=== PATIENT | male | born 1945 | race Caucasian/White ===

== ENCOUNTER 2023-12-08 18:19 | Emergency (ER) | payer MEDICARE, SELFPAY ==
--- NOTE | 2023-12-08 18:21 | ED.EPISTAXIS ---
History of Present Illness General Chief Complaint: Epistaxis Stated Complaint: Nosebleed x 1hr Time Seen by Provider: 12/08/23 19:22 History of Present Illness HPI Narrative: The patient is a 78-year-old male who was on anticoagulation because of atrial fibrillation. Over the last few days he has had some minor bleeding from his nose, mostly from the right nostril. He stopped taking his anticoagulation medication a couple of days ago because of this problem. Despite stopping the anticoagulation today he had a much more significant nosebleed, again mostly from the right nostril. He therefore came to the hospital. He had a friend drive him. The patient says he had a fairly severe nosebleed a few years ago. At that time he came to the emergency room and received a packing. He subsequently followed up with an ENT office and had cauterization done. Related Data Allergies Allergy/AdvReac Type Severity Reaction Status Date / Time Penicillins [PENICILLINS] Allergy Intermediate HIVES Verified 12/08/23 18:29 shellfish derived Allergy Intermediate HIVES Verified 12/08/23 18:29 [SHELLFISH DERIVED] Review of Systems Review of Systems: Yes all other systems are reviewed and are negative [facility] Social History Social History Advance Directives: No Advance Directives Information Provided: No Do you have a plan to hurt others: No Plan Physical Exam Vital Signs: Vital Signs: Last Vital Signs Temp 97.4 F 12/08/23 22:05 Pulse 88 12/08/23 22:05 Resp 16 12/08/23 22:05 BP 100/48 L 12/08/23 22:05 Pulse Ox 94 12/08/23 22:05 O2 Del Method Room Air 12/08/23 22:05 BMI result Body Mass Index 22.3 Const: Other: The patient is an elderly man who was awake and alert. He was not actively bleeding at the time that I saw him and he did not appear in acute distress HEENT: Other: There was a large blood clot in the right nostril. After he blew his nose this though there was an area of bleeding at the lower portion of the right septum. His airway was clear Eyes: Other: Pupils are round equal, conjunctivae are clear Resp: Effort & Inspection: normal respiratory effort Auscultation: clear to auscultation bilaterally Cardio: Other: Irregular rate and rhythm Skin: Other: Skin is pale and dry Neuro: Other: The patient is awake, alert, oriented, appropriate. He seems grossly neurologically intact Course Course Course Narrative: This is a Rapid Medical Examination (RME) performed by Kunal Young PA-C in triage. Full HPI, ROS, assessment and treatment plan per primary provider in the Main ED. 78 yo male here for eval of intermittent epistaxis x3 days, constant x1 hour. on xarelto for afib. self discontinued this 3 days ago d/t nose bleed. Bleeding from both nares, right greater than left. Unable to control bleeding in triage or visualize source. Plan: Labs, hemostasis Medications Administered Discontinued Medications Generic Name Dose Route Start Last Admin Trade Name Freq PRN Reason Stop Dose Admin Cocaine HCl 4 ml 12/08/23 19:29 12/08/23 19:38 Cocaine Hcl 4 % 4 Ml Solution TOPICAL 12/08/23 19:30 4 ml ONCE ONE Administration Protocol Lidocaine/Epinephrine 10 ml 12/08/23 22:07 12/08/23 22:43 Lidocaine Hcl 1%/Epi 1:100,000 10 Ml Vial INFILTRATI 12/08/23 22:08 10 ml ONCE ONE Administration Oxymetazoline HCl 2 spray 12/08/23 19:29 12/08/23 19:38 Oxymetazoline Hcl 0.05 % Nasal 15 Ml [place] NOSTRIL-B 12/08/23 19:30 2 spray ONCE ONE Administration Tranexamic Acid 500 mg 12/08/23 22:37 12/08/23 22:42 Tranexamic Acid 1,000 Mg/10 Ml Vial INTRANASAL 12/08/23 22:38 500 mg ONCE ONE Administration Medical Decision Making Medical Decision Making MDM Narrative: The patient is here with a spontaneous right-sided nosebleed. He is normally on rivaroxaban because of atrial fibrillation but he has not taken this medication for 4 days because of his bleeding. There was an apparent area of bleeding at the base of the right nasal septum. The patient blow his nose to get out all the clots. I then administered multiple sprays of oxymetazoline to both nostrils. A nasal clamp was applied for 10 minutes. I re-examined the patient and then inserted a cotton ball soaked in 4% cocaine in the right nostril. After this had been in place for about 10 minutes I then used silver nitrate sticks to cauterize what seemed to be the source of bleeding which was fairly low down on the septum. I was able to cauterize what seemed to be the major site of bleeding. There was no significant recurrence of bleeding but I felt there was some pooling of blood further back in the nostril that was hard to visualize well. Ultimately I inserted another cotton ball soaked with lidocaine with epinephrine (I had used all the cocaine). After this I attempted to cauterize a possible bleeding site a little bit further back in the nostril. The patient was again observed. Again he did not seem to have significant ongoing bleeding but there was a vague sense of a pool of blood back in the nostril. I then administered 10 mL of atomized TXA. The patient was observed. There was no ongoing bleeding. Ultimately I felt that the patient could be discharged without a packing. He should call the ENT office tomorrow. He should stay off his anticoagulant medication until he has had 3 days without significant bleeding. I reviewed what he should do at home if he has recurrent bleeding. He was given the bottle of the residual oxymetazoline which he may use if he has recurrent bleeding at home. He was also given additional nasal clamps. Lab Data 12/08/23 18:51 12/08/23 18:52 Labs: Lab Results 12/08/23 12/08/23 Range/Units 18:51 18:52 WBC 6.9 (4.8-10.8) X10*3/uL RBC 4.00 L (4.60-5.80) X10*6/uL Hgb 12.3 L (14.0-18.0) g/dl Hct 36.5 L (42.0-52.0) % MCV 91.3 (80.0-98.0) fL MCH 30.8 (27.0-33.0) pg MCHC 33.7 (31.0-36.0) g/dl RDW 14.1 (11.0-16.0) % Plt Count 129 L (160-400) X10*3/uL MPV 10.0 (9.4-12.4) fL Immature Gran % (Auto) 0.3 (0.0-0.4) % Neut % (Auto) 69.8 (45-73) % Lymph % (Auto) 21.9 (20-40) % [place] % (Auto) 6.5 (2-11) % Eos % (Auto) 1.2 (0-4) % Baso % (Auto) 0.3 (0-2) % Lymph # (Auto) 1.5 (1.2-4.9) X10*3/uL [place] # (Auto) 0.5 (0.1-1.2) X10*3/uL Eos # (Auto) 0.1 (0.0-0.4) X10*3/uL Baso # (Auto) 0.0 (0.0-0.2) X10*3/uL Abs Immat Gran (auto) 0.02 (0.00-0.03) X10*3/uL Absolute Neuts (auto) 4.8 (2.0-8.3) x10*3/uL Absolute Nucleated RBC 0.000 (0.0-0.012) X10*3/uL Nucleated RBC % (auto) 0.0 (0.0-0.2) /100WBC PT 14.3 H (11.1-13.3) SEC INR 1.2 H (0.9-1.1) APTT 32.4 (26.0-36.8) SEC Sodium 136 (135-145) mmol/L Potassium 4.5 (3.3-5.1) mmol/L Chloride 105 (96-108) mmol/L Carbon Dioxide 20 L (22-29) mmol/L Anion Gap 16 (12-20) BUN 20 H (9-16) mg/dL Creatinine 0.73 (0.5-1.4) mg/dL Estim Creat Clear Calc 79.8 Estimated GFR > 60 Random Glucose 99 (60-115) mg/dL Calcium 9.7 (8.4-10.2) mg/dL Total Bilirubin 0.9 (0.0-1.0) mg/dL AST 40 H (5-37) U/L ALT 40 (0-40) U/L Alkaline Phosphatase 157 H (39-117) U/L Total Protein 6.6 (6.5-8.0) g/dL Albumin 4.1 (3.5-5.0) g/dL Procedures Epistaxis Control Time Out Performed: Yes Nostril: Yes right Nose prepped with: Yes cocaine 4%, Yes lidocaine and Yes oxymetazoline Direct inspection: Yes anterior source identified Direct inspection method: Yes nasal speculum Clots removed by: Yes blowing nose Epistaxis treatment: Yes silver nitrate cautery Results of treatment: Yes bleeding controlled and Yes treatment well tolerated Discharge Plan Discharge Clinical Impression: Right-sided epistaxis Patient Disposition: Home, Self-Care Instructions: Nosebleed (ED) Additional Instructions: You had bleeding from your right nostril. I have cauterized all the most obvious sites of bleeding. My hope is that you do not have any recurrence of your bleeding. Please avoid hot beverages for the next several days. Additionally I would not restart your anticoagulation medication until you have had 3 days without significant bleeding. If you have recurrence of significant bleeding at home I would recommend blowing your nose to get out the clots, giving yourself several sprays of the oxymetazoline nasal spray we have given you, and then applying the nasal clamp to your nose again. Keep the clamp on for 20 minutes. If after 20 minutes you are no longer bleeding you do not need to come to the emergency room. Please contact the ENT office tomorrow morning for a follow up appointment. Emergency room if significantly worse. Referrals: David Bran MD [Physician] - (epistaxis) Mare Wells MD [Primary Care Provider] - (nosebleed) Print Language: Nigerian
[2023-12-08 18:23] VITALS: BP 150/91; PULSE 112; RESP 18; TEMP 36.8; O2SAT 95; BMI 22.3
[2023-12-08 18:55] LABS: MANUAL DIFF FLAG NO
[2023-12-08 18:56] LABS: Basophils Percent Auto 0.3 % (0-2); Imm Gran Abs Auto 0.02 X10*3/uL (0.00-0.03); Imm Gran Pct Auto 0.3 % (0.0-0.4); Mean Corpuscular Volume 91.3 fL (80.0-98.0); PLT CLUMP 1; SCAN SMEAR FLAG 1
[2023-12-08 18:58] LABS: Eosinophils Absolute Auto 0.1 X10*3/uL (0.0-0.4); Eosinophils Percent Auto 1.2 % (0-4); Hematocrit 36.5 % (42.0-52.0); Hemoglobin 12.3 g/dl (14.0-18.0); Lymphocytes Absolute Auto 1.5 X10*3/uL (1.2-4.9); Lymphocytes Percent Auto 21.9 % (20-40); Mean Corpuscular HGB Conc 33.7 g/dl (31.0-36.0); Mean Corpuscular Hemoglobin 30.8 pg (27.0-33.0); Monocytes Absolute Auto 0.5 X10*3/uL (0.1-1.2); Monocytes Percent Auto 6.5 % (2-11); Neutrophils Absolute Auto 4.8 x10*3/uL (2.0-8.3); Neutrophils Percent Auto 69.8 % (45-73); Red Cell Distribution Width 14.1 % (11.0-16.0)
[2023-12-08 19:02] LABS: INTERNATIONAL NORM RATIO 1.2 (0.9-1.1); Prothrombin Time 14.3 SEC (11.1-13.3)
[2023-12-08 19:03] LABS: Platelet Count 129 X10*3/uL (160-400); White Blood Count 6.9 X10*3/uL (4.8-10.8)
[2023-12-08 19:04] LABS: Partial Thromboplastin Time 32.4 SEC (26.0-36.8)
[2023-12-08 19:10] LABS: Alanine Aminotransferase 40 U/L (0-40); Albumin Level 4.1 g/dL (3.5-5.0); Alkaline Phosphatase 157 U/L (39-117); Anion Gap 16 (12-20); Aspartate Amino Transferase 40 U/L (5-37); Bilirubin Total 0.9 mg/dL (0.0-1.0); Blood Urea Nitrogen 20 mg/dL (9-16); Calcium 9.7 mg/dL (8.4-10.2); Carbon Dioxide 20 mmol/L (22-29); Chloride 105 mmol/L (96-108); Creatinine Clr Calc Pharmacy 79.8; Estimated Glomerular Filt Rate > 60; Glucose Random 99 mg/dL (60-115); Potassium 4.5 mmol/L (3.3-5.1); Sodium 136 mmol/L (135-145); Total Protein 6.6 g/dL (6.5-8.0)
[2023-12-08] MEDS: Cocaine HCl 4 % 4 ML SOLUTION TOPICAL (19:38)
[2023-12-08] MEDS: Oxymetazoline HCl 0.05 % Nasal 15 ML SPRAY 2 SPRAY NOSTRIL-B (19:38)
[2023-12-08 22:05] VITALS: BP 100/48; PULSE 88; RESP 16; TEMP 36.3; O2SAT 94
[2023-12-08] MEDS: Tranexamic Acid 1,000 MG/10 ML VIAL 500 MG INTRANASAL (22:42)
[2023-12-08] MEDS: Lidocaine HCl 1%/Epi 1:100,000 10 ML VIAL INFILTRATI (22:43)
--- NOTE | 2023-12-08 22:43 | PC.NURSE ---
tranexamic acid and xylocaine given by provider.
[2023-12-08 23:07] VITALS: BP 100/48; PULSE 88; RESP 18; TEMP 36.2; O2SAT 94
== END 2023-12-08 23:08 | disposition home or self-care (01) ==
PROVIDERS: Physician Assistant Medical; Emergency Provider Emergency Medicine; PCP Internal Medicine
DX: R04.0 Epistaxis (principal); I48.91 Unspecified atrial fibrillation; Z79.01 Long term (current) use of anticoagulants
CPT/HCPCS: 30901; 36415; 80053; 85025; 85610; 85730; 99284; C9143

== ENCOUNTER 2023-12-11 18:16 | Inpatient (IN) | payer MEDICARE, SELFPAY ==
--- NOTE | ~2023-12-11 | FL_ITS ---
EXAMINATION: XR FLUOROSCOPY WITH IMAGES CLINICAL INFORMATION: ORIF right femoral fracture COMPARISON: None available. TECHNIQUE: Fluoroscopy Supervised By: Dr Russell Verma. Fluoroscopy Time: 1.3 minutes. Cumulative Dose: 14.2 mGy. DAP: 0.247 Gycm2. Images: 6. Impression/findings: Placement of intramedullary justine transfixing distal femoral fracture. Proximal and distal locking screws in place. There is also an orthopedic screw transfixing the fracture at the metadiaphysis extending AP
--- NOTE | ~2023-12-11 | XR_ITS ---
EXAMINATION: XR PELVIS CLINICAL INFORMATION: Status post fall. COMPARISON: None available. TECHNIQUE: AP view of the pelvis. FINDINGS: Bones are osteopenic. Mild osteoarthritis in both hips with marginal osteophytes. There is ossific bridging across the pubic symphysis. SI joints are unremarkable. Degenerative spondylosis is present in the lower lumbar spine. Vascular calcifications are present in the iliac and femoral arteries. Metallic structures overlying the pubic symphysis likely correspond to fiducial markers. XR/XR pelvis 1-2V IMPRESSION: 1. No acute fracture or malalignment in the pelvis. 2. Mild osteoarthritis in the hips.
--- NOTE | ~2023-12-11 | CT_ITS ---
EXAMINATION: CT FEMUR WITHOUT CONTRAST, RIGHT CLINICAL INFORMATION: Femoral fracture. Preoperative. COMPARISON: None available. TECHNIQUE: Multidetector volumetric imaging was obtained through the right femur without contrast. Multiplanar reformatted images in coronal and sagittal orientations were submitted. This CT examination was performed using dose optimization techniques as appropriate, variously including the following: *Automated exposure control *Adjustment of mA and/or kV According to patient size (this includes techniques or standardized protocols for targeted exams where dose is matched to indication/reason for exam; i.e. extremities or head) *Use of iterative reconstruction technique DLP: 338 mGy-cm FINDINGS: As in the prior radiograph, there is a displaced oblique/spiral fracture of the distal femoral metadiaphysis with foreshortening at the fracture site by 4.5 cm due to posterior medial and proximal displacement of the distal fracture fragment. Additionally, there is an internal rotation component to the distal femoral fracture fragment measuring approximately 20 degrees. There is an oblique sagittal split component of the fracture from the medial cortex through the central trochlea and intercondylar notch. There is diastases of the intercondylar fracture line to 5 mm at the articular surface of the lateral trochlear facet inferiorly adjacent to the trochlear groove. This fracture line also involves the weightbearing surface of the lateral femoral condyle with a similar degree of displacement. There is a large lipohemarthrosis at the right knee. The patella, tibial plateau, and proximal fibula are intact. Right knee joint spaces appear relatively well-preserved. There is significant soft tissue swelling around the distal femoral fracture within the quadriceps musculature. Mild anasarca. Imaged portion of the osseous pelvis is intact with mild osteoarthritis of both hips. Calcific atherosclerosis is present throughout the imaged iliac, femoral, and popliteal arteries. CT/CT femur RT wo IV con IMPRESSION: 1. Displaced oblique/spiral distal femoral metadiaphyseal fracture with a minimally displaced sagittal intercondylar split component through the trochlea and intercondylar notch. 2. Large lipohemarthrosis. 3. Marked peripheral vascular disease.
--- NOTE | ~2023-12-11 | XR_ITS ---
EXAMINATION: XR KNEE, RIGHT CLINICAL INFORMATION: Knee pain. COMPARISON: None available. TECHNIQUE: AP and lateral views of the right knee. FINDINGS: Bones are osteopenic. There is a spiral fracture of the distal femoral metadiaphysis with posteromedial displacement of the distal fragment by one third of the shaft width. Joint spaces appear normal. No joint effusion. Atherosclerotic calcifications are present at the popliteal fossa and runoff vessels. XR/XR knee RT 2V IMPRESSION: Displaced spiral fracture of the distal femoral metadiaphysis.
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
--- NOTE | ~2023-12-11 | XR_ITS ---
EXAMINATION: XR CHEST CLINICAL INFORMATION: Bilateral crackles. History of CHF. COMPARISON: Previous chest x-ray 12/12/2023 TECHNIQUE: Frontal view of the chest was obtained. FINDINGS: Post CABG changes. The cardiac and mediastinal contours are stable. Severe atherosclerotic disease. The lungs are clear. No pleural effusion. Biapical pleural calcification. Degenerative changes of the spine. Median sternotomy wires. XR/XR chest 1V IMPRESSION: No evidence of CHF.
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
--- NOTE | ~2023-12-11 | XR_ITS ---
EXAMINATION: XR CHEST CLINICAL INFORMATION: Preop. COMPARISON: None available. TECHNIQUE: Frontal view of the chest was obtained. FINDINGS: The cardiomediastinal silhouette is within normal limits. There has been a previous median sternotomy. There is no focal lung consolidation or pleural effusion. There is arteriovascular calcification. The bony structures and soft tissues are unremarkable. XR/XR chest 1V IMPRESSION: No acute cardiopulmonary disease.
[2023-12-11 18:41] VITALS: BP 132/57; PULSE 74; RESP 20; TEMP 36.3; O2SAT 96; BMI 21.4
--- NOTE | 2023-12-11 19:51 | ED_ITS ---
HPI - Fall General Chief Complaint: Fall Stated Complaint: FELL DOWN FLIGHT OF STAIRS, +THINNERS Time Seen by Provider: 12/11/23 19:51 Source: patient Mode of arrival: EMS Limitations: no limitations History of Present Illness HPI Narrative: Patient is legally blind was coming downstairs lost balance and fell flights of stairs mostly on his buttocks injured his right femur comes here with obvious deformity of the right femur no other injuries no loss of consciousness no head injury patient is is on Xarelto but has not taken for 3 days for nosebleed Related Data Allergies Allergy/AdvReac Type Severity Reaction Status Date / Time Penicillins [PENICILLINS] Allergy Intermediate HIVES Verified 12/11/23 18:42 shellfish derived Allergy Intermediate HIVES Verified 12/11/23 18:42 [SHELLFISH DERIVED] Review of Systems 2 Review of Systems: Yes all other systems are reviewed and are negative PMFSH Past Medical History Medical History Afib Chronic anticoagulation Coronary artery disease HFrEF (heart failure with reduced ejection fraction) Surgical History Hx of CABG Social History Social History Unable to assess alcohol history related to: Unable to respond Alcohol intake: former Patient Tobacco Use Status: Tobacco use Unknown Smoked in Last 30 Days: No Use of substances other than those prescribed or required for medical reasons: No Advance Directives: No Advance Directives Information Provided: No Do you have a plan to hurt others: No Plan Nutrition Risks: No Nutritional Risk Physical Exam 2 Vital Signs: Vital Signs: Last Vital Signs Temp 98.3 F 12/11/23 20:28 Pulse 83 12/11/23 22:57 Resp 7 L 12/11/23 23:15 BP 145/60 H 12/11/23 22:57 Pulse Ox 94 12/11/23 22:57 O2 Del Method Room Air 12/11/23 22:57 BMI result Body Mass Index 21.4 Appearance: Alert. Oriented X3. No acute distress. Eyes: PERRLA, No Nystagmus ENT: Pharynx normal. Oral Mucosa moist Neck: Normal inspection. Neck supple. No midline tenderness CVS: Normal heart rate and rhythm. Pulses normal. Respiratory: No respiratory distress. Equal air entry bilateral, no wheezing/rales/rhonchi Abdomen: Soft and nontender. Bowel sounds are present, no mass palpable, Skin: Skin warm and dry. Normal skin color. Normal skin turgor. Extremities: No lower extremity edema. No calf tenderness right lower femur with obvious deformity and tenderness neurovascular intact Neuro: Oriented X 3. No motor deficit. No sensory deficit.No cerebellar signs , cranial nerves II-XII intact Medications Administered Generic Name Dose Route Start Last Admin Trade Name Freq PRN Reason Stop Dose Admin Morphine Sulfate 4 mg 12/11/23 21:20 12/11/23 23:15 Morphine Sulfate 4 Mg/Ml Cartridge IVPUSH 4 mg Q4H PRN Administration Pain, Severe (Pain Scale 7-10) Protocol Sodium Chloride 3 ml 12/12/23 00:00 12/11/23 23:48 0.9 % Sodium Chloride Flush 3 Ml Syringe IVFLUSH 3 ml QSHIFT MARIA EUGENIA Administration Discontinued Medications Generic Name Dose Route Start Last Admin Trade Name Freq PRN Reason Stop Dose Admin Morphine Sulfate 4 mg 12/11/23 19:58 12/11/23 20:09 Morphine Sulfate 4 Mg/Ml Cartridge IVPUSH 12/11/23 19:59 4 mg ONCE ONE Administration Protocol Ondansetron HCl 4 mg 12/11/23 19:58 12/11/23 20:09 Ondansetron Hcl 4 Mg/2 Ml Vial IVPUSH 12/11/23 19:59 4 mg ONCE ONE Administration Medical Decision Making Medical Decision Making [facility] Narrative: Patient is status post mechanical fall with spiral fracture of right distal femoral off Xarelto 3 days case discussed with orthopedic plan to do surgery evaluate the patient a.m.. Patient admit to medical service Differential Diagnosis Differential Diagnoses: The differential diagnosis associated with the presentation includes Admission/Observation Consideration of admission/observation: Escalation of care including admission/observation considered Consult Healthcare Provider Management of the patient was discussed with: Hospitalist Lab Data [facility] Lab Attestation statement: I reviewed the patient's lab results. 12/11/23 20:15 12/11/23 20:45 Labs: Lab Results 12/11/23 12/11/23 12/11/23 Range/Units 20:15 20:45 23:07 WBC 10.7 (4.8-10.8) X10*3/uL RBC 3.66 L (4.60-5.80) X10*6/uL Hgb 11.2 L (14.0-18.0) g/dl Hct 32.9 L (42.0-52.0) % MCV 89.9 (80.0-98.0) fL MCH 30.6 (27.0-33.0) pg MCHC 34.0 (31.0-36.0) g/dl RDW 13.9 (11.0-16.0) % Plt Count 113 L (160-400) X10*3/uL MPV 10.5 (9.4-12.4) fL Immature Gran % (Auto) 0.3 (0.0-0.4) % Neut % (Auto) 83.4 H (45-73) % Lymph % (Auto) 9.6 L (20-40) % [place] % (Auto) 6.1 (2-11) % Eos % (Auto) 0.3 (0-4) % Baso % (Auto) 0.3 (0-2) % Lymph # (Auto) 1.0 L (1.2-4.9) X10*3/uL [place] # (Auto) 0.7 (0.1-1.2) X10*3/uL Eos # (Auto) 0.0 (0.0-0.4) X10*3/uL Baso # (Auto) 0.0 (0.0-0.2) X10*3/uL Abs Immat Gran (auto) 0.03 (0.00-0.03) X10*3/uL Absolute Neuts (auto) 8.9 H (2.0-8.3) x10*3/uL Absolute Nucleated RBC 0.000 (0.0-0.012) X10*3/uL Nucleated RBC % (auto) 0.0 (0.0-0.2) /100WBC PT 16.3 H (11.1-13.3) SEC INR 1.3 H (0.9-1.1) APTT 29.1 (26.0-36.8) SEC Sodium 133 L (135-145) mmol/L Potassium 3.6 (3.3-5.1) mmol/L Chloride 99 (96-108) mmol/L Carbon Dioxide 22 (22-29) mmol/L Anion Gap 16 (12-20) BUN 20 H (9-16) mg/dL Creatinine 0.83 (0.5-1.4) mg/dL Estim Creat Clear Calc 69.3 Estimated GFR > 60 Random Glucose 113 (60-115) mg/dL Calcium 9.0 D (8.4-10.2) mg/dL Total Bilirubin 1.4 H (0.0-1.0) mg/dL AST 33 (5-37) U/L ALT 35 (0-40) U/L Alkaline Phosphatase 135 H (39-117) U/L B-Natriuretic Peptide 1854 H (<100) pg/mL Total Protein 6.1 L (6.5-8.0) g/dL Albumin 3.9 (3.5-5.0) g/dL Independent Interpretation I performed an independent interpretation of an: EKG, Plain X-Ray and CT Scan Interpretation: AFib ventricular rate 90 beats per minute no acute ST T wave changes no acute ischemia Radiology Impression Discussion of test interpretation with radiology: I have reviewed the radiologist's reading. Discharge Plan Discharge Clinical Impression: Femur fracture, right Patient Disposition: Admitted As Inpatient
--- NOTE | 2023-12-11 20:00 | PC.NURSE ---
Patent is alert and oriented x3, VSS. 20 G IV line established in R AC, labs drawn and sent to lab. [place] cath applied to promote comfort with urination. Patient medicated per MAR. Patient's at beside, Call angelo within patient's reach. Plan of care ongoing.
[2023-12-11 20:09] VITALS: RESP 16
[2023-12-11] MEDS: ondansetron HCL 4 MG/2 ML VIAL IVPUSH (20:09)
[2023-12-11] MEDS: Morphine Sulfate 4 MG/ML CARTRIDGE IVPUSH ×2 (20:09→23:15)
[2023-12-11 20:20] LABS: MANUAL DIFF FLAG NO
[2023-12-11 20:25] LABS: Basophils Percent Auto 0.3 % (0-2); Eosinophils Percent Auto 0.3 % (0-4); Hematocrit 32.9 % (42.0-52.0); Hemoglobin 11.2 g/dl (14.0-18.0); Imm Gran Abs Auto 0.03 X10*3/uL (0.00-0.03); Imm Gran Pct Auto 0.3 % (0.0-0.4); Lymphocytes Percent Auto 9.6 % (20-40); Mean Corpuscular Hemoglobin 30.6 pg (27.0-33.0); Mean Corpuscular Volume 89.9 fL (80.0-98.0); Mean Platelet Volume 10.5 fL (9.4-12.4); Monocytes Absolute Auto 0.7 X10*3/uL (0.1-1.2); Monocytes Percent Auto 6.1 % (2-11); Neutrophils Absolute Auto 8.9 x10*3/uL (2.0-8.3); Neutrophils Percent Auto 83.4 % (45-73); Platelet Count 113 X10*3/uL (160-400); Red Blood Count 3.66 X10*6/uL (4.60-5.80); Red Cell Distribution Width 13.9 % (11.0-16.0); White Blood Count 10.7 X10*3/uL (4.8-10.8)
[2023-12-11 20:28] VITALS: BP 122/57; PULSE 85; RESP 21; TEMP 36.8; O2SAT 95
[2023-12-11 20:31] LABS: INTERNATIONAL NORM RATIO 1.3 (0.9-1.1); Prothrombin Time 16.3 SEC (11.1-13.3)
[2023-12-11 20:34] LABS: Partial Thromboplastin Time 29.1 SEC (26.0-36.8)
[2023-12-11 21:03] LABS: Alanine Aminotransferase 35 U/L (0-40); Albumin Level 3.9 g/dL (3.5-5.0); Alkaline Phosphatase 135 U/L (39-117); Anion Gap 16 (12-20); Aspartate Amino Transferase 33 U/L (5-37); Bilirubin Total 1.4 mg/dL (0.0-1.0); Blood Urea Nitrogen 20 mg/dL (9-16); Carbon Dioxide 22 mmol/L (22-29); Chloride 99 mmol/L (96-108); Creatinine Clr Calc Pharmacy 69.3; Estimated Glomerular Filt Rate > 60; Glucose Random 113 mg/dL (60-115); Potassium 3.6 mmol/L (3.3-5.1); Sodium 133 mmol/L (135-145); Total Protein 6.1 g/dL (6.5-8.0)
--- NOTE | 2023-12-11 21:21 | PM.IMHP ---
History of Present Illness Date of Service: 12/11/23 Chief Complaint: Fall This is a 78-year-old male with pertinent history of congestive heart failure with reduced ejection fraction, AFib on Xarelto, CAD status post CABG, legally blind who presents to the emergency department for evaluation after a fall. 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 States as he was going down the stairs to use restroom, he lost his balance and fell on his buttocks and right hip. Difficulty moving the right lower extremity after the fall. No loss of consciousness, chest pain or palpitations prior to the fall. No rhythmic jerking movement of extremities. No fever, chills, chest discomfort, palpitations, shortness of breath, abdominal pain, changes in urinary or bowel habits. In the emergency department, imaging with displaced femur fracture. Review of Systems Constitutional: Constitutional: Reports no additional constitutional complaints Cardiovascular: Cardiovascular: Reports no additional cardiovascular complaints Respiratory: Respiratory: Reports no additional respiratory complaints Gastrointestinal: Gastrointestinal: Reports no additional gastrointestinal complaints Genitourinary: Genitourinary: Reports no additional male genitourinary complaints Musculoskeletal: Musculoskeletal: Reports arthralgias and Reports joint swelling [facility] Medical History Afib Chronic anticoagulation Coronary artery disease HFrEF (heart failure with reduced ejection fraction) Pertinent family history: Not significant due to age Surgical History Hx of CABG Social History Alcohol intake: former Smoked in Last 30 Days: No Use of substances other than those prescribed or required for medical reasons: No Advance Directives: No Advance Directives Information Provided: No Do you have a plan to hurt others: No Plan Meds Allergies Allergy/AdvReac Type Severity Reaction Status Date / Time Penicillins [PENICILLINS] Allergy Intermediate HIVES Verified 12/11/23 18:42 shellfish derived Allergy Intermediate HIVES Verified 12/11/23 18:42 [SHELLFISH DERIVED] Physical Exam Vital Signs and Narrative: Vital Signs: Last Vital Signs Temp 98.3 F 12/11/23 20:28 Pulse 85 12/11/23 20:28 Resp 21 H 12/11/23 20:28 BP 122/57 L 12/11/23 20:28 Pulse Ox 95 12/11/23 20:28 O2 Del Method Room Air 12/11/23 20:28 BMI result Body Mass Index 21.4 Elderly male lying in bed in no distress Neck supple, no JVD Regular rate and rhythm, S1-S2 heard Regular breath sounds bilaterally, no wheezing or crackles appreciated Abdomen soft nontender, no guarding, no rigidity Patient is awake, alert and oriented to self, place, time and person ; no focal motor deficit Psych: Normal mood Limited motion of right lower extremity due to pain Results Labs 12/11/23 20:15 12/11/23 20:45 Labs: Laboratory Results - last 24 hr 12/11/23 12/11/23 20:15 20:45 MCV 89.9 MCH 30.6 MCHC 34.0 RDW 13.9 Plt Count 113 L MPV 10.5 Immature Gran % (Auto) 0.3 Neut % (Auto) 83.4 H Lymph % (Auto) 9.6 L [place] % (Auto) 6.1 Eos % (Auto) 0.3 Baso % (Auto) 0.3 Lymph # (Auto) 1.0 L [place] # (Auto) 0.7 Eos # (Auto) 0.0 Baso # (Auto) 0.0 Abs Immat Gran (auto) 0.03 Absolute Neuts (auto) 8.9 H Absolute Nucleated RBC 0.000 Nucleated RBC % (auto) 0.0 PT 16.3 H INR 1.3 H APTT 29.1 Anion Gap 16 Estim Creat Clear Calc 69.3 Estimated GFR > 60 Random Glucose 113 Calcium 9.0 D Total Bilirubin 1.4 H AST 33 ALT 35 Alkaline Phosphatase 135 H Total Protein 6.1 L Albumin 3.9 Assessment and Plan (1) Femur fracture: Status: Acute Plan This is a 78-year-old male with pertinent history of congestive heart failure with reduced ejection fraction, AFib on Xarelto, CAD status post CABG, legally blind who presents to the emergency department for evaluation after a fall. #. Displaced femur fracture due to fall: Will admit patient with IV opioids p.r.n. for analgesia. Consulting Orthopedic surgery #. Preoperative risk: RCRI 2. Obtaining BNP #. Congestive heart failure with reduced ejection fraction: On Entresto, beta-cory and Lasix #. Atrial fibrillation: Last Xarelto 3 days ago, continue to hold. Rate controlled in the ER #. CAD status post CABG: Not on antiplatelet agent. He is on high-intensity statin Med rec pending DVT prophylaxis: Mechanical Full code. Discussed with patient and healthcare proxy at bedside Admit as inpatient and will require two night minimum hospital stay for management of femur fracture (as above), which is not possible in a lesser acute setting. Specialist consult pending Quality Stroke Does the patient have a stroke diagnosis?: No VTE Prior VTE?: No VTE Risk Level:: Medical - moderate - high VTE Device Contraindication: N/A - Device Ordered VTE Drug Contraindication: Treatment Not Indicated
--- NOTE | 2023-12-11 21:39 | PC.NURSE ---
C-collar removed per Dr. Pawan rae.
[2023-12-11 22:57] VITALS: BP 145/60; PULSE 83; RESP 18; O2SAT 94
[2023-12-11 23:15] VITALS: RESP 7
[2023-12-11 23:32] LABS: B Type Natriuretic Peptide 1854 pg/mL (<100)
[2023-12-11] MEDS: 0.9 % Sodium Chloride Flush 3 ML SYRINGE IVFLUSH (23:48)
--- NOTE | 2023-12-12 00:08 | PC.NURSE ---
Patient's took all of patient's belongings including cell phone and wallet home with her.
--- NOTE | 2023-12-12 02:27 | ECG_ITS ---
Test Reason : PREOP Blood Pressure : / mmHG Vent. Rate : 090 BPM Atrial Rate : 000 BPM P-R Int : 000 ms QRS Dur : 098 ms QT Int : 380 ms P-R-T Axes : 000 028 103 degrees QTc Int : 464 ms Atrial fibrillation with a competing junctional pacemaker Nonspecific T wave abnormality Prolonged QT Abnormal ECG No previous ECGs available Referred By: Fili Gutierrez Electronically Signed By:Jermaine Pavon
[2023-12-12 03:21] VITALS: RESP 18
[2023-12-12] MEDS: Morphine Sulfate 4 MG/ML CARTRIDGE IVPUSH ×6 (03:21→22:56)
[2023-12-12 05:44] VITALS: BP 123/74; PULSE 82; RESP 16; O2SAT 96
[2023-12-12 05:50] LABS: Mean Corpuscular Volume 90.6 fL (80.0-98.0); PLT CLUMP 1; Red Cell Distribution Width 13.9 % (11.0-16.0); SCAN SMEAR FLAG 1
[2023-12-12 05:51] LABS: Basophils Percent Auto 0.2 % (0-2); Hematocrit 32.9 % (42.0-52.0); Hemoglobin 10.9 g/dl (14.0-18.0); Imm Gran Abs Auto 0.05 X10*3/uL (0.00-0.03); Imm Gran Pct Auto 0.5 % (0.0-0.4); Lymphocytes Absolute Auto 1.3 X10*3/uL (1.2-4.9); Lymphocytes Percent Auto 12.1 % (20-40); Mean Corpuscular HGB Conc 33.1 g/dl (31.0-36.0); Mean Platelet Volume 10.5 fL (9.4-12.4); Monocytes Absolute Auto 0.9 X10*3/uL (0.1-1.2); Neutrophils Absolute Auto 8.4 x10*3/uL (2.0-8.3); Neutrophils Percent Auto 79.2 % (45-73); Red Blood Count 3.63 X10*6/uL (4.60-5.80)
[2023-12-12 05:58] LABS: MANUAL DIFF FLAG NO; Platelet Count 113 X10*3/uL (160-400); White Blood Count 10.6 X10*3/uL (4.8-10.8)
[2023-12-12 06:04] LABS: Anion Gap 13 (12-20); Blood Urea Nitrogen 21 mg/dL (9-16); Calcium 9.1 mg/dL (8.4-10.2); Carbon Dioxide 23 mmol/L (22-29); Chloride 98 mmol/L (96-108); Creatinine Clr Calc Pharmacy 66.9; Estimated Glomerular Filt Rate > 60; Glucose Random 109 mg/dL (60-115); Potassium 4.2 mmol/L (3.3-5.1); Sodium 130 mmol/L (135-145)
[2023-12-12 09:07] VITALS: BP 130/74
[2023-12-12] MEDS: Furosemide 20 MG TABLET PO (09:07)
--- NOTE | 2023-12-12 09:36 | PHA.MEDREC ---
Addendum entered by Lena Pruitt, [facility] 12/19/23 09:59: Spoke to Lurdes [place], she wants us to put the xarelto back into patient's home med so she can continue it here (pt told her that he had stopped taking it for about 6 days from before admission due to nose bleed). Original Note: Pharmacy Consult ? Medication Reconciliation Pharmacy has completed the medication reconciliation. Spoke to patient and family member at bedside. Patient was a great historian. OF NOTE: patient self discontinued his Xarelto due to nose bleeds.
--- NOTE | 2023-12-12 13:36 | HO.PM.IMPN ---
Subjective Subjective Date of Service: 12/12/23 Review of Systems Follow up fall, femur fx pain with movement resting in bed Physical Exam Vital Signs: Vital Signs: Last Vital Signs Temp 98.3 F 12/11/23 20:28 Pulse 82 12/12/23 05:44 Resp 16 12/12/23 05:44 BP 130/74 12/12/23 09:07 Pulse Ox 96 12/12/23 05:44 O2 Del Method Room Air 12/12/23 05:44 BMI result Body Mass Index 21.4 Appearing in no acute distress lung sounds are clear to auscultation heart regular rate rhythm, clear S1, S2 positive bowel sounds, abdomen is soft, nontender neuro patient is alert x3, no focal deficits Objective Data Active Medications Acetaminophen (Acetaminophen 325 Mg Tablet) 650 mg PO Q6H PRN PRN Reason: Pain, Mild (Pain Scale 1-3) Albuterol Sulfate (Albuterol Sulfate 90 Mcg 8 Gm Inhaler) 2 puff INHALE RQID PRN PRN Reason: wheezing Furosemide (Furosemide 20 Mg Tablet) 20 mg PO DAILY [facility]; Protocol Last Admin: 12/12/23 09:07 Dose: 20 mg Documented By: SAYDA Lorazepam (Lorazepam 0.5 Mg Tablet) 0.5 mg PO DAILY PRN PRN Reason: anxiety Melatonin (Melatonin 3 Mg Tablet) 6 mg PO BEDTIME PRN PRN Reason: Insomnia Morphine Sulfate (Morphine Sulfate 4 Mg/Ml Cartridge) 4 mg IVPUSH Q4H PRN; Protocol PRN Reason: Pain, Severe (Pain Scale 7-10) Last Admin: 12/12/23 11:10 Dose: 4 mg Documented By: SAYDA Ondansetron HCl (Ondansetron Hcl 4 Mg/2 Ml Vial) 4 mg IVPUSH Q8H PRN PRN Reason: Nausea and Vomiting Sodium Chloride (0.9 % Sodium Chloride Flush 3 Ml Syringe) 3 ml IVFLUSH QSHIFT [facility] Last Admin: 12/12/23 10:38 Dose: Not Given Documented By: SAYDA Non-Admin Reason: IV Running Labs 12/12/23 05:16 12/12/23 05:16 Labs: Laboratory Results - last 24 hr 12/11/23 12/11/23 12/11/23 20:15 20:45 23:07 MCV 89.9 MCH 30.6 MCHC 34.0 RDW 13.9 Plt Count 113 L MPV 10.5 Immature Gran % (Auto) 0.3 Neut % (Auto) 83.4 H Lymph % (Auto) 9.6 L Barbour % (Auto) 6.1 Eos % (Auto) 0.3 Baso % (Auto) 0.3 Lymph # (Auto) 1.0 L Barbour # (Auto) 0.7 Eos # (Auto) 0.0 Baso # (Auto) 0.0 Abs Immat Gran (auto) 0.03 Absolute Neuts (auto) 8.9 H Absolute Nucleated RBC 0.000 Nucleated RBC % (auto) 0.0 PT 16.3 H INR 1.3 H APTT 29.1 Anion Gap 16 Estim Creat Clear Calc 69.3 Estimated GFR > 60 Random Glucose 113 Calcium 9.0 D Total Bilirubin 1.4 H AST 33 ALT 35 Alkaline Phosphatase 135 H B-Natriuretic Peptide 1854 H Total Protein 6.1 L Albumin 3.9 12/12/23 05:16 MCV 90.6 MCH 30.0 MCHC 33.1 RDW 13.9 Plt Count 113 L MPV 10.5 Immature Gran % (Auto) 0.5 H Neut % (Auto) 79.2 H Lymph % (Auto) 12.1 L Barbour % (Auto) 8.0 Eos % (Auto) 0.0 Baso % (Auto) 0.2 Lymph # (Auto) 1.3 Barbour # (Auto) 0.9 Eos # (Auto) 0.0 Baso # (Auto) 0.0 Abs Immat Gran (auto) 0.05 H Absolute Neuts (auto) 8.4 H Absolute Nucleated RBC 0.000 Nucleated RBC % (auto) 0.0 PT INR APTT Anion Gap 13 Estim Creat Clear Calc 66.9 Estimated GFR > 60 Random Glucose 109 Calcium 9.1 Total Bilirubin AST ALT Alkaline Phosphatase B-Natriuretic Peptide Total Protein Albumin Assessment and Plan (1) Femur fracture, right: Status: Acute Plan This is a 78-year-old male with pertinent history of congestive heart failure with reduced ejection fraction, AFib on Xarelto, CAD status post CABG, legally blind who presents to the emergency department for evaluation after a fall. Displaced femur fracture due to fall continue IV opioids p.r.n. for analgesia. Consulting Orthopedic surgery npo after midnight Preoperative risk RCRI 2. Hyponatremia NA 130 urine lytes and osmo pending Congestive heart failure with reduced ejection fraction On Entresto, beta-cory and Lasix Atrial fibrillation Last Xarelto 6 days ago, continue to hold. Rate controlled in the ER CAD status post CABG Not on antiplatelet agent. on high-intensity statin DVT prophylaxis: Mechanical Full code. Discussed with patient and healthcare proxy at bedside continue hospital stay for management of femur fracture (as above), which is not possible in a lesser acute setting. Specialist consult pending Quality Stroke Does the patient have a stroke diagnosis?: No VTE Prior VTE?: No VTE Risk Level:: Medical - moderate - high VTE Device Contraindication: N/A - Device Ordered VTE Drug Contraindication: Treatment Not Indicated
[2023-12-12 14:35] LABS: Sodium 132 mmol/L (135-145)
[2023-12-12] MEDS: 0.9 % Sodium Chloride Flush 3 ML SYRINGE IVFLUSH (14:54)
--- NOTE | 2023-12-12 15:37 | PM.EVENT ---
Event Note Date of Service: 12/12/23 Event Note: right distal femur fracture in a patient that is ambulatory tentative plan for OR tomorrow for IMN vs Plate NPO after midnight full consult note to follow Time Spent With Patient Time: Total time managing care of this patient today ____ minutes.
[2023-12-12 17:39] LABS: Appearance Urine Clear; Color Urine Yellow; Glucose Urine UA Negative (Negative); Leukocyte Esterase Urine Negative (Negative); Nitrite Urine Negative (Negative); Specific Gravity - Urine 1.015 (1.005-1.025); Urine Blood Negative (Negative); Urine Ketones Negative (Negative); Urine Protein Trace mg/dL (Neg-Trace)
--- NOTE | 2023-12-12 19:25 | PC.NURSE ---
assist with repositioning for comfort. pt tolerated well. able to make needs known and help with moving. pt reported some pain to R heel, heel elevated off bed
[2023-12-12 20:27] VITALS: BP 108/46; PULSE 73; RESP 16; TEMP 36.8; O2SAT 97
[2023-12-12 20:56] LABS: Potassium Urine Random 49.4 mmol/L
[2023-12-12 21:18] LABS: Osmolality Urine 477 mosm/kg (373-1093)
--- NOTE | 2023-12-12 23:08 | PC.NURSE ---
pt in pain, requested pain meds. pt medicated per SEP.repositioned. pt eating pb crackers at this time. pt aware of NPO status after midnight
[2023-12-13 00:05] VITALS: BP 113/57; PULSE 77; RESP 16; TEMP 36.4; O2SAT 94
[2023-12-13] MEDS: Morphine Sulfate 4 MG/ML CARTRIDGE IVPUSH ×5 (04:21→20:53)
[2023-12-13] MEDS: 0.9 % Sodium Chloride Flush 3 ML SYRINGE IVFLUSH ×2 (04:28→22:34)
[2023-12-13 08:30] VITALS: BMI 22.2
[2023-12-13 08:38] VITALS: BP 118/66; PULSE 94; RESP 17; TEMP 36.6; O2SAT 90
--- NOTE | 2023-12-13 08:48 | P.CONOP_ITS ---
History of Present Illness HPI Consult date: 12/13/23 Chief complaint: Fall Narrative: 78-year-old male with pertinent history of congestive heart failure with reduced ejection fraction, AFib on Xarelto, CAD status post CABG, legally blind who was admitted to the medical service after sustaining a fall over the weekend. He states he was on the stairs and he lost his balance and fell backwards. He was unable to get up and ambulate. EMS transported him to the ED, xrays significant for distal femur fracture. Patient states he does live alone but does have close friends that help him. He does ambulate. Orthopedics was consulted for further recommendations. Review of Systems 2 Review of Systems: Yes all other systems are reviewed and are negative PMFSH Past Medical History Medical History Afib Chronic anticoagulation Coronary artery disease HFrEF (heart failure with reduced ejection fraction) Surgical History Surgical History Hx of CABG Social History Social History Household Members: Spouse Housing: House Do you presently have visiting nurse or other home services: No Unable to assess alcohol history related to: Unable to respond Alcohol intake: former Patient Tobacco Use Status: Never used Tobacco Meds Allergies Allergy/AdvReac Type Severity Reaction Status Date / Time Penicillins [PENICILLINS] Allergy Intermediate HIVES Verified 12/11/23 18:42 shellfish derived Allergy Intermediate HIVES Verified 12/11/23 18:42 [SHELLFISH DERIVED] Active Medications: Current Medications Acetaminophen (Acetaminophen 325 Mg Tablet) 650 mg PO Q6H PRN PRN Reason: Pain, Mild (Pain Scale 1-3) Albuterol Sulfate (Albuterol Sulfate 90 Mcg 8 Gm Inhaler) 2 puff INHALE RQID PRN PRN Reason: wheezing Furosemide (Furosemide 20 Mg Tablet) 20 mg PO DAILY [facility]; Protocol Last Admin: 12/12/23 09:07 Dose: 20 mg Lorazepam (Lorazepam 0.5 Mg Tablet) 0.5 mg PO DAILY PRN PRN Reason: anxiety Melatonin (Melatonin 3 Mg Tablet) 6 mg PO BEDTIME PRN PRN Reason: Insomnia Morphine Sulfate (Morphine Sulfate 4 Mg/Ml Cartridge) 4 mg IVPUSH Q4H PRN; Protocol PRN Reason: Pain, Severe (Pain Scale 7-10) Last Admin: 12/13/23 04:21 Dose: 4 mg Multivitamins/Vitamin C (Multivitamin Tablet) 1 tab PO DAILY [facility] Non-Formulary Medication (Vit C,E-Kf-Iotfm-Lutein-Zeaxan [Preservision Areds-2]) 1 tab PO BID [facility] Ondansetron HCl (Ondansetron Hcl 4 Mg/2 Ml Vial) 4 mg IVPUSH Q8H PRN PRN Reason: Nausea and Vomiting Sodium Chloride (0.9 % Sodium Chloride Flush 3 Ml Syringe) 3 ml IVFLUSH QSHIFT [facility] Last Admin: 12/13/23 07:36 Dose: Not Given Home Medications ?Medication ?Instructions ?Recorded ?Confirmed ?Last Taken ?Type albuterol sulfate 90 mcg/actuation 2 puff inhalation QID PRN wheezing 12/12/23 12/12/23 Unknown History aerosol inhaler furosemide 20 mg tablet 20 mg PO DAILY 12/12/23 12/12/23 Unknown History lorazepam 0.5 mg tablet 0.5 mg PO DAILY PRN anxiety 12/12/23 12/12/23 Unknown History multivitamin with minerals-folic 1 tab PO DAILY 12/12/23 12/12/23 Unknown History acid 80 mcg chewable tablet (Centrum Adult 50 Plus) rosuvastatin 5 mg tablet 5 mg PO DAILY 12/12/23 12/12/23 Unknown History vit C 250 mg-vit E 90 mg-zinc 40 1 tab PO BID 12/12/23 12/12/23 Unknown History mg-copper 1 th-rtfyff-laeytp capsule (PreserVision AREDS-2) Physical Exam 2 Vital Signs: Vital Signs: Last Vital Signs Temp 98 F 12/13/23 08:38 Pulse 94 12/13/23 08:38 Resp 17 12/13/23 08:38 BP 118/66 12/13/23 08:38 Pulse Ox 90 L 12/13/23 08:38 O2 Del Method Room Air 12/13/23 08:38 BMI result Body Mass Index 22.2 Const: General: cooperative, healthy appearing, comfortable, no acute distress, well developed and alert Orientation/consciousness: patient oriented x3 HEENT: Head: Yes normal to inspection, Yes normocephalic and Yes atraumatic Eyes: General: appearance normal, both eyes and all related structures Neck: Neck: Yes normal visual inspection and Yes no lymphadenopathy Resp: Effort & Inspection: normal respiratory effort and able to speak in complete sentences Cardio: Rate: regular rate Peripheral pulses: Peripheral pulses 2+ throughout GI: Inspection: Yes normal to inspection Palpation (GI): Soft to palpation Skin: General skin exam: no rashes or lesions noted Neuro: General: patient oriented x3 Extrem: Other: Right hip has abraison over the lateral aspect without drainage. No eopen wounds distally. He is able to plantar and dorsi flex the foot. NVI. Psych: Appearance: grossly normal Mental Status: mental status grossly normal Results Labs 12/12/23 05:16 12/13/23 09:00 Labs: Abnormal lab results 12/12/23 Range/Units 14:13 Sodium 132 L (135-145) mmol/L H & H 12/11/23 12/12/23 Range/Units 20:15 05:16 Hgb 11.2 L 10.9 L (14.0-18.0) g/dl Hct 32.9 L 32.9 L (42.0-52.0) % Coagulation 12/11/23 Range/Units 20:15 INR 1.3 H (0.9-1.1) All other labs normal. Assessment and Plan (1) Femur fracture, right: Status: Acute Plan Cardiac plan: Plan Echocardiogram from [id number] [id number]%; akinesis of mid to distal inferolateral wall, inferior wall, distal septal wall and apex. Advanced diastolic dysfunction with restrictive filling. Calcific aortic valve but no significant stenosis and [id number] regurgitation. Moderate mitral regurgitation. Moderate to severe tricuspid regurgitation. Reduced RV function. Mild aortic dilatation. Dilated IVC with diminished respiratory variation. Myocardial perfusion imaging study from 2022-large fixed defect, entire inferolateral wall suggestive of scar. Currently, cardiac BNP is high at 1854 but we do not have a baseline. Overall, based on the cardiac comorbidities and above findings, considered to be at high cardiac risk for surgery. Risks include myocardial infarction, worsening congestive heart failure, . These were clearly discussed with patient as well as at the bedside. They understand. Avoid excessive IV fluids. Monitor for any congestive heart failure. Discussed with Lurdes Guthrie. I discussed the case with Dr Angeles and explained the extent of the injury to the patient and options available which include surgical intervention. I explained the procedure in detail along with the length of recovery and rehab course. I explained the risk, benefits and alternatives. Risk including, but not limited to infection, blood clots, bleeding, non union or malunion and nerve/tissue damage to surrounding areas and decompensation to overall health. I answered all their questions and with their understanding they have consented to move forward with Operative Fixation of the right femur . The patient will be T&S, med clearance obtained and NPO . Procedures Date of Service Date of Service: 12/13/23
--- NOTE | 2023-12-13 09:11 | P.CONCA_ITS ---
History of Present Illness History of Present Illness Date of Service: 12/13/23 Chief complaint: Fall Narrative: This is a cardiology consultation regarding preoperative risk stratification for femur surgery. Patient generally seen at [facility]. Last appointment was in 2022. Per that note, history of coronary artery disease with bypass surgery almost 20 years ago. He also has paroxysmal atrial fibrillation/flutter with ablations in the past. In 2022, he had heart failure symptoms and it seems that led to an echocardiogram showed severe LV dysfunction with an ejection fraction of 20-25% as well as advanced diastolic dysfunction with significant tricuspid regurgitation. He is managed on diuretics as well as heart failure medications and for the most part seems okay. No recent heart failure hospitalizations. No active chest pain or breathing issues or in fact anything clear-cut cardiac. It seems that he can not see well and that led to taking a wrong step on the stairs and leading to a fall. Now has femur fracture and plan for surgery today. Also discussed with was at the bedside. Review of Systems 2 Review of Systems: Yes all other systems are reviewed and are negative Constitutional: Constitutional: Reports as per HPI and Reports no additional constitutional complaints Eyes: Eyes: Reports as per HPI and Denies no additional eye complaints ENT: Denies system reviewed and no additional complaints, except as documented and Reports as per HPI Cardiovascular: Cardiovascular: Reports as per HPI, Reports no additional cardiovascular complaints, Denies acrocyanosis, Denies cool extremities, Denies chest pain, Denies leg edema, Denies lightheadedness, Denies palpitations and Denies dyspnea Respiratory: Respiratory: Reports as per HPI, Denies no additional respiratory complaints and Denies dyspnea Gastrointestinal: Gastrointestinal: Reports as per HPI and Denies no additional gastrointestinal complaints Genitourinary: Genitourinary: Reports no additional male genitourinary complaints and Reports as per HPI Musculoskeletal: Musculoskeletal: Reports no additional musculoskeletal complaints and Reports as per HPI Integumentary/Breasts: Skin/Breast: Reports system reviewed and no additional complaints, except as docu Neurologic: Reports system reviewed and no additional complaints, except as documented and Reports as per HPI Psychiatric: Psychiatric: Reports no additional psychiatric complaints and Reports as per HPI Endocrine: Endocrine: Reports no additional endocrine complaints, Reports as per HPI and Denies palpitations Hematologic/Lymphatic: Hematologic/Lymphatic: Reports no additional hematologic/lymphatic complaints and Reports as per HPI Allergic/Immunologic: Allergic/Immunologic: Reports no additional allergic/immunologic complaints and Reports as per HPI [facility] Past Medical History Medical History Afib Chronic anticoagulation Coronary artery disease HFrEF (heart failure with reduced ejection fraction) Family History Pertinent family history: No pertinent family history. Surgical History Surgical History Hx of CABG Social History Social History Household Members: Spouse Housing: House Do you presently have visiting nurse or other home services: No Unable to assess alcohol history related to: Unable to respond Alcohol intake: former Patient Tobacco Use Status: Never used Tobacco Meds Allergies Allergy/AdvReac Type Severity Reaction Status Date / Time Penicillins [PENICILLINS] Allergy Intermediate HIVES Verified 12/11/23 18:42 shellfish derived Allergy Intermediate HIVES Verified 12/11/23 18:42 [SHELLFISH DERIVED] Active Medications: Current Medications Acetaminophen (Acetaminophen 325 Mg Tablet) 650 mg PO Q6H PRN PRN Reason: Pain, Mild (Pain Scale 1-3) Albuterol Sulfate (Albuterol Sulfate 90 Mcg 8 Gm Inhaler) 2 puff INHALE RQID PRN PRN Reason: wheezing Furosemide (Furosemide 20 Mg Tablet) 20 mg PO DAILY MARIA EUGENIA; Protocol Last Admin: 12/12/23 09:07 Dose: 20 mg Lorazepam (Lorazepam 0.5 Mg Tablet) 0.5 mg PO DAILY PRN PRN Reason: anxiety Melatonin (Melatonin 3 Mg Tablet) 6 mg PO BEDTIME PRN PRN Reason: Insomnia Morphine Sulfate (Morphine Sulfate 4 Mg/Ml Cartridge) 4 mg IVPUSH Q4H PRN; Protocol PRN Reason: Pain, Severe (Pain Scale 7-10) Last Admin: 12/13/23 04:21 Dose: 4 mg Multivitamins/Vitamin C (Multivitamin Tablet) 1 tab PO DAILY MARIA EUGENIA Non-Formulary Medication (Vit C,E-Am-Inqtk-Lutein-Zeaxan [Preservision Areds-2]) 1 tab PO BID MARIA EUGENIA Ondansetron HCl (Ondansetron Hcl 4 Mg/2 Ml Vial) 4 mg IVPUSH Q8H PRN PRN Reason: Nausea and Vomiting Sodium Chloride (0.9 % Sodium Chloride Flush 3 Ml Syringe) 3 ml IVFLUSH QSHIFT [facility] Last Admin: 12/13/23 07:36 Dose: Not Given Home Medications ?Medication ?Instructions ?Recorded ?Confirmed ?Last Taken ?Type albuterol sulfate 90 mcg/actuation 2 puff inhalation QID PRN wheezing 12/12/23 12/12/23 Unknown History aerosol inhaler furosemide 20 mg tablet 20 mg PO DAILY 12/12/23 12/12/23 Unknown History lorazepam 0.5 mg tablet 0.5 mg PO DAILY PRN anxiety 12/12/23 12/12/23 Unknown History multivitamin with minerals-folic 1 tab PO DAILY 12/12/23 12/12/23 Unknown History acid 80 mcg chewable tablet (Centrum Adult 50 Plus) rosuvastatin 5 mg tablet 5 mg PO DAILY 12/12/23 12/12/23 Unknown History vit C 250 mg-vit E 90 mg-zinc 40 1 tab PO BID 12/12/23 12/12/23 Unknown History mg-copper 1 kr-nhvoho-jiloht capsule (PreserVision AREDS-2) Physical Exam 2 Vital Signs: Vital Signs: Last Vital Signs Temp 98 F 12/13/23 08:38 Pulse 94 12/13/23 08:38 Resp 17 12/13/23 08:38 BP 118/66 12/13/23 08:38 Pulse Ox 90 L 12/13/23 08:38 O2 Del Method Room Air 12/13/23 08:38 BMI result Body Mass Index 22.2 Const: General: comfortable and no acute distress O rientation/consciousness: patient oriented x3 HEENT: Other: Unremarkable Head: Yes normal to inspection Neck: Neck: Yes normal visual inspection Chest: Chest palpation & inspection: normal inspection of the chest Resp: Other: Few basilar crackles; difficult to auscultate because of position. Cardio: Palpation: normal PMI Heart sounds: S1 normal heart sound present, S2 normal heart sound present, no gallops, Murmur heart sound present systolic II/ and at the right sternal border and no rubs GI: Palpation (GI): Soft to palpation Back/Spine/Pelvis: Other: unremarkable Skin: General skin exam: no rashes or lesions noted Neuro: General: patient oriented x3 Extrem: General: Yes normal to inspection Psych: Mental Status: mental status grossly normal Objective Labs and Meds 12/12/23 05:16 12/12/23 14:13 Lab results: Laboratory Results - last 24 hr 12/12/23 12/12/23 14:13 17:24 Sodium 132 L Urine Color Yellow Urine Appearance Clear Urine pH 6.0 Ur Specific [place] 1.015 Urine Protein Trace Urine Glucose (UA) Negative Urine Ketones Negative Urine Blood Negative Urine Nitrite Negative Ur Leukocyte Esterase Negative Urine Osmolality 477 Ur Random Sodium 70.0 Ur Random Potassium 49.4 Ur Random Chloride 96.0 ECG Interpretation: EKG with atrial fibrillation at a rate of 90/Min; nonspecific ST-T changes. Imaging Radiologist's impression: Impressions Femur CT 12/12/23 18:08 IMPRESSION: 1. Displaced oblique/spiral distal femoral metadiaphyseal fracture with a minimally displaced sagittal intercondylar split component through the trochlea and intercondylar notch. 2. Large lipohemarthrosis. 3. Marked peripheral vascular disease. Assessment and Plan (1) Preoperative cardiovascular examination: Status: Acute (2) Hx of CABG: Status: Acute (3) Coronary artery disease: Status: Acute (4) Persistent atrial fibrillation: Status: Acute (5) Ischemic cardiomyopathy: Status: Acute (6) Chronic combined systolic and diastolic CHF (congestive heart failure): Status: Acute Plan Echocardiogram from [id number] 20-25%; akinesis of mid to distal inferolateral wall, inferior wall, distal septal wall and apex. Advanced diastolic dysfunction with restrictive filling. Calcific aortic valve but no significant stenosis and [id number] regurgitation. Moderate mitral regurgitation. Moderate to severe tricuspid regurgitation. Reduced RV function. Mild aortic dilatation. Dilated IVC with diminished respiratory variation. Myocardial perfusion imaging study from 2022-large fixed defect, entire inferolateral wall suggestive of scar. Currently, cardiac BNP is high at 1854 but we do not have a baseline. Overall, based on the cardiac comorbidities and above findings, considered to be at high cardiac risk for surgery. Risks include myocardial infarction, worsening congestive heart failure, . These were clearly discussed with patient as well as at the bedside. They understand. Avoid excessive IV fluids. Monitor for any congestive heart failure. Discussed with Lurdes Guthrie. Procedures Date of Service Date of Service: 12/13/23
[2023-12-13 09:19] VITALS: BP 118/66
[2023-12-13] MEDS: Multivitamin TABLET 1 TAB PO (09:19)
[2023-12-13] MEDS: Furosemide 20 MG TABLET PO (09:19)
[2023-12-13 09:32] LABS: B Type Natriuretic Peptide 553 pg/mL (<100)
[2023-12-13 09:36] LABS: Anion Gap 12 (12-20); Blood Urea Nitrogen 19 mg/dL (9-16); Calcium 8.7 mg/dL (8.4-10.2); Carbon Dioxide 26 mmol/L (22-29); Chloride 96 mmol/L (96-108); Creatinine Clr Calc Pharmacy 82.7; Estimated Glomerular Filt Rate > 60; Glucose Random 94 mg/dL (60-115); Sodium 130 mmol/L (135-145)
--- NOTE | 2023-12-13 10:32 | HO.PM.IMPN ---
Subjective Subjective Date of Service: 12/13/23 Review of Systems Follow up fall, femur fx pain with movement resting in bed Physical Exam Vital Signs: Vital Signs: Last Vital Signs Temp 98 F 12/13/23 08:38 Pulse 94 12/13/23 08:38 Resp 17 12/13/23 08:38 BP 118/66 12/13/23 09:19 Pulse Ox 90 L 12/13/23 08:38 O2 Del Method Room Air 12/13/23 08:38 BMI result Body Mass Index 22.2 Appearing in no acute distress lung sounds are clear to auscultation heart regular rate rhythm, clear S1, S2 positive bowel sounds, abdomen is soft, nontender neuro patient is alert x3, no focal deficits Objective Data Active Medications Acetaminophen (Acetaminophen 325 Mg Tablet) 650 mg PO Q6H PRN PRN Reason: Pain, Mild (Pain Scale 1-3) Albuterol Sulfate (Albuterol Sulfate 90 Mcg 8 Gm Inhaler) 2 puff INHALE RQID PRN PRN Reason: wheezing Furosemide (Furosemide 20 Mg Tablet) 20 mg PO DAILY [facility]; Protocol Last Admin: 12/13/23 09:19 Dose: 20 mg Documented By: SAYDA Lorazepam (Lorazepam 0.5 Mg Tablet) 0.5 mg PO DAILY PRN PRN Reason: anxiety Melatonin (Melatonin 3 Mg Tablet) 6 mg PO BEDTIME PRN PRN Reason: Insomnia Morphine Sulfate (Morphine Sulfate 4 Mg/Ml Cartridge) 4 mg IVPUSH Q4H PRN; Protocol PRN Reason: Pain, Severe (Pain Scale 7-10) Last Admin: 12/13/23 09:17 Dose: 4 mg Documented By: SAYDA Multivitamins/Vitamin C (Multivitamin Tablet) 1 tab PO DAILY [facility] Last Admin: 12/13/23 09:19 Dose: 1 tab Documented By: SAYDA Non-Formulary Medication (Vit C,N-Qz-Jqiil-Lutein-Zeaxan [Preservision Areds-2]) 1 tab PO BID [facility] Ondansetron HCl (Ondansetron Hcl 4 Mg/2 Ml Vial) 4 mg IVPUSH Q8H PRN PRN Reason: Nausea and Vomiting Sodium Chloride (0.9 % Sodium Chloride Flush 3 Ml Syringe) 3 ml IVFLUSH QSHIFT [facility] Last Admin: 12/13/23 07:36 Dose: Not Given Documented By: SAMMY Non-Admin Reason: Previously Administered Labs 12/12/23 05:16 12/13/23 09:00 Labs: Laboratory Results - last 24 hr 12/12/23 12/13/23 17:24 09:00 Anion Gap 12 Estim Creat Clear Calc 82.7 Estimated GFR > 60 Random Glucose 94 Calcium 8.7 B-Natriuretic Peptide 553 H Urine Color Yellow Urine Appearance Clear Urine pH 6.0 Ur Specific [place] 1.015 Urine Protein Trace Urine Glucose (UA) Negative Urine Ketones Negative Urine Blood Negative Urine Nitrite Negative Ur Leukocyte Esterase Negative Urine Osmolality 477 Ur Random Sodium 70.0 Ur Random Potassium 49.4 Ur Random Chloride 96.0 Assessment and Plan (1) Femur fracture, right: Status: Acute Plan This is a 78-year-old male with pertinent history of congestive heart failure with reduced ejection fraction, AFib on Xarelto, CAD status post CABG, legally blind who presents to the emergency department for evaluation after a fall. Displaced femur fracture due to fall continue IV opioids p.r.n. for analgesia. Consulting Orthopedic surgery>plan for OR today Preoperative risk RCRI 2. high cardiac risk as per cardiology Hyponatremia NA 130 urine sodium 70 likely SIADH stop lasix for now Congestive heart failure with reduced ejection fraction On Entresto, beta-cory, hold Lasix Atrial fibrillation Last Xarelto 7 days ago, continue to hold. Rate controlled in the ER CAD status post CABG Not on antiplatelet agent. on high-intensity statin DVT prophylaxis: Mechanical Attending Dr. Baum Full code. Discussed with patient and healthcare proxy at bedside continue hospital stay for management of femur fracture (as above), which is not possible in a lesser acute setting. Specialist consult pending Quality Stroke Does the patient have a stroke diagnosis?: No VTE Prior VTE?: No VTE Risk Level:: Medical - moderate - high VTE Device Contraindication: N/A - Device Ordered VTE Drug Contraindication: Treatment Not Indicated
[2023-12-13 11:26] LABS: Anion Gap 11 (12-20); Blood Urea Nitrogen 19 mg/dL (9-16); Calcium 8.8 mg/dL (8.4-10.2); Carbon Dioxide 27 mmol/L (22-29); Chloride 95 mmol/L (96-108); Creatinine Clr Calc Pharmacy 83.9; Estimated Glomerular Filt Rate > 60; Glucose Random 92 mg/dL (60-115); Potassium 3.9 mmol/L (3.3-5.1); Sodium 129 mmol/L (135-145)
[2023-12-13] MEDS: 0.9 % Sodium Chloride 1,000 ML 100 ML IVCONT (12:46)
--- NOTE | 2023-12-13 12:52 | P.CDIM_ITS ---
PROVIDER RESPONSE TEXT: To clarify, the appropriate diagnosis supported by the clinical indicators: Chronic systolic congestive heart failure QUERY TEXT: PHYSICIAN'S DOCUMENTATION REQUEST Date of Query: 12/13/2023 12:01 PM EDT Patient Name: Angelito Simental Admit Date: 12/12/2023 Dear Lurdes Guthrie, A review of the medical record indicates additional documentation may be needed. Please review below and update the documentation accordingly. Clinical Indicators: Cardiology consult note 12/11 - Echo from [facility] LVEF 20-25% Advanced diastolic dysfunction. Moderate jesus ral regurgitation. Moderate to severe tricuspid regurgitation. Overall based on cardiac findings high risk for worsening CHF. Assessment and plan: Chronic combined diastolic/systolic Congestive heart failure, acute Progress note 12/11 - Congestive heart failure with reduced ejection fraction. On Entresto, beta-cory, hold lasix. BNP 1854 Please provide further specificity regarding the most likely type and acuity of CHF you are evaluatin g, treating, or monitoring. Acute on chronic systolic congestive heart failure Acute on chronic diastolic/systolic congestive heart failure Chronic systolic congestive heart failure Chronic systolic/diastolic congestive heart failure Other (explain) Clinically unable to determine (explain) Thank you, Divya Blue, CCS, CDIS Use of terms such as suspected, likely, concern for, or probable (associated with a specific diagnosi s that is being evaluated, monitored, or treated as if it exists) are acceptable and can be coded in the inpatient se tting, when documented at the time of discharge. Please use your independent medical judgment in providing your response. THIS QUERY IS PART OF THE PERMANENT MEDICAL RECORD
--- NOTE | 2023-12-13 12:56 | HO.WOUND ---
Wound Consult: Initial 78yr old Male admitted to [facility] on 12/11/23 - See progress notes and H&P for detailed history.? Wound consult placed for right hip abrasion s/p fall .? Patient agreeable to assessment and photo documentation.? Right Trochanter area Etiology: Abrasion Measurements: 1.5cm x 3cm x 0.1cm Wound Bed: partial thickness tissue loss - dried red wound bed Drainage / Odor: none noted Edges: ? irregular attached Consuelo wound: ?Intact No Induration, Fluctuance or Warmth noted Pain: mild irritation noted Goals of Treatment: ? Moist wound healing with xeroform and foam dressing Recommendations: 1. Right Trochanter - Cleanse with Ns moist gauze, pat dry. cover wound bed with xeroform, followed by foam dressing. Change every other day. Re-consult wound care Nurse for wound deterioration or wound changes.
--- NOTE | 2023-12-13 13:15 | MHC.CM.PN ---
IMM 12/13/23 DX s/p fall. He is legally blind. He lives by himself; but, he receives assistance from his friend /HCP/ Merlyn. He is independent with a functional mobility. 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 She comes in to clean once a week. DP is depends on the PT eval. STR vs Home with services. Patient will provide preferences once PT has completed the evaluation. Transport at discharge BLS likely.
[2023-12-13 15:35] LABS: Sodium 129 mmol/L (135-145)
[2023-12-13 15:57] VITALS: BP 98/64; PULSE 97; RESP 18; TEMP 37.4; O2SAT 93
[2023-12-13] MEDS: VIT C E ZN COPPR LUTEIN ZEAXAN PO (18:27)
[2023-12-13] MEDS: [UNRECOGNIZED DRUG - OTHER] PO (18:27)
[2023-12-13 19:48] VITALS: BP 119/71; PULSE 108; RESP 16; TEMP 37; O2SAT 93
[2023-12-13 20:06] LABS: Sodium 127 mmol/L (135-145)
[2023-12-13] MEDS: Melatonin 3 MG TABLET 6 MG PO (20:53)
[2023-12-14 01:43] LABS: Sodium 128 mmol/L (135-145)
[2023-12-14 03:40] VITALS: BP 112/51; PULSE 90; RESP 18; TEMP 36.8; O2SAT 92
[2023-12-14] MEDS: Morphine Sulfate 4 MG/ML CARTRIDGE IVPUSH ×3 (03:50→21:26)
[2023-12-14 07:53] VITALS: BP 122/57; PULSE 82; RESP 18; TEMP 36.7; O2SAT 95
--- NOTE | 2023-12-14 09:49 | HO.PM.IMPN ---
Subjective Subjective Date of Service: 12/14/23 Review of Systems Follow up fall, femur fx pain with movement resting in bed Physical Exam Vital Signs: Vital Signs: Last Vital Signs Temp 98.0 F 12/14/23 07:53 Pulse 82 12/14/23 07:53 Resp 18 12/14/23 07:53 BP 122/57 L 12/14/23 07:53 Pulse Ox 95 12/14/23 07:53 O2 Del Method Room Air 12/14/23 07:53 BMI result Body Mass Index 22.2 Appearing in no acute distress lung sounds are clear to auscultation heart regular rate rhythm, clear S1, S2 positive bowel sounds, abdomen is soft, nontender neuro patient is alert x3, no focal deficits Objective Data Active Medications Acetaminophen (Acetaminophen 325 Mg Tablet) 650 mg PO Q6H PRN PRN Reason: Pain, Mild (Pain Scale 1-3) Albuterol Sulfate (Albuterol Sulfate 90 Mcg 8 Gm Inhaler) 2 puff INHALE RQID PRN PRN Reason: wheezing Furosemide (Furosemide 20 Mg Tablet) 20 mg PO DAILY MARIA EUGENIA; Protocol Last Admin: 12/13/23 09:19 Dose: 20 mg Documented By: SAYDA Sodium Chloride (Ns) 1,000 mls @ 100 mls/hr IVCONT .Q10H [facility]IA EUGENIA Last Admin: 12/14/23 09:48 Dose: Not Given Documented By: LIONEL Non-Admin Reason: IV Running Lorazepam (Lorazepam 0.5 Mg Tablet) 0.5 mg PO DAILY PRN PRN Reason: anxiety Melatonin (Melatonin 3 Mg Tablet) 6 mg PO BEDTIME PRN PRN Reason: Insomnia Last Admin: 12/13/23 20:53 Dose: 6 mg Documented By: TL Morphine Sulfate (Morphine Sulfate 4 Mg/Ml Cartridge) 4 mg IVPUSH Q4H PRN; Protocol PRN Reason: Pain, Severe (Pain Scale 7-10) Last Admin: 12/14/23 03:50 Dose: 4 mg Documented By: TL Multivitamins/Vitamin C (Multivitamin Tablet) 1 tab PO DAILY COUNTS INCLUDE 234 BEDS AT THE [facility] Last Admin: 12/14/23 08:52 Dose: Not Given Documented By: LIONEL Non-Admin Reason: NPO Pt Own (Vit C,E-Zn- Rejwa-Nwsycv-Vwwsmq [Preservision Areds- 2] 250-90-40- 1 tab PO BIDWM COUNTS INCLUDE 234 BEDS AT THE [facility] Last Admin: 12/14/23 08:52 Dose: Not Given Documented By: LIONEL Non-Admin Reason: NPO Ondansetron HCl (Ondansetron Hcl 4 Mg/2 Ml Vial) 4 mg IVPUSH Q8H PRN PRN Reason: Nausea and Vomiting Sodium Chloride (0.9 % Sodium Chloride Flush 3 Ml Syringe) 3 ml IVFLUSH QSHIFT COUNTS INCLUDE 234 BEDS AT THE [facility] Last Admin: 12/14/23 08:01 Dose: Not Given Documented By: LIONEL Non-Admin Reason: IV Running Urea (Urea 15 Gm Powder) 30 gm PO BID COUNTS INCLUDE 234 BEDS AT THE [facility] Labs 12/12/23 05:16 12/14/23 01:19 Labs: Laboratory Results - last 24 hr 12/13/23 12/13/23 10:24 10:51 Anion Gap 11 L Estim Creat Clear Calc 83.9 Estimated GFR > 60 Random Glucose 92 Calcium 8.8 Blood Type O Positive Antibody Screen POSITIVE Antibody Identification Inconclusive Crossmatch (AHG) See Detail Assessment and Plan (1) Femur fracture, right: Status: Acute Plan This is a 78-year-old male with pertinent history of congestive heart failure with reduced ejection fraction, AFib on Xarelto, CAD status post CABG, legally blind who presents to the emergency department for evaluation after a fall. Hyponatremia NA 128 urine sodium 70 likely SIADH lasix stopped discussed with nephrology> start urea 30gm BID Displaced femur fracture due to fall continue IV opioids p.r.n. for analgesia. Consulting Orthopedic surgery>plan for OR when medically clear Preoperative risk RCRI 2. high cardiac risk as per cardiology Congestive heart failure with reduced ejection fraction On Entresto, beta-cory, hold Lasix Atrial fibrillation Last Xarelto 7 days ago, continue to hold. Rate controlled in the ER CAD status post CABG Not on antiplatelet agent. on high-intensity statin DVT prophylaxis: Mechanical Attending Dr. Baum Full code. Discussed with patient and healthcare proxy at bedside continue hospital stay for management of femur fracture (as above), which is not possible in a lesser acute setting. Specialist consult pending Quality Stroke Does the patient have a stroke diagnosis?: No VTE Prior VTE?: No VTE Risk Level:: Medical - moderate - high VTE Device Contraindication: N/A - Device Ordered VTE Drug Contraindication: Treatment Not Indicated
[2023-12-14 10:04] LABS: Sodium 129 mmol/L (135-145)
--- NOTE | 2023-12-14 10:06 | PM.CNNEP ---
History of Present Illness Reason for Consult Consult date: 12/15/23 Chief Complaint Chief complaint: Fall History of Present Illness Narrative: 78-year-old male with pertinent history of congestive heart failure with reduced ejection fraction, AFib on Xarelto, CAD status post CABG, legally blind who presents to the emergency department for evaluation after a fall. 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 States as he was going down the stairs to use restroom, he lost his balance and fell on his buttocks and right hip. Difficulty moving the right lower extremity after the fall. No loss of consciousness, chest pain or palpitations prior to the fall. No rhythmic jerking movement of extremities. No fever, chills, chest discomfort, palpitations, shortness of breath, abdominal pain, changes in urinary or bowel habits. Consult requested for hyponatremia Review of Systems Constitutional: Denies fever(s) and Denies weight loss Cardiovascular: Denies chest pain Respiratory: Denies cough and Denies hemoptysis Gastrointestinal: Denies abdominal pain, Denies diarrhea and Denies nausea Musculoskeletal: Denies back pain Denies focal weakness PMFSH Past Medical History Medical History Afib Chronic anticoagulation Coronary artery disease HFrEF (heart failure with reduced ejection fraction) Surgical History Surgical History Hx of CABG Social History Social History Household Members: Spouse Housing: House Do you presently have visiting nurse or other home services: No Unable to assess alcohol history related to: Unable to respond Alcohol intake: former Patient Tobacco Use Status: Never used Tobacco service: Yes Meds Allergies Allergy/AdvReac Type Severity Reaction Status Date / Time Penicillins [PENICILLINS] Allergy Intermediate HIVES Verified 12/11/23 18:42 shellfish derived Allergy Intermediate HIVES Verified 12/11/23 18:42 [SHELLFISH DERIVED] Active Medications: Current Medications Acetaminophen (Acetaminophen 325 Mg Tablet) 650 mg PO Q6H PRN PRN Reason: Pain, Mild (Pain Scale 1-3) Albuterol Sulfate (Albuterol Sulfate 90 Mcg 8 Gm Inhaler) 2 puff INHALE RQID PRN PRN Reason: wheezing Furosemide (Furosemide 20 Mg Tablet) 20 mg PO DAILY [facility]; Protocol Last Admin: 12/13/23 09:19 Dose: 20 mg Sodium Chloride (Ns) 1,000 mls @ 100 mls/hr IVCONT .Q10H [facility] Last Admin: 12/14/23 09:48 Dose: Not Given Cefazolin Sodium/Dextrose (Ancef) 2 gm in 50 mls @ 100 mls/hr IV PREOP ONE Stop: 12/14/23 10:29 Lorazepam (Lorazepam 0.5 Mg Tablet) 0.5 mg PO DAILY PRN PRN Reason: anxiety Melatonin (Melatonin 3 Mg Tablet) 6 mg PO BEDTIME PRN PRN Reason: Insomnia Last Admin: 12/13/23 20:53 Dose: 6 mg Morphine Sulfate (Morphine Sulfate 4 Mg/Ml Cartridge) 4 mg IVPUSH Q4H PRN; Protocol PRN Reason: Pain, Severe (Pain Scale 7-10) Last Admin: 12/14/23 03:50 Dose: 4 mg Multivitamins/Vitamin C (Multivitamin Tablet) 1 tab PO DAILY [facility] Last Admin: 12/14/23 08:52 Dose: Not Given Pt Own (Vit C,E-Zn- [id number]-Jxfhxw [Preservision Areds- 2] 250-90-40- 1 tab PO BIDWM [facility] Last Admin: 12/14/23 08:52 Dose: Not Given Ondansetron HCl (Ondansetron Hcl 4 Mg/2 Ml Vial) 4 mg IVPUSH Q8H PRN PRN Reason: Nausea and Vomiting Sodium Chloride (0.9 % Sodium Chloride Flush 3 Ml Syringe) 3 ml IVFLUSH QSHIFT [facility] Last Admin: 12/14/23 08:01 Dose: Not Given Urea (Urea 15 Gm Powder) 30 gm PO BID [facility] Home Medications ?Medication ?Instructions ?Recorded ?Confirmed ?Last Taken ?Type albuterol sulfate 90 mcg/actuation 2 puff inhalation QID PRN wheezing 12/12/23 12/12/23 Unknown History aerosol inhaler furosemide 20 mg tablet 20 mg PO DAILY 12/12/23 12/12/23 Unknown History lorazepam 0.5 mg tablet 0.5 mg PO DAILY PRN anxiety 12/12/23 12/12/23 Unknown History multivitamin with minerals-folic 1 tab PO DAILY 12/12/23 12/12/23 Unknown History acid 80 mcg chewable tablet (Centrum Adult 50 Plus) rosuvastatin 5 mg tablet 5 mg PO DAILY 12/12/23 12/12/23 Unknown History vit C 250 mg-vit E 90 mg-zinc 40 1 tab PO BID 12/12/23 12/12/23 Unknown History mg-copper 1 [id number] capsule (PreserVision AREDS-2) Physical Exam Vital Signs: Last Vital Signs Temp 98.0 F 12/14/23 07:53 Pulse 82 12/14/23 07:53 Resp 18 12/14/23 07:53 BP 122/57 L 12/14/23 07:53 Pulse Ox 95 12/14/23 07:53 O2 Del Method Room Air 12/14/23 07:53 BMI result Body Mass Index 22.2 Awake. Comfortable. Neck is supple. Mucosa moist. Lungs bilateral scattered rhonchi. Heart S1-S2 heard no gallop. Abdomen soft. Extremities no edema. No involuntary movements. No myoclonus. Results Lab Results 12/12/23 05:16 12/15/23 07:10 Lab results: Chemistry 12/11/23 12/12/23 12/12/23 20:45 05:16 14:13 Sodium 133 L 130 L 132 L Potassium 3.6 4.2 Carbon Dioxide 22 23 BUN 20 H 21 H Creatinine 0.83 0.86 Calcium 9.0 D 9.1 12/13/23 12/13/23 12/13/23 09:00 10:51 15:20 Sodium 130 L 129 L 129 L Potassium 4.0 3.9 Carbon Dioxide 26 27 BUN 19 H 19 H Creatinine 0.72 0.71 Calcium 8.7 8.8 12/13/23 12/14/23 12/14/23 19:53 01:19 09:31 Sodium 127 L 128 L 129 L Potassium Carbon Dioxide BUN Creatinine Calcium Hematology 12/11/23 12/12/23 20:15 05:16 WBC 10.7 10.6 Hgb 11.2 L 10.9 L Plt Count 113 L 113 L Urinalysis 12/12/23 17:24 Urine Color Yellow Urine Appearance Clear Urine pH 6.0 Ur Specific [place] 1.015 Urine Protein Trace Urine Glucose (UA) Negative Urine Ketones Negative Urine Blood Negative Urine Nitrite Negative Ur Leukocyte Esterase Negative Urine Studies 12/12/23 17:24 Urine Osmolality 477 Assessment and Plan (1) Hyponatremia: Status: Acute Plan Elderly man with asymptomatic hyponatremia. Based on the urine sodium and osmolality I believe he has non osmotic ADH release. Pain could be a potential source for ADH release. Goal is to maintain serum sodium more than 130 millimoles. Restrict oral free water intake. Agree with normal saline if needed. Add urea powder 30 g p.o. b.i.d. to increase osmotic load and gradually increase the serum sodium. Check serum osmolality with next blood draw Ordered cortisol and TSH for completion. Renal function stable at baseline Procedures Date of Service Date of Service: 12/15/23
[2023-12-14] MEDS: Urea 15 GM POWDER 30 GM PO ×2 (11:04→21:26)
[2023-12-14] MEDS: [UNRECOGNIZED DRUG - OTHER] PO ×2 (11:06→17:46)
[2023-12-14] MEDS: VIT C E ZN COPPR LUTEIN ZEAXAN PO ×2 (11:06→17:46)
[2023-12-14] MEDS: Multivitamin TABLET 1 TAB PO (11:06)
--- NOTE | 2023-12-14 14:34 | MHC.CM.PN ---
EMR reviewed. Per MD rounds patient is not medically cleared for dc, awaiting surgery. Will need PT eval post op. CM will continue to follow.
[2023-12-14] MEDS: 0.9 % Sodium Chloride Flush 3 ML SYRINGE IVFLUSH ×2 (15:09→21:30)
[2023-12-14 15:44] VITALS: BP 119/58; PULSE 93; RESP 16; TEMP 36.7; O2SAT 96
[2023-12-14 20:00] VITALS: BP 106/55; PULSE 97; RESP 18; TEMP 37.4; O2SAT 92
[2023-12-14] MEDS: Melatonin 3 MG TABLET 6 MG PO (21:26)
[2023-12-15] VITALS (27 sets, daily range): BP systolic 70–142; BP diastolic 31–96; PULSE 63–115; RESP 10–19; TEMP 36.3–37.2; O2SAT 93–99
[2023-12-15] MEDS: Morphine Sulfate 4 MG/ML CARTRIDGE IVPUSH ×3 (04:45→19:58)
[2023-12-15 07:55] LABS: Anion Gap 13 (12-20); Blood Urea Nitrogen 36 mg/dL (9-16); Calcium 8.7 mg/dL (8.4-10.2); Carbon Dioxide 24 mmol/L (22-29); Chloride 96 mmol/L (96-108); Creatinine Clr Calc Pharmacy 90.2; Estimated Glomerular Filt Rate > 60; Glucose Random 95 mg/dL (60-115); Potassium 3.7 mmol/L (3.3-5.1); Sodium 129 mmol/L (135-145)
[2023-12-15 08:01] LABS: Osmolality, Serum 274 mosm/kg (281-305)
[2023-12-15] MEDS: Multivitamin TABLET 1 TAB PO (08:09)
[2023-12-15] MEDS: VIT C E ZN COPPR LUTEIN ZEAXAN PO (08:09)
[2023-12-15] MEDS: ceFAZolin Sodium/Dextrose,Iso 2 GM/50 ML PIGGYBACK IV (08:09)
[2023-12-15] MEDS: [UNRECOGNIZED DRUG - OTHER] PO (08:09)
[2023-12-15 08:11] LABS: TSH reflex Free T4 1.67 uIU/mL (0.32-4.0)
[2023-12-15] MEDS: 0.9 % Sodium Chloride Flush 3 ML SYRINGE IVFLUSH ×2 (08:11→20:22)
[2023-12-15] MEDS: Acetaminophen 325 MG TABLET 650 MG PO (08:16)
[2023-12-15] MEDS: Urea 15 GM POWDER 30 GM PO ×2 (08:20→20:25)
--- NOTE | 2023-12-15 10:59 | P.PNNP_ITS ---
Subjective Subjective Date of Service: 12/19/23 Interval history: Events noted. Family at bedside. Scheduled for surgery today. Sodium at 01:29 millimoles. Physical Exam 2 Vital Signs: Vital Signs: Last Vital Signs Temp 98.0 F 12/15/23 07:20 Pulse 78 12/15/23 07:20 Resp 12 12/15/23 07:20 BP 90/70 12/15/23 07:20 Pulse Ox 93 12/15/23 07:20 O2 Del Method Room Air 12/15/23 07:20 BMI result Body Mass Index 22.2 Const: General: cooperative, healthy appearing, comfortable, no acute distress, well developed and alert Orientation/consciousness: patient oriented x3 HEENT: Other: Unremarkable Head: Yes normal to inspection, Yes normocephalic and Yes atraumatic Eyes: General: appearance normal, both eyes and all related structures Neck: Neck: Yes normal visual inspection and Yes no lymphadenopathy Chest: Chest palpation & inspection: normal inspection of the chest Resp: Other: Few basilar crackles; difficult to auscultate because of position. Effort & Inspection: normal respiratory effort and able to speak in complete sentences Cardio: Palpation: normal PMI Rate: regular rate Heart sounds: S1 normal heart sound present, S2 normal heart sound present, no gallops, Murmur heart sound present systolic II/ and at the right sternal border and no rubs P eripheral pulses: Peripheral pulses 2+ throughout GI: Inspection: Yes normal to inspection Palpation (GI): Soft to palpation Back/Spine/Pelvis: Other: unremarkable Skin: General skin exam: no rashes or lesions noted Neuro: General: patient oriented x3 Extrem: Other: Right hip has abraison over the lateral aspect without drainage. No eopen wounds distally. He is able to plantar and dorsi flex the foot. NVI. General: Yes normal to inspection Psych: Appearance: grossly normal Mental Status: mental status grossly normal Objective Data Labs 12/18/23 07:01 12/18/23 07:01 Labs: Laboratory Results - last 24 hr 12/15/23 12/15/23 07:10 07:24 Sodium 129 L Potassium 3.7 Chloride 96 Carbon Dioxide 24 Anion Gap 13 BUN 36 H Creatinine 0.66 Estim Creat Clear Calc 90.2 Estimated GFR > 60 Random Glucose 95 Osmolality 274 L Calcium 8.7 TSH 1.67 Procedures Date of Service Date of Service: 12/19/23 Assessment & Plan Assessment and plan (1) Hyponatremia: Status: Acute Plan Elderly man with asymptomatic hyponatremia. Based on the urine sodium and osmolality I believe he has non osmotic ADH release. Pain could be a potential source for ADH release. Goal is to maintain serum sodium more than 130 millimoles. Restrict oral free water intake. urea powder 30 g p.o. b.i.d. to increase osmotic load and gradually increase the serum sodium. cortisol pending and TSH is normal From renal standpoint no absolute contraindication for hip surgery. Renal function stable at baseline Time Spent With Patient Time: Total time managing care of this patient today ____ minutes. Progress Note: Quality Stroke Does the patient have a stroke diagnosis?: No
--- NOTE | 2023-12-15 14:16 | PC.NURSE ---
Patient arrived to [facility] with one PRN angio, #20 right AC. Flushed with no issues, site asymptomatic.
--- NOTE | 2023-12-15 14:20 | PC.NURSE ---
Patient in [facility]SS. Voiced I haven't had a bowel movement since Tuesday on admission (4 days ago) . Anesthesia team Dr. Solano and Lul made aware. Dr. Angeles made aware. Floor nurse Bernie Dent made aware. Per MD Bernie is aware, they have meds starting up tomorrow and tonight after surgery. I will pass it along to nursing .
--- NOTE | 2023-12-15 14:37 | MHC.SHP ---
Pre-Procedural Eval Section A - 24 Hr Update-Section A only Date of Service: 12/15/23 The patient is an INPATIENT: Yes Changes since office visit: Yes Cold of Flu in the past 2 weeks, Yes New Medical Problems, Yes Changes in Medication and Yes Patient answered all questions The patient has been examined within 24 hours of the surgical procedure. The History & Physical has been completed within 30 days and I have reviewed it.: Yes Section B - Complete if H&P > 30 days Chief Complaint: Fall Allergies: Allergies Allergy/AdvReac Type Severity Reaction Status Date / Time Penicillins [PENICILLINS] Allergy Intermediate HIVES Verified 12/15/23 14:11 shellfish derived Allergy Intermediate HIVES Verified 12/15/23 14:11 [SHELLFISH DERIVED] Plan I have reviewed the history and physical and performed a pertinent physical examination on my patient. No changes have occurred unless specified. Time Spent With Patient Time: Total time managing care of this patient today ____ minutes.
--- NOTE | 2023-12-15 14:39 | HO.ANESPROP2 ---
[facility], LATER [facility] Active Problems Active Problems: All Active Problems Hyponatremia (Acute) Chronic combined systolic and diastolic CHF (congestive heart failure) (Acute) Ischemic cardiomyopathy (Acute) Persistent atrial fibrillation (Acute) Preoperative cardiovascular examination (Acute) Femur fracture, right (Acute) Femur fracture (Acute) Hx of CABG (Acute) Coronary artery disease (Acute) Chronic anticoagulation (Acute) Afib (Acute) HFrEF (heart failure with reduced ejection fraction) (Acute) Past Medical History Medical History (Updated 12/15/23 @ 14:23 by Susanna Fletcher) Legally blind Macular degeneration Coronary artery disease Chronic anticoagulation Afib HFrEF (heart failure with reduced ejection fraction) Family History Family history of problems with anesthesia: No Surgical History Surgical History Hx of CABG History of Problems with Anesthesia: No Social History Social History Household Members: Spouse Housing: House Do you presently have visiting nurse or other home services: No Unable to assess alcohol history related to: Unable to respond Alcohol intake: former Patient Tobacco Use Status: Former Tobacco user Tobacco use type: Cigarette Years Smoked: 20 service: Yes Meds Allergies Allergy/AdvReac Type Severity Reaction Status Date / Time Penicillins [PENICILLINS] Allergy Intermediate HIVES Verified 12/15/23 14:11 shellfish derived Allergy Intermediate HIVES Verified 12/15/23 14:11 [SHELLFISH DERIVED] Active Medications: Current Medications Acetaminophen (Acetaminophen 325 Mg Tablet) 650 mg PO Q6H PRN PRN Reason: Pain, Mild (Pain Scale 1-3) Last Admin: 12/15/23 08:16 Dose: 650 mg Albuterol Sulfate (Albuterol Sulfate 90 Mcg 8 Gm Inhaler) 2 puff INHALE RQID PRN PRN Reason: wheezing Bisacodyl (Bisacodyl 10 Mg Supp.Rect) 10 mg AR DAILY PRN PRN Reason: Constipation Docusate Sodium (Docusate Sodium 100 Mg Capsule) 100 mg PO BEDTIME [facility] Furosemide (Furosemide 20 Mg Tablet) 20 mg PO DAILY [facility]; Protocol Last Admin: 12/13/23 09:19 Dose: 20 mg Cefazolin Sodium/Dextrose (Ancef) 2 gm in 50 mls @ 100 mls/hr IV PREOP ONE Stop: 12/15/23 14:54 Lorazepam (Lorazepam 0.5 Mg Tablet) 0.5 mg PO DAILY PRN PRN Reason: anxiety Melatonin (Melatonin 3 Mg Tablet) 6 mg PO BEDTIME PRN PRN Reason: Insomnia Last Admin: 12/14/23 21:26 Dose: 6 mg Morphine Sulfate (Morphine Sulfate 4 Mg/Ml Cartridge) 4 mg IVPUSH Q4H PRN; Protocol PRN Reason: Pain, Severe (Pain Scale 7-10) Last Admin: 12/15/23 11:43 Dose: 4 mg Multivitamins/Vitamin C (Multivitamin Tablet) 1 tab PO DAILY [facility] Last Admin: 12/15/23 08:09 Dose: 1 tab Pt Own (Vit C,E-Zn- Qhsvs-Favhob-Auxfsg [Preservision Areds- 2] 250-90-40- 1 tab PO BIDWM [facility] Last Admin: 12/15/23 08:09 Dose: 1 tab Ondansetron HCl (Ondansetron Hcl 4 Mg/2 Ml Vial) 4 mg IVPUSH Q8H PRN PRN Reason: Nausea and Vomiting Polyethylene Glycol (Polyethylene Glycol 3350 17 Gm Powd.Pack) 17 gm PO DAILY [facility] Sodium Chloride (0.9 % Sodium Chloride Flush 3 Ml Syringe) 3 ml IVFLUSH QSHIFT [facility] Last Admin: 12/15/23 08:11 Dose: 3 ml Urea (Urea 15 Gm Powder) 30 gm PO BID [facility] Last Admin: 12/15/23 08:20 Dose: 30 gm Home Medications ?Medication ?Instructions ?Recorded ?Confirmed ?Last Taken ?Type albuterol sulfate 90 mcg/actuation 2 puff inhalation QID PRN wheezing 12/12/23 12/12/23 Unknown History aerosol inhaler furosemide 20 mg tablet 20 mg PO DAILY 12/12/23 12/12/23 Unknown History lorazepam 0.5 mg tablet 0.5 mg PO DAILY PRN anxiety 12/12/23 12/12/23 Unknown History multivitamin with minerals-folic 1 tab PO DAILY 12/12/23 12/12/23 Unknown History acid 80 mcg chewable tablet (Centrum Adult 50 Plus) rosuvastatin 5 mg tablet 5 mg PO DAILY 12/12/23 12/12/23 Unknown History vit C 250 mg-vit E 90 mg-zinc 40 1 tab PO BID 12/12/23 12/12/23 Unknown History mg-copper 1 ph-osucoo-ozjbhv capsule (PreserVision AREDS-2) Exam Height,Weight and Vital Signs: Height 5 ft 9 in Weight 68.1 kg Last Vital Signs Temp 98.9 F 12/15/23 14:12 Pulse 97 12/15/23 14:12 Resp 16 12/15/23 14:12 BP 116/96 H 12/15/23 14:12 Pulse Ox 97 12/15/23 14:12 O2 Del Method Room Air 12/15/23 14:12 Pertinent Lab Results Pertinent Lab Results: Laboratory Tests 12/11/23 12/11/23 12/11/23 20:15 20:45 23:07 WBC 10.7 RBC 3.66 L Hgb 11.2 L Hct 32.9 L MCV 89.9 MCH 30.6 MCHC 34.0 RDW 13.9 Plt Count 113 L MPV 10.5 Immature Gran % (Auto) 0.3 Neut % (Auto) 83.4 H Lymph % (Auto) 9.6 L [place] % (Auto) 6.1 Eos % (Auto) 0.3 Baso % (Auto) 0.3 Lymph # (Auto) 1.0 L [place] # (Auto) 0.7 Eos # (Auto) 0.0 Baso # (Auto) 0.0 Abs Immat Gran (auto) 0.03 Absolute Neuts (auto) 8.9 H Absolute Nucleated RBC 0.000 Nucleated RBC % (auto) 0.0 PT 16.3 H INR 1.3 H APTT 29.1 Sodium 133 L Potassium 3.6 Chloride 99 Carbon Dioxide 22 Anion Gap 16 BUN 20 H Creatinine 0.83 Estim Creat Clear Calc 69.3 Estimated GFR > 60 Random Glucose 113 Osmolality Calcium 9.0 D Total Bilirubin 1.4 H AST 33 ALT 35 Alkaline Phosphatase 135 H B-Natriuretic Peptide 1854 H Total Protein 6.1 L Albumin 3.9 TSH Urine Color Urine Appearance Urine pH Ur Specific [place] Urine Protein Urine Glucose (UA) Urine Ketones Urine Blood Urine Nitrite Ur Leukocyte Esterase Urine Osmolality Ur Random Sodium Ur Random Potassium Ur Random Chloride Blood Type Antibody Screen Antibody Identification Crossmatch ([facility]) 12/12/23 12/12/23 12/12/23 05:16 14:13 17:24 WBC 10.6 RBC 3.63 L Hgb 10.9 L Hct 32.9 L MCV 90.6 MCH 30.0 MCHC 33.1 RDW 13.9 Plt Count 113 L MPV 10.5 Immature Gran % (Auto) 0.5 H Neut % (Auto) 79.2 H Lymph % (Auto) 12.1 L [place] % (Auto) 8.0 Eos % (Auto) 0.0 Baso % (Auto) 0.2 Lymph # (Auto) 1.3 [place] # (Auto) 0.9 Eos # (Auto) 0.0 Baso # (Auto) 0.0 Abs Immat Gran (auto) 0.05 H Absolute Neuts (auto) 8.4 H Absolute Nucleated RBC 0.000 Nucleated RBC % (auto) 0.0 PT INR APTT Sodium 130 L 132 L Potassium 4.2 Chloride 98 Carbon Dioxide 23 Anion Gap 13 BUN 21 H Creatinine 0.86 Estim Creat Clear Calc 66.9 Estimated GFR > 60 Random Glucose 109 Osmolality Calcium 9.1 Total Bilirubin AST ALT Alkaline Phosphatase B-Natriuretic Peptide Total Protein Albumin TSH Urine Color Yellow Urine Appearance Clear Urine pH 6.0 Ur Specific [place] 1.015 Urine Protein Trace Urine Glucose (UA) Negative Urine Ketones Negative Urine Blood Negative Urine Nitrite Negative Ur Leukocyte Esterase Negative Urine Osmolality 477 Ur Random Sodium 70.0 Ur Random Potassium 49.4 Ur Random Chloride 96.0 Blood Type Antibody Screen Antibody Identification Crossmatch ([facility]) 12/13/23 12/13/23 12/13/23 09:00 10:24 10:51 WBC RBC Hgb Hct MCV MCH MCHC RDW Plt Count MPV Immature Gran % (Auto) Neut % (Auto) Lymph % (Auto) [place] % (Auto) Eos % (Auto) Baso % (Auto) Lymph # (Auto) [place] # (Auto) Eos # (Auto) Baso # (Auto) Abs Immat Gran (auto) Absolute Neuts (auto) Absolute Nucleated RBC Nucleated RBC % (auto) PT INR APTT Sodium 130 L 129 L Potassium 4.0 3.9 Chloride 96 95 L Carbon Dioxide 26 27 Anion Gap 12 11 L BUN 19 H 19 H Creatinine 0.72 0.71 Estim Creat Clear Calc 82.7 83.9 Estimated GFR > 60 > 60 Random Glucose 94 92 Osmolality Calcium 8.7 8.8 Total Bilirubin AST ALT Alkaline Phosphatase B-Natriuretic Peptide 553 H Total Protein Albumin TSH Urine Color Urine Appearance Urine pH Ur Specific [place] Urine Protein Urine Glucose (UA) Urine Ketones Urine Blood Urine Nitrite Ur Leukocyte Esterase Urine Osmolality Ur Random Sodium Ur Random Potassium Ur Random Chloride Blood Type O Positive Antibody Screen POSITIVE Antibody Identification Inconclusive Crossmatch ([facility]) See Detail 12/13/23 12/13/23 12/14/23 15:20 19:53 01:19 WBC RBC Hgb Hct MCV MCH MCHC RDW Plt Count MPV Immature Gran % (Auto) Neut % (Auto) Lymph % (Auto) [place] % (Auto) Eos % (Auto) Baso % (Auto) Lymph # (Auto) [place] # (Auto) Eos # (Auto) Baso # (Auto) Abs Immat Gran (auto) Absolute Neuts (auto) Absolute Nucleated RBC Nucleated RBC % (auto) PT INR APTT Sodium 129 L 127 L 128 L Potassium Chloride Carbon Dioxide Anion Gap BUN Creatinine Estim Creat Clear Calc Estimated GFR Random Glucose Osmolality Calcium Total Bilirubin AST ALT Alkaline Phosphatase B-Natriuretic Peptide Total Protein Albumin TSH Urine Color Urine Appearance Urine pH Ur Specific [place] Urine Protein Urine Glucose (UA) Urine Ketones Urine Blood Urine Nitrite Ur Leukocyte Esterase Urine Osmolality Ur Random Sodium Ur Random Potassium Ur Random Chloride Blood Type Antibody Screen Antibody Identification Crossmatch ([facility]) 12/14/23 12/15/23 12/15/23 09:31 07:10 07:24 WBC RBC Hgb Hct MCV MCH MCHC RDW Plt Count MPV Immature Gran % (Auto) Neut % (Auto) Lymph % (Auto) [place] % (Auto) Eos % (Auto) Baso % (Auto) Lymph # (Auto) [place] # (Auto) Eos # (Auto) Baso # (Auto) Abs Immat Gran (auto) Absolute Neuts (auto) Absolute Nucleated RBC Nucleated RBC % (auto) PT INR APTT Sodium 129 L 129 L Potassium 3.7 Chloride 96 Carbon Dioxide 24 Anion Gap 13 BUN 36 H Creatinine 0.66 Estim Creat Clear Calc 90.2 Estimated GFR > 60 Random Glucose 95 Osmolality 274 L Calcium 8.7 Total Bilirubin AST ALT Alkaline Phosphatase B-Natriuretic Peptide Total Protein Albumin TSH 1.67 Urine Color Urine Appearance Urine pH Ur Specific [place] Urine Protein Urine Glucose (UA) Urine Ketones Urine Blood Urine Nitrite Ur Leukocyte Esterase Urine Osmolality Ur Random Sodium Ur Random Potassium Ur Random Chloride Blood Type Antibody Screen Antibody Identification Crossmatch ([facility]) Airway Mallampati Class: II TM Dist: >3cm Neck ROM: Limited Assessment and Plan Assessment Anesthesia Assessment: Anesthesia Plan Discussed and Chart Reviewed Final Anesthetic Review Family History of Problems with Anesthesia: No History of Problems with Anesthesia: No NPO: Yes ASA Class: IV and Emergency Final Preanesthetic Review: No Changes in Pt Med Stat, Meds/Allgs Chart Reviewed, Consent Obtained/Reviewed and Anes Risks/Benef Reviewed Patient Risk: High Procedure Risk: Intermediate Anesthetic Plan Anesthetic Plan: GA Disposition: Standard PACU
--- NOTE | 2023-12-15 15:28 | HO.PM.IMPN ---
Subjective Subjective Date of Service: 12/15/23 Interval History: Seen and examined this morning Follow-up for femur fracture, hyponatremia Plan for surgery today Review of Systems Review of Systems: Yes all other systems are reviewed and are negative Constitutional Constitutional: Denies chills and Denies fever(s) Cardiovascular Cardiovascular: Denies chest pain and Denies dyspnea Respiratory Respiratory: Denies dyspnea Physical Exam Vital Signs: Vital Signs: Last Vital Signs Temp 98.9 F 12/15/23 14:12 Pulse 97 12/15/23 14:12 Resp 16 12/15/23 14:12 BP 116/96 H 12/15/23 14:12 Pulse Ox 97 12/15/23 14:12 O2 Del Method Room Air 12/15/23 14:12 BMI result Body Mass Index 22.2 Const: General: cooperative, no acute distress, alert and awake Nutritional Appearance: thin Orientation/consciousness: patient oriented x3 Resp: Effort & Inspection: normal respiratory effort, able to speak in complete sentences, no respiratory distress and no use of accessory muscles Auscultation: clear to auscultation bilaterally Cardio: Rate: regular rate GI: Inspection: No distended Palpation (GI): Soft to palpation Neuro: General: patient oriented x3 and CN's II-XI intact bilaterally Objective Data Active Medications Acetaminophen (Acetaminophen 325 Mg Tablet) 650 mg PO Q6H PRN PRN Reason: Pain, Mild (Pain Scale 1-3) Last Admin: 12/15/23 08:16 Dose: 650 mg Documented By: DESMOND Albuterol Sulfate (Albuterol Sulfate 90 Mcg 8 Gm Inhaler) 2 puff INHALE RQID PRN PRN Reason: wheezing Bisacodyl (Bisacodyl 10 Mg Supp.Rect) 10 mg NE DAILY PRN PRN Reason: Constipation Docusate Sodium (Docusate Sodium 100 Mg Capsule) 100 mg PO BEDTIME MARIA EUGENIA Fentanyl (Fentanyl Citrate/Pf 100 Mcg/2 Ml Vial) 50 mcg IVPUSH Q5M PRN; Protocol PRN Reason: Pain, Severe (Pain Scale 7-10) Stop: 12/15/23 20:41 Furosemide (Furosemide 20 Mg Tablet) 20 mg PO DAILY MARIA EUGENIA; Protocol Last Admin: 12/13/23 09:19 Dose: 20 mg Documented By: SAYDA Lorazepam (Lorazepam 0.5 Mg Tablet) 0.5 mg PO DAILY PRN PRN Reason: anxiety Melatonin (Melatonin 3 Mg Tablet) 6 mg PO BEDTIME PRN PRN Reason: Insomnia Last Admin: 12/14/23 21:26 Dose: 6 mg Documented By: TL Morphine Sulfate (Morphine Sulfate 4 Mg/Ml Cartridge) 4 mg IVPUSH Q4H PRN; Protocol PRN Reason: Pain, Severe (Pain Scale 7-10) Last Admin: 12/15/23 11:43 Dose: 4 mg Documented By: DESMOND Multivitamins/Vitamin C (Multivitamin Tablet) 1 tab PO DAILY PENDING SALE TO [facility] Last Admin: 12/15/23 08:09 Dose: 1 tab Documented By: DESMOND Pt Own (Vit C,E-Zn- Lbqmy-Mafwmg-Qkullw [Preservision Areds- 2] 250-90-40- 1 tab PO BIDWM PENDING SALE TO [facility] Last Admin: 12/15/23 08:09 Dose: 1 tab Documented By: DESMOND Ondansetron HCl (Ondansetron Hcl 4 Mg/2 Ml Vial) 4 mg IVPUSH Q8H PRN PRN Reason: Nausea and Vomiting Ondansetron HCl (Ondansetron Hcl 4 Mg/2 Ml Vial) 4 mg IVPUSH ONCE PRN PRN Reason: Nausea and Vomiting Stop: 12/15/23 20:42 Polyethylene Glycol (Polyethylene Glycol 3350 17 Gm Powd.Pack) 17 gm PO DAILY PENDING SALE TO [facility] Sodium Chloride (0.9 % Sodium Chloride Flush 3 Ml Syringe) 3 ml IVFLUSH QSHIFT PENDING SALE TO [facility] Last Admin: 12/15/23 08:11 Dose: 3 ml Documented By: DESMOND Urea (Urea 15 Gm Powder) 30 gm PO BID PENDING SALE TO [facility] Last Admin: 12/15/23 08:20 Dose: 30 gm Documented By: DESMOND Labs 12/12/23 05:16 12/15/23 07:10 Labs: Laboratory Results - last 24 hr 12/15/23 12/15/23 07:10 07:24 Anion Gap 13 Estim Creat Clear Calc 90.2 Estimated GFR > 60 Random Glucose 95 Osmolality 274 L Calcium 8.7 TSH 1.67 Assessment and Plan (1) Hyponatremia: Status: Acute (2) Coronary artery disease: Status: Acute Plan This is a 78-year-old male with pertinent history of congestive heart failure with reduced ejection fraction, AFib on Xarelto, CAD status post CABG, legally blind who presents to the emergency department for evaluation after a fall. Hyponatremia NA 129 urine sodium 70 likely SIADH lasix stopped fluid restriction Cortisol pending, TSH normal discussed with nephrology> start urea 30gm BID Displaced femur fracture due to fall continue IV opioids p.r.n. for analgesia. Consulting Orthopedic surgery>plan for OR today seen by cardiology - high risk Preoperative risk RCRI 2. high cardiac risk as per cardiology Congestive heart failure with reduced ejection fraction On Entresto, beta-cory, hold Lasix Atrial fibrillation Xarelto on hold Rate controlled CAD status post CABG Not on antiplatelet agent. on high-intensity statin DVT prophylaxis: Mechanical Attending Dr. Baum Full code. Discussed with patient and healthcare proxy at bedside continue hospital stay for management of femur fracture (as above), which is not possible in a lesser acute setting. Specialist consult pending Quality Stroke Does the patient have a stroke diagnosis?: No VTE Prior VTE?: No VTE Risk Level:: Medical - moderate - high VTE Device Contraindication: N/A - Device Ordered VTE Drug Contraindication: Treatment Not Indicated
--- NOTE | 2023-12-15 16:31 | PM.OP ---
Brief Operative Note Date of Service: 12/15/23 Pre-op diagnosis: right distal femur fracture Post-op diagnosis: same Procedure: Right femur retrograde IMN Implants: [place] retrograde alpha 2 13 x 300 Surgeon: Rian Angeles MD Anesthesia: GETA and local Was an Super[employer] used for this Procedure?: No Estimated blood loss (mL): 200 IV fluids (mL): 500 Pathology: none sent Condition: stable Disposition: PACU
--- NOTE | 2023-12-15 17:58 | PM.EVENT ---
Event Note Date of Service: 12/15/23 Event Note: 78yo male patient s/p Right IM nailing under GA-LMA. Patient with significant cardiac history- CABG about 20yrs ago, Afib/flutter with ablations in the past- currently in afib. Echocardiogram showed severe LV dysfunction with an ejection fraction of 20-25% as well as advanced diastolic dysfunction with significant tricuspid regurgitation. Echocardiogram from [id number] 20-25%; akinesis of mid to distal inferolateral wall, inferior wall, distal septal wall and apex. Advanced diastolic dysfunction with restrictive filling. Calcific aortic valve but no significant stenosis and [id number] regurgitation. Moderate mitral regurgitation. Moderate to severe tricuspid regurgitation. Reduced RV function. Mild aortic dilatation. Dilated IVC with diminished respiratory variation. Myocardial perfusion imaging study from 2022-large fixed defect, entire inferolateral wall suggestive of scar. Cardiac BNP was high at 1854 on admission.Repeat 553. Patient also diagnosed with SIADH. Patient was assessed at high risk by Cardiology pre-op. Intraoperatively, patient needed a lot of pressor support to maintain BP. Since arrival in PACU, BP has been dropping to 70s-80s/20s-30s needing pressor support to maintain at 90s-100s/40s. Pre-op BP 110s/40s Communicated with Dr Angeles and Jordy. Patient will benefit from close supervision +/- pressor support at least kaitlin-operatively. Nursing [employer] was at bedside to see patient. Efforts are underway to transfer patient to ICU. Time Spent With Patient Time: Total time managing care of this patient today ____ minutes.
--- NOTE | 2023-12-15 19:53 | P.PNCC_ITS ---
Critical Care Event Note Summary Date of Service: 12/15/23 Code activated: No Narrative: This case had a high probability of a clinically significant, sudden, or life threatening deterioration of this patient's condition which required my full and direct attention, intervention and personal management. Critical Care Time (minutes): 30 Comment: Patient is a 78-year-old male with a past medical history of congestive heart failure with severe LV dysfunction with EF of 20-25%? as well as Ativan diastolic dysfunction, tricuspid regurgitation, coronary artery disease s/p CABG,? and? atrial fibrillation on Xarelto? who was admitted to [facility] on 12/11/2023 after patient sustained a fall and sustained a right distal femur fracture.? He also was noted to be hyponatremic from SIADH.? ? Today patient underwent? right femur retrograde IMN with Dr Angeles. ? During surgery patient require multiple push doses of pressors,? in PACU blood pressures? dropping to systolics of 70s and 80s. ? Due to extensive? cardiac history,? unable to give much crystalloid.? Patient transferred to ICU for closely monitoring.? ?During my assessment patient is alert x3,? following commands speaking in full sentences.? Blood pressure is? systolic of 90s map >60s.? No evidence of infection/? sepsis.? Hypotension likely due to surgical stress. No need for pressors? ? Will hemodynamic monitor patient overnight?
[2023-12-15] MEDS: Albumin Human 25 % 100 ML IV ×2 (19:58→21:13)
[2023-12-15 20:05] LABS: Basophils Percent Auto 0.1 % (0-2); Hematocrit 28.8 % (42.0-52.0); Imm Gran Abs Auto 0.08 X10*3/uL (0.00-0.03); Imm Gran Pct Auto 0.6 % (0.0-0.4); Lymphocytes Absolute Auto 0.4 X10*3/uL (1.2-4.9); Lymphocytes Percent Auto 3.2 % (20-40); MANUAL DIFF FLAG SCAN; Mean Corpuscular HGB Conc 34.7 g/dl (31.0-36.0); Mean Corpuscular Volume 89.2 fL (80.0-98.0); Monocytes Absolute Auto 0.6 X10*3/uL (0.1-1.2); Monocytes Percent Auto 4.2 % (2-11); Neutrophils Absolute Auto 12.2 x10*3/uL (2.0-8.3); Neutrophils Percent Auto 91.9 % (45-73); Platelet Count 136 X10*3/uL (160-400); Red Blood Count 3.23 X10*6/uL (4.60-5.80); Red Cell Distribution Width 13.3 % (11.0-16.0); SCAN SMEAR FLAG 1; White Blood Count 13.2 X10*3/uL (4.8-10.8)
[2023-12-15 20:18] LABS: Albumin Level 3.1 g/dL (3.5-5.0); Anion Gap 14 (12-20); Blood Urea Nitrogen 46 mg/dL (9-16); Calcium 8.7 mg/dL (8.4-10.2); Carbon Dioxide 22 mmol/L (22-29); Chloride 98 mmol/L (96-108); Creatinine Clr Calc Pharmacy 82.7; Estimated Glomerular Filt Rate > 60; Glucose Random 153 mg/dL (60-115); Magnesium 1.7 mg/dL (1.6-2.6); Phosphorus 3.2 mg/dL (2.7-4.5); Potassium 3.6 mmol/L (3.3-5.1); Sodium 130 mmol/L (135-145)
[2023-12-15] MEDS: Melatonin 3 MG TABLET 6 MG PO (20:21)
[2023-12-15] MEDS: Docusate Sodium 100 MG CAPSULE PO (20:21)
[2023-12-15 21:42] LABS: SLIDE REVIEW VERIFIED
[2023-12-15] MEDS: Norepinephrine Bitartrate/D5W 8 MG/250 ML PLAST..BAG 6.38 MG IV (22:07)
[2023-12-16] VITALS (35 sets, daily range): BP systolic 77–152; BP diastolic 33–68; PULSE 70–101; RESP 13–25; TEMP 36.4–36.9; O2SAT 90–100; BMI 22.7
[2023-12-16] MEDS: Morphine Sulfate 4 MG/ML CARTRIDGE 2 MG IVPUSH ×3 (02:42→23:13)
[2023-12-16 04:48] LABS: VBG Base Excess 4.6 mmol/L; VBG HCO3 28 mmol/L (22-26); VBG pCO2 40 mmHg; VBG pH 7.45 (7.32-7.43); VBG pO2 24 mmHg
[2023-12-16 04:52] LABS: Venous Blood Gas Refer to POC result
[2023-12-16 05:12] LABS: MANUAL DIFF FLAG NO
[2023-12-16 05:13] LABS: Basophils Percent Auto 0.1 % (0-2); Hematocrit 28.3 % (42.0-52.0); Hemoglobin 9.8 g/dl (14.0-18.0); Imm Gran Abs Auto 0.05 X10*3/uL (0.00-0.03); Imm Gran Pct Auto 0.5 % (0.0-0.4); Lymphocytes Absolute Auto 0.6 X10*3/uL (1.2-4.9); Lymphocytes Percent Auto 5.9 % (20-40); Mean Corpuscular HGB Conc 34.6 g/dl (31.0-36.0); Mean Corpuscular Hemoglobin 30.6 pg (27.0-33.0); Mean Corpuscular Volume 88.4 fL (80.0-98.0); Monocytes Absolute Auto 0.9 X10*3/uL (0.1-1.2); Monocytes Percent Auto 8.1 % (2-11); Neutrophils Absolute Auto 9.2 x10*3/uL (2.0-8.3); Neutrophils Percent Auto 85.4 % (45-73); Platelet Count 141 X10*3/uL (160-400); Red Cell Distribution Width 13.4 % (11.0-16.0); White Blood Count 10.8 X10*3/uL (4.8-10.8)
[2023-12-16 05:31] LABS: Alanine Aminotransferase 32 U/L (0-40); Albumin Level 3.7 g/dL (3.5-5.0); Alkaline Phosphatase 105 U/L (39-117); Anion Gap 13 (12-20); Aspartate Amino Transferase 36 U/L (5-37); Bilirubin Total 1.5 mg/dL (0.0-1.0); Blood Urea Nitrogen 59 mg/dL (9-16); Calcium 9.6 mg/dL (8.4-10.2); Carbon Dioxide 26 mmol/L (22-29); Chloride 96 mmol/L (96-108); Creatinine Clr Calc Pharmacy 80.5; Estimated Glomerular Filt Rate > 60; Glucose Random 146 mg/dL (60-115); Phosphorus 3.2 mg/dL (2.7-4.5); Potassium 4.3 mmol/L (3.3-5.1); Sodium 131 mmol/L (135-145); Total Protein 5.8 g/dL (6.5-8.0)
[2023-12-16] MEDS: Acetaminophen 325 MG TABLET 650 MG PO ×2 (07:39→20:15)
[2023-12-16] MEDS: Multivitamin TABLET 1 TAB PO (07:39)
[2023-12-16] MEDS: Urea 15 GM POWDER 30 GM PO ×2 (07:40→20:15)
[2023-12-16] MEDS: polyethylene glycoL 3350 17 GM POWD.PACK PO (07:40)
[2023-12-16] MEDS: VIT C E ZN COPPR LUTEIN ZEAXAN PO ×2 (07:47→17:16)
[2023-12-16] MEDS: [UNRECOGNIZED DRUG - OTHER] PO ×2 (07:47→17:16)
[2023-12-16] MEDS: Albumin Human 25 % 100 ML IV ×3 (08:57→20:16)
--- NOTE | 2023-12-16 10:56 | PM.CCPN ---
Subjective Subjective Date of Service: 12/16/23 Interval History: 78-year-old gentleman with underlying CAD, CHF diastolic/systolic, AFib legally blind admitted with right femur fracture from mechanical fall on 12/11/2023, now status post surgical repair on 12/15/2023 with intraop/post hypotension requiring pressor support being monitored in the intensive care unit. No events overnight, being titrated off pressor support. Critical Care Time (minutes): 45 Physical Exam Vital Signs: Vital Signs: Last Vital Signs Temp 97.6 F 12/16/23 08:00 Pulse 86 12/16/23 10:34 Resp 18 12/16/23 10:00 BP 81/44 L 12/16/23 10:34 Pulse Ox 94 12/16/23 10:00 O2 Del Method Room Air 12/16/23 10:00 O2 Flow Rate 2 12/16/23 06:00 Oxygen Flow Rate 2 12/15/23 20:54 BMI result Body Mass Index 22.7 Const: General: no acute distress, alert and awake Eyes: Sclerae: sclerae normal EOM: EOMs intact bilaterally Neck: Neck: Yes no lymphadenopathy, Yes trachea midline and Yes supple Resp: Effort & Inspection: normal respiratory effort and no respiratory distress Auscultation: clear to auscultation bilaterally Cardio: Rate: regular rate Rhythm: regular rhythm Heart sounds: no gallops, no murmurs and no rubs GI: Palpation (GI): Soft to palpation and Other GI palpation findings present ( Nontender) Auscultation: normal bowel sounds Extrem: General: Yes no pedal edema, No clubbing, No cyanosis and Yes other (Right lower extremity surgical site with no hematoma.) Objective Data Labs 12/16/23 04:33 12/16/23 04:33 Labs: Laboratory Results - last 24 hr 12/15/23 12/16/23 12/16/23 19:33 04:33 04:38 WBC 13.2 H 10.8 RBC 3.23 L 3.20 L Hgb 10.0 L 9.8 L Hct 28.8 L 28.3 L MCV 89.2 88.4 MCH 31.0 30.6 MCHC 34.7 34.6 RDW 13.3 13.4 Plt Count 136 L 141 L MPV 10.0 10.0 Immature Gran % (Auto) 0.6 H 0.5 H Neut % (Auto) 91.9 H 85.4 H Lymph % (Auto) 3.2 L 5.9 L [place] % (Auto) 4.2 8.1 Eos % (Auto) 0.0 0.0 Baso % (Auto) 0.1 0.1 Lymph # (Auto) 0.4 L 0.6 L [place] # (Auto) 0.6 0.9 Eos # (Auto) 0.0 0.0 Baso # (Auto) 0.0 0.0 Abs Immat Gran (auto) 0.08 H 0.05 H Absolute Neuts (auto) 12.2 H 9.2 H Absolute Nucleated RBC 0.000 0.000 Nucleated RBC % (auto) 0.0 0.0 Smear Tech's Comments VERIFIED VBG pH 7.45 H VBG pCO2 40 VBG pO2 24 VBG HCO3 28 H VBG O2 Saturation 30.0 VBG Base Excess 4.6 Sodium 130 L 131 L Potassium 3.6 4.3 Chloride 98 96 Carbon Dioxide 22 26 Anion Gap 14 13 BUN 46 H 59 H Creatinine 0.72 0.74 Estim Creat Clear Calc 82.7 80.5 Estimated GFR > 60 > 60 Random Glucose 153 H 146 H Calcium 8.7 9.6 D Phosphorus 3.2 3.2 Magnesium 1.7 2.0 Total Bilirubin 1.5 H AST 36 ALT 32 Alkaline Phosphatase 105 Total Protein 5.8 L Albumin 3.1 L 3.7 Progress Note: A&P Assessment and plan (1) Chronic combined systolic and diastolic CHF (congestive heart failure): Status: Acute (2) Ischemic cardiomyopathy: Status: Acute (3) Persistent atrial fibrillation: Status: Acute (4) Femur fracture, right: Status: Acute (5) Coronary artery disease: Status: Acute (6) Afib: Status: Acute Plan Assessment: 78-year-old gentleman admitted with right femoral fracture after mechanical for now status post surgical repair being monitored in the intensive care unit secondary to intraop/postop hypotension Plan: Neuro: No acute issues. Cardiac: Continue to titrate off pressor support as tolerated. Underlying combined systolic and diastolic chronic congestive heart failure, AFib, and coronary artery disease. Pulmonary: No acute issues. Renal: No acute issues. Endo: No acute issues. GI: No acute issues. ID: No acute issues Heme/Onc: No acute issues. Psych: No acute issues. Miscellaneous: Status post surgical repair of right femoral fracture. Orthopedic surgery service care appreciated. Prophylaxis: Pneumatic compression Diet: Cardiac Critical care time spent: 45 minute Quality Stroke Does the patient have a stroke diagnosis?: No VTE Prior VTE?: No VTE Risk Level:: Medical - moderate - high VTE Device Contraindication: N/A - Device Ordered VTE Drug Contraindication: Treatment Not Indicated
--- NOTE | 2023-12-16 12:54 | MHC.CM.PN ---
Pt transferred to ICU for BP support following Right ORIF. Making clinical progress and may need STR- referrals made for [facility] and STR. CM to follow
[2023-12-16] MEDS: Enoxaparin Sodium 40 MG/0.4 ML SYRINGE SUBCUT (15:14)
[2023-12-16] MEDS: 0.9 % Sodium Chloride Flush 3 ML SYRINGE IVFLUSH (15:15)
--- NOTE | 2023-12-16 15:31 | P.PNOP_ITS ---
Subjective Subjective Date of Service: 12/16/23 Interval history: POD 1 s/p Rt distal femur retrograde nail no overnight events denies sob, cp, palpitations Physical Exam Vital Signs: Vital Signs: Last Vital Signs Temp 97.6 F 12/16/23 08:00 Pulse 77 12/16/23 15:00 Resp 15 12/16/23 15:00 BP 116/64 12/16/23 15:00 Pulse Ox 90 L 12/16/23 15:00 O2 Del Method Room Air 12/16/23 15:00 O2 Flow Rate 2 12/16/23 06:00 Oxygen Flow Rate 2 12/15/23 20:54 BMI result Body Mass Index 22.7 Extrem: Other: Right knee incision clean dry and intact, he is able to bend the knee, calf supple non tender, nvi. Procedures Date of Service Date of Service: 12/16/23 Progress Note: A&P Assessment and plan (1) Femur fracture, right: Status: Acute Assessment and Plan: * Continue pain mgmnt * Begin lovenox for dvt ppx * begin PT /ot for Rt hip IMN Time Spent With Patient Time: Total time managing care of this patient today ____ minutes. Quality Stroke Does the patient have a stroke diagnosis?: No VTE Prior VTE?: No VTE Risk Level:: Medical - moderate - high VTE Device Contraindication: N/A - Device Ordered VTE Drug Contraindication: Treatment Not Indicated
--- NOTE | 2023-12-16 15:48 | HO.POSTANES ---
Post Anesthesia Evaluation Post Anesthesia Evaluation Date of Service: 12/16/23 Vital Signs: Vital Signs Temp Pulse Resp BP Pulse Ox O2 Del Method O2 Flow Rate 12/16/23 15:00 77 15 116/64 90 L Room Air 12/16/23 14:00 85 19 84/45 L 92 Room Air 12/16/23 13:00 82 16 90/64 93 Room Air 12/16/23 11:59 75 20 107/47 L 92 Room Air 12/16/23 11:00 86 20 104/53 L 90 L Room Air 12/16/23 10:34 86 81/44 L 12/16/23 10:00 90 18 81/44 L 94 Room Air 12/16/23 09:29 84 137/51 L 12/16/23 09:00 77 15 131/44 L 96 Room Air 12/16/23 08:59 80 136/54 L 12/16/23 08:00 97.6 F 85 16 129/43 L 93 Room Air 12/16/23 07:15 75 88/34 L 12/16/23 07:00 77 77/33 L 12/16/23 07:00 71 13 88/34 L 94 Room Air 12/16/23 06:15 100 Room Air 12/16/23 06:09 89 126/48 L 12/16/23 06:00 96 18 126/48 L 92 Nasal Cannula 2 12/16/23 05:00 76 15 121/45 L 99 Nasal Cannula 2 12/16/23 04:00 98 F 73 16 111/39 L 99 Nasal Cannula 2 Anesthesia: General LMA Mental Status: Awake Pain Control: Satisfactory Nausea/Vomiting: None Hydration: Adequate Anesthesia-Related Issues: No Anes. Related Issues
[2023-12-16] MEDS: Docusate Sodium 100 MG CAPSULE PO (20:15)
[2023-12-16] MEDS: Norepinephrine Bitartrate/D5W 8 MG/250 ML PLAST..BAG 6.38 MG IV (20:27)
[2023-12-17] VITALS (20 sets, daily range): BP systolic 91–128; BP diastolic 37–83; PULSE 63–102; RESP 14–25; TEMP 36.6–37.8; O2SAT 92–98; BMI 22.9
[2023-12-17] MEDS: Albumin Human 25 % 100 ML IV ×4 (01:43→23:58)
[2023-12-17 05:43] LABS: MANUAL DIFF FLAG NO
[2023-12-17 05:51] LABS: Basophils Percent Auto 0.1 % (0-2); Eosinophils Percent Auto 0.1 % (0-4); Hematocrit 24.8 % (42.0-52.0); Hemoglobin 8.7 g/dl (14.0-18.0); Imm Gran Abs Auto 0.07 X10*3/uL (0.00-0.03); Imm Gran Pct Auto 0.5 % (0.0-0.4); Lymphocytes Absolute Auto 1.6 X10*3/uL (1.2-4.9); Lymphocytes Percent Auto 11.1 % (20-40); Mean Corpuscular HGB Conc 35.1 g/dl (31.0-36.0); Mean Corpuscular Hemoglobin 31.2 pg (27.0-33.0); Mean Corpuscular Volume 88.9 fL (80.0-98.0); Mean Platelet Volume 9.3 fL (9.4-12.4); Monocytes Percent Auto 7.1 % (2-11); Neutrophils Absolute Auto 11.7 x10*3/uL (2.0-8.3); Neutrophils Percent Auto 81.1 % (45-73); Platelet Count 125 X10*3/uL (160-400); Red Blood Count 2.79 X10*6/uL (4.60-5.80); Red Cell Distribution Width 13.4 % (11.0-16.0); White Blood Count 14.4 X10*3/uL (4.8-10.8)
[2023-12-17 06:05] LABS: Anion Gap 14 (12-20); Blood Urea Nitrogen 59 mg/dL (9-16); Calcium 9.6 mg/dL (8.4-10.2); Carbon Dioxide 25 mmol/L (22-29); Chloride 98 mmol/L (96-108); Creatinine Clr Calc Pharmacy 88.5; Estimated Glomerular Filt Rate > 60; Glucose Random 105 mg/dL (60-115); Magnesium 1.9 mg/dL (1.6-2.6); Phosphorus 2.3 mg/dL (2.7-4.5); Sodium 133 mmol/L (135-145)
[2023-12-17] MEDS: Potassium Phosphate/NS 15 MMOL/250 ML PLAST..BAG 62.5 MMOL IV (06:15)
[2023-12-17] MEDS: polyethylene glycoL 3350 17 GM POWD.PACK PO (08:41)
[2023-12-17] MEDS: Urea 15 GM POWDER 30 GM PO ×2 (08:41→20:55)
[2023-12-17] MEDS: Morphine Sulfate 4 MG/ML CARTRIDGE 2 MG IVPUSH ×4 (08:41→23:55)
[2023-12-17] MEDS: 0.9 % Sodium Chloride Flush 3 ML SYRINGE IVFLUSH ×4 (08:42→20:58)
[2023-12-17] MEDS: Multivitamin TABLET 1 TAB PO (08:42)
[2023-12-17] MEDS: [UNRECOGNIZED DRUG - OTHER] PO ×2 (09:36→18:56)
[2023-12-17] MEDS: VIT C E ZN COPPR LUTEIN ZEAXAN PO ×2 (09:36→18:56)
--- NOTE | 2023-12-17 10:59 | P.PNCC_ITS ---
Subjective Subjective Date of Service: 12/17/23 Interval History: 78-year-old gentleman with underlying CAD, CHF diastolic/systolic, AFib legally blind admitted with right femur fracture from mechanical fall on 12/11/2023, now status post surgical repair on 12/15/2023 with intraop/post hypotension requiring pressor support being monitored in the intensive care unit. No events overnight, titrated off pressor support. Critical Care Time (minutes): 30 Physical Exam 2 Vital Signs: Vital Signs: Last Vital Signs Temp 97.8 F 12/17/23 06:00 Pulse 63 12/17/23 10:00 Resp 19 12/17/23 10:00 BP 91/40 L 12/17/23 10:00 Pulse Ox 94 12/17/23 10:00 O2 Del Method Room Air 12/17/23 10:00 O2 Flow Rate 2 12/16/23 06:00 Oxygen Flow Rate 2 12/15/23 20:54 BMI result Body Mass Index 22.9 Const: General: no acute distress, alert and awake Eyes: Sclerae: sclerae normal EOM: EOMs intact bilaterally Neck: Neck: Yes no lymphadenopathy, Yes trachea midline and Yes supple Resp: Effort & Inspection: normal respiratory effort and no respiratory distress Auscultation: clear to auscultation bilaterally Cardio: Rate: regular rate Rhythm: regular rhythm Heart sounds: no gallops, no murmurs and no rubs GI: Palpation (GI): Soft to palpation and Other GI palpation findings present ( Nontender) Auscultation: normal bowel sounds Extrem: General: No clubbing, No cyanosis and Yes other (Surgical site with no hematoma) Objective Data Labs 12/17/23 05:32 12/17/23 05:32 Labs: Laboratory Results - last 24 hr 12/17/23 05:32 WBC 14.4 H RBC 2.79 L Hgb 8.7 L Hct 24.8 L MCV 88.9 MCH 31.2 MCHC 35.1 RDW 13.4 Plt Count 125 L MPV 9.3 L Immature Gran % (Auto) 0.5 H Neut % (Auto) 81.1 H Lymph % (Auto) 11.1 L [place] % (Auto) 7.1 Eos % (Auto) 0.1 Baso % (Auto) 0.1 Lymph # (Auto) 1.6 [place] # (Auto) 1.0 Eos # (Auto) 0.0 Baso # (Auto) 0.0 Abs Immat Gran (auto) 0.07 H Absolute Neuts (auto) 11.7 H Absolute Nucleated RBC 0.000 Nucleated RBC % (auto) 0.0 Sodium 133 L Potassium 4.0 Chloride 98 Carbon Dioxide 25 Anion Gap 14 BUN 59 H Creatinine 0.69 Estim Creat Clear Calc 88.5 Estimated GFR > 60 Random Glucose 105 Calcium 9.6 Phosphorus 2.3 L Magnesium 1.9 Progress Note: A&P Assessment and plan (1) Chronic combined systolic and diastolic CHF (congestive heart failure): Status: Acute (2) Ischemic cardiomyopathy: Status: Acute (3) Persistent atrial fibrillation: Status: Acute (4) Hx of CABG: Status: Acute (5) Femur fracture, right: Status: Acute Plan Assessment: 78-year-old gentleman admitted with right femoral fracture after mechanical for now status post surgical repair being monitored in the intensive care unit secondary to intraop/postop hypotension Plan: Neuro: No acute issues. Cardiac: Titrated off pressor support. Underlying combined systolic and diastolic chronic congestive heart failure, AFib, and coronary artery disease. Pulmonary: No acute issues. Renal: No acute issues. Endo: No acute issues. GI: No acute issues. ID: No acute issues Heme/Onc: No acute issues. Psych: No acute issues. Miscellaneous: Status post surgical repair of right femoral fracture. Orthopedic surgery service care appreciated. Prophylaxis: Pneumatic compression Diet: Cardiac Critical care time spent: 30 minute Quality Stroke Does the patient have a stroke diagnosis?: No VTE Prior VTE?: No VTE Risk Level:: Medical - moderate - high VTE Device Contraindication: N/A - Device Ordered VTE Drug Contraindication: Treatment Not Indicated
--- NOTE | 2023-12-17 13:21 | P.PNOP_ITS ---
Subjective Subjective Date of Service: 12/17/23 Interval history: POD 2 s/p Rt distal femur retrograde nail no overnight events denies sob, cp, palpitations Physical Exam Vital Signs: Vital Signs: Last Vital Signs Temp 97.8 F 12/17/23 06:00 Pulse 90 12/17/23 13:01 Resp 22 H 12/17/23 12:00 BP 110/52 L 12/17/23 13:01 Pulse Ox 96 12/17/23 12:00 O2 Del Method Room Air 12/17/23 12:00 O2 Flow Rate 2 12/16/23 06:00 Oxygen Flow Rate 2 12/15/23 20:54 BMI result Body Mass Index 22.9 Extrem: Other: Right knee incision clean dry and intact, he is able to bend the knee, calf supple non tender, nvi. Procedures Date of Service Date of Service: 12/17/23 Progress Note: A&P Assessment and plan (1) Femur fracture, right: Status: Acute Assessment and Plan: * Continue pain mgmnt * Begin lovenox for dvt ppx-resume eliquis 48 hrs post op * begin PT /ot for Rt retrograde nail-25% wb Time Spent With Patient Time: Total time managing care of this patient today ____ minutes. Quality Stroke Does the patient have a stroke diagnosis?: No VTE Prior VTE?: No VTE Risk Level:: Medical - moderate - high VTE Device Contraindication: N/A - Device Ordered VTE Drug Contraindication: Treatment Not Indicated
--- NOTE | 2023-12-17 13:43 | PM.EVENT ---
Event Note Date of Service: 12/17/23 Event Note: Intraoperatively, patient needed a lot of pressor support to maintain BP. In PACU, BP was dropping to 70s-80s/20s-30s needing pressor support to maintain at 90s-100s/40s. Pre-op BP 110s/40s. Patient was transferred to the ICU postoperatively and required pressor support. He was weaned off pressors early on December 16 and downgraded to medical floor later in the morning. POD 2 rt distal femur retrograde nail for femur fracture ortho following DVT prophylaxis as per orthopedic team Hyponatremia, likely SIADH Continue urea 30gm BID Sodium improving, sodium 133 Acute on chronic normocytic anemia Likely due to surgery Follow H/H Leukocytosis Likely reactive secondary to surgery Congestive heart failure with reduced ejection fraction Entresto, beta-cory, Lasix on hold for hypotension Atrial fibrillation Xarelto on hold for procedure, likely to resume for DVT prophylaxis Rate controlled CAD status post CABG Not on antiplatelet agent. on high-intensity statin Time Spent With Patient Time: Total time managing care of this patient today ____ minutes.
--- NOTE | 2023-12-17 14:19 | MHC.CM.PN ---
ORIF R Femur 12/15. Patient sent to ICU post op for Pressor support. Patient has improved. He is scheduled to transfer to the surgical floor today.
[2023-12-17] MEDS: Enoxaparin Sodium 40 MG/0.4 ML SYRINGE SUBCUT (14:34)
[2023-12-17] MEDS: Docusate Sodium 100 MG CAPSULE PO (20:56)
[2023-12-17] MEDS: Melatonin 3 MG TABLET 6 MG PO (23:56)
[2023-12-18] VITALS (8 sets, daily range): BP systolic 98–130; BP diastolic 47–75; PULSE 92–100; RESP 18–20; TEMP 36.4–37.6; O2SAT 92–100; BMI 22.8
[2023-12-18] MEDS: Albumin Human 25 % 100 ML IV (05:20)
[2023-12-18] MEDS: Morphine Sulfate 4 MG/ML CARTRIDGE 2 MG IVPUSH ×3 (06:04→21:15)
[2023-12-18 07:25] LABS: MANUAL DIFF FLAG NO
[2023-12-18 07:30] LABS: Basophils Percent Auto 0.1 % (0-2); Eosinophils Percent Auto 0.1 % (0-4); Hematocrit 24.3 % (42.0-52.0); Hemoglobin 8.3 g/dl (14.0-18.0); Imm Gran Abs Auto 0.06 X10*3/uL (0.00-0.03); Imm Gran Pct Auto 0.6 % (0.0-0.4); Lymphocytes Absolute Auto 1.2 X10*3/uL (1.2-4.9); Lymphocytes Percent Auto 12.7 % (20-40); Mean Corpuscular HGB Conc 34.2 g/dl (31.0-36.0); Mean Corpuscular Hemoglobin 30.4 pg (27.0-33.0); Mean Platelet Volume 9.7 fL (9.4-12.4); Monocytes Absolute Auto 0.8 X10*3/uL (0.1-1.2); Monocytes Percent Auto 8.9 % (2-11); Neutrophils Absolute Auto 7.2 x10*3/uL (2.0-8.3); Neutrophils Percent Auto 77.6 % (45-73); Platelet Count 113 X10*3/uL (160-400); Red Blood Count 2.73 X10*6/uL (4.60-5.80); Red Cell Distribution Width 13.7 % (11.0-16.0); White Blood Count 9.3 X10*3/uL (4.8-10.8)
[2023-12-18 07:31] LABS: Hematocrit 23.6 % (42.0-52.0); Hemoglobin 8.2 g/dl (14.0-18.0); Mean Corpuscular HGB Conc 34.7 g/dl (31.0-36.0); Mean Corpuscular Hemoglobin 30.7 pg (27.0-33.0); Mean Corpuscular Volume 88.4 fL (80.0-98.0); Mean Platelet Volume 9.9 fL (9.4-12.4); Platelet Count 107 X10*3/uL (160-400); Red Blood Count 2.67 X10*6/uL (4.60-5.80); Red Cell Distribution Width 13.7 % (11.0-16.0); White Blood Count 9.3 X10*3/uL (4.8-10.8)
[2023-12-18 07:45] LABS: Anion Gap 13 (12-20); Blood Urea Nitrogen 58 mg/dL (9-16); Carbon Dioxide 23 mmol/L (22-29); Chloride 100 mmol/L (96-108); Creatinine Clr Calc Pharmacy 81.5; Estimated Glomerular Filt Rate > 60; Glucose Random 98 mg/dL (60-115); Phosphorus 2.3 mg/dL (2.7-4.5); Potassium 3.9 mmol/L (3.3-5.1); Sodium 132 mmol/L (135-145)
[2023-12-18] MEDS: [UNRECOGNIZED DRUG - OTHER] PO ×2 (10:46→16:57)
[2023-12-18] MEDS: Multivitamin TABLET 1 TAB PO (10:46)
[2023-12-18] MEDS: VIT C E ZN COPPR LUTEIN ZEAXAN PO ×2 (10:46→16:57)
[2023-12-18] MEDS: Urea 15 GM POWDER 30 GM PO ×2 (10:47→21:02)
[2023-12-18] MEDS: polyethylene glycoL 3350 17 GM POWD.PACK PO (10:47)
[2023-12-18] MEDS: 0.9 % Sodium Chloride Flush 3 ML SYRINGE IVFLUSH ×3 (10:59→21:17)
--- NOTE | 2023-12-18 11:54 | PM.EVENT ---
Event Note Date of Service: 12/18/23 Event Note: Checked in with RN- Rosetta Smith -patient is doing well, got up to recliner with 2 assist today -continues with iv pain medications -VSS' No overnight events No concerns continue current treatment plan Time Spent With Patient Time: Total time managing care of this patient today ____ minutes.
--- NOTE | 2023-12-18 13:10 | HO.PM.IMPN ---
Subjective Subjective Date of Service: 12/18/23 Interval History: Seen and examined this morning Follow-up for hyponatremia femur fracture status post replacement Downgraded from the ICU 12/16 Reported constipation, no abdominal pain. Denies dizziness Review of Systems Review of Systems: Yes all other systems are reviewed and are negative Constitutional Constitutional: Denies fever(s) Cardiovascular Cardiovascular: Denies chest pain Physical Exam Vital Signs: Vital Signs: Last Vital Signs Temp 97.8 F 12/18/23 12:00 Pulse 96 12/18/23 12:00 Resp 18 12/18/23 12:00 BP 108/50 L 12/18/23 12:00 Pulse Ox 100 12/18/23 12:00 O2 Del Method Room Air 12/18/23 12:00 O2 Flow Rate 2 12/16/23 06:00 Oxygen Flow Rate 2 12/15/23 20:54 BMI result Body Mass Index 22.8 Const: General: cooperative, comfortable, no acute distress, alert and awake Nutritional Appearance: thin Orientation/consciousness: patient oriented x3 Resp: Effort & Inspection: normal respiratory effort, able to speak in complete sentences, no respiratory distress and no use of accessory muscles GI: Inspection: No distended Neuro: Other: Grossly nonfocal General: patient oriented x3 Objective Data Active Medications Acetaminophen (Acetaminophen 325 Mg Tablet) 650 mg PO Q6H PRN PRN Reason: Pain, Mild (Pain Scale 1-3) Last Admin: 12/16/23 20:15 Dose: 650 mg Documented By: KARLA Albuterol Sulfate (Albuterol Sulfate 90 Mcg 8 Gm Inhaler) 2 puff INHALE RQID PRN PRN Reason: wheezing Bisacodyl (Bisacodyl 10 Mg Supp.Rect) 10 mg [place] DAILY PRN PRN Reason: Constipation Docusate Sodium (Docusate Sodium 100 Mg Capsule) 100 mg PO BEDTIME [facility] Last Admin: 12/17/23 20:56 Dose: 100 mg Documented By: JAMES Enoxaparin Sodium (Enoxaparin Sodium 40 Mg/0.4 Ml Syringe) 40 mg SUBCUT Q24H [facility] Last Admin: 12/17/23 14:34 Dose: 40 mg Documented By: CTORRMiriam Cefazolin Sodium/Dextrose (Ancef) 2 gm in 50 mls @ 100 mls/hr IV POSTOP [facility] Melatonin (Melatonin 3 Mg Tablet) 6 mg PO BEDTIME PRN PRN Reason: Insomnia Last Admin: 12/17/23 23:56 Dose: 6 mg Documented By: JAMES Morphine Sulfate (Morphine Sulfate 4 Mg/Ml Cartridge) 2 mg IVPUSH Q4H PRN; Protocol PRN Reason: Pain, Severe (Pain Scale 7-10) Last Admin: 12/18/23 10:52 Dose: 2 mg Documented By: LIONEL Multivitamins/Vitamin C (Multivitamin Tablet) 1 tab PO DAILY [facility] Last Admin: 12/18/23 10:46 Dose: 1 tab Documented By: LIONEL Pt Own (Vit C,E-Zn- [id number] [Preservision Areds- 2] 250-90-40- 1 tab PO BIDWM [facility] Last Admin: 12/18/23 10:46 Dose: 1 tab Documented By: LIONEL Ondansetron HCl (Ondansetron Hcl 4 Mg/2 Ml Vial) 4 mg IVPUSH Q8H PRN PRN Reason: Nausea and Vomiting Polyethylene Glycol (Polyethylene Glycol 3350 17 Gm Powd.Pack) 17 gm PO BID [facility] Last Admin: 12/18/23 10:47 Dose: 17 gm Documented By: LIONEL Sodium Chloride (0.9 % Sodium Chloride Flush 3 Ml Syringe) 3 ml IVFLUSH QSHIFT [facility] Last Admin: 12/18/23 10:59 Dose: 3 ml Documented By: LIONEL Urea (Urea 15 Gm Powder) 30 gm PO BID [facility] Last Admin: 12/18/23 10:47 Dose: 30 gm Documented By: LIONEL Labs 12/18/23 07:01 12/18/23 07:01 Labs: Laboratory Results - last 24 hr 12/18/23 12/18/23 07:00 07:01 MCV 89.0 88.4 MCH 30.4 30.7 MCHC 34.2 34.7 RDW 13.7 13.7 Plt Count 113 L 107 L MPV 9.7 9.9 Immature Gran % (Auto) 0.6 H Neut % (Auto) 77.6 H Lymph % (Auto) 12.7 L [place] % (Auto) 8.9 Eos % (Auto) 0.1 Baso % (Auto) 0.1 Lymph # (Auto) 1.2 [place] # (Auto) 0.8 Eos # (Auto) 0.0 Baso # (Auto) 0.0 Abs Immat Gran (auto) 0.06 H Absolute Neuts (auto) 7.2 Absolute Nucleated RBC 0.000 0.000 Nucleated RBC % (auto) 0.0 0.0 Anion Gap 13 Estim Creat Clear Calc 81.5 Estimated GFR > 60 Random Glucose 98 Calcium 10.0 Phosphorus 2.3 L Magnesium 2.0 Assessment and Plan (1) Hyponatremia: Status: Acute (2) Femur fracture, right: Status: Acute Plan This is a 78-year-old male with pertinent history of congestive heart failure with reduced ejection fraction, AFib on Xarelto, CAD status post CABG, legally blind who presents to the emergency department for evaluation after a fall found to have displaced femur fracture. Hospital course complicated by hypotension following surgery requiring ICU level care for pressor support. POD 2 rt distal femur retrograde nail for femur fracture Deemed high risk for perioperative cardiac complications by cardiology Intraoperatively, patient needed a lot of pressor support to maintain BP. In PACU, BP was dropping to 70s-80s/20s-30s needing pressor support to maintain at 90s-100s/40s. Patient was transferred to the ICU postoperatively and required pressor support, he was downgraded to the medical floor on December 16 ortho following DVT prophylaxis as per orthopedic team Bowel regimen Hyponatremia, likely SIADH Continue urea 30gm BID Sodium improving, sodium stable Acute on chronic normocytic anemia Likely due to surgery Follow H/H Leukocytosis Likely reactive secondary to surgery Resolved Congestive heart failure with reduced ejection fraction Entresto, beta-cory, Lasix on hold for hypotension - blood pressure improving but remains soft Will hold off on IV fluid for now due to low EF Atrial fibrillation Xarelto on hold for procedure, likely to resume for DVT prophylaxis Rate controlled CAD status post CABG Not on antiplatelet agent. on high-intensity statin at baseline PT-recommended acute rehab DVT prophylaxis Lovenox Patient requires ongoing inpatient stay for management of right femur fracture, close monitoring of blood pressure and safe disposition Quality Stroke Does the patient have a stroke diagnosis?: No VTE Prior VTE?: No VTE Risk Level:: Medical - moderate - high VTE Device Contraindication: N/A - Device Ordered VTE Drug Contraindication: Treatment Not Indicated
[2023-12-18] MEDS: Enoxaparin Sodium 40 MG/0.4 ML SYRINGE SUBCUT (16:57)
[2023-12-18] MEDS: Docusate Sodium 100 MG CAPSULE PO (21:02)
[2023-12-19] VITALS (7 sets, daily range): BP systolic 98–123; BP diastolic 46–65; PULSE 82–97; RESP 20; TEMP 36.4–37.3; O2SAT 95–98; BMI 22.1
[2023-12-19] MEDS: Melatonin 3 MG TABLET 6 MG PO (01:34)
[2023-12-19] MEDS: Acetaminophen 325 MG TABLET 650 MG PO (07:52)
[2023-12-19] MEDS: Multivitamin TABLET 1 TAB PO (07:52)
[2023-12-19] MEDS: 0.9 % Sodium Chloride Flush 3 ML SYRINGE IVFLUSH ×3 (07:53→20:58)
[2023-12-19] MEDS: Urea 15 GM POWDER 30 GM PO ×2 (07:54→20:58)
[2023-12-19] MEDS: VIT C E ZN COPPR LUTEIN ZEAXAN PO ×2 (07:55→16:27)
[2023-12-19] MEDS: [UNRECOGNIZED DRUG - OTHER] PO ×2 (07:55→16:27)
--- NOTE | 2023-12-19 08:20 | P.PNOP_ITS ---
Subjective Subjective Date of Service: 12/19/23 Interval history: POD 3 s/p Rt distal femur retrograde nail no overnight events he is resting in recliner, pain is managable denies sob, cp, palpitations Physical Exam Vital Signs: Vital Signs: Last Vital Signs Temp 98.2 F 12/19/23 07:51 Pulse 97 12/19/23 07:51 Resp 20 12/19/23 07:51 BP 123/65 12/19/23 07:51 Pulse Ox 96 12/19/23 07:51 O2 Del Method Room Air 12/19/23 07:51 O2 Flow Rate 2 12/16/23 06:00 Oxygen Flow Rate 2 12/15/23 20:54 BMI result Body Mass Index 22.1 Extrem: Other: Right knee incision clean dry and intact, he is able to bend the knee, calf supple non tender, nvi. Procedures Date of Service Date of Service: 12/19/23 Progress Note: A&P Assessment and plan (1) Femur fracture, right: Status: Acute Assessment and Plan: * Continue pain mgmnt * resume plavix at medicine discretion * begin PT /ot for Rt retrograde nail-25% wb Time Spent With Patient Time: Total time managing care of this patient today ____ minutes. Quality Stroke Does the patient have a stroke diagnosis?: No VTE Prior VTE?: No VTE Risk Level:: Medical - moderate - high VTE Device Contraindication: N/A - Device Ordered VTE Drug Contraindication: Treatment Not Indicated
--- NOTE | 2023-12-19 09:56 | P.PNIM_ITS ---
Subjective Subjective Date of Service: 12/19/23 Interval History: Seen and examined this morning Follow-up for hyponatremia femur fracture status post replacement Downgraded from the ICU 12/16 Reported constipation, no abdominal pain. Denies dizziness Review of Systems Review of Systems: Yes all other systems are reviewed and are negative Constitutional Constitutional: Denies fever(s) Cardiovascular Cardiovascular: Denies chest pain Physical Exam 2 Vital Signs: Vital Signs: Last Vital Signs Temp 98.2 F 12/19/23 07:51 Pulse 97 12/19/23 07:51 Resp 20 12/19/23 07:51 BP 123/65 12/19/23 07:51 Pulse Ox 96 12/19/23 07:51 O2 Del Method Room Air 12/19/23 07:51 O2 Flow Rate 2 12/16/23 06:00 Oxygen Flow Rate 2 12/15/23 20:54 BMI result Body Mass Index 22.1 Appearing in no acute distress lung sounds are clear to auscultation heart regular rate rhythm, clear S1, S2 positive bowel sounds, abdomen is soft, nontender neuro patient is alert x3, no focal deficits Objective Data Active Medications Acetaminophen (Acetaminophen 325 Mg Tablet) 650 mg PO Q6H PRN PRN Reason: Pain, Mild (Pain Scale 1-3) Last Admin: 12/19/23 07:52 Dose: 650 mg Documented By: NARCISO Albuterol Sulfate (Albuterol Sulfate 90 Mcg 8 Gm Inhaler) 2 puff INHALE RQID PRN PRN Reason: wheezing Bisacodyl (Bisacodyl 10 Mg Supp.Rect) 10 mg [place] DAILY PRN PRN Reason: Constipation Docusate Sodium (Docusate Sodium 100 Mg Capsule) 100 mg PO BEDTIME [facility] Last Admin: 12/18/23 21:02 Dose: 100 mg Documented By: MICHELLE Cefazolin Sodium/Dextrose (Ancef) 2 gm in 50 mls @ 100 mls/hr IV POSTOP [facility] Melatonin (Melatonin 3 Mg Tablet) 6 mg PO BEDTIME PRN PRN Reason: Insomnia Last Admin: 12/19/23 01:34 Dose: 6 mg Documented By: HEMANT Morphine Sulfate (Morphine Sulfate 4 Mg/Ml Cartridge) 2 mg IVPUSH Q4H PRN; Protocol PRN Reason: Pain, Severe (Pain Scale 7-10) Last Admin: 12/18/23 21:15 Dose: 2 mg Documented By: MICHELLE Multivitamins/Vitamin C (Multivitamin Tablet) 1 tab PO DAILY [facility] Last Admin: 12/19/23 07:52 Dose: 1 tab Documented By: NARCISO Pt Own (Vit C,E-Zn- [id number]-Vhqfag [Preservision Areds- 2] 250-90-40- 1 tab PO BIDWM [facility] Last Admin: 12/19/23 07:55 Dose: 1 tab Documented By: NARCISO Ondansetron HCl (Ondansetron Hcl 4 Mg/2 Ml Vial) 4 mg IVPUSH Q8H PRN PRN Reason: Nausea and Vomiting Polyethylene Glycol (Polyethylene Glycol 3350 17 Gm Powd.Pack) 17 gm PO BID [facility] Last Admin: 12/19/23 07:55 Dose: Not Given Documented By: NARCISO Non-Admin Reason: Patient Refused Sodium Chloride (0.9 % Sodium Chloride Flush 3 Ml Syringe) 3 ml IVFLUSH QSHIFT [facility] Last Admin: 12/19/23 07:53 Dose: 3 ml Documented By: NARCISO Urea (Urea 15 Gm Powder) 30 gm PO BID [facility] Last Admin: 12/19/23 07:54 Dose: 30 gm Documented By: NARCISO Labs 12/18/23 07:01 12/18/23 07:01 Assessment and Plan (1) Hyponatremia: Status: Acute (2) Femur fracture, right: Status: Acute Plan 78-year-old male with pertinent history of congestive heart failure with reduced ejection fraction, AFib on Xarelto, CAD status post CABG, legally blind who presents to the emergency department for evaluation after a fall found to have displaced femur fracture. Hospital course complicated by hypotension following surgery requiring ICU level care for pressor support. POD 3 rt distal femur retrograde nail for femur fracture Deemed high risk for perioperative cardiac complications by cardiology Intraoperatively, patient needed a lot of pressor support to maintain BP, tx to ICU post op ortho following Bowel regimen Hyponatremia, likely SIADH Continue urea 30gm BID Sodium improving, sodium stable Acute on chronic normocytic anemia Likely due to surgery Follow H/H Leukocytosis Likely reactive secondary to surgery Resolved Congestive heart failure with reduced ejection fraction Entresto, beta-cory, Lasix on hold for hypotension - blood pressure improving but remains soft Will hold off on IV fluid for now due to low EF Atrial fibrillation resume xarelto Rate controlled CAD status post CABG Not on antiplatelet agent. on high-intensity statin at baseline DISPO PT-recommended acute rehab, waiting of bed to be available Attending Dr. Pascal DVT prophylaxis with xarelto Patient requires ongoing inpatient stay for management of right femur fracture, close monitoring of blood pressure and safe disposition Quality Stroke Does the patient have a stroke diagnosis?: No VTE Prior VTE?: No VTE Risk Level:: Medical - moderate - high VTE Device Contraindication: N/A - Device Ordered VTE Drug Contraindication: Treatment Not Indicated
--- NOTE | 2023-12-19 10:31 | MHC.CM.PN ---
PER MD ROUNDS, PT IS READY TO DC TODAY [facility] FOLLOWING UPDATES SENT, AWAITING RESPONSES/BED OFFERS
--- NOTE | 2023-12-19 11:35 | MHC.CM.PN ---
Addendum entered by Barbara Flanagan 12/19/23 15:54: INITIAL AUTH REQUEST WAS SENT BY [facility] AT 1154 HOURS PT UPDATES SENT AND ADDED TO REQUEST AT 1349 STILL AWAITING A RESPONSE FROM PTS INSURANCE COMPANY Original Note: CM MET WITH PT AND AT BEDSIDE THEY ARE AGREEABLE TO ACUTE REHAB AT [place] THEY ARE AWARE THE REHAB WILL NEED AN UPDATES PT EVAL AND WILL THEN SUBMIT FOR AUTH PER MD ROUNDS, PT CAN DC ONCE REHAB BED IS SECURED
--- NOTE | 2023-12-19 12:06 | PC.NURSE ---
Pt's BP 98/65. REGI [facility] made aware. Pt. alert and oriented.
--- NOTE | 2023-12-19 12:48 | P.PNNP_ITS ---
Subjective Subjective Date of Service: 12/20/23 Interval history: Events noted status post hip surgery Physical Exam 2 Vital Signs: Vital Signs: Last Vital Signs Temp 98.6 F 12/19/23 12:00 Pulse 97 12/19/23 12:00 Resp 20 12/19/23 12:00 BP 98/65 12/19/23 12:00 Pulse Ox 98 12/19/23 12:00 O2 Del Method Room Air 12/19/23 12:00 O2 Flow Rate 2 12/16/23 06:00 Oxygen Flow Rate 2 12/15/23 20:54 BMI result Body Mass Index 22.1 Const: General: cooperative, healthy appearing, comfortable, no acute distress, well developed and alert Orientation/consciousness: patient oriented x3 HEENT: Other: Unremarkable Head: Yes normal to inspection, Yes normocephalic and Yes atraumatic Eyes: General: appearance normal, both eyes and all related structures Neck: Neck: Yes normal visual inspection and Yes no lymphadenopathy Chest: Chest palpation & inspection: normal inspection of the chest Resp: Other: Few basilar crackles; difficult to auscultate because of position. Effort & Inspection: normal respiratory effort and able to speak in complete sentences Cardio: Palpation: normal PMI Rate: regular rate Heart sounds: S1 normal heart sound present, S2 normal heart sound present, no gallops, Murmur heart sound present systolic II/ and at the right sternal border and no rubs P eripheral pulses: Peripheral pulses 2+ throughout GI: Inspection: Yes normal to inspection Palpation (GI): Soft to palpation Back/Spine/Pelvis: Other: unremarkable Skin: General skin exam: no rashes or lesions noted Neuro: General: patient oriented x3 Extrem: Other: Right hip has abraison over the lateral aspect without drainage. No eopen wounds distally. He is able to plantar and dorsi flex the foot. NVI. General: Yes normal to inspection Psych: Appearance: grossly normal Mental Status: mental status grossly normal Objective Data Labs 12/18/23 07:01 12/18/23 07:01 Procedures Date of Service Date of Service: 12/20/23 Assessment & Plan Assessment and plan (1) Hyponatremia: Status: Acute Plan Elderly man with asymptomatic hyponatremia. Based on the urine sodium and osmolality I believe he has non osmotic ADH release. Pain could be a potential source for ADH release. Goal is to maintain serum sodium more than 130 millimoles. Restrict oral free water intake. No need for urea powder Renal function stable at baseline Time Spent With Patient Time: Total time managing care of this patient today ____ minutes. Progress Note: Quality Stroke Does the patient have a stroke diagnosis?: No
[2023-12-19] MEDS: Docusate Sodium 100 MG CAPSULE PO (20:58)
[2023-12-20] VITALS (7 sets, daily range): BP systolic 94–115; BP diastolic 49–55; PULSE 75–90; RESP 20; TEMP 36.6–37.2; O2SAT 93–99; BMI 23.0
[2023-12-20] MEDS: Melatonin 3 MG TABLET 6 MG PO ×2 (00:10→22:14)
[2023-12-20] MEDS: Acetaminophen 325 MG TABLET 650 MG PO ×2 (07:50→17:50)
[2023-12-20] MEDS: 0.9 % Sodium Chloride Flush 3 ML SYRINGE IVFLUSH ×2 (07:50→17:57)
[2023-12-20] MEDS: Multivitamin TABLET 1 TAB PO (07:51)
[2023-12-20] MEDS: VIT C E ZN COPPR LUTEIN ZEAXAN PO ×2 (07:51→17:50)
[2023-12-20] MEDS: [UNRECOGNIZED DRUG - OTHER] PO ×2 (07:51→17:50)
--- NOTE | 2023-12-20 13:28 | HO.PM.IMPN ---
Subjective Subjective Date of Service: 12/20/23 Interval History: Seen and examined this morning Follow-up for hyponatremia femur fracture status post replacement Downgraded from the ICU 12/16 no abdominal pain. Denies dizziness Review of Systems Review of Systems: Yes all other systems are reviewed and are negative Constitutional Constitutional: Denies fever(s) Cardiovascular Cardiovascular: Denies chest pain Physical Exam Vital Signs: Vital Signs: Last Vital Signs Temp 98.0 F 12/20/23 11:17 Pulse 85 12/20/23 11:17 Resp 20 12/20/23 11:17 BP 94/54 L 12/20/23 11:17 Pulse Ox 93 12/20/23 11:17 O2 Del Method Room Air 12/20/23 11:17 O2 Flow Rate 2 12/16/23 06:00 Oxygen Flow Rate 2 12/15/23 20:54 BMI result Body Mass Index 23.0 Appearing in no acute distress lung sounds are clear to auscultation heart regular rate rhythm, clear S1, S2 positive bowel sounds, abdomen is soft, nontender neuro patient is alert x3, no focal deficits Objective Data Active Medications Acetaminophen (Acetaminophen 325 Mg Tablet) 650 mg PO Q6H PRN PRN Reason: Pain, Mild (Pain Scale 1-3) Last Admin: 12/20/23 07:50 Dose: 650 mg Documented By: NARCISO Albuterol Sulfate (Albuterol Sulfate 90 Mcg 8 Gm Inhaler) 2 puff INHALE RQID PRN PRN Reason: wheezing Bisacodyl (Bisacodyl 10 Mg Supp.Rect) 10 mg [place] DAILY PRN PRN Reason: Constipation Docusate Sodium (Docusate Sodium 100 Mg Capsule) 100 mg PO BEDTIME [facility] Last Admin: 12/19/23 20:58 Dose: 100 mg Documented By: HEMANT Cefazolin Sodium/Dextrose (Ancef) 2 gm in 50 mls @ 100 mls/hr IV POSTOP [facility] Melatonin (Melatonin 3 Mg Tablet) 6 mg PO BEDTIME PRN PRN Reason: Insomnia Last Admin: 12/20/23 00:10 Dose: 6 mg Documented By: HEMANT Morphine Sulfate (Morphine Sulfate 4 Mg/Ml Cartridge) 2 mg IVPUSH Q4H PRN; Protocol PRN Reason: Pain, Severe (Pain Scale 7-10) Last Admin: 12/18/23 21:15 Dose: 2 mg Documented By: MICHELLE Multivitamins/Vitamin C (Multivitamin Tablet) 1 tab PO DAILY [facility] Last Admin: 12/20/23 07:51 Dose: 1 tab Documented By: NARCISO Pt Own (Vit C,E-Zn- [id number]-[id number] [Preservision Areds- 2] 250-90-40- 1 tab PO BIDWM [facility] Last Admin: 12/20/23 07:51 Dose: 1 tab Documented By: NARCISO Ondansetron HCl (Ondansetron Hcl 4 Mg/2 Ml Vial) 4 mg IVPUSH Q8H PRN PRN Reason: Nausea and Vomiting Polyethylene Glycol (Polyethylene Glycol 3350 17 Gm Powd.Pack) 17 gm PO BID [facility] Last Admin: 12/20/23 07:47 Dose: Not Given Documented By: NARCISO Non-Admin Reason: Patient Refused Rivaroxaban (Rivaroxaban 20 Mg Tablet) 20 mg PO DAILY@1730 [facility] Sodium Chloride (0.9 % Sodium Chloride Flush 3 Ml Syringe) 3 ml IVFLUSH QSHIFT [facility] Last Admin: 12/20/23 07:50 Dose: 3 ml Documented By: NARCISO Labs 12/18/23 07:01 12/18/23 07:01 Assessment and Plan (1) Hyponatremia: Status: Acute (2) Femur fracture, right: Status: Acute Plan 78-year-old male with pertinent history of congestive heart failure with reduced ejection fraction, AFib on Xarelto, CAD status post CABG, legally blind who presents to the emergency department for evaluation after a fall found to have displaced femur fracture. Hospital course complicated by hypotension following surgery requiring ICU level care for pressor support. POD 4 rt distal femur retrograde nail for femur fracture Deemed high risk for perioperative cardiac complications by cardiology Intraoperatively, patient needed a lot of pressor support to maintain BP, tx to ICU post op ortho following Bowel regimen Hyponatremia, likely SIADH s/p urea 30gm BID sodium stable Acute on chronic normocytic anemia Likely due to surgery stable H/H Leukocytosis Likely reactive secondary to surgery Resolved Congestive heart failure with reduced ejection fraction Entresto, beta-cory, Lasix on hold for hypotension - blood pressure improving but remains soft Will hold off on IV fluid for now due to low EF Atrial fibrillation resume xarelto Rate controlled CAD status post CABG Not on antiplatelet agent. on high-intensity statin at baseline DISPO PT-recommended acute rehab, waiting of bed to be available Attending Dr. Pascal DVT prophylaxis with xarelto DISPO wanting for rehab bed to be available Patient requires ongoing inpatient stay for management of right femur fracture, close monitoring of blood pressure and safe disposition Quality Stroke Does the patient have a stroke diagnosis?: No VTE Prior VTE?: No VTE Risk Level:: Medical - moderate - high VTE Device Contraindication: N/A - Device Ordered VTE Drug Contraindication: Treatment Not Indicated
--- NOTE | 2023-12-20 15:40 | MHC.CM.PN ---
IMM 12/20/23 [facility] denied Acute Rehab authorization. A Peer 2 Peer was not successful. The patient received one bed offer from [facility]. Insurance auth is in progress. [facility]
[2023-12-20] MEDS: Rivaroxaban 20 MG TABLET PO (17:50)
[2023-12-20] MEDS: Docusate Sodium 100 MG CAPSULE PO (22:14)
[2023-12-20] MEDS: polyethylene glycoL 3350 17 GM POWD.PACK PO (22:14)
[2023-12-21] VITALS: BP 112/53; PULSE 78; RESP 20; TEMP 36.9; O2SAT 98
[2023-12-21 04:00] VITALS: BP 112/52; PULSE 90; RESP 18; TEMP 36.9; O2SAT 98
[2023-12-21 07:20] VITALS: BP 91/50; PULSE 95; RESP 20; TEMP 36.7; O2SAT 93
[2023-12-21] MEDS: VIT C E ZN COPPR LUTEIN ZEAXAN PO ×2 (08:29→17:08)
[2023-12-21] MEDS: Multivitamin TABLET 1 TAB PO (08:29)
[2023-12-21] MEDS: Acetaminophen 325 MG TABLET 650 MG PO (08:29)
[2023-12-21] MEDS: [UNRECOGNIZED DRUG - OTHER] PO ×2 (08:29→17:08)
[2023-12-21] MEDS: 0.9 % Sodium Chloride Flush 3 ML SYRINGE IVFLUSH (08:30)
[2023-12-21] MEDS: 0.9 % Sodium Chloride 1,000 ML 100 ML IVCONT (09:20)
[2023-12-21 11:08] VITALS: BP 94/46; PULSE 89; RESP 18; TEMP 37.2; O2SAT 97
--- NOTE | 2023-12-21 13:07 | HO.PM.IMPN ---
Subjective Subjective Date of Service: 12/21/23 Interval History: Seen and examined this morning Follow-up for hyponatremia femur fracture status post replacement no abdominal pain. Denies dizziness Review of Systems Review of Systems: Yes all other systems are reviewed and are negative Constitutional Constitutional: Denies fever(s) Cardiovascular Cardiovascular: Denies chest pain Physical Exam Vital Signs: Vital Signs: Last Vital Signs Temp 98.9 F 12/21/23 11:08 Pulse 89 12/21/23 11:08 Resp 18 12/21/23 11:08 BP 94/46 L 12/21/23 11:08 Pulse Ox 97 12/21/23 11:08 O2 Del Method Room Air 12/21/23 11:08 O2 Flow Rate 2 12/16/23 06:00 Oxygen Flow Rate 2 12/15/23 20:54 BMI result Body Mass Index 23.0 Appearing in no acute distress lung sounds are clear to auscultation heart regular rate rhythm, clear S1, S2 positive bowel sounds, abdomen is soft, nontender neuro patient is alert x3, no focal deficits Objective Data Active Medications Acetaminophen (Acetaminophen 325 Mg Tablet) 650 mg PO Q6H PRN PRN Reason: Pain, Mild (Pain Scale 1-3) Last Admin: 12/21/23 08:29 Dose: 650 mg Documented By: CHRISTIANO Albuterol Sulfate (Albuterol Sulfate 90 Mcg 8 Gm Inhaler) 2 puff INHALE RQID PRN PRN Reason: wheezing Bisacodyl (Bisacodyl 10 Mg Supp.Rect) 10 mg [place] DAILY PRN PRN Reason: Constipation Docusate Sodium (Docusate Sodium 100 Mg Capsule) 100 mg PO BEDTIME [facility] Last Admin: 12/20/23 22:14 Dose: 100 mg Documented By: RAYMOND Sodium Chloride (Ns) 1,000 mls @ 100 mls/hr IVCONT .Q10H [facility] Last Admin: 12/21/23 09:20 Dose: 100 mls/hr Documented By: CHRISTIANO Melatonin (Melatonin 3 Mg Tablet) 6 mg PO BEDTIME PRN PRN Reason: Insomnia Last Admin: 12/20/23 22:14 Dose: 6 mg Documented By: RAYMOND Multivitamins/Vitamin C (Multivitamin Tablet) 1 tab PO DAILY [facility] Last Admin: 12/21/23 08:29 Dose: 1 tab Documented By: CHRISTIANO Pt Own (Vit C,E-Zn- Ggaan-Cokkqk-Otxsig [Preservision Areds- 2] 250-90-40- 1 tab PO BIDWM [facility] Last Admin: 12/21/23 08:29 Dose: 1 tab Documented By: CHRISTIANO Ondansetron HCl (Ondansetron Hcl 4 Mg/2 Ml Vial) 4 mg IVPUSH Q8H PRN PRN Reason: Nausea and Vomiting Polyethylene Glycol (Polyethylene Glycol 3350 17 Gm Powd.Pack) 17 gm PO BID [facility] Last Admin: 12/21/23 08:31 Dose: Not Given Documented By: CHRISTIANO Non-Admin Reason: had large bm this am Rivaroxaban (Rivaroxaban 20 Mg Tablet) 20 mg PO DAILY@1730 [facility] Last Admin: 12/20/23 17:50 Dose: 20 mg Documented By: MARIOARSherman Sodium Chloride (0.9 % Sodium Chloride Flush 3 Ml Syringe) 3 ml IVFLUSH QSHIFT [facility] Last Admin: 12/21/23 08:30 Dose: 3 ml Documented By: CHRISTIANO Labs 12/18/23 07:01 12/18/23 07:01 Assessment and Plan (1) Hyponatremia: Status: Acute (2) Femur fracture, right: Status: Acute Plan 78-year-old male with pertinent history of congestive heart failure with reduced ejection fraction, AFib on Xarelto, CAD status post CABG, legally blind who presents to the emergency department for evaluation after a fall found to have displaced femur fracture. Hospital course complicated by hypotension following surgery requiring ICU level care for pressor support. POD 5 rt distal femur retrograde nail for femur fracture Deemed high risk for perioperative cardiac complications by cardiology Intraoperatively, patient needed a lot of pressor support to maintain BP, tx to ICU post op ortho following Bowel regimen Hyponatremia, likely SIADH s/p urea 30gm BID sodium stable Acute on chronic normocytic anemia Likely due to surgery stable H/H Leukocytosis Likely reactive secondary to surgery Resolved Congestive heart failure with reduced ejection fraction Entresto, beta-cory, Lasix on hold for hypotension - blood pressure improving but remains soft Will hold off on IV fluid for now due to low EF Atrial fibrillation resume xarelto Rate controlled CAD status post CABG Not on antiplatelet agent. on high-intensity statin at baseline DISPO PT-recommended acute rehab, waiting for bed to be available Attending Dr. tinsley DVT prophylaxis with xarelto DISPO wanting for rehab bed to be available Patient requires ongoing inpatient stay for management of right femur fracture, close monitoring of blood pressure and safe disposition Quality Stroke Does the patient have a stroke diagnosis?: No VTE Prior VTE?: No VTE Risk Level:: Medical - moderate - high VTE Device Contraindication: N/A - Device Ordered VTE Drug Contraindication: Treatment Not Indicated
--- NOTE | 2023-12-21 13:41 | MHC.CM.PN ---
Second IMM, 12/21/23, pt has been medically cleared for DC, he will go today to [facility] via BLS.
--- NOTE | 2023-12-21 14:42 | P.DS_ITS ---
DS: Providers Provider Date of Service: 12/21/23 Date of admission: 12/11/23 23:31 Primary care physician: Mare Wells MD Consults: 12/11/23 21:55 Consult to Orthopedics Routine Consulting Provider: [facility] Reason for consultation: displaced femur fracture 12/12/23 15:49 Consult to Cardiology Routine Consulting Provider: [facility] Reason for consultation: risk stratification for orthopedic surgery, hx CAD, CABG, CHF 12/13/23 08:41 Consult to Wound Care Routine Reason for consultation: abrasion to right hip 12/14/23 09:50 Consult to Nephrology Routine Consulting Provider: [facility] Reason for consultation: hyponatremia DS: Diagnosis Discharge Diagnosis (1) Hyponatremia: Status: Acute (2) Femur fracture, right: Status: Acute DS: Summary Hospital Course Hospital Course: History and physical as per admitting provider. This is a 78-year-old male with pertinent history of congestive heart failure with reduced ejection fraction, AFib on Xarelto, CAD status post CABG, legally blind who presents to the emergency department for evaluation after a fall. 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 States as he was going down the stairs to use restroom, he lost his balance and fell on his buttocks and right hip. Difficulty moving the right lower extremity after the fall. No loss of consciousness, chest pain or palpitations prior to the fall. No rhythmic jerking movement of extremities. No fever, chills, chest discomfort, palpitations, shortness of breath, abdominal pain, changes in urinary or bowel habits. In the emergency department, imaging with displaced femur fracture. 78-year-old man treated for a femur fracture after a fall. He is status post distal femur retrograde nailing on 12/15/2023. Prior to surgery he was deemed high risk for perioperative cardiac complications due to history of ischemic cardiomyopathy, coronary artery disease and heart failure with reduced ejection fraction. He did well intraoperatively but developed hypotension postoperatively interest transferred to the ICU for pressor support. He has a longstanding history of hypotension/low blood pressures. He was in ICU for about 2 days and was transferred to the medical telemetry floor. Patient did well with physical therapy who recommended short-term rehabilitation. Patient has ambulating. Plan is for patient to transfer to short-term rehab facility. Patient and his partner are in agreement with this. He was treated for hyponatremia likely secondary to SIADH. He was seen evaluated by Nephrology who recommended urea 30 mg twice daily. He was on that for several days and his sodium did improve and is now stable. Acute on chronic normocytic anemia. Likely secondary to surgery. H&H has remained above transfusion threshold Leukocytosis. Likely reactive to surgery had resolved Atrial fibrillation, paroxysmal. On Xarelto was held for about a week prior to surgery History of coronary artery disease status post CABG/congestive heart failure with reduced ejection fraction. Not on antiplatelet agent, on high-intensity statin. Lasix has been on hold due to hypertension and should continue to be on hold, blood pressure can be followed daily and if blood pressures allow may consider restarting furosemide. 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 Time Attestation Discharge Coordination Time (in mins): 45 Quality: Safe Use of Opioids Does Pt have an Active Cancer Diagnosis on the Problem List?: No Quality: Stroke Does the patient have a stroke diagnosis?: No Physical Exam Vital Signs: Vital Signs: Last Vital Signs Temp 98.9 F 12/21/23 11:08 Pulse 89 12/21/23 11:08 Resp 18 12/21/23 11:08 BP 94/46 L 12/21/23 11:08 Pulse Ox 97 12/21/23 11:08 O2 Del Method Room Air 12/21/23 11:08 O2 Flow Rate 2 12/16/23 06:00 Oxygen Flow Rate 2 12/15/23 20:54 BMI result Body Mass Index 23.0 Appearing in no acute distress head is normocephalic atraumatic eyes pupils are PERRLA sclera is anicteric mouth throat mucous membranes are intact and moist neck is supple no lymphadenopathy, no JVD noted lung sounds are clear to auscultation heart regular rate rhythm, clear S1, S2 positive bowel sounds, abdomen is soft, nontender neuro patient is alert x3, no focal deficits Discharge Plan Discharge Anticipated Discharge Date/Time: 12/21/23 14:06 Patient Disposition: [facility] Discharge Diagnosis: Distal femur retrograde nailing Hyponatremia Acute on chronic normocytic anemia Leukocytosis Mild hypotension Referrals: [facility] [Outside] - 1 Week Mare Wells MD [Primary Care Provider] - 1 Week Rian Angeles MD [Physician] - 2 Weeks Discharge Medications: Continued lorazepam 0.5 mg tablet 0.5 mg PO DAILY PRN (Reason: anxiety) albuterol sulfate 90 mcg/actuation HFA aerosol inhaler 2 puff INHALATION QID PRN (Reason: wheezing) rosuvastatin 5 mg tablet 5 mg PO DAILY PreserVision AREDS-2 250-90-40-1 mg Capsule 1 tab PO BID Centrum Adult 50 Plus 80 mcg Tablet,Chewable 1 tab PO DAILY Xarelto 20 mg tablet 20 mg PO DAILY Held furosemide 20 mg tablet 20 mg PO DAILY Hold Instructions: Resume on 01/20/24. Discharge Orders: Discharge Order (Routine); Ordered 12/21/23 Ordered By: Lurdes Guthrie Diet: Advance to usual diet Activity on Discharge: As tolerated Stand Alone Forms: Patient Portal Discharge page Print Language: Jordanian Care Plan Goals: -Follow-up with orthopedic surgery in 2 weeks -Your furosemide has been on hold because of soft blood pressures, monitor blood pressures for 2 more days and consider restarting this medication if blood pressure allows. Follow-up with cardiology for further titration of these medications. Health Concerns: Distal femur retrograde nailing Hyponatremia Acute on chronic normocytic anemia Leukocytosis Mild hypotension Plan of Treatment: Follow-up with primary care provider as needed Take all medications as prescribed Assessment: See discharge summary
[2023-12-21 16:00] VITALS: BP 96/56; PULSE 92; RESP 16; TEMP 36.6; O2SAT 99
[2023-12-21] MEDS: Rivaroxaban 20 MG TABLET PO (17:08)
[2023-12-23 11:43] LABS: Cortisol, Free 2.95 mcg/dL
--- NOTE | 2023-12-26 09:20 | W.PM.OPN ---
Operative Note Operative Note Date of Service: 12/21/23 Narrative: Date of Service: 12/15/23 Pre-op diagnosis: right distal femur fracture Post-op diagnosis: same Procedure: Right femur retrograde IMN Implants: [place] retrograde alpha 2 13 x 300 Surgeon: Rian Angeles MD Anesthesia: GETA and local Was an Commercial Airline Pilot used for this Procedure?: No Estimated blood loss (mL): 200 IV fluids (mL): 500 Pathology: none sent Condition: stable Disposition: PACU Patient was brought to the operating room and placed supine on the fracture table. He was prepped and draped in standard sterile fashion and a time out was called to identify proper site, proper procedure and IV antibiotics per weight were administered. I began by flexing the knee up and making a small 1 cm incision between the distal pole of the patella and the tibial tubercle directly midline. Using lateral and AP fluoro I placed the guidewire into the femur through the open box of the femoral prosthesis. I then made a transpatellar incision. A tissue retractor was placed and I over-reamed with the opening reamer. A ball tipped guidewire was ten placed across the fracture. This was a distal comminuted and impacted fracture and his bone quality was fair. With the fracture in a reduced position, I was able to pass a 15 reamer up the femoral canal to the level of the lesser without resistance. I then measured and placed a 300x13 mm nail. Using the targeting guide 5 distal screws were placed through the nail. Using perfect [place] technique 2 proximal interlocking screws were placed from lateral to medial. Final radiographs showed excellent positioning of the hardware and fracture alignement. I irrigated copiously and then closed with absorbable sutures and skin gino. Patient was then placed in sterile dressing and extubated. He was brought to the recovery room in stable condition. There were no known complications.
== END 2023-12-21 18:13 | disposition skilled nursing facility (03) | DRG 481 ==
LOC: HO.ED 19:51 → HO.EDOVER 12-12 00:11 → HO.S3 12-13 07:41 → HO.ICU 12-15 19:00 → HO.IMC 12-17 15:29
PROVIDERS: Internal Medicine; Internal Medicine Hypertension Specialist; Internal Medicine Pulmonary Disease; Orthopaedic Surgery; Physician Assistant Medical; Registered Nurse Community Health; Admitting Provider Student in an Organized Health Care Education/Training Program; Emergency Provider Internal Medicine; PCP Internal Medicine; Visit Provider Nurse Practitioner Acute Care
PROC: 0QSB36Z Reposition Right Lower Femur with Intramedullary Internal Fixation Device, Percutaneous Approach (ICD-10-PCS; principal; 2023-12-15 14:30)
DX: S72.491A Other fracture of lower end of right femur, initial encounter for closed fracture (principal); E22.2 Syndrome of inappropriate secretion of antidiuretic hormone; I48.19 Other persistent atrial fibrillation; I50.22 Chronic systolic (congestive) heart failure; D64.89 Other specified anemias; I25.5 Ischemic cardiomyopathy; I95.9 Hypotension, unspecified; W10.9XXA Fall (on) (from) unspecified stairs and steps, initial encounter; I08.3 Combined rheumatic disorders of mitral, aortic and tricuspid valves; I25.10 Atherosclerotic heart disease of native coronary artery without angina pectoris; Z95.1 Presence of aortocoronary bypass graft; H54.8 Legal blindness, as defined in USA; Z87.891 Personal history of nicotine dependence; Z79.01 Long term (current) use of anticoagulants; Z79.899 Other long term (current) drug therapy
CPT/HCPCS: 36415; 70450; 71045; 72125; 72170; 73560; 73700; 80048; 80053; 81003; 82040; 82436; 82530; 82803; 83735; 83880; 83930; 83935; 84100; 84133; 84295; 84300; 84443; 85025; 85027; 85610; 85730; 86850; 86870; 86885; 86900; 86901; 86920; 86922; 93005; 97110; 97116; 97163; 97167; 97530; 99285; 99499; C1713; J0171; J0690; J1100; J1170; J1650; J2270; J2405; J2795; J3010; P9047

== ENCOUNTER → 2023-12-11 18:55 | Outpatient (BNV) | payer MEDICARE, SELFPAY | PROVIDERS: Emergency Provider Internal Medicine; PCP Internal Medicine; Visit Provider Student in an Organized Health Care Education/Training Program | DX: E87.1 Hypo-osmolality and hyponatremia (principal); S72.91XA Unspecified fracture of right femur, initial encounter for closed fracture | CPT/HCPCS: 99222; 99232; 99239; 99499 ==

== ENCOUNTER 2023-12-11 23:31 | Outpatient (BNV) | payer MEDICARE, SELFPAY | END 2023-12-12 02:27 | PROVIDERS: Admitting Provider Student in an Organized Health Care Education/Training Program; Emergency Provider Internal Medicine; PCP Internal Medicine; Visit Provider Internal Medicine Cardiovascular Disease | DX: I45.81 Long QT syndrome (principal) | CPT/HCPCS: 93010 ==

== ENCOUNTER → 2023-12-11 23:31 | Outpatient (BNV) | payer MEDICARE, SELFPAY | PROVIDERS: Admitting Provider Student in an Organized Health Care Education/Training Program; Emergency Provider Internal Medicine; PCP Internal Medicine; Visit Provider Internal Medicine Pulmonary Disease | DX: I50.42 Chronic combined systolic (congestive) and diastolic (congestive) heart failure (principal); I25.5 Ischemic cardiomyopathy; I48.19 Other persistent atrial fibrillation; Z95.1 Presence of aortocoronary bypass graft; S72.91XA Unspecified fracture of right femur, initial encounter for closed fracture | CPT/HCPCS: 99291 ==

== ENCOUNTER → 2023-12-11 23:31 | Outpatient (BNV) | payer MEDICARE, SELFPAY | PROVIDERS: Admitting Provider Student in an Organized Health Care Education/Training Program; Emergency Provider Internal Medicine; PCP Internal Medicine; Visit Provider Internal Medicine | DX: Z01.810 Encounter for preprocedural cardiovascular examination (principal); Z95.1 Presence of aortocoronary bypass graft; I25.10 Atherosclerotic heart disease of native coronary artery without angina pectoris; I48.19 Other persistent atrial fibrillation; I25.5 Ischemic cardiomyopathy; I50.42 Chronic combined systolic (congestive) and diastolic (congestive) heart failure | CPT/HCPCS: 99223 ==

== ENCOUNTER → 2023-12-11 23:31 | Outpatient (BNV) | payer MEDICARE, SELFPAY | PROVIDERS: Admitting Provider Student in an Organized Health Care Education/Training Program; Emergency Provider Internal Medicine; PCP Internal Medicine; Visit Provider Physician Assistant | DX: S72.91XA Unspecified fracture of right femur, initial encounter for closed fracture (principal) | CPT/HCPCS: 27506; 99024; 99223; 99499 ==

== ENCOUNTER → 2023-12-11 23:31 | Outpatient (BNV) | payer MEDICARE, SELFPAY | PROVIDERS: Admitting Provider Student in an Organized Health Care Education/Training Program; Emergency Provider Internal Medicine; PCP Internal Medicine; Visit Provider Registered Nurse Community Health | DX: I50.9 Heart failure, unspecified (principal) | CPT/HCPCS: 99291 ==

== ENCOUNTER → 2023-12-11 23:31 | Outpatient (BNV) | payer MEDICARE, SELFPAY | PROVIDERS: Admitting Provider Student in an Organized Health Care Education/Training Program; Emergency Provider Internal Medicine; PCP Internal Medicine; Visit Provider Internal Medicine Hypertension Specialist | DX: E87.1 Hypo-osmolality and hyponatremia (principal) | CPT/HCPCS: 99223; 99232 ==

== ENCOUNTER 2024-01-02 12:50 | Outpatient (REF) | payer MEDICARE, SELFPAY ==
--- NOTE | ~2024-01-02 | XR_ITS ---
EXAMINATION: XR FEMUR, RIGHT CLINICAL INFORMATION: Displaced intertrochanteric fracture COMPARISON: Prior x-rays 12/11/2023 TECHNIQUE: AP and lateral views of the right femur were obtained. XR/XR femur RT 2V Findings and impression: Status post-ORIF, with intramedullary justine, transfixing a comminuted distal femoral fracture. Proximal and distal locking screws present. Additional screw positioned in the distal femur. Improved position and alignment of the fracture as compared to the prior radiographs. Skin gino present. Mild right hip arthritis. Prominent vascular calcifications present.
== END 2024-01-02 12:51 | disposition home or self-care (01) ==
LOC: HO.HOSX 12:50
PROVIDERS: PCP Internal Medicine; Visit Provider Physician Assistant
DX: S72.351D Displaced comminuted fracture of shaft of right femur, subsequent encounter for closed fracture with routine healing (principal); M16.11 Unilateral primary osteoarthritis, right hip; Y93.9 Activity, unspecified; Y92.9 Unspecified place or not applicable; Y99.9 Unspecified external cause status
CPT/HCPCS: 73552; 99212

== ENCOUNTER 2024-01-02 12:50 | Outpatient (AMB) | payer MEDICARE, SELFPAY ==
--- NOTE | 2024-01-02 12:59 | A.OFFVIS_ITS ---
Intake Visit Reasons: PO-right distal femur fracture-DOS 12/15/23 Intake Note: Angelito a 78 year old male who presents today for a post operative right femur retrograde IMN, DOS 12/15/23. Patient reports he is doing well, states having mild pain. Allergies Penicillins [PENICILLINS] Allergy (Intermediate, Verified 01/02/24 13:23) HIVES shellfish derived [SHELLFISH DERIVED] Allergy (Intermediate, Verified 01/02/24 13:23) HIVES Medication List - Last Reconciled 01/02/24 by Diana Arreola PA-C albuterol sulfate 90 mcg/actuation 2 puffs inhalation QID PRN furosemide 20 mg PO DAILY lorazepam 0.5 mg PO DAILY PRN multivit with min-folic acid 80 mcg (Centrum Adult 50 Plus) 1 tab PO DAILY rivaroxaban (Xarelto) 20 mg PO DAILY rosuvastatin 5 mg PO DAILY vit C,L-Ji-lrzyw-lutein-zeaxan 250-90-40-1 mg (PreserVision AREDS-2) 1 tab PO BID HPI HPI PO-right distal femur fracture-DOS 12/15/23: Details: 78-year-old male who returns to the office today for post-op right femur retrograde IMN, 12/15/23. He continues to have swelling through the RLE as well as mild pain in her knee however he is doing well otherwise. He has no other concerns today. [facility] Medical History (Updated 01/02/24 @ 16:06 by Diana Arreola PA-C) Chronic combined systolic and diastolic CHF (congestive heart failure) Ischemic cardiomyopathy Persistent atrial fibrillation Legally blind Macular degeneration Coronary artery disease Chronic anticoagulation Afib HFrEF (heart failure with reduced ejection fraction) Surgical History Hx of CABG Social History Household Members: Spouse Housing: House Do you presently have visiting nurse or other home services: No Unable to assess alcohol history related to: Unable to respond Alcohol intake: former Patient Tobacco Use Status: Former Tobacco user Tobacco use type: Cigarette Years Smoked: 20 service: Yes Review of Systems Const All systems reviewed & are unremarkable except as noted in HPI and below Physical Exam Extrem Other: Right knee: Normal to inspection. Incision clean, dry and intact. No redness or drainage. He has significant swelling and edema through the RLE. Calf supple, nontender. NVI. Results Reviewed Results Reviewed: Xrays were obtained in the office today and personally reviewed by me of the right femur show intact hardware with stable fracture pattern Assessment & Plan Assessment & Plan (1) Femur fracture, right: Code(s): S72.91XA - Unspecified fracture of right femur, initial encounter for closed fracture Category: Medical Qualifiers: Encounter type: subsequent encounter Femur location: shaft Fracture type: closed Fracture morphology: comminuted Fracture alignment: displaced Fracture healing: with routine healing Qualified Code(s): S72.351D - Displaced comminuted fracture of shaft of right femur, subsequent encounter for closed fracture with routine healing Plan [place] removed, steri strips applied. He will continue working with PT / OT to continue working on Gait training, ROM and quad strength. He will return in 4 weeks with xrays , sooner if needed. Orders: Orders XR femur RT 2V Today S72.142A - Displaced intertrochanteric fracture of left femur, initial encounter for closed fracture Patient Instructions: Scribed for Diana Arreola PA-C, by Mars Payton infertility medical assistant, on 01/02/2024 at 1:00 PM EST.? I, Diana Arreola PA-C, have personally reviewed and agree with the information entered by the scribe. Coding Level of Care Code Global (39191) Diagnoses Closed displaced comminuted fracture of shaft of right femur with routine healing, subsequent encounter S72.351D Encounter type: subsequent encounter Femur location: shaft Fracture type: closed Fracture morphology: comminuted Fracture alignment: displaced Fracture healing: with routine healing
== END 2024-01-02 14:20 | disposition home or self-care (01) ==
PROVIDERS: PCP Internal Medicine; Visit Provider Physician Assistant
DX: S72.351D Displaced comminuted fracture of shaft of right femur, subsequent encounter for closed fracture with routine healing (principal)
CPT/HCPCS: 99024

== ENCOUNTER 2024-01-27 14:48 | Inpatient (IN) | payer MEDICARE, SELFPAY ==
--- NOTE | ~2024-01-27 | XR_ITS ---
EXAMINATION: XR CHEST CLINICAL INFORMATION: Questionable CHF COMPARISON: Chest x-ray 12/14/2023 TECHNIQUE: Frontal view of the chest was obtained. FINDINGS: Cardiac silhouette is mildly enlarged. Median sternotomy wires intact without dehiscence. No pneumothorax. Small right pleural effusion. Subtle peribronchial cuffing and pulmonary vascular congestion. Vascular calcifications of the neck/upper extremities. Right shoulder osteoarthritis. XR/XR chest 1V IMPRESSION: Mild pulmonary vascular congestion and small right pleural effusion.
--- NOTE | 2024-01-27 14:51 | ED_ITS ---
HPI - Extremity Injury (Lower) General Chief Complaint: General Medical Stated Complaint: swollen legs Time Seen by Provider: 01/27/24 15:33 History of Present Illness HPI Narrative: Patient is a 78-year-old male with a history of atrial fibrillation. Previous history of falls. History of bilateral lower extremity edema. Patient has been having shortness of breath at night. No fever no chills no coughing. Patient is currently on blood thinners for AFib Xarelto. Has been having increasing shortness of breath when he ambulates. Usually use a walker. Lives with a more mature family member. No coughing or congestion or upper respiratory symptoms. No diaphoresis. Related Data Home Medications ?Medication ?Instructions ?Recorded ?Confirmed albuterol sulfate 90 mcg/actuation 2 puff inhalation QID PRN wheezing 12/12/23 01/02/24 aerosol inhaler furosemide 20 mg tablet 20 mg PO DAILY 12/12/23 01/02/24 lorazepam 0.5 mg tablet 0.5 mg PO DAILY PRN anxiety 12/12/23 01/02/24 multivitamin with minerals-folic 1 tab PO DAILY 12/12/23 01/02/24 acid 80 mcg chewable tablet (Centrum Adult 50 Plus) rosuvastatin 5 mg tablet 5 mg PO DAILY 12/12/23 01/02/24 vit C 250 mg-vit E 90 mg-zinc 40 1 tab PO BID 12/12/23 01/02/24 mg-copper 1 [id number] capsule (PreserVision AREDS-2) rivaroxaban 20 mg tablet (Xarelto) 20 mg PO DAILY 12/19/23 01/02/24 Allergies Allergy/AdvReac Type Severity Reaction Status Date / Time Penicillins [PENICILLINS] Allergy Intermediate HIVES Verified 01/27/24 14:55 shellfish derived Allergy Intermediate HIVES Verified 01/27/24 14:55 [SHELLFISH DERIVED] Review of Systems 2 Review of Systems: Positive bilateral leg edema PMFSH Past Medical History Attestation statement: The following information was validated with the patient. Medical History Chronic combined systolic and diastolic CHF (congestive heart failure) Ischemic cardiomyopathy Persistent atrial fibrillation Legally blind Macular degeneration Coronary artery disease Chronic anticoagulation Afib HFrEF (heart failure with reduced ejection fraction) Surgical History Hx of CABG Social History Social History Household Members: Spouse Housing: House Do you presently have visiting nurse or other home services: No Unable to assess alcohol history related to: Unable to respond Alcohol intake: former Patient Tobacco Use Status: Former Tobacco user Tobacco use type: Cigarette Years Smoked: 20 Smoked in Last 30 Days: No Use of substances other than those prescribed or required for medical reasons: No Advance Directives: No Advance Directives Information Provided: No Do you have a plan to hurt others: No Plan service: Yes Physical Exam 2 Vital Signs: Vital Signs: Last Vital Signs Temp 98.1 F 01/27/24 14:52 Pulse 106 H 01/27/24 14:52 Resp 18 01/27/24 14:52 BP 98/53 L 01/27/24 14:52 Pulse Ox 96 01/27/24 14:52 O2 Del Method Room Air 01/27/24 14:52 BMI result Body Mass Index 20.8 Appearance: Alert. Oriented X3. No acute distress. Eyes: Pupils equal, round and reactive to light. ENT: Pharynx normal. Neck: Normal inspection. Neck supple. No lymph nodes noted. No crepitus CVS: Normal heart rate and rhythm. Pulses normal. Normal S1 and S2 Respiratory: No respiratory distress. Breath sounds normal. No Wheezing. No rales Abdomen: Soft and nontender. No rigidity. No distention. good BS x4 Skin: Skin warm and dry. Normal skin color. Normal skin turgor. Extremities: 3+ bilateral pitting edema.. Neurovascular intact to all extremities. No Lacerations. No Rash Neuro: Oriented X 3. No motor deficit. No sensory deficit. Moving all extermities. No slurred speech Course Course Course Narrative: Patient is a 78-year-old male who presents to the emergency department for evaluation. Reporting bilateral lower extremity swelling over the past month. Admits that the have been progressively worse after sustaining a right femur fracture 6 weeks ago. The VNA was in home today and recommended he come to the emergency department. He has been experiencing orthopnea, 13lb weight loss over 3 weeks. Reports compliance with Xarelto and Lasix. On exam has 2+ pitting edema to the bilateral lower extremities, crackles bilateral lower lobes. Plan: Labs, EKG Medical Decision Making Medical Decision Making [facility] Narrative: On reviewing patient's previous record he has a history of atrial fibrillation has a history of congestive heart failure with an EF of 20-25%. Patient has been on Lasix 20 mg. Will give an additional 20 mg of Lasix IV. Blood pressure is borderline. Will require admission for further CHF management. Patient's BNP is over 3000 consistent with congestive heart failure. Patient's previous troponin was as high as 1400. Differential Diagnosis Differential Diagnoses: The differential diagnosis associated with the presentation includes Congestive heart failure, DVT, fracture Admission/Observation Consideration of admission/observation: Escalation of care including admission/observation considered Consult Healthcare Provider Management of the patient was discussed with: Hospitalist Lab Data [facility] Lab Attestation statement: I reviewed the patient's lab results. 01/27/24 15:16 01/27/24 15:16 Labs: Lab Results 01/27/24 Range/Units 15:16 WBC 6.4 (4.8-10.8) X10*3/uL RBC 3.83 L D (4.60-5.80) X10*6/uL Hgb 11.4 L D (14.0-18.0) g/dl Hct 34.8 L D (42.0-52.0) % MCV 90.9 (80.0-98.0) fL MCH 29.8 (27.0-33.0) pg MCHC 32.8 (31.0-36.0) g/dl RDW 17.0 H (11.0-16.0) % Plt Count 130 L (160-400) X10*3/uL MPV 11.4 (9.4-12.4) fL Immature Gran % (Auto) 0.3 (0.0-0.4) % Neut % (Auto) 71.5 (45-73) % Lymph % (Auto) 19.3 L (20-40) % [place] % (Auto) 8.6 (2-11) % Eos % (Auto) 0.0 (0-4) % Baso % (Auto) 0.3 (0-2) % Lymph # (Auto) 1.2 (1.2-4.9) X10*3/uL [place] # (Auto) 0.6 (0.1-1.2) X10*3/uL Eos # (Auto) 0.0 (0.0-0.4) X10*3/uL Baso # (Auto) 0.0 (0.0-0.2) X10*3/uL Abs Immat Gran (auto) 0.02 (0.00-0.03) X10*3/uL Absolute Neuts (auto) 4.6 (2.0-8.3) x10*3/uL Absolute Nucleated RBC 0.000 (0.0-0.012) X10*3/uL Nucleated RBC % (auto) 0.0 (0.0-0.2) /100WBC PT 54.2 H D (11.1-13.3) SEC INR 4.4 H D (0.9-1.1) Sodium 137 (135-145) mmol/L Potassium 3.7 (3.3-5.1) mmol/L Chloride 101 (96-108) mmol/L Carbon Dioxide 26 (22-29) mmol/L Anion Gap 14 (12-20) BUN 30 H (9-16) mg/dL Creatinine 1.16 (0.5-1.4) mg/dL Estim Creat Clear Calc 48.2 Estimated GFR > 60 Random Glucose 108 (60-115) mg/dL Calcium 9.7 (8.4-10.2) mg/dL Magnesium 2.4 (1.6-2.6) mg/dL Total Bilirubin 2.4 H (0.0-1.0) mg/dL AST 42 H (5-37) U/L ALT 50 H (0-40) U/L Alkaline Phosphatase 160 H (39-117) U/L B-Natriuretic Peptide 3576 H (<100) pg/mL Total Protein 6.2 L (6.5-8.0) g/dL Albumin 3.8 (3.5-5.0) g/dL Independent Interpretation I performed an independent interpretation of an: EKG (My interpretation patient's EKG shows an atrial fibrillation heart rate is 100 QRS is normal QTC is normal there is no acute ST segment elevation) Discharge Plan Discharge Clinical Impression: HFrEF (heart failure with reduced ejection fraction) Patient Disposition: Admitted As Inpatient Prescriptions: No Action lorazepam 0.5 mg tablet 0.5 mg PO DAILY PRN (Reason: anxiety) furosemide 20 mg tablet 20 mg PO DAILY Hold Instructions: Resume on 01/20/24. albuterol sulfate 90 mcg/actuation HFA aerosol inhaler 2 puff INHALATION QID PRN (Reason: wheezing) rosuvastatin 5 mg tablet 5 mg PO DAILY PreserVision AREDS-2 250-90-40-1 mg Capsule 1 tab PO BID Centrum Adult 50 Plus 80 mcg Tablet,Chewable 1 tab PO DAILY Xarelto 20 mg tablet 20 mg PO DAILY Print Language: Rw[place]an
[2024-01-27 14:52] VITALS: BP 98/53; PULSE 106; RESP 18; TEMP 36.7; O2SAT 96; BMI 20.8
--- NOTE | 2024-01-27 14:56 | ECG_ITS ---
Test Reason : SWOLLEN LEGS Blood Pressure : / mmHG Vent. Rate : 104 BPM Atrial Rate : 000 BPM P-R Int : 000 ms QRS Dur : 104 ms QT Int : 380 ms P-R-T Axes : 000 032 126 degrees QTc Int : 499 ms Atrial fibrillation with rapid ventricular response Nonspecific T wave abnormality Abnormal ECG When compared with ECG of 12-DEC-2023 02:30, No significant change was found Referred By: Mendy Munson Electronically Signed By:Jermaine Pavon
[2024-01-27 15:23] LABS: MANUAL DIFF FLAG NO
[2024-01-27 15:28] LABS: Basophils Percent Auto 0.3 % (0-2); Hematocrit 34.8 % (42.0-52.0); Hemoglobin 11.4 g/dl (14.0-18.0); Imm Gran Abs Auto 0.02 X10*3/uL (0.00-0.03); Imm Gran Pct Auto 0.3 % (0.0-0.4); Lymphocytes Absolute Auto 1.2 X10*3/uL (1.2-4.9); Lymphocytes Percent Auto 19.3 % (20-40); Mean Corpuscular HGB Conc 32.8 g/dl (31.0-36.0); Mean Corpuscular Hemoglobin 29.8 pg (27.0-33.0); Mean Corpuscular Volume 90.9 fL (80.0-98.0); Mean Platelet Volume 11.4 fL (9.4-12.4); Monocytes Absolute Auto 0.6 X10*3/uL (0.1-1.2); Monocytes Percent Auto 8.6 % (2-11); Neutrophils Absolute Auto 4.6 x10*3/uL (2.0-8.3); Neutrophils Percent Auto 71.5 % (45-73); Platelet Count 130 X10*3/uL (160-400); Red Blood Count 3.83 X10*6/uL (4.60-5.80); White Blood Count 6.4 X10*3/uL (4.8-10.8)
[2024-01-27 15:33] LABS: INTERNATIONAL NORM RATIO 4.4 (0.9-1.1); Prothrombin Time 54.2 SEC (11.1-13.3)
[2024-01-27 15:43] LABS: Alanine Aminotransferase 50 U/L (0-40); Albumin Level 3.8 g/dL (3.5-5.0); Alkaline Phosphatase 160 U/L (39-117); Anion Gap 14 (12-20); Aspartate Amino Transferase 42 U/L (5-37); Bilirubin Total 2.4 mg/dL (0.0-1.0); Blood Urea Nitrogen 30 mg/dL (9-16); Calcium 9.7 mg/dL (8.4-10.2); Carbon Dioxide 26 mmol/L (22-29); Chloride 101 mmol/L (96-108); Creatinine Clr Calc Pharmacy 48.2; Estimated Glomerular Filt Rate > 60; Glucose Random 108 mg/dL (60-115); Magnesium 2.4 mg/dL (1.6-2.6); Potassium 3.7 mmol/L (3.3-5.1); Sodium 137 mmol/L (135-145); Total Protein 6.2 g/dL (6.5-8.0)
[2024-01-27 15:48] LABS: B Type Natriuretic Peptide 3576 pg/mL (<100)
[2024-01-27 17:11] VITALS: BP 118/73; PULSE 102; RESP 14; O2SAT 96
[2024-01-27] MEDS: Furosemide 20 MG/2 ML VIAL IVPUSH ×2 (17:12→20:18)
[2024-01-27 17:54] VITALS: BP 135/62; PULSE 111; RESP 22; O2SAT 98
--- NOTE | 2024-01-27 17:56 | PM.IMHP ---
History of Present Illness Date of Service: 01/27/24 Attending physician on admission: Pritesh Grace Chief Complaint: SOB Pt is a 78-year-old male with a PMH significant for?HFrEF, chronic atrial fibrillation on Xarelto, CAD s/p CABG, and legally blind who presents to the ED with?shortness of breath and bilateral lower leg edema x4-5 weeks. He was recently admitted to the hospital for a prolonged stay from 12/10-12/20 after suffering a right femur fracture after mechanical fall at home. Had surgery for right distal femur retrograde nailing, and hospital stay complicated by hypotension that required a 2 day ICU stay for pressor support. Was discharged to short-term rehab. Patient reports has experienced worsening shortness of difficulty breathing especially at night since discharge from short-term rehab. Endorses both orthopnea and paroxysmal nocturnal dyspnea. States sleeping elevated or using more pillows at night has not helped. Has also noticed increased bilateral lower leg edema for approximately the same amount of time. Has been undergoing physical therapy and doing well with that, though activity has still been greatly reduced since prior to accident. States he used to walk up to 2 miles daily. Reports today to the ED at the request of his visiting nurse who was concerned after noticed worsening lower leg edema. Patient initially went to urgent care who then directed him to the ED for further evaluation. Denies cough. No chest pain or pressure. No palpitations. Denies fever, chills, nausea, vomiting, abdominal pain. Of note, pt's home Lasix was held during hospital stay and for 2-3 weeks after discharge due to hypotension. Unclear exactly when resumed. In the ED pt was Labs were significant for PT of 54.2 and INR 4.4 (likely falsely elevated from Xarelto), creatinine 1.16 (elevated from 0.75 on 12/18/23), bilirubin 2.4, AST 42, ALT 50, alk-phos 160, and BNP 3576. UA negative for UTI. EKG demonstrated atrial fibrillation with rate of 104 and QTc of 499 but no evidence of significant ST elevations or depressions. Pt was treated with Lasix 20 mg IV. Pt will be admitted to the hospital for treatment and further evaluation of acute HFrEF exacerbation. Review of Systems Review of Systems: Increased SOB, CARTER PND Orthopnea Lower leg edema Denies cough No fever, chills, nausea, vomiting, abdominal pain Denies chest pain/pressure, palpitations [facility] Medical History Chronic combined systolic and diastolic CHF (congestive heart failure) Ischemic cardiomyopathy Persistent atrial fibrillation Legally blind Macular degeneration Coronary artery disease Chronic anticoagulation Afib HFrEF (heart failure with reduced ejection fraction) Surgical History Hx of CABG Social History Household Members: Spouse Housing: House Do you presently have visiting nurse or other home services: No Unable to assess alcohol history related to: Unable to respond Alcohol intake: former Patient Tobacco Use Status: Former Tobacco user Tobacco use type: Cigarette Years Smoked: 20 Smoked in Last 30 Days: No Use of substances other than those prescribed or required for medical reasons: No Advance Directives: No Advance Directives Information Provided: No Do you have a plan to hurt others: No Plan service: Yes Meds Allergies Allergy/AdvReac Type Severity Reaction Status Date / Time Penicillins [PENICILLINS] Allergy Intermediate HIVES Verified 01/27/24 14:55 shellfish derived Allergy Intermediate HIVES Verified 01/27/24 14:55 [SHELLFISH DERIVED] Home Medications ?Medication ?Instructions ?Recorded ?Confirmed ?Last Taken ?Type albuterol sulfate 90 mcg/actuation 2 puff inhalation QID PRN wheezing 12/12/23 01/27/24 Unknown History aerosol inhaler furosemide 20 mg tablet 20 mg PO DAILY 12/12/23 01/27/24 01/27/24 History lorazepam 0.5 mg tablet 0.5 mg PO DAILY 12/12/23 01/27/24 01/25/24 History rosuvastatin 5 mg tablet 5 mg PO DAILY 12/12/23 01/27/24 01/27/24 History vit C 250 mg-vit E 90 mg-zinc 40 1 tab PO BID 12/12/23 01/27/24 01/27/24 History mg-copper 1 [id number]-[id number] capsule (PreserVision AREDS-2) rivaroxaban 20 mg tablet (Xarelto) 20 mg PO DAILY 12/19/23 01/27/24 01/27/24 History Physical Exam Vital Signs and Narrative: Vital Signs: Last Vital Signs Temp 98.1 F 01/27/24 14:52 Pulse 111 H 01/27/24 17:54 Resp 22 H 01/27/24 17:54 BP 135/62 01/27/24 17:54 Pulse Ox 98 01/27/24 17:54 O2 Del Method Room Air 01/27/24 17:54 BMI result Body Mass Index 20.8 Constitutional: Alert, in no acute distress. Mental Status: Oriented to person, place and time. Eyes: Pt is legally blind. Ear, Nose, and Throat: Oropharynx clear, mucous membranes moist. Ears and nose without deformities. Trachea midline. Respiratory: Bibasilar crackles. Cardiovascular: Irregularly irregular rhythm. No murmurs, rubs, or gallops. No JVD. Gastrointestinal: Abdomen soft, non-tender, non-distended. Normal bowel sounds. Neurologic: Cranial nerves II-XII are grossly intact bilaterally. No focal neurological deficits. Moves all extremities spontaneously. Skin: Warm, dry. Extremities: 3+ bilateral pitting edema of lower extremities. Psychiatric: Normal mood and affect. Results Labs 01/27/24 15:16 01/27/24 15:16 Labs: Laboratory Results - last 24 hr 01/27/24 15:16 MCV 90.9 MCH 29.8 MCHC 32.8 RDW 17.0 H Plt Count 130 L MPV 11.4 Immature Gran % (Auto) 0.3 Neut % (Auto) 71.5 Lymph % (Auto) 19.3 L [place] % (Auto) 8.6 Eos % (Auto) 0.0 Baso % (Auto) 0.3 Lymph # (Auto) 1.2 [place] # (Auto) 0.6 Eos # (Auto) 0.0 Baso # (Auto) 0.0 Abs Immat Gran (auto) 0.02 Absolute Neuts (auto) 4.6 Absolute Nucleated RBC 0.000 Nucleated RBC % (auto) 0.0 PT 54.2 H D INR 4.4 H D Anion Gap 14 Estim Creat Clear Calc 48.2 Estimated GFR > 60 Random Glucose 108 Calcium 9.7 Magnesium 2.4 Total Bilirubin 2.4 H AST 42 H ALT 50 H Alkaline Phosphatase 160 H B-Natriuretic Peptide 3576 H Total Protein 6.2 L Albumin 3.8 Assessment and Plan (1) HFrEF (heart failure with reduced ejection fraction): Status: Acute Plan Pt is a 78-year-old male with a PMH significant for?HFrEF, chronic atrial fibrillation on Xarelto, CAD s/p CABG, and legally blind who presents to the ED with?shortness of breath and bilateral lower leg edema x4-5 weeks. Pt will be admitted to the hospital for treatment and further evaluation of acute HFrEF exacerbation. HFrEF Patient with SOB, CARTER, orthopnea, PND, 3+ bilateral lower leg edema, BNP 3576 Pt's home Lasix held for 2-3 weeks starting 12/14 due to hypotension Patient given 20 mg Lasix IV in ED Will treat with Lasix 40 mg IV b.i.d. Follow lytes, Mag, I/O Daily weights, low-salt diet Check CXR Echocardiogram If patient does not respond to IV diuretics, consider cardiology consult Monitor on telemetry GIANCARLO Pt's creatinine 1.16 at time of admission, up from 0.75 on 12/18/2023 Likely cardiorenal Treat as above Follow creatinine Chronic AFib Continue Xarelto CAD s/p CABG Continue statin Not on antiplatelet agent Mood disorder Continue lorazepam Full Code Attending:?Dr. Grace DVT Prophylaxis: On Xarelto Pt will require a hospitalization of at least two nights for treatment of?acute HFpEF exacerbation with IV diuretics and close monitoring of labs and cardiac function. Quality Stroke Does the patient have a stroke diagnosis?: No VTE Prior VTE?: No VTE Risk Level:: Medical - moderate - high VTE Device Contraindication: Treatment Not Indicated VTE Drug Contraindication: N/A - Med Ordered
[2024-01-27 18:03] LABS: Appearance Urine Clear; Color Urine Yellow; Glucose Urine UA Negative (Negative); Leukocyte Esterase Urine Trace (Negative); Nitrite Urine Negative (Negative); PH 6.5 (5.0-9.0); UMIC TRIGGER UACC YES; Urine Blood Negative (Negative); Urine Ketones Negative (Negative); Urine Protein Trace mg/dL (Neg-Trace)
[2024-01-27 18:16] LABS: Bacteria Urine None Seen (None Seen); Hyaline Casts Urine 0-2 /LPF (0-2); RBC Urine 0-2 /HPF (0-2); Squamous Epithelial Cell Urine 0-2 /HPF (0-2); UACC Culture Trigger YES
--- NOTE | 2024-01-27 18:25 | PHA.MEDREC ---
Pharmacy Consult ? Medication Reconciliation Pharmacy has completed the medication reconciliation Spoke to patient and at bedside to confirm med list.
[2024-01-27 21:00] VITALS: BP 110/86; PULSE 100; RESP 16; TEMP 36.1; O2SAT 99
[2024-01-27 22:40] VITALS: BMI 19.6
[2024-01-27] MEDS: LORazepam 0.5 MG TABLET PO (22:44)
[2024-01-27] MEDS: 0.9 % Sodium Chloride Flush 3 ML SYRINGE IVFLUSH (22:51)
[2024-01-28] VITALS: BP 118/73; PULSE 106; RESP 20; TEMP 36.2; O2SAT 97
[2024-01-28 04:00] VITALS: BP 141/66; PULSE 100; RESP 16; TEMP 36.1; O2SAT 96
[2024-01-28 07:14] VITALS: BP 160/60; PULSE 114; RESP 18; TEMP 36.4; O2SAT 98
[2024-01-28 07:49] LABS: Anion Gap 18 (12-20); Blood Urea Nitrogen 34 mg/dL (9-16); Calcium 9.5 mg/dL (8.4-10.2); Carbon Dioxide 22 mmol/L (22-29); Chloride 100 mmol/L (96-108); Creatinine Clr Calc Pharmacy 45.4; Estimated Glomerular Filt Rate > 60; Glucose Random 87 mg/dL (60-115); Magnesium 2.2 mg/dL (1.6-2.6); Sodium 137 mmol/L (135-145)
[2024-01-28 08:04] LABS: Potassium 2.9 mmol/L (3.3-5.1)
[2024-01-28] MEDS: Rivaroxaban 20 MG TABLET PO (09:25)
[2024-01-28] MEDS: LORazepam 0.5 MG TABLET PO (09:25)
[2024-01-28] MEDS: Furosemide 40 MG/4 ML VIAL IVPUSH ×2 (09:25→16:56)
[2024-01-28] MEDS: Potassium Chloride ER 20 MEQ TAB.ER.PRT 40 MEQ PO (09:25)
[2024-01-28] MEDS: Atorvastatin Calcium 20 MG TABLET PO (09:25)
[2024-01-28] MEDS: 0.9 % Sodium Chloride Flush 3 ML SYRINGE IVFLUSH ×3 (09:25→20:28)
--- NOTE | 2024-01-28 10:26 | P.PNIM_ITS ---
Subjective Subjective Date of Service: 01/28/24 Interval History: f/u on chf exacerbation overall feels better, less sob, less swelling in legs, Physical Exam 2 Vital Signs: Vital Signs: Last Vital Signs Temp 97.6 F 01/28/24 07:14 Pulse 114 H 01/28/24 07:14 Resp 18 01/28/24 07:14 BP 160/60 H 01/28/24 07:14 Pulse Ox 98 01/28/24 07:14 O2 Del Method Room Air 01/28/24 07:14 BMI result Body Mass Index 19.6 Const: Other: General: AO X 3, no acute distress Resp: CTA bilateral CVS: S1,S2, iregular iregular, 2+ leg edema GI: +BS, NT, no distention Skin: No rash Neuro: motor grossly intact Psych: appropriate affect Objective Data Active Medications Acetaminophen (Acetaminophen 325 Mg Tablet) 650 mg PO Q6H PRN PRN Reason: Pain, Mild (Pain Scale 1-3), fever or headache Albuterol Sulfate (Albuterol Sulfate 90 Mcg 8 Gm Inhaler) 2 puff INHALE QID PRN PRN Reason: wheezing Atorvastatin Calcium (Atorvastatin Calcium 20 Mg Tablet) 20 mg PO DAILY [facility] Last Admin: 01/28/24 09:25 Dose: 20 mg Documented By: TEODORO Benzonatate (Benzonatate 100 Mg Capsule) 100 mg PO TID PRN PRN Reason: Cough Calcium Carbonate (Calcium Carbonate 750 Mg Tab.Chew) 750 mg PO Q4H PRN PRN Reason: Heartburn Furosemide (Furosemide 40 Mg/4 Ml Vial) 40 mg IVPUSH BID@0900,1800 [facility]; Protocol Last Admin: 01/28/24 09:25 Dose: 40 mg Documented By: TEODORO Lorazepam (Lorazepam 0.5 Mg Tablet) 0.5 mg PO DAILY [facility] Last Admin: 01/28/24 09:25 Dose: 0.5 mg Documented By: TEODORO Melatonin (Melatonin 3 Mg Tablet) 6 mg PO BEDTIME PRN PRN Reason: Insomnia Polyethylene Glycol (Polyethylene Glycol 3350 17 Gm Powd.Pack) 17 gm PO DAILY PRN PRN Reason: Constipation Rivaroxaban (Rivaroxaban 20 Mg Tablet) 20 mg PO DAILY [facility] Last Admin: 01/28/24 09:25 Dose: 20 mg Documented By: TEODORO Sodium Chloride (0.9 % Sodium Chloride Flush 3 Ml Syringe) 3 ml IVFLUSH QSHIFT [facility] Last Admin: 01/28/24 09:25 Dose: 3 ml Documented By: TEODORO Labs 01/27/24 15:16 01/28/24 06:31 Labs: Laboratory Results - last 24 hr 01/27/24 01/27/24 01/28/24 15:16 17:53 06:31 MCV 90.9 MCH 29.8 MCHC 32.8 RDW 17.0 H Plt Count 130 L MPV 11.4 Immature Gran % (Auto) 0.3 Neut % (Auto) 71.5 Lymph % (Auto) 19.3 L [place] % (Auto) 8.6 Eos % (Auto) 0.0 Baso % (Auto) 0.3 Lymph # (Auto) 1.2 [place] # (Auto) 0.6 Eos # (Auto) 0.0 Baso # (Auto) 0.0 Abs Immat Gran (auto) 0.02 Absolute Neuts (auto) 4.6 Absolute Nucleated RBC 0.000 Nucleated RBC % (auto) 0.0 PT 54.2 H D INR 4.4 H D Anion Gap 14 18 Estim Creat Clear Calc 48.2 45.4 Estimated GFR > 60 > 60 Random Glucose 108 87 Calcium 9.7 9.5 Magnesium 2.4 2.2 Total Bilirubin 2.4 H AST 42 H ALT 50 H Alkaline Phosphatase 160 H B-Natriuretic Peptide 3576 H Total Protein 6.2 L Albumin 3.8 Urine Color Yellow Urine Appearance Clear Urine pH 6.5 Ur Specific Malin 1.010 Urine Protein Trace Urine Glucose (UA) Negative Urine Ketones Negative Urine Blood Negative Urine Nitrite Negative Ur Leukocyte Esterase Trace H Urine RBC 0-2 Urine WBC 6-10 Ur Squamous Epith Cells 0-2 Urine Bacteria None Seen Hyaline Casts 0-2 Assessment and Plan (1) HFrEF (heart failure with reduced ejection fraction): Status: Acute Plan Pt is a 78-year-old male with a PMH significant for?HFrEF, chronic atrial fibrillation on Xarelto, CAD s/p CABG, and legally blind who presents to the ED with?shortness of breath and bilateral lower leg edema x4-5 weeks. Pt will be admitted to the hospital for treatment and further evaluation of acute HFrEF exacerbation. Acute on chronic HFrEF--less SOB, swelling in the leg better, K is low -Continue iV Lasix, monitor I/O, replace K, low salt diet, monitor i/o, get cardiology consult, echo on tuesday GIANCARLO d/t cardiorenal syndorome, diuresse and montor bmp Chronic AFib--not on rate controlling agents, HR 114 add low dose metoprolol Continue Xarelto CAD s/p CABG Continue statin Not on antiplatelet agent Mood disorder Continue lorazepam Full Code DVT Prophylaxis: On Xarelto need for inpatient: IV Lasix for chf Quality Stroke Does the patient have a stroke diagnosis?: No VTE Prior VTE?: No VTE Risk Level:: Medical - moderate - high VTE Device Contraindication: Treatment Not Indicated VTE Drug Contraindication: N/A - Med Ordered
[2024-01-28 11:30] VITALS: BP 144/98; PULSE 113; RESP 18; TEMP 37.1; O2SAT 95
[2024-01-28] MEDS: Metoprolol Tartrate 25 MG TABLET PO ×2 (11:43→20:26)
--- NOTE | 2024-01-28 13:52 | P.CONCA_ITS ---
History of Present Illness History of Present Illness Date of Service: 01/28/24 Requesting physician: Vivek Pascal Chief complaint: CHF exacerbation Narrative: 78-year-old gentleman with known history of coronary artery bypass surgery 30 years ago and who follows with Dr. Dakota Garza at [facility] presenting with lower extremity edema and shortness of breath. Approximately 2 months ago he had a mechanical fall breaking his femur and underwent surgery. More recently he has been experiencing lower extremity edema and shortness of breath. He has significant peripheral edema currently. He also is noticed to be in atrial fibrillation and does not feel any symptoms from AFib other than shortness of breath. It is possible that he developed congestive heart failure when he goes into atrial fibrillation. He could not answer that question. He is on Xarelto but is saying that he may have missed some doses in the past but unclear when. More recently he has been taking Xarelto regularly. Given congestive heart failure he has been started on IV diuretics at this point. He is also on metoprolol 25 mg twice a day. His heart rates are 110 beats per minute with atrial fibrillation. [facility] Past Medical History Medical History Chronic combined systolic and diastolic CHF (congestive heart failure) Ischemic cardiomyopathy Persistent atrial fibrillation Legally blind Macular degeneration Coronary artery disease Chronic anticoagulation Afib HFrEF (heart failure with reduced ejection fraction) Surgical History Surgical History Hx of CABG Social History Social History Household Members: None Housing: House Do you presently have visiting nurse or other home services: Yes Unable to assess alcohol history related to: Unable to respond Alcohol intake: former Patient Tobacco Use Status: Former Tobacco user Tobacco use type: Cigarette Years Smoked: 20 Smoked in Last 30 Days: No Patient Interested in Nicotine Replacement: No Patient Given Instructions on How to Stop Smoking: No Second Hand Smoke Exposure: No Use of substances other than those prescribed or required for medical reasons: No Currently Displaying Signs/Symptoms of Drug Intoxication Withdrawal: No Any prior treatment program specific to substance use: No Have you been hit, kicked, punched, or otherwise hurt by someone within the past year? If so, by whom?: No Do you feel safe in your current relationship?: Yes Is there a partner from a previous relationship who is making you feel unsafe now?: No Are you made to feel afraid or neglected: No Advance Directives: No Advance Directives Information Provided: No Do you have a plan to hurt others: No Plan Recently lost weight without trying: No Eating poorly because of decreased appetite: No Nutrition Risks: No Nutritional Risk Poor oral hygiene: No service: Yes Meds Allergies Allergy/AdvReac Type Severity Reaction Status Date / Time Penicillins [PENICILLINS] Allergy Intermediate HIVES Verified 01/27/24 14:55 shellfish derived Allergy Intermediate HIVES Verified 01/27/24 14:55 [SHELLFISH DERIVED] Active Medications: Current Medications Acetaminophen (Acetaminophen 325 Mg Tablet) 650 mg PO Q6H PRN PRN Reason: Pain, Mild (Pain Scale 1-3), fever or headache Albuterol Sulfate (Albuterol Sulfate 90 Mcg 8 Gm Inhaler) 2 puff INHALE QID PRN PRN Reason: wheezing Atorvastatin Calcium (Atorvastatin Calcium 20 Mg Tablet) 20 mg PO DAILY [facility] Last Admin: 01/28/24 09:25 Dose: 20 mg Benzonatate (Benzonatate 100 Mg Capsule) 100 mg PO TID PRN PRN Reason: Cough Calcium Carbonate (Calcium Carbonate 750 Mg Tab.Chew) 750 mg PO Q4H PRN PRN Reason: Heartburn Furosemide (Furosemide 40 Mg/4 Ml Vial) 40 mg IVPUSH BID@0900,1800 [facility]; Protocol Last Admin: 01/28/24 09:25 Dose: 40 mg Lorazepam (Lorazepam 0.5 Mg Tablet) 0.5 mg PO DAILY [facility] Last Admin: 01/28/24 09:25 Dose: 0.5 mg Melatonin (Melatonin 3 Mg Tablet) 6 mg PO BEDTIME PRN PRN Reason: Insomnia Metoprolol Tartrate (Metoprolol Tartrate 25 Mg Tablet) 25 mg PO BID [facility]; Protocol Last Admin: 01/28/24 11:43 Dose: 25 mg Polyethylene Glycol (Polyethylene Glycol 3350 17 Gm Powd.Pack) 17 gm PO DAILY PRN PRN Reason: Constipation Rivaroxaban (Rivaroxaban 20 Mg Tablet) 20 mg PO DAILY [facility] Last Admin: 01/28/24 09:25 Dose: 20 mg Sodium Chloride (0.9 % Sodium Chloride Flush 3 Ml Syringe) 3 ml IVFLUSH QSHIFT [facility] Last Admin: 01/28/24 09:25 Dose: 3 ml Home Medications ?Medication ?Instructions ?Recorded ?Confirmed ?Last Taken ?Type albuterol sulfate 90 mcg/actuation 2 puff inhalation QID PRN wheezing 12/12/23 01/27/24 Unknown History aerosol inhaler furosemide 20 mg tablet 20 mg PO DAILY 12/12/23 01/27/24 01/27/24 History lorazepam 0.5 mg tablet 0.5 mg PO DAILY 12/12/23 01/27/24 01/25/24 History rosuvastatin 5 mg tablet 5 mg PO DAILY 12/12/23 01/27/24 01/27/24 History vit C 250 mg-vit E 90 mg-zinc 40 1 tab PO BID 12/12/23 01/27/24 01/27/24 History mg-copper 1 [id number] capsule (PreserVision AREDS-2) rivaroxaban 20 mg tablet (Xarelto) 20 mg PO DAILY 12/19/23 01/27/24 01/27/24 History Physical Exam 2 Vital Signs: Vital Signs: Last Vital Signs Temp 98.7 F 01/28/24 11:30 Pulse 113 H 01/28/24 11:30 Resp 18 01/28/24 11:30 BP 144/98 H 01/28/24 11:30 Pulse Ox 95 01/28/24 11:30 O2 Del Method Room Air 01/28/24 11:30 BMI result Body Mass Index 19.6 GENERAL APPEARANCE: in no acute distress, pleasant. NECK: no carotid bruit, + jugular venous distention. SKIN: no suspicious lesions, warm and dry. HEART: Systolic murmur left sternal border, regular rate and rhythm. LUNGS: Bilateral crackles. ABDOMEN: soft, nontender. EXTREMITIES: 2+ edema to knees. PERIPHERAL PULSES: equal. NEUROLOGIC: No gross deficits, AAO X 3 Objective Labs and Meds 01/27/24 15:16 01/28/24 06:31 Lab results: Laboratory Results - last 24 hr 01/27/24 01/27/24 01/28/24 15:16 17:53 06:31 WBC 6.4 RBC 3.83 L D Hgb 11.4 L D Hct 34.8 L D MCV 90.9 MCH 29.8 MCHC 32.8 RDW 17.0 H Plt Count 130 L MPV 11.4 Immature Gran % (Auto) 0.3 Neut % (Auto) 71.5 Lymph % (Auto) 19.3 L [place] % (Auto) 8.6 Eos % (Auto) 0.0 Baso % (Auto) 0.3 Lymph # (Auto) 1.2 [place] # (Auto) 0.6 Eos # (Auto) 0.0 Baso # (Auto) 0.0 Abs Immat Gran (auto) 0.02 Absolute Neuts (auto) 4.6 Absolute Nucleated RBC 0.000 Nucleated RBC % (auto) 0.0 PT 54.2 H D INR 4.4 H D Sodium 137 137 Potassium 3.7 2.9 L* D Chloride 101 100 Carbon Dioxide 26 22 Anion Gap 14 18 BUN 30 H 34 H Creatinine 1.16 1.16 Estim Creat Clear Calc 48.2 45.4 Estimated GFR > 60 > 60 Random Glucose 108 87 Calcium 9.7 9.5 Magnesium 2.4 2.2 Total Bilirubin 2.4 H AST 42 H ALT 50 H Alkaline Phosphatase 160 H B-Natriuretic Peptide 3576 H Total Protein 6.2 L Albumin 3.8 Urine Color Yellow Urine Appearance Clear Urine pH 6.5 Ur Specific [place] 1.010 Urine Protein Trace Urine Glucose (UA) Negative Urine Ketones Negative Urine Blood Negative Urine Nitrite Negative Ur Leukocyte Esterase Trace H Urine RBC 0-2 Urine WBC 6-10 Ur Squamous Epith Cells 0-2 Urine Bacteria None Seen Hyaline Casts 0-2 Imaging Radiologist's impression: Impressions Chest X-Ray 01/27/24 18:58 IMPRESSION: Mild pulmonary vascular congestion and small right pleural effusion. Assessment and Plan (1) HFrEF (heart failure with reduced ejection fraction): Status: Acute Plan Pleasant 78-year-old gentleman presenting with lower extremity edema and shortness of breath and clinical congestive heart failure. He is in atrial fibrillation and he is saying that he has not in AFib all the time. Some possible developed atrial fibrillation and then developed congestive heart failure. Currently rate control strategy is reasonable but I would not titrate beta-cory further. Heart rate at rest of 120 or less is reasonable. IV diuretics 40 mg b.i.d.. Monitor I's and O's and electrolytes closely. If hypokalemic and creatinine is stable then spironolactone 25 mg can be added to his regimen. He is on Xarelto for anticoagulation for atrial fibrillation. Unclear whether he has been taking it regularly. Hopefully with rate control strategy he stabilizes and can be discharged home and can have further workup with [facility]. Thank you for allowing me to participate in the care of your patient. Please feel free to contact me if you have any questions. Procedures Date of Service Date of Service: 01/28/24
[2024-01-28 15:17] VITALS: BP 113/70; PULSE 88; RESP 18; TEMP 36.7; O2SAT 97
--- NOTE | 2024-01-28 16:13 | MHC.CM.PN ---
CM MET WITH PT AND FRIEND AT BEDSIDE PT LIVES ALONE AND HIS FRIENDS HAVE BEEN STAYING WITH HIM TO ASSIST PRN PT IS ACTIVE WITH [facility] HE HAS A HCP ON FILE PCP: JASON OLIVARES IMM DELIVERED DCP: HOME, [facility] FRIEND TO TRANSPORT
[2024-01-28 19:54] VITALS: BP 116/56; PULSE 88; RESP 16; TEMP 35.9; O2SAT 96
[2024-01-29] VITALS (9 sets, daily range): BP systolic 103–128; BP diastolic 48–75; PULSE 73–93; RESP 16–20; TEMP 36–36.6; O2SAT 92–99; BMI 21.1
[2024-01-29 01:05] LABS: Anion Gap 19 (12-20); Carbon Dioxide 21 mmol/L (22-29); Chloride 101 mmol/L (96-108); Potassium 3.5 mmol/L (3.3-5.1); Sodium 137 mmol/L (135-145)
[2024-01-29] MEDS: Metoprolol Tartrate 25 MG TABLET PO (07:53)
[2024-01-29] MEDS: Atorvastatin Calcium 20 MG TABLET PO (07:53)
[2024-01-29] MEDS: Furosemide 40 MG/4 ML VIAL IVPUSH ×2 (07:53→17:14)
[2024-01-29] MEDS: LORazepam 0.5 MG TABLET PO (07:54)
[2024-01-29] MEDS: Rivaroxaban 20 MG TABLET PO (07:54)
[2024-01-29] MEDS: 0.9 % Sodium Chloride Flush 3 ML SYRINGE IVFLUSH ×2 (07:54→17:15)
[2024-01-29 08:06] LABS: Anion Gap 19 (12-20); Calcium 9.7 mg/dL (8.4-10.2); Carbon Dioxide 24 mmol/L (22-29); Chloride 100 mmol/L (96-108); Glucose Random 81 mg/dL (60-115); Potassium 4.2 mmol/L (3.3-5.1); Sodium 139 mmol/L (135-145)
[2024-01-29 09:03] LABS: Blood Urea Nitrogen 48 mg/dL (9-16); Creatinine Clr Calc Pharmacy 41.3; Estimated Glomerular Filt Rate 50; Magnesium 2.3 mg/dL (1.6-2.6)
--- NOTE | 2024-01-29 09:33 | HO.PM.IMPN ---
Subjective Subjective Date of Service: 01/29/24 Interval History: f/u on chf exacerbation No sob, persistent swelling of the legs Physical Exam Vital Signs: Vital Signs: Last Vital Signs Temp 97 F 01/29/24 07:29 Pulse 73 01/29/24 07:29 Resp 16 01/29/24 07:29 BP 112/53 L 01/29/24 09:22 Pulse Ox 99 01/29/24 07:29 O2 Del Method Room Air 01/29/24 07:29 BMI result Body Mass Index 21.1 Const: Other: General: AO X 3, no acute distress Resp: CTA bilateral CVS: S1,S2, iregular iregular, 2+ leg edema GI: +BS, NT, no distention Skin: No rash Neuro: motor grossly intact Psych: appropriate affect Objective Data Active Medications Acetaminophen (Acetaminophen 325 Mg Tablet) 650 mg PO Q6H PRN PRN Reason: Pain, Mild (Pain Scale 1-3), fever or headache Albuterol Sulfate (Albuterol Sulfate 90 Mcg 8 Gm Inhaler) 2 puff INHALE QID PRN PRN Reason: wheezing Atorvastatin Calcium (Atorvastatin Calcium 20 Mg Tablet) 20 mg PO DAILY [facility] Last Admin: 01/29/24 07:53 Dose: 20 mg Documented By: TEODORO Benzonatate (Benzonatate 100 Mg Capsule) 100 mg PO TID PRN PRN Reason: Cough Calcium Carbonate (Calcium Carbonate 750 Mg Tab.Chew) 750 mg PO Q4H PRN PRN Reason: Heartburn Furosemide (Furosemide 40 Mg/4 Ml Vial) 40 mg IVPUSH BID@0900,1800 [facility]; Protocol Last Admin: 01/29/24 07:53 Dose: 40 mg Documented By: TEODORO Lorazepam (Lorazepam 0.5 Mg Tablet) 0.5 mg PO DAILY [facility] Last Admin: 01/29/24 07:54 Dose: 0.5 mg Documented By: TEODORO Melatonin (Melatonin 3 Mg Tablet) 6 mg PO BEDTIME PRN PRN Reason: Insomnia Metoprolol Tartrate (Metoprolol Tartrate 25 Mg Tablet) 25 mg PO BID [facility]; Protocol Last Admin: 01/29/24 07:53 Dose: 25 mg Documented By: TEODORO Polyethylene Glycol (Polyethylene Glycol 3350 17 Gm Powd.Pack) 17 gm PO DAILY PRN PRN Reason: Constipation Rivaroxaban (Rivaroxaban 20 Mg Tablet) 20 mg PO DAILY [facility] Last Admin: 01/29/24 07:54 Dose: 20 mg Documented By: TEODORO Sodium Chloride (0.9 % Sodium Chloride Flush 3 Ml Syringe) 3 ml IVFLUSH QSHIFT [facility] Last Admin: 01/29/24 07:54 Dose: 3 ml Documented By: TEODORO Labs 01/27/24 15:16 01/29/24 06:49 Labs: Laboratory Results - last 24 hr 01/29/24 01/29/24 00:46 06:49 Hold Purple Top SEE NOTE SEE NOTE Anion Gap 19 19 Estim Creat Clear Calc 41.3 Estimated GFR 50 Random Glucose 81 Calcium 9.7 Magnesium 2.3 Microbiology Microbiology Results: Microbiology 01/27/24 Unknown Urine Culture - Final Urine clean catch - Clean Catch Midstream Assessment and Plan (1) Chronic anticoagulation: Status: Acute (2) HFrEF (heart failure with reduced ejection fraction): Status: Acute Plan 78-year-old male with a PMH significant for?HFrEF, chronic atrial fibrillation on Xarelto, CAD s/p CABG, and legally blind who presents to the ED with?shortness of breath and bilateral lower leg edema x4-5 weeks. Pt will be admitted to the hospital for treatment and further evaluation of acute HFrEF exacerbation. Acute on chronic HFrEF--less SOB, swelling in the leg better, K is low -Continue iV Lasix at 40 bid, monitor I/O, monitor K, so far negative 600, low salt diet, monitor i/o, get cardiology consult, echo on tuesday GIANCARLO d/t cardiorenal syndorome, diuresse and montor bmp, Cre is higher Chronic AFib--not on rate controlling agents, HR 114 add low dose metoprolol Continue Xarelto CAD s/p CABG Continue statin Not on antiplatelet agent Mood disorder Continue lorazepam Full Code DVT Prophylaxis: On Xarelto need for inpatient: IV Lasix for chf Quality Stroke Does the patient have a stroke diagnosis?: No VTE Prior VTE?: No VTE Risk Level:: Medical - moderate - high VTE Device Contraindication: Treatment Not Indicated VTE Drug Contraindication: N/A - Med Ordered
--- NOTE | 2024-01-29 11:43 | PM.PNCARD ---
Subjective Subjective Date of Service: 01/29/24 Interval history: Seen and examined at bedside. Reviewed his chart at [facility]. He was seen in the office with Dr. Garza in 01/05/2024. At that time he was off most of his medications including Entresto, bisoprolol and Lasix. He was postop after surgery where hypertension happened and medications were held. He was started on Lasix 20 mg daily and plan was to resume Entresto. He is also some documentation that he is on dofetilide but last script filled by him was in November of 2022. Physical Exam Vital Signs: Last Vital Signs Temp 97 F 01/29/24 07:29 Pulse 73 01/29/24 07:29 Resp 16 01/29/24 07:29 BP 112/53 L 01/29/24 09:22 Pulse Ox 99 01/29/24 07:29 O2 Del Method Room Air 01/29/24 07:29 BMI result Body Mass Index 21.1 GENERAL APPEARANCE: in no acute distress, somewhat confused today. NECK: no carotid bruit, + jugular venous distention. SKIN: no suspicious lesions, warm and dry. HEART: Systolic murmur left sternal border, regular rate and rhythm. LUNGS: Bilateral crackles. ABDOMEN: soft, nontender. EXTREMITIES: 2+ edema. PERIPHERAL PULSES: equal. NEUROLOGIC: No gross deficits, AAO X 3 Objective Labs and Meds 01/27/24 15:16 01/29/24 06:49 Lab results: Laboratory Results - last 24 hr 01/29/24 01/29/24 00:46 06:49 Hold Purple Top SEE NOTE SEE NOTE Sodium 137 139 Potassium 3.5 D 4.2 Chloride 101 100 Carbon Dioxide 21 L 24 Anion Gap 19 19 BUN 48 H Creatinine 1.37 Estim Creat Clear Calc 41.3 Estimated GFR 50 Random Glucose 81 Calcium 9.7 Magnesium 2.3 Progress Note: A&P Assessment and plan (1) HFrEF (heart failure with reduced ejection fraction): Status: Acute (2) Chronic anticoagulation: Status: Acute Plan Pleasant 78-year-old gentleman with history of bypass surgery with HU to LAD, SREE to RCA and saphenous vein graft to circumflex OM and paroxysmal atrial fibrillation. He has EF of 40 45% based on echo previously performed at [facility]. Recent fall with surgery and postop hypotension where his heart failure medications were held. He was on Entresto, bisoprolol and Lasix. Lasix was resumed in December. It appears he had progressive edema and shortness of breath and came with congestive heart failure. He was noticed to be in atrial fibrillation. Apparently was on Tikosyn before but last script that I could see was filled in 12/04/2022. Currently appears to be quite overloaded. Agree with IV diuretics 40 mg b.i.d.. Stop the metoprolol for now. Can recheck labs in the evening and if creatinine is stable add Entresto back at low dose. If difficult to control AFib then we will try digoxin. Avoid beta-cory for now. We will check echocardiogram tomorrow. Thank you for allowing me to participate in the care of your patient. Please feel free to contact me if you have any questions. Time Spent With Patient Time: Total time managing care of this patient today ____ minutes. Progress Note: Quality Stroke Does the patient have a stroke diagnosis?: No Procedures Date of Service Date of Service: 01/29/24
[2024-01-29 16:32] LABS: Anion Gap 18 (12-20); Blood Urea Nitrogen 52 mg/dL (9-16); Carbon Dioxide 18 mmol/L (22-29); Chloride 101 mmol/L (96-108); Creatinine Clr Calc Pharmacy 42.8; Estimated Glomerular Filt Rate 53; Glucose Random 111 mg/dL (60-115); Potassium 4.1 mmol/L (3.3-5.1); Sodium 133 mmol/L (135-145)
[2024-01-29] MEDS: Melatonin 3 MG TABLET 6 MG PO (19:54)
[2024-01-30] MEDS: 0.9 % Sodium Chloride Flush 3 ML SYRINGE IVFLUSH ×3 (01:51→14:40)
[2024-01-30 03:10] VITALS: BP 119/54; PULSE 91; RESP 20; TEMP 36.2; O2SAT 94
--- NOTE | 2024-01-30 07:00 | CA_ITS ---
Transthoracic Echocardiogram Patient (Last, First, Middle): Angelito Simental, Gender: Male Date of : 1945 Age: 78 Procedure Date: 01/30/2024 Procedure Type: Transthoracic Echocardiogram [place] [facility] Height: 175.26 cm Weight: 64.41 kg BSA: 1.79 m2 Heart Rate: 93 bpm BP: 119 / 70 mmHg Sales And Events Coordinator: SB Referring MD: Robin HENDRICKSON Symptoms: HFrEF exacerbation Study Quality: Adequate ECG Rhythm: Atrial Fibrillation Conclusions: - 1. Mildly dilated left ventricle with severely reduced LV ejection fraction of 20-25% 2. Severe left atrial enlargement 3. Moderate mitral regurgitation 4. Mild aortic regurgitation stenosis 5. Moderate tricuspid regurgitation 6. Mildly elevated right ventricular systolic pressure with mildly elevated right atrial pressures 7. Mildly dilated ascending aorta at 4.3 cm 8. No gross pericardial effusion Findings Left Ventricle Mildly increased left ventricular cavity size. There is normal left ventricular wall thickness. The left ventricular systolic function is severely decreased. The visually estimated ejection fraction is between 20 25%. There is severe global hypokinesis. Spectral Doppler is indicative of a restrictive filling pattern. Right Ventricle Mildly increased right ventricular cavity size. There is moderate to severely decreased right ventricular systolic function. Atria The left atrium is severely dilated. There is no evidence of interatrial shunt. The right atrium is moderately dilated. Aortic Valve There is mild calcification of the aortic valve. There is mild thickening of the aortic valve. There is mild aortic valve stenosis. There is mild aortic valve regurgitation. Mitral Valve There is mild anterior and posterior mitral leaflet thickening. There is moderate mitral valve regurgitation. There is no mitral valve stenosis. Pulmonic Valve The pulmonic valve is likely normal. There is trace to mild pulmonic valve regurgitation. Tricuspid Valve Normal tricuspid valve structure. There is mild to moderate tricuspid valve regurgitation. Moderately elevated right atrial pressure. Mild pulmonary hypertension is present. Great Vessels The pulmonary artery was not well visualized. There is mild dilatation of the ascending aorta measuring 4.30 cm. Small plaque is seen in the sinuses of Valsalva. Venous The inferior vena cava is moderately dilated and collapses less than 50% with inspiration. Pericardium/Pleural There is no evidence of pericardial effusion. Prior Study Comparison No prior study available for comparison. Measurements 2D Linear Measurements IVSd: 0.67 0.6-0.9/0.6-1.0 cm LVIDd: 6.09 3.9-5.3/4.2-5.9 cm LVIDd Index: 3.40 2.4-3.2/2.2-3.1 cm/m2 LVIDs: 5.49 2.0-3.6 cm LVPWd: 0.70 0.7-1.1 cm LA Diam: 5.00 2.7-3.8/3.0-4.0 cm LAIDs Index: 2.79 1.5-2.3 cm/m2 LV Mass: 197.73 67-162/88-224 g LV Mass Index: 110.47 43-95/49-115 g/m2 LVOT Diam: 2.40 3.0+(-)1.3 cm 2D Systolic Function EF 4C: 18.50 >55% EF 2C: 19.90 >55% EF BiP: 21.00 >55% Mitral Valve MV Pk E: 1.06 E'Lateral: 6.33 E/E' Lat: 16.70 MR VTI: 1.29 Aortic Valve AoV Pk Pepe: 1.83 AoV Mn Pepe: 1.26 AoV VTI: 0.29 AoV Pk Grad: 13.00 Aov Mn Grad: 7.00 RACHEAL Cont.VTI: 1.86 AI Pk Pepe: 3.58 AI [place]: 2.28 LVOT LVOT Pk Pepe: 0.69 LVOT Mn Pepe: 0.48 LVOT VTI: 0.12 LVOT Pk Grad: 2.00 LVOT Mn Grad: 1.00 LVOT Diam: 2.40 LVOT Area: 4.52 Diastolic Function MV Pk E: 1.06 E' Laterial: 6.33 E/E' Lat: 16.70 Right Ventricle TAPSE (mm): 11.70 TVS' Pepe: 6.18 Tricuspid Valve TR Pk Pepe: 2.92 TR Pk Grad: 34.00 RA Press: 8.00 RVSP: 42.00 Great Vessels Aorta Sinus of Valsalva: 3.70 2.0-3.5 cm Ao Asc: 4.30 2.1-3.4 cm Pulmonary Valve PV Pk Pepe: 0.67 Peak PV Grad: 2.00 TN Pk Pepe: 0.69 Updated in Other Vendor System with Status of Final Rogerio Cuellar MD electronically signed on 01/30/2024 10:35:11 AM with status of Final
[2024-01-30 07:22] LABS: Blood Urea Nitrogen 50 mg/dL (9-16); Calcium 8.9 mg/dL (8.4-10.2); Estimated Glomerular Filt Rate 57; Glucose Random 83 mg/dL (60-115); Magnesium 2.2 mg/dL (1.6-2.6)
[2024-01-30 07:48] VITALS: BP 118/45; PULSE 86; RESP 16; TEMP 36.5; O2SAT 99
[2024-01-30 07:52] LABS: Anion Gap 16 (12-20); Carbon Dioxide 24 mmol/L (22-29); Chloride 100 mmol/L (96-108); Potassium 2.8 mmol/L (3.3-5.1); Sodium 137 mmol/L (135-145)
[2024-01-30] MEDS: LORazepam 0.5 MG TABLET PO ×2 (08:58→13:42)
[2024-01-30] MEDS: Atorvastatin Calcium 20 MG TABLET PO (08:58)
[2024-01-30] MEDS: Potassium Chloride ER 20 MEQ TAB.ER.PRT 40 MEQ PO ×3 (08:58→20:52)
[2024-01-30] MEDS: Rivaroxaban 20 MG TABLET PO (08:59)
[2024-01-30] MEDS: Furosemide 40 MG/4 ML VIAL IVPUSH (08:59)
--- NOTE | 2024-01-30 10:15 | PM.PNCARD ---
Subjective Subjective Date of Service: 01/30/24 Principal diagnosis: CHF, atrial fibrillation. Interval history: Patient says his shortness of breath and leg edema improved. Intake and output chart suggest otherwise although not sure if the output is been tracked accurately. Still appears to be fluid overloaded. Heart rate is better controlled at this point time. Echocardiogram being performed at bedside. Denies any chest pain. Denies lightheadedness, syncope. Blood pressure is stable Review of Systems Constitutional: Reports no additional constitutional complaints Cardiovascular: Denies chest pain, Denies rapid heart rate, Reports leg edema, Denies Loss of Consciousness, Denies palpitations and Reports dyspnea on exertion Respiratory: Reports no additional respiratory complaints and Reports dyspnea on exertion Gastrointestinal: Reports no additional gastrointestinal complaints Musculoskeletal: Reports no additional musculoskeletal complaints Skin/Breast: Reports system reviewed and no additional complaints, except as docu Reports system reviewed and no additional complaints, except as documented Psychiatric: Reports no additional psychiatric complaints Endocrine: Denies palpitations Physical Exam Vital Signs: Last Vital Signs Temp 97.7 F 01/30/24 07:48 Pulse 86 01/30/24 07:48 Resp 16 01/30/24 07:48 BP 118/45 L 01/30/24 07:48 Pulse Ox 99 01/30/24 07:48 O2 Del Method Room Air 01/30/24 07:48 BMI result Body Mass Index 21.1 Const General: cooperative, comfortable, no acute distress, well developed and awake Nutritional Appearance: malnourished and thin Orientation/consciousness: patient oriented x3 Neck Neck: Yes trachea midline, Yes supple and Yes JVD Resp Effort & Inspection: normal respiratory effort Auscultation: crackles bilateral at the base Cardio Jugular venous distension: JVD Rate: regular rate Rhythm: abnormal rhythm irregularly irregular Heart sounds: S1 normal heart sound present, S2 normal heart sound present, no click, no gallops, no murmurs and no rubs GI Auscultation: normal bowel sounds Neuro General: patient oriented x3 and no focal motor deficits Extrem General: No clubbing, No cyanosis and Yes edema Objective Labs and Meds 01/27/24 15:16 01/30/24 06:36 Lab results: Laboratory Results - last 24 hr 01/29/24 01/30/24 15:19 06:36 Sodium 133 L 137 Potassium 4.1 2.8 L* D Chloride 101 100 Carbon Dioxide 18 L 24 Anion Gap 18 16 BUN 52 H 50 H Creatinine 1.32 1.23 Estim Creat Clear Calc 42.8 46.0 Estimated GFR 53 57 Random Glucose 111 83 Calcium 9.0 D 8.9 Magnesium 2.2 Progress Note: A&P Assessment and plan (1) HFrEF (heart failure with reduced ejection fraction): Status: Acute Assessment and Plan: Heart failure with reduced ejection fraction, clinically he says he is improved although still appears to be fluid overloaded. Agree with switching him to Lasix drip at 5 mg an hour. Strict intake and output chart needs to be pursued. Continue trend BNP and BNP. Replace potassium aggressively. Echocardiogram pending. Will start him on low-dose Entresto therapy at this point time. Likelihood that he might have had heart failure recurrence related to recurrent atrial fibrillation this point time and also with holding of his cardiac meds. Heart failure management was discussed. (2) Afib: Status: Acute Assessment and Plan: Atrial fibrillation, currently rate control without any obvious medications on board. Once more euvolemic will restart/resume metoprolol therapy. Continue full oral anticoagulation, currently on Xarelto therapy. Will follow with you Time Spent With Patient Time: Total time managing care of this patient today ____ minutes. Progress Note: Quality Stroke Does the patient have a stroke diagnosis?: No Procedures Date of Service Date of Service: 01/30/24
--- NOTE | 2024-01-30 10:31 | MHC.CM.PN ---
Per ROUNDS discussion, CM met with Patient, his S.O/HCP/Merlyn and Merlyn's Daughter to discuss dc planning. Patient is interested in a Hospice Informational, with a goal of returning home with Hospice. A referral has been made to [facility] and CM awaits a time for Informational today. CM assisted Patient with the completion of a HCP and he has named Merlyn as his Primary Agent. CM will follow.
--- NOTE | 2024-01-30 10:42 | HO.PM.IMPN ---
Subjective Subjective Date of Service: 01/30/24 Interval History: f/u on chf exacerbation feels good, slept well, still with leg edema, low K Physical Exam Vital Signs: Vital Signs: Last Vital Signs Temp 97.7 F 01/30/24 07:48 Pulse 86 01/30/24 07:48 Resp 16 01/30/24 07:48 BP 118/45 L 01/30/24 07:48 Pulse Ox 99 01/30/24 07:48 O2 Del Method Room Air 01/30/24 07:48 BMI result Body Mass Index 21.1 Const: Other: General: AO X 3, no acute distress Resp: CTA bilateral CVS: S1,S2, iregular iregular, 2+ leg edema GI: +BS, NT, no distention Skin: No rash Neuro: motor grossly intact Psych: appropriate affect Objective Data Active Medications Acetaminophen (Acetaminophen 325 Mg Tablet) 650 mg PO Q6H PRN PRN Reason: Pain, Mild (Pain Scale 1-3), fever or headache Albuterol Sulfate (Albuterol Sulfate 90 Mcg 8 Gm Inhaler) 2 puff INHALE QID PRN PRN Reason: wheezing Atorvastatin Calcium (Atorvastatin Calcium 20 Mg Tablet) 20 mg PO DAILY [facility] Last Admin: 01/30/24 08:58 Dose: 20 mg Documented By: TEODORO Benzonatate (Benzonatate 100 Mg Capsule) 100 mg PO TID PRN PRN Reason: Cough Calcium Carbonate (Calcium Carbonate 750 Mg Tab.Chew) 750 mg PO Q4H PRN PRN Reason: Heartburn Furosemide (Furosemide 40 Mg/4 Ml Vial) 40 mg IVPUSH BID@0900,1800 [facility]; Protocol Last Admin: 01/30/24 08:59 Dose: 40 mg Documented By: TEODORO Lorazepam (Lorazepam 0.5 Mg Tablet) 0.5 mg PO DAILY [facility] Last Admin: 01/30/24 08:58 Dose: 0.5 mg Documented By: TEODORO Melatonin (Melatonin 3 Mg Tablet) 6 mg PO BEDTIME PRN PRN Reason: Insomnia Last Admin: 01/29/24 19:54 Dose: 6 mg Documented By: TEODORO Polyethylene Glycol (Polyethylene Glycol 3350 17 Gm Powd.Pack) 17 gm PO DAILY PRN PRN Reason: Constipation Potassium Chloride (Potassium Chloride Er 20 Meq Tab.Er.Prt) 40 meq PO TID [facility] Stop: 01/30/24 21:01 Last Admin: 01/30/24 08:58 Dose: 40 meq Documented By: TEODORO Rivaroxaban (Rivaroxaban 20 Mg Tablet) 20 mg PO DAILY [facility] Last Admin: 01/30/24 08:59 Dose: 20 mg Documented By: TEODORO Sacubitril/Valsartan (Sacubitril/Valsartan 1 Tab Tablet) 1 tab PO BID [facility]; Protocol Sodium Chloride (0.9 % Sodium Chloride Flush 3 Ml Syringe) 3 ml IVFLUSH QSHIFT [facility] Last Admin: 01/30/24 08:59 Dose: 3 ml Documented By: TEODORO Labs 01/27/24 15:16 01/30/24 06:36 Labs: Laboratory Results - last 24 hr 01/29/24 01/30/24 15:19 06:36 Anion Gap 18 16 Estim Creat Clear Calc 42.8 46.0 Estimated GFR 53 57 Random Glucose 111 83 Calcium 9.0 D 8.9 Magnesium 2.2 Microbiology Microbiology Results: Microbiology 01/27/24 Unknown Urine Culture - Final Urine clean catch - Clean Catch Midstream Assessment and Plan (1) Chronic anticoagulation: Status: Acute (2) HFrEF (heart failure with reduced ejection fraction): Status: Acute Plan 78-year-old male with a PMH significant for?HFrEF, chronic atrial fibrillation on Xarelto, CAD s/p CABG, and legally blind who presents to the ED with?shortness of breath and bilateral lower leg edema x4-5 weeks. Pt will be admitted to the hospital for treatment and further evaluation of acute HFrEF exacerbation. Acute on chronic HFrEF--less SOB, swelling in the leg better, K is low -Continue iV Lasix at 40 bid, monitor I/O, replace K, so far negative 400, low salt diet, monitor i/ -cardiology following, add Entresto today, BB at later time. -Monitor BMP and BNP GIANCARLO d/t cardiorenal syndorome, diuresse and montor bmp, Cre is stable, monitopr Chronic AFib--not on rate controlling agents add low dose metoprolol, if tolerating entresto Continue Xarelto CAD s/p CABG Continue statin Not on antiplatelet agent Mood disorder Continue lorazepam Full Code DVT Prophylaxis: On Xarelto need for inpatient: IV Lasix for chf Quality Stroke Does the patient have a stroke diagnosis?: No VTE Prior VTE?: No VTE Risk Level:: Medical - moderate - high VTE Device Contraindication: Treatment Not Indicated VTE Drug Contraindication: N/A - Med Ordered
[2024-01-30 11:26] VITALS: BP 104/52; PULSE 93; RESP 18; TEMP 36.1; O2SAT 96
--- NOTE | 2024-01-30 12:43 | MHC.CM.PN ---
[facility] Liaison/Dede, met with CM after the Informational with Patient and family. Per Dede, family is working on securing additional services, especially at night since Patient lives alone (may be eligible for [employer] hours/week and also connecting with [facility]). Equipment may be able to be delivered tomorrow, with tentative dc to home date of 02/01/24. MD is aware and CM will follow.
[2024-01-30] MEDS: Furosemide 200 MG in 0.9 % Sodium Chloride 80 ML IVCONT (14:38)
[2024-01-30 15:41] VITALS: BP 123/56; PULSE 71; RESP 18; TEMP 36.3; O2SAT 96
[2024-01-30 19:50] VITALS: BP 112/68; PULSE 100; RESP 18; TEMP 36.3; O2SAT 95
[2024-01-30 19:51] LABS: Anion Gap 17 (12-20); Carbon Dioxide 22 mmol/L (22-29); Chloride 101 mmol/L (96-108); Potassium 3.6 mmol/L (3.3-5.1); Sodium 136 mmol/L (135-145)
[2024-01-30] MEDS: Sacubitril/Valsartan 24/26 1 TAB TABLET PO (20:52)
[2024-01-30] MEDS: Melatonin 3 MG TABLET 6 MG PO (20:52)
[2024-01-31] VITALS (9 sets, daily range): BP systolic 74–125; BP diastolic 41–68; PULSE 75–97; RESP 16–20; TEMP 36–36.6; O2SAT 94–100
--- NOTE | 2024-01-31 06:29 | PC.NURSE ---
Pt AOx3, confused at times but easily redirectable. Pt remains on lasix drip. External catheter discussed w/pt for overnight since he is on the drip and urinating a lot. Pt agreed and it worked well overnight for him. He did call out or ring a few times to use the urinal/bathroom, gently reminded he had the external catheter on. Once reminded, he remembered and said thank you . Call angelo within reach. Bed alarm on. Camera in room.
[2024-01-31 07:17] LABS: B Type Natriuretic Peptide 3116 pg/mL (<100)
[2024-01-31 07:28] LABS: Anion Gap 16 (12-20); Blood Urea Nitrogen 39 mg/dL (9-16); Calcium 8.8 mg/dL (8.4-10.2); Carbon Dioxide 26 mmol/L (22-29); Chloride 102 mmol/L (96-108); Creatinine Clr Calc Pharmacy 57.7; Estimated Glomerular Filt Rate > 60; Glucose Random 83 mg/dL (60-115); Potassium 3.8 mmol/L (3.3-5.1); Sodium 140 mmol/L (135-145)
--- NOTE | 2024-01-31 10:23 | MHC.CM.PN ---
Per ROUNDS discussion, one more day of IV Lasix and plan is likely home tomorrow, with Hospice. CM will follow.
[2024-01-31] MEDS: 0.9 % Sodium Chloride Flush 3 ML SYRINGE IVFLUSH ×3 (10:25→20:44)
[2024-01-31] MEDS: LORazepam 0.5 MG TABLET PO (10:25)
[2024-01-31] MEDS: Atorvastatin Calcium 20 MG TABLET PO (10:25)
[2024-01-31] MEDS: Sacubitril/Valsartan 24/26 1 TAB TABLET PO (10:25)
[2024-01-31] MEDS: Rivaroxaban 20 MG TABLET PO (10:25)
--- NOTE | 2024-01-31 10:49 | PM.PNCARD ---
Subjective Subjective Date of Service: 01/31/24 Principal diagnosis: CHF, atrial fibrillation. Interval history: Angelito is feeling better. Able to lay flat. Has diuresed more than 3 L since yesterday on IV Lasix. LV ejection fraction is further reduced to 20-25% with moderate mitral regurgitation and mild aortic regurgitation stenosis with mildly elevated right ventricular systolic pressure and mildly elevated right atrial pressures. He is tolerating Entresto well. His heart rate has remained controlled. As per the hospitalist team he is seeking hospice care. Review of Systems Constitutional: Reports no additional constitutional complaints Cardiovascular: Denies chest pain, Denies claudication, Reports leg edema (Improved), Denies lightheadedness and Reports dyspnea (Improved) Respiratory: Denies no additional respiratory complaints and Reports dyspnea (Improved) Genitourinary: Denies no additional male genitourinary complaints Musculoskeletal: Denies no additional musculoskeletal complaints Psychiatric: Denies no additional psychiatric complaints Endocrine: Denies no additional endocrine complaints Physical Exam Vital Signs: Last Vital Signs Temp 96.8 F 01/31/24 07:20 Pulse 86 01/31/24 07:20 Resp 18 01/31/24 07:20 BP 125/68 01/31/24 07:20 Pulse Ox 97 01/31/24 07:20 O2 Del Method Room Air 01/31/24 07:20 BMI result Body Mass Index 21.1 Const General: cooperative, comfortable, no acute distress, well developed and awake Nutritional Appearance: malnourished and thin Orientation/consciousness: patient oriented x3 Neck Neck: Yes trachea midline, Yes supple and Yes JVD Resp Effort & Inspection: normal respiratory effort Auscultation: crackles bilateral at the base Cardio Jugular venous distension: JVD Rate: regular rate Rhythm: abnormal rhythm irregularly irregular Heart sounds: S1 normal heart sound present, S2 normal heart sound present, no click, no gallops, no murmurs and no rubs GI Auscultation: normal bowel sounds Neuro General: patient oriented x3 and no focal motor deficits Extrem General: No clubbing, No cyanosis and Yes edema Objective Labs and Meds 01/27/24 15:16 01/31/24 06:18 Lab results: Laboratory Results - last 24 hr 01/30/24 01/31/24 19:01 06:18 Sodium 136 140 Potassium 3.6 D 3.8 Chloride 101 102 Carbon Dioxide 22 26 Anion Gap 17 16 BUN 39 H Creatinine 0.98 Estim Creat Clear Calc 57.7 Estimated GFR > 60 Random Glucose 83 Calcium 8.8 B-Natriuretic Peptide 3116 H Progress Note: A&P Assessment and plan (1) HFrEF (heart failure with reduced ejection fraction): Status: Acute Assessment and Plan: Heart failure with further reduction LV ejection fraction. Clinically much improved. Continue IV diuresis for 1 more day. Strict intake and output chart needs to be pursued. Continue Entresto. Would add low-dose metoprolol 25 mg b.i.d. to his regimen for both heart rate control as well as neurohormonal modulation. Patient wishing to pursue hospice care as per the family. Will honor his wishes. Continue diuresis 1 more day. Heart failure education to be provided. Can switch to oral Lasix tomorrow if remains stable. Will sign off the case (2) Afib: Status: Acute Assessment and Plan: Atrial fibrillation with controlled rate. Continue current oral anticoagulation with Xarelto. Continue monitor renal function. Can start metoprolol 25 mg b.i.d. as above. Will sign of the case and follow as need be. Thank you for allowing me to partake in his care Time Spent With Patient Time: Total time managing care of this patient today ____ minutes. Progress Note: Quality Stroke Does the patient have a stroke diagnosis?: No Procedures Date of Service Date of Service: 01/31/24
--- NOTE | 2024-01-31 11:30 | HO.PM.IMPN ---
Subjective Subjective Date of Service: 02/01/24 Interval History: f/u on chf exacerbation he feels better, less swelling in the legs and diuressed over 3 liters overnight Potassium is better Physical Exam Vital Signs: Vital Signs: Last Vital Signs Temp 97.8 F 01/31/24 11:20 Pulse 90 01/31/24 11:20 Resp 20 01/31/24 11:20 BP 121/53 L 01/31/24 11:20 Pulse Ox 94 01/31/24 11:20 O2 Del Method Room Air 01/31/24 11:20 BMI result Body Mass Index 21.1 Const: Other: General: AO X 3, no acute distress Resp: CTA bilateral CVS: S1,S2, iregular iregular, 1+ leg edema GI: +BS, NT, no distention Skin: No rash Neuro: motor grossly intact Psych: appropriate affect Objective Data Active Medications Acetaminophen (Acetaminophen 325 Mg Tablet) 650 mg PO Q6H PRN PRN Reason: Pain, Mild (Pain Scale 1-3), fever or headache Albuterol Sulfate (Albuterol Sulfate 90 Mcg 8 Gm Inhaler) 2 puff INHALE QID PRN PRN Reason: wheezing Atorvastatin Calcium (Atorvastatin Calcium 20 Mg Tablet) 20 mg PO DAILY [facility] Last Admin: 01/31/24 10:25 Dose: 20 mg Documented By: LAWANDA Benzonatate (Benzonatate 100 Mg Capsule) 100 mg PO TID PRN PRN Reason: Cough Calcium Carbonate (Calcium Carbonate 750 Mg Tab.Chew) 750 mg PO Q4H PRN PRN Reason: Heartburn Furosemide 200 mg/ Sodium (Chloride) 100 mls @ 2.5 mls/hr IVCONT .Q24H [facility] Last Admin: 01/30/24 14:38 Dose: 5 mg/hr, 2.5 mls/hr Documented By: TEODORO Lorazepam (Lorazepam 0.5 Mg Tablet) 0.5 mg PO DAILY [facility] Last Admin: 01/31/24 10:25 Dose: 0.5 mg Documented By: LAWANDA Melatonin (Melatonin 3 Mg Tablet) 6 mg PO BEDTIME PRN PRN Reason: Insomnia Last Admin: 01/30/24 20:52 Dose: 6 mg Documented By: CHRISTIANO Polyethylene Glycol (Polyethylene Glycol 3350 17 Gm Powd.Pack) 17 gm PO DAILY PRN PRN Reason: Constipation Rivaroxaban (Rivaroxaban 20 Mg Tablet) 20 mg PO DAILY [facility] Last Admin: 01/31/24 10:25 Dose: 20 mg Documented By: LAWANDA Sacubitril/Valsartan (Sacubitril/Valsartan 1 Tab Tablet) 1 tab PO BID [facility]; Protocol Last Admin: 01/31/24 10:25 Dose: 1 tab Documented By: LAWANDA Sodium Chloride (0.9 % Sodium Chloride Flush 3 Ml Syringe) 3 ml IVFLUSH QSHIFT [facility] Last Admin: 01/31/24 10:25 Dose: 3 ml Documented By: LAWANDA Labs 01/27/24 15:16 02/01/24 06:08 Labs: Laboratory Results - last 24 hr 01/30/24 01/31/24 19:01 06:18 Anion Gap 17 16 Estim Creat Clear Calc 57.7 Estimated GFR > 60 Random Glucose 83 Calcium 8.8 B-Natriuretic Peptide 3116 H Assessment and Plan (1) Chronic anticoagulation: Status: Acute (2) HFrEF (heart failure with reduced ejection fraction): Status: Acute Plan 78-year-old male with a PMH significant for?HFrEF, chronic atrial fibrillation on Xarelto, CAD s/p CABG, and legally blind who presents to the ED with?shortness of breath and bilateral lower leg edema x4-5 weeks. Pt will be admitted to the hospital for treatment and further evaluation of acute HFrEF exacerbation. Acute on chronic HFrEF--less SOB, swelling in the leg better, K is normal -Continue iV Lasix drip, monitor I/O, replace K, so far negative 4 lits -cardiology following, continue Entresto today and BB -Monitor BMP and BNP GIANCARLO d/t cardiorenal syndorome, diuresse and montor bmp, Cre is better today Chronic AFib--not on rate controlling agents add low dose metoprolol, if tolerating entresto Continue Xarelto CAD s/p CABG Continue statin Not on antiplatelet agent Mood disorder Continue lorazepam Full Code DVT Prophylaxis: On Xarelto need for inpatient: IV Lasix for chf Pt ultimately would like to go home with hospice, likely tomorrow Quality Stroke Does the patient have a stroke diagnosis?: No VTE Prior VTE?: No VTE Risk Level:: Medical - moderate - high VTE Device Contraindication: Treatment Not Indicated VTE Drug Contraindication: N/A - Med Ordered
[2024-01-31] MEDS: Furosemide 200 MG in 0.9 % Sodium Chloride 80 ML IVCONT (13:34)
--- NOTE | 2024-01-31 15:12 | P.CDIM_ITS ---
PROVIDER RESPONSE TEXT: To clarify, the appropriate diagnosis supported by the clinical indicators: Hypokalemia: mild QUERY TEXT: PHYSICIAN'S DOCUMENTATION REQUEST Date of Query: 01/31/2024 08:31 AM EDT Patient Name: Angelito Simental Admit Date: 01/27/2024 Dear Vivek Pascal, A review of the medical record indicates additional documentation may be needed. Please review below and update the documentation accordingly. Clinical Indicators: LABS: potassium 2.8 L 3.6 Klor-Con Based on the above, is there a diagnosis that correlates with these lab findings: Hypokalemia resolved, mild, probable, possible Labs indicate a diagnosis of (please specify) Other (explain) Clinically unable to determine (explain) Thank you, Divya Blue, CCS, CDIS Use of terms such as suspected, likely, concern for, or probable (associated with a specific diagnosi s that is being evaluated, monitored, or treated as if it exists) are acceptable and can be coded in the inpatient se tting, when documented at the time of discharge. Please use your independent medical judgment in providing your response. THIS QUERY IS PART OF THE PERMANENT MEDICAL RECORD
--- NOTE | 2024-01-31 20:19 | PM.EVENT ---
Event Note Date of Service: 01/31/24 Event Note: Nurse reported hypotension. Patient asymptomatic. Will stop IV Lasix and give albumin. Closely monitor blood pressure Time Spent With Patient Time: Total time managing care of this patient today ____ minutes.
[2024-01-31] MEDS: Albumin Human 25 % 100 ML 133.33 ML IV ×4 (20:38→23:58)
[2024-02-01] VITALS (11 sets, daily range): BP systolic 70–137; BP diastolic 40–60; PULSE 86–96; RESP 16–18; TEMP 36.1–37.1; O2SAT 93–98
[2024-02-01] MEDS: Albumin Human 25 % 100 ML 133.33 ML IV ×5 (01:22→23:40)
[2024-02-01 07:12] LABS: B Type Natriuretic Peptide 1149 pg/mL (<100)
[2024-02-01 07:22] LABS: Anion Gap 15 (12-20); Blood Urea Nitrogen 32 mg/dL (9-16); Calcium 9.2 mg/dL (8.4-10.2); Carbon Dioxide 25 mmol/L (22-29); Chloride 101 mmol/L (96-108); Creatinine Clr Calc Pharmacy 65.8; Estimated Glomerular Filt Rate > 60; Glucose Random 86 mg/dL (60-115); Sodium 138 mmol/L (135-145)
[2024-02-01 07:30] LABS: Potassium 2.9 mmol/L (3.3-5.1)
[2024-02-01] MEDS: LORazepam 0.5 MG TABLET PO (08:08)
[2024-02-01] MEDS: Sacubitril/Valsartan 24/26 1 TAB TABLET PO (08:08)
[2024-02-01] MEDS: Potassium Chloride Packet 20 MEQ PACKET 40 MEQ PO (08:08)
[2024-02-01] MEDS: Atorvastatin Calcium 20 MG TABLET PO (08:08)
[2024-02-01] MEDS: 0.9 % Sodium Chloride Flush 3 ML SYRINGE IVFLUSH ×2 (08:09→19:48)
[2024-02-01] MEDS: Rivaroxaban 20 MG TABLET PO (08:19)
[2024-02-01 08:40] LABS: Magnesium 2.1 mg/dL (1.6-2.6)
--- NOTE | 2024-02-01 09:55 | HO.PM.IMPN ---
Subjective Subjective Date of Service: 02/01/24 Interval History: f/u on chf exacerbation was hypotensive overnight so lasix drip stopped and given albumin, BP in good range this morning. Physical Exam Vital Signs: Vital Signs: Last Vital Signs Temp 97.9 F 02/01/24 08:00 Pulse 86 02/01/24 08:00 Resp 18 02/01/24 08:00 BP 137/60 02/01/24 08:08 Pulse Ox 97 02/01/24 08:00 O2 Del Method Room Air 02/01/24 08:00 BMI result Body Mass Index 21.1 Const: Other: General: AO X 3, no acute distress Resp: CTA bilateral CVS: S1,S2, iregular iregular, 1+ leg edema GI: +BS, NT, no distention Skin: No rash Neuro: motor grossly intact Psych: appropriate affect Objective Data Active Medications Acetaminophen (Acetaminophen 325 Mg Tablet) 650 mg PO Q6H PRN PRN Reason: Pain, Mild (Pain Scale 1-3), fever or headache Albuterol Sulfate (Albuterol Sulfate 90 Mcg 8 Gm Inhaler) 2 puff INHALE QID PRN PRN Reason: wheezing Atorvastatin Calcium (Atorvastatin Calcium 20 Mg Tablet) 20 mg PO DAILY [facility] Last Admin: 02/01/24 08:08 Dose: 20 mg Documented By: ADDISON Benzonatate (Benzonatate 100 Mg Capsule) 100 mg PO TID PRN PRN Reason: Cough Calcium Carbonate (Calcium Carbonate 750 Mg Tab.Chew) 750 mg PO Q4H PRN PRN Reason: Heartburn Lorazepam (Lorazepam 0.5 Mg Tablet) 0.5 mg PO DAILY [facility] Last Admin: 02/01/24 08:08 Dose: 0.5 mg Documented By: ADDISON Melatonin (Melatonin 3 Mg Tablet) 6 mg PO BEDTIME PRN PRN Reason: Insomnia Last Admin: 01/30/24 20:52 Dose: 6 mg Documented By: CHRISTIANO Polyethylene Glycol (Polyethylene Glycol 3350 17 Gm Powd.Pack) 17 gm PO DAILY PRN PRN Reason: Constipation Rivaroxaban (Rivaroxaban 20 Mg Tablet) 20 mg PO DAILY [facility] Last Admin: 02/01/24 08:19 Dose: 20 mg Documented By: ADDISON Sacubitril/Valsartan (Sacubitril/Valsartan 1 Tab Tablet) 1 tab PO BID [facility]; Protocol Last Admin: 02/01/24 08:08 Dose: 1 tab Documented By: ADDISON Sodium Chloride (0.9 % Sodium Chloride Flush 3 Ml Syringe) 3 ml IVFLUSH QSHIFT [facility] Last Admin: 02/01/24 08:09 Dose: 3 ml Documented By: ADDISON Labs 01/27/24 15:16 02/01/24 06:08 Labs: Laboratory Results - last 24 hr 02/01/24 06:08 Anion Gap 15 Estim Creat Clear Calc 65.8 Estimated GFR > 60 Random Glucose 86 Calcium 9.2 Magnesium 2.1 B-Natriuretic Peptide 1149 H Assessment and Plan (1) Chronic anticoagulation: Status: Acute (2) HFrEF (heart failure with reduced ejection fraction): Status: Acute Plan 78-year-old male with a PMH significant for?HFrEF, chronic atrial fibrillation on Xarelto, CAD s/p CABG, and legally blind who presents to the ED with?shortness of breath and bilateral lower leg edema x4-5 weeks. Pt will be admitted to the hospital for treatment and further evaluation of acute HFrEF exacerbation. Acute on chronic HFrEF--less SOB, swelling in the leg better, K is normal -Lasix drip stopped d/t hypotension, negative 6 L, will initiate PO lasix starting tomorrow -cardiology following, continue Entresto , ? low dose BB--seems to be tolerating, replace K -Monitor BMP and BNP Hypokalemia--replace orally, mag is normal GIANCARLO d/t cardiorenal syndorome, diuresse and montor bmp, Cre in normal range Chronic AFib--not on rate controlling agents add low dose metoprolol, if tolerating entresto Continue Xarelto CAD s/p CABG Continue statin Not on antiplatelet agent Mood disorder Continue lorazepam Full Code DVT Prophylaxis: On Xarelto need for inpatient: IV Lasix for chf Pt ultimately would like to go home with hospice, likely tomorrow Quality Stroke Does the patient have a stroke diagnosis?: No VTE Prior VTE?: No VTE Risk Level:: Medical - moderate - high VTE Device Contraindication: Treatment Not Indicated VTE Drug Contraindication: N/A - Med Ordered
--- NOTE | 2024-02-01 11:17 | PM.PNCARD ---
Subjective Subjective Date of Service: 02/01/24 Principal diagnosis: CHF, atrial fibrillation. Interval history: Patient says he is breathing much better. Leg edema is improved. Has diuresed very well. Overnight had significantly low blood pressure in the 70s. No obvious symptoms reported by the patient. Heart rate remains controlled. Review of Systems Review of Systems Yes all other systems are reviewed and are negative Physical Exam Vital Signs: Last Vital Signs Temp 97.9 F 02/01/24 08:00 Pulse 86 02/01/24 08:00 Resp 18 02/01/24 08:00 BP 137/60 02/01/24 08:08 Pulse Ox 97 02/01/24 08:00 O2 Del Method Room Air 02/01/24 08:00 BMI result Body Mass Index 21.1 Const General: cooperative, comfortable, no acute distress, well developed and awake Nutritional Appearance: malnourished and thin Orientation/consciousness: patient oriented x3 Neck Neck: Yes trachea midline, Yes supple and Yes no JVD Resp Effort & Inspection: normal respiratory effort Auscultation: crackles bilateral at the base Cardio Jugular venous distension: no JVD Rate: regular rate Rhythm: abnormal rhythm irregularly irregular Heart sounds: S1 normal heart sound present, S2 normal heart sound present, no click, no gallops, no murmurs and no rubs GI Auscultation: normal bowel sounds Neuro General: patient oriented x3 and no focal motor deficits Extrem General: No clubbing, No cyanosis and No edema Objective Labs and Meds 01/27/24 15:16 02/01/24 06:08 Lab results: Laboratory Results - last 24 hr 02/01/24 06:08 Sodium 138 Potassium 2.9 L* D Chloride 101 Carbon Dioxide 25 Anion Gap 15 BUN 32 H Creatinine 0.86 Estim Creat Clear Calc 65.8 Estimated GFR > 60 Random Glucose 86 Calcium 9.2 Magnesium 2.1 B-Natriuretic Peptide 1149 H Progress Note: A&P Assessment and plan (1) HFrEF (heart failure with reduced ejection fraction): Status: Acute Assessment and Plan: Heart failure with worsened LV ejection fraction most likely ischemic in nature. This was discussed with patient patient's daughters at bedside. 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 Garza as outpatient. He is not tolerating neurohormonal modulators well. Agree with switching to p.o. Lasix. Heart failure management discussed. Daily weight monitoring avoidance of salt loading was discussed. Hold off on Entresto due to low blood pressure switch to low-dose valsartan therapy. Will also add low-dose Toprol-XL 25 mg to his regimen for neurohormonal modulation. Overall prognosis guarded and as per the hospitalist team he has elected hospice care at home. He wants to be discharged home. (2) Afib: Status: Acute Assessment and Plan: Atrial fibrillation currently rate controlled. Start metoprolol 25 mg as above. Continue full oral anticoagulation with Xarelto. For now pursue rate control approach. Will sign of the case. Thank you for allowing me to partake in his care Time Spent With Patient Time: Total time managing care of this patient today ____ minutes. Progress Note: Quality Stroke Does the patient have a stroke diagnosis?: No Procedures Date of Service Date of Service: 02/01/24
[2024-02-01] MEDS: Albumin Human 25 % 100 ML IV ×2 (12:05→13:24)
--- NOTE | 2024-02-01 13:49 | MHC.CM.PN ---
EMR REVIEWED, PER HOSPITALIST PT WILL REMAIN INPT UNTIL TOMORROW 02/01, PER [facility] TO BE DELIVERED KEENAN QUINONEZ ATTEMPTED TO CONTACT PT'S S.O./HCP ANN HOWEVER NO ANSWER AND DETAILED MESSAGE LEFT, CM CONTACTED PT'S ALT HCP EMILY JAMROG [phone], IMM DELIVERED AND EMILY REPORTS THEY WUD LIKE PT HOME EARLY POSSIBLE AND CM TO SET UP TRANSPORT FOR 10:30-11AM PER DISCUSSION. IMM 02/01/24 WILL ALSO BE LEFT AT BEDSIDE PER DISCUSSION, EMILY REPORTS ANN WILL BE BACK TO BEDSIDE IN A FEW HRS AND PLANS ON BEING W/PT IN AM UNTIL HE IS TRANSPORTED HOME.
--- NOTE | 2024-02-01 15:44 | PM.EVENT ---
Event Note Date of Service: 02/01/24 Event Note: Pt's BP have been registering low, however on evaluation he is completlyh alert, no symptoms, his clinically well perfused on all extremities.. a ghigh BP was obtained with BP in the leg, he was given albumin, hold BP meds today, if symptomatic will give iVF Time Spent With Patient Time: Total time managing care of this patient today ____ minutes.
--- NOTE | 2024-02-01 15:51 | PC.NURSE ---
Unable to obtain manual BP reading on patient. Patient remains a/oX4 with all other vital signs stable. Patient denies any pain/discomfort. automated readings remain low with bilateral upper extremities i. MD notified came to bedside and assessed patient. 2 bags IV albumin administered per MD. Automated BP to RLE following albumin administration is 104/59. Patient remains alert/oriented X4 with no complaints of pain/discomfort. MD aware
[2024-02-01 21:56] LABS: Anion Gap 15 (12-20); Blood Urea Nitrogen 31 mg/dL (9-16); Calcium 9.5 mg/dL (8.4-10.2); Carbon Dioxide 26 mmol/L (22-29); Chloride 99 mmol/L (96-108); Creatinine Clr Calc Pharmacy 57.1; Estimated Glomerular Filt Rate > 60; Glucose Random 128 mg/dL (60-115); Potassium 3.4 mmol/L (3.3-5.1); Sodium 137 mmol/L (135-145)
[2024-02-02 00:46] VITALS: BP 93/49
[2024-02-02 03:23] VITALS: BP 97/44; PULSE 94; RESP 18; TEMP 36.5; O2SAT 96
[2024-02-02 07:16] LABS: Anion Gap 15 (12-20); Blood Urea Nitrogen 24 mg/dL (9-16); Calcium 9.8 mg/dL (8.4-10.2); Carbon Dioxide 26 mmol/L (22-29); Chloride 100 mmol/L (96-108); Creatinine Clr Calc Pharmacy 64.3; Estimated Glomerular Filt Rate > 60; Glucose Random 83 mg/dL (60-115); Potassium 3.1 mmol/L (3.3-5.1); Sodium 138 mmol/L (135-145)
[2024-02-02 07:24] VITALS: BP 133/60; PULSE 98; RESP 20; TEMP 37.3; O2SAT 96
--- NOTE | 2024-02-02 09:19 | PC.NURSE ---
pt blood pressure at beginning of shift 70/44. patient reports feeling asymptomatic. Dr. Mccallum notified, 2 bags of albumin ordered and hung. BP rechecked at 22:36 81/48 patient reports feeling asymptomatic. Dr. Mccallum ordered 2 bags of albumin, 1 bag administered BP rechecked at 00:46 was 97/44. patient reports feeling asymptomatic. no further orders from Dr. Mccallum.
--- NOTE | 2024-02-02 09:49 | P.DS_ITS ---
DS: Providers Provider Date of Service: 02/02/24 Date of admission: 01/27/24 18:55 Primary care physician: Mare Wells MD Consults: 01/28/24 10:29 Consult to Cardiology Routine Consulting Provider: [facility] Reason for consultation: Heart failure exacerbation Has provider been notified: Yes 01/29/24 19:09 Consult to Case Management Routine Comment: Famiily wants hospice intake DS: Diagnosis Discharge Diagnosis (1) HFrEF (heart failure with reduced ejection fraction): Status: Acute (2) Afib: Status: Acute DS: Summary Hospital Course Hospital Course: admission hpi Chief Complaint: SOB Pt is a 78-year-old male with a PMH significant for?HFrEF, chronic atrial fibrillation on Xarelto, CAD s/p CABG, and legally blind who presents to the ED with?shortness of breath and bilateral lower leg edema x4-5 weeks. He was recently admitted to the hospital for a prolonged stay from 12/10-12/20 after suffering a right femur fracture after mechanical fall at home. Had surgery for right distal femur retrograde nailing, and hospital stay complicated by hypotension that required a 2 day ICU stay for pressor support. Was discharged to short-term rehab. Patient reports has experienced worsening shortness of difficulty breathing especially at night since discharge from short-term rehab. Endorses both orthopnea and paroxysmal nocturnal dyspnea. States sleeping elevated or using more pillows at night has not helped. Has also noticed increased bilateral lower leg edema for approximately the same amount of time. Has been undergoing physical therapy and doing well with that, though activity has still been greatly reduced since prior to accident. States he used to walk up to 2 miles daily. Reports today to the ED at the request of his visiting nurse who was concerned after noticed worsening lower leg edema. Patient initially went to urgent care who then directed him to the ED for further evaluation. Denies cough. No chest pain or pressure. No palpitations. Denies fever, chills, nausea, vomiting, abdominal pain. Of note, pt's home Lasix was held during hospital stay and for 2-3 weeks after discharge due to hypotension. Unclear exactly when resumed. In the ED pt was Labs were significant for PT of 54.2 and INR 4.4 (likely falsely elevated from Xarelto), creatinine 1.16 (elevated from 0.75 on 12/18/23), bilirubin 2.4, AST 42, ALT 50, alk-phos 160, and BNP 3576. UA negative for UTI. EKG demonstrated atrial fibrillation with rate of 104 and QTc of 499 but no evidence of significant ST elevations or depressions. Pt was treated with Lasix 20 mg IV. Pt will be admitted to the hospital for treatment and further evaluation of acute HFrEF exacerbation. Hospital course: Patient has advanced heart failure and presented with shortness and his clinical presentation was consistent with acute exacerbation of heart failure. His management consisted of IV Lasix drip which was challenged by low Blood pressures givne his low EF, shifting of his potassium which was corrected according. Unfortuatenely, his heart failure is advanced and making optimal management with medciations challenge as to not compromise his blood pressure. Overall he is feeling symptomatically better, adustment in his medication with Addition of Entresto, beta cory has been difficult due to low blood pressure. At this juncture he has elected to go home with hospice with his family support and arrangement has been made for him to ho home today. Time Attestation Discharge Coordination Time (in mins): 40 Quality: Safe Use of Opioids Does Pt have an Active Cancer Diagnosis on the Problem List?: No Quality: Stroke Does the patient have a stroke diagnosis?: No Physical Exam Vital Signs: Vital Signs: Last Vital Signs Temp 99.1 F 02/02/24 07:24 Pulse 98 02/02/24 07:24 Resp 20 02/02/24 07:24 BP 133/60 02/02/24 07:24 Pulse Ox 96 02/02/24 07:24 O2 Del Method Room Air 02/02/24 07:24 BMI result Body Mass Index 21.1 DS: Data Data Completed and Pending Completed studies during hospitalization [Text1]: Procedures Introduction of Vasopressor into Peripheral Vein, Percutaneous Approach (12/11/23) Reposition Right Lower Femur with Intramedullary Internal Fixation Device, Percutaneous Approach (12/11/23) Labs on day of discharge: Laboratory Results - last 24 hr 02/01/24 02/02/24 21:32 05:50 Sodium 137 138 Potassium 3.4 3.1 L Chloride 99 100 Carbon Dioxide 26 26 Anion Gap 15 15 BUN 31 H 24 H Creatinine 0.99 0.88 Estim Creat Clear Calc 57.1 64.3 Estimated GFR > 60 > 60 Random Glucose 128 H 83 Calcium 9.5 9.8 Discharge Plan Discharge Anticipated Discharge Date/Time: 02/02/24 09:42 Patient Disposition: Hospice - Home Discharge Diagnosis: Acute on chronic heart failure with reduced EF Referrals: Mare Wells MD [Primary Care Provider] - 1 Week Discharge Medications: New furosemide 40 mg Tablet 40 mg PO DAILY Qty: 180 0RF Protocol: Hold for SBP< HOLD for SBP < : 90 morphine concentrate 100 mg/5 mL (20 mg/mL) solution 5 mg PO Q3H PRN (Reason: pain/comfort) 15 Days Qty: 30 0RF Rx Instructions: Partial Fill upon patient request. lorazepam 0.5 mg tablet 0.5 mg PO Q6H PRN (Reason: anxiety/restlessness) 4 Days Qty: 16 0RF Continued lorazepam 0.5 mg tablet 0.5 mg PO DAILY albuterol sulfate 90 mcg/actuation HFA aerosol inhaler 2 puff INHALATION QID PRN (Reason: wheezing) rosuvastatin 5 mg tablet 5 mg PO DAILY PreserVision AREDS-2 250-90-40-1 mg Capsule 1 tab PO BID Xarelto 20 mg tablet 20 mg PO DAILY Discontinued furosemide 20 mg tablet 20 mg PO DAILY Hold Instructions: Resume on 01/20/24. Discharge Orders: Discharge Order (Routine); Ordered 02/02/24 Ordered By: Vivek Pascal Diet: Low salt diet Activity on Discharge: As tolerated Stand Alone Forms: Patient Portal Discharge page Print Language: Tajik Care Plan Goals: Treatment of symptoms of heart failure to ensure comfort and quality of life Health Concerns: Advanced heart failure Plan of Treatment: take lasix to reduce symptoms of heart failure continue other medications as before additionally you may take morphine and ativan for william and anxiety Assessment: see above
[2024-02-02] MEDS: Atorvastatin Calcium 20 MG TABLET PO (10:27)
[2024-02-02] MEDS: Rivaroxaban 20 MG TABLET PO (10:28)
[2024-02-02 10:30] VITALS: BP 133/60
[2024-02-02] MEDS: Furosemide 40 MG TABLET PO (10:30)
[2024-02-02] MEDS: Potassium Chloride ER 20 MEQ TAB.ER.PRT 40 MEQ PO (11:06)
== END 2024-02-02 11:28 | disposition hospice, home (50) | DRG 292 ==
LOC: HO.ED 16:56 → HO.EDOVER 19:05 → HO.IMC 19:45
PROVIDERS: Internal Medicine Cardiovascular Disease; Nurse Practitioner Family; Admitting Provider Student in an Organized Health Care Education/Training Program; Emergency Provider Emergency Medicine Emergency Medical Services; PCP Internal Medicine; Visit Provider Internal Medicine
DX: I50.23 Acute on chronic systolic (congestive) heart failure (principal); I48.20 Chronic atrial fibrillation, unspecified; N17.9 Acute kidney failure, unspecified; I25.10 Atherosclerotic heart disease of native coronary artery without angina pectoris; I95.9 Hypotension, unspecified; E87.6 Hypokalemia; H54.8 Legal blindness, as defined in USA; Z95.1 Presence of aortocoronary bypass graft; Z87.891 Personal history of nicotine dependence; Z79.01 Long term (current) use of anticoagulants; Z79.899 Other long term (current) drug therapy
CPT/HCPCS: 36415; 71045; 80048; 80051; 80053; 81001; 83735; 83880; 85025; 85610; 87086; 92950; 93005; 93306; 99285; J1940; P9047; Q9957

== ENCOUNTER 2024-01-27 18:55 | Outpatient (BNV) | payer MEDICARE, SELFPAY | END 2024-01-30 07:00 | PROVIDERS: Admitting Provider Student in an Organized Health Care Education/Training Program; Emergency Provider Emergency Medicine Emergency Medical Services; PCP Internal Medicine; Visit Provider Internal Medicine Cardiovascular Disease | DX: I50.23 Acute on chronic systolic (congestive) heart failure (principal); I35.2 Nonrheumatic aortic (valve) stenosis with insufficiency; I34.0 Nonrheumatic mitral (valve) insufficiency; I36.1 Nonrheumatic tricuspid (valve) insufficiency | CPT/HCPCS: 93306 ==

== ENCOUNTER → 2024-01-27 18:55 | Outpatient (BNV) | payer MEDICARE, SELFPAY | PROVIDERS: Admitting Provider Student in an Organized Health Care Education/Training Program; Emergency Provider Emergency Medicine Emergency Medical Services; PCP Internal Medicine; Visit Provider Internal Medicine Cardiovascular Disease | DX: I50.20 Unspecified systolic (congestive) heart failure (principal); I48.91 Unspecified atrial fibrillation | CPT/HCPCS: 93010; 99223; 99233 ==

== ENCOUNTER → 2024-01-27 18:55 | Outpatient (BNV) | payer MEDICARE, SELFPAY | PROVIDERS: Admitting Provider Student in an Organized Health Care Education/Training Program; Emergency Provider Emergency Medicine Emergency Medical Services; PCP Internal Medicine; Visit Provider Internal Medicine | DX: Z79.01 Long term (current) use of anticoagulants (principal); I50.20 Unspecified systolic (congestive) heart failure | CPT/HCPCS: 99223; 99232; 99239; 99499 ==

== ENCOUNTER 2024-03-12 03:09 | Inpatient (IN) | payer OTHER, SELFPAY ==
[2024-03-12] VITALS (8 sets, daily range): BP systolic 124–162; BP diastolic 38–63; PULSE 72–110; RESP 16–20; TEMP 36.1–36.8; O2SAT 94–98; BMI 20.5; BMI 19.8
--- NOTE | ~2024-03-12 | CT_ITS ---
EXAMINATION: CT CERVICAL SPINE WITHOUT CONTRAST; UNENHANCED CT OF THE HEAD. CLINICAL INFORMATION: Fall. On thinners. COMPARISON: CT head and cervical spine 12/11/2023. TECHNIQUE: Routine unenhanced CT of the head with multiple coronal and sagittal reformatted images; routine unenhanced CT of the cervical spine with multiple coronal and sagittal reformatted images. This CT examination was performed using dose optimization techniques as appropriate, variously including the following: *Automated exposure control *Adjustment of mA and/or kV according to patient size (this includes techniques or standardized protocols for targeted exams where dose is matched to indication/reason for exam; i.e. extremities or head) *Use of iterative reconstruction technique DLP: 1145 mGy-cm FINDINGS: CT head: Moderate diffuse symmetric prominence of ventricles and sulci. No intracranial hemorrhage, tumors or acute infarcts identified. Mild subcortical and periventricular white matter patchy hypodensities. Normal appearance of the orbits and globes. No significant opacification of the visualized paranasal sinuses, mastoid air cells and middle ear cavities. CT cervical spine: No fractures or acute-appearing subluxations identified. Diffuse osteopenia. Moderate multilevel and show disc space narrowing, endplate osteophytosis and facet hypertrophic changes. Moderate posterior broad-based disc-osteophyte complex C5-C6. Visualized lung apices demonstrate scattered paraseptal emphysematous changes and mild biapical pleural parenchymal scarring which appears chronic. No prevertebral fluid collections or soft tissue inflammatory changes. Dense bilateral carotid bulb calcific atherosclerotic plaques. CT/CT cervical spine wo IV con IMPRESSION: CT HEAD: 1. No acute abnormalities. 2. Moderate diffuse parenchymal volume loss the brain and mild white matter chronic small vessel ischemic changes. CT CERVICAL SPINE: 1. No acute abnormalities. 2. Moderate multilevel chronic spondylosis. 3. Dense bilateral carotid bulb calcific atherosclerotic plaques. Electronically signed by: Gonzalo Lewis MD 03/12/2024 04:44 AM EDT
--- NOTE | ~2024-03-12 | XR_ITS ---
EXAMINATION: XR HIP, RIGHT CLINICAL INFORMATION: Right hip femur neck fracture COMPARISON: CT right hip done on the same date TECHNIQUE: Two views of the right hip. FINDINGS: Again noted acute comminuted right femur intertrochanteric fracture with displaced fracture fragments involving both lesser and greater trochanteric regions. There is associated varus angulation. Partial visualization of right femoral intramedullary justine and proximal interlocking screws. Diffuse osteopenia. Extensive vascular calcifications. The pubic symphysis is intact. XR/XR hip RT w PEL1V IMPRESSION: Acute comminuted right femur intertrochanteric fracture with varus angulation. Electronically signed by: Iam Jerze MD 03/12/2024 12:48 PM EDT
--- NOTE | ~2024-03-12 | CT_ITS ---
EXAMINATION: CT HIP WITHOUT CONTRAST, RIGHT CLINICAL INFORMATION: Pain. Fall. History of previous femoral fracture. COMPARISON: Right femur radiograph 01/02/2024. TECHNIQUE: Multidetector volumetric imaging was obtained through the right hip without contrast material. Multiplanar reformatted images were submitted in coronal and sagittal planes. This CT examination was performed using dose optimization techniques as appropriate, variously including the following: *Automated exposure control *Adjustment of mA and/or kV according to patient size (this includes techniques or standardized protocols for targeted exams where dose is matched to indication/reason for exam; i.e. extremities or head) *Use of iterative reconstruction technique DLP: 165 mGy-cm FINDINGS: A comminuted intertrochanteric fracture with varus angulation is present with displaced fracture fragments involving both the lesser and greater trochanteric regions. No femoral acetabular subluxation identified. No erosive osseous lesions. Diffuse osteopenia. The visualized sacrum appears intact. Partial visualization is made of a right femoral intramedullary justine and proximal interlocking screw. Extensive soft tissue inflammatory changes are present adjacent to the right hip. No soft tissue hematoma noted in association with right hip fracture. Marked diffuse vascular calcifications present. CT/CT hip RT wo IV con IMPRESSION: *Comminuted intertrochanteric fracture of the right femur with varus angulation. *Marked diffuse osteopenia. *Partial visualization of a right femoral intramedullary justine. *Marked diffuse calcific atherosclerosis. Electronically signed by: Gonzalo Lewis MD 03/12/2024 04:48 AM EDT
--- NOTE | ~2024-03-12 | FL_ITS ---
EXAMINATION: FLUOROSCOPY GUIDANCE FOR NEEDLE PLACEMENT CLINICAL INFORMATION: Right hip fracture. COMPARISON: Right hip radiographs and CT March 12, 2024. TECHNIQUE: Fluoroscopy and spot films provided to Dr. Rian Angeles, intraoperatively. FINDINGS: There is an intramedullary justine and screw present in the right femur with a single additional screw extending through the femoral neck. FLUOROSCOPY TIME: 1.0 minute. DOSE AREA PRODUCT: 0.445 uGy-m2 (microgray-meter squared). FL/FL guidance in OR IMPRESSION: Fluoroscopy and spot films provided during ORIF right hip fracture. Electronically signed by: Valentino Naqvi MD 03/14/2024 09:46 PM EDT
--- NOTE | 2024-03-12 03:30 | PC.NURSE ---
per ems pt from home, fall was using walker and slipped, pt denies cp/sob/dizziness prior to fall. previous femur fx with surgery. +R. hip deformity/pain. R. leg feels cooler than L., bilat pedal pulses palpated. pt is on hospice. took home ativan and morphine prior to ems. c-collar. +thinners/ pt unsure of headstrike. -LOC. pt crawled to phone, no prolonged down time per pt. at baseline fully blind L. eye, figures/lines visible R. eye. on arrival notified of hip deformity, images as ordered. pt is axox4 and in agreement with plan of care. iv established and labs drawn. call angelo within reach.
[2024-03-12 03:32] LABS: MANUAL DIFF FLAG NO
[2024-03-12 03:33] LABS: Basophils Percent Auto 0.3 % (0-2); Eosinophils Absolute Auto 0.1 X10*3/uL (0.0-0.4); Eosinophils Percent Auto 0.5 % (0-4); Hematocrit 27.4 % (42.0-52.0); Hemoglobin 9.1 g/dl (14.0-18.0); Imm Gran Abs Auto 0.05 X10*3/uL (0.00-0.03); Imm Gran Pct Auto 0.5 % (0.0-0.4); Lymphocytes Absolute Auto 1.4 X10*3/uL (1.2-4.9); Lymphocytes Percent Auto 14.2 % (20-40); Mean Corpuscular HGB Conc 33.2 g/dl (31.0-36.0); Mean Corpuscular Hemoglobin 29.2 pg (27.0-33.0); Mean Corpuscular Volume 87.8 fL (80.0-98.0); Mean Platelet Volume 10.6 fL (9.4-12.4); Monocytes Absolute Auto 0.7 X10*3/uL (0.1-1.2); Neutrophils Absolute Auto 7.6 x10*3/uL (2.0-8.3); Neutrophils Percent Auto 77.5 % (45-73); Platelet Count 142 X10*3/uL (160-400); Red Blood Count 3.12 X10*6/uL (4.60-5.80); Red Cell Distribution Width 17.4 % (11.0-16.0); White Blood Count 9.9 X10*3/uL (4.8-10.8)
[2024-03-12 03:47] LABS: Alanine Aminotransferase 24 U/L (0-40); Albumin Level 3.6 g/dL (3.5-5.0); Alkaline Phosphatase 144 U/L (39-117); Anion Gap 16 (12-20); Aspartate Amino Transferase 36 U/L (5-37); Blood Urea Nitrogen 29 mg/dL (9-16); Calcium 9.1 mg/dL (8.4-10.2); Carbon Dioxide 24 mmol/L (22-29); Chloride 99 mmol/L (96-108); Creatinine Clr Calc Pharmacy 51.2; Estimated Glomerular Filt Rate > 60; Glucose Random 107 mg/dL (60-115); Potassium 3.2 mmol/L (3.3-5.1); Sodium 136 mmol/L (135-145)
--- NOTE | 2024-03-12 04:01 | ED_ITS ---
HPI - Fall General Chief Complaint: Fall Stated Complaint: FALL/ RT HIP PAIN Time Seen by Provider: 03/12/24 03:28 Source: patient Mode of arrival: ambulatory Limitations: no limitations History of Present Illness ED Provider: Dr. Cira Rojas HPI Narrative: Patient comes to the emergency room via ambulance from home. Patient states that he is on home hospice for CHF. Patient states that he lives by himself and has been doing well. Today, patient states that he was trying to change from his parents to his shortness to go to sleep, patient tripped and fell landing on his right hip. Patient states that he did not hit his head or lost consciousness. Admits that he takes Eliquis. Patient was able to crawl to make a phone call to his friends, EMS was called. Patient states that as long as he does not move his hip only hurts 4/10 but if he moves his hip in any way it hurts significantly. Patient states that a few months ago patient had a femur fracture with surgery. Patient denies any other injury. Related Data Home Medications ?Medication ?Instructions ?Recorded ?Confirmed albuterol sulfate 90 mcg/actuation 2 puff inhalation QID PRN wheezing 12/12/23 01/27/24 aerosol inhaler lorazepam 0.5 mg tablet 0.5 mg PO DAILY 12/12/23 01/27/24 rosuvastatin 5 mg tablet 5 mg PO DAILY 12/12/23 01/27/24 vit C 250 mg-vit E 90 mg-zinc 40 1 tab PO BID 12/12/23 01/27/24 mg-copper 1 [id number] capsule (PreserVision AREDS-2) rivaroxaban 20 mg tablet (Xarelto) 20 mg PO DAILY 12/19/23 01/27/24 Previous Rx's ?Medication ?Instructions ?Recorded furosemide 40 mg tablet 40 mg PO DAILY #180 tabs 02/02/24 lorazepam 0.5 mg tablet 0.5 mg PO Q6H PRN 02/02/24 anxiety/restlessness 4 days #16 tabs morphine concentrate 100 mg/5 mL 5 mg (0.25 mL) PO Q3H PRN 02/02/24 (20 mg/mL) oral solution pain/comfort 15 days #30 mL Allergies Allergy/AdvReac Type Severity Reaction Status Date / Time Penicillins [PENICILLINS] Allergy Intermediate HIVES Verified 03/12/24 03:26 shellfish derived Allergy Intermediate HIVES Verified 03/12/24 03:26 [SHELLFISH DERIVED] Review of Systems 2 Review of Systems: Constitutional : No Weight loss, No Fever, No Chills, No Night Sweats, No Fatigue, No Malaise ENT/Mouth : No Hearing loss, No Ear Pain, No Nasal Congestion, No Sinus Pain, No Hoarseness, No sore throat, No Rhinorrhea, No Swallowing Difficulty Eyes: No Eye Pain, No Swelling, No Redness, No Foreign Body, No Discharge, No Vision Changes Cardiovascular : No Chest Pain, No SOB, No Dyspnea on Exertion, No Orthopnea, No Edema, No Palpitations Respiratory : No Cough, No Sputum, No Wheezing, No Smoke Exposure, No Dyspnea Gastrointestinal : No Nausea, No Vomiting, No Diarrhea, No Constipation, No abdominal Pain, No Hematochezia, No Melena Genitourinary : no irregular bleeding, No Dysuria, No Urinary Frequency, No Hematuria, No Urinary Incontinence, No Urgency, No Flank Pain, No Urinary Flow Changes, No Hesitancy Musculoskeletal : Complaining of right hip pain, No Myalgias, No Joint Swelling Skin : No Skin Lesions, No rash Neuro : No Weakness, No Numbness, No Paresthesias, No Loss of Consciousness, No Dizziness, No Headache Psych : No Anxiety/Panic, No Depression, No SI/HI/AH/VH, No Social Issues, Heme/Lymph: No Bruising, No Bleeding,No Lymphadenopathy Endocrine : No Polyuria, No Polydipsia, No Temperature Intolerance [facility] Past Medical History Medical History Afib Chronic combined systolic and diastolic CHF (congestive heart failure) Ischemic cardiomyopathy Persistent atrial fibrillation Legally blind Macular degeneration Coronary artery disease Chronic anticoagulation HFrEF (heart failure with reduced ejection fraction) Surgical History Hx of CABG Social History Social History Household Members: None Housing: House Do you presently have visiting nurse or other home services: Yes Unable to assess alcohol history related to: Unable to respond Alcohol intake: never Patient Tobacco Use Status: Former Tobacco user Tobacco use type: Cigarette Years Smoked: 20 Smoked in Last 30 Days: No Second Hand Smoke Exposure: No Use of substances other than those prescribed or required for medical reasons: No Advance Directives: No Advance Directives Information Provided: Yes service: Yes Physical Exam 2 Vital Signs: Vital Signs: Last Vital Signs Temp 97.6 F 03/12/24 03:20 Pulse 98 03/12/24 03:20 Resp 16 03/12/24 03:20 BP 130/63 03/12/24 03:20 Pulse Ox 95 03/12/24 03:20 O2 Del Method Room Air 03/12/24 03:20 BMI result Body Mass Index 20.5 Const: Other: Appearance: No acute distress. Alert and oriented x3 Eyes: Pupils equal, round and reactive to light. ENT: Pharynx normal. Neck: Normal inspection. Neck supple. No lymph nodes noted. No crepitus, no C- spine tenderness, no palpable step-offs CVS: Normal heart rate and rhythm. Pulses normal. Normal S1 and S2 Respiratory: No respiratory distress. Breath sounds normal. No Wheezing. No rales Abdomen: Soft and nontender. No rigidity. No distention. Skin: Skin warm and dry. Normal skin color. Normal skin turgor. Extremities: There is an obvious deformity and swelling in the right hip area No Lacerations. No Rash Neuro: Oriented X 3. No motor deficit. No sensory deficit. Moving all extremities. No slurred speech. CN 2 through 12 grossly intact Psych: calm, cooperative, normal affect Medications Administered Discontinued Medications Generic Name Dose Route Start Last Admin Trade Name Freq PRN Reason Stop Dose Admin Morphine Sulfate 2.5 mg 03/12/24 03:51 03/12/24 04:39 Morphine Sulfate Oral Samira 10 Mg/5 Ml Solution PO 03/12/24 03:52 2.5 mg ONCE ONE Administration Medical Decision Making Medical Decision Making MDM Narrative: I discussed the CT scan findings with the patient, head and neck do not show any obvious abnormalities. My interpretation of CT scan of the hip shows an obvious right hip fracture. -patient and his partner is requesting to have an Orthopedics consult and a risk assessment done by Medicine to determine if he is a candidate for surgery as he is considering getting surgery for this. -as mentioned above, patient is currently under home hospice. -I discussed the patient with both surgery and Orthopedics. Differential Diagnosis Differential Diagnoses: The differential diagnosis associated with the presentation includes (Right hip contusion, fracture, dislocation) Admission/Observation Consideration of admission/observation: Escalation of care including admission/observation considered Consult Healthcare Provider Management of the patient was discussed with: Hospitalist and Electromedical Service Engineer Lab Data MDM Lab Attestation statement: I reviewed the patient's lab results. 03/12/24 03:20 03/12/24 03:20 Labs: Lab Results 03/12/24 03/12/24 Range/Units 03:20 04:12 WBC 9.9 (4.8-10.8) X10*3/uL RBC 3.12 L (4.60-5.80) X10*6/uL Hgb 9.1 L D (14.0-18.0) g/dl Hct 27.4 L D (42.0-52.0) % MCV 87.8 (80.0-98.0) fL MCH 29.2 (27.0-33.0) pg MCHC 33.2 (31.0-36.0) g/dl RDW 17.4 H (11.0-16.0) % Plt Count 142 L (160-400) X10*3/uL MPV 10.6 (9.4-12.4) fL Immature Gran % (Auto) 0.5 H (0.0-0.4) % Neut % (Auto) 77.5 H (45-73) % Lymph % (Auto) 14.2 L (20-40) % [place] % (Auto) 7.0 (2-11) % Eos % (Auto) 0.5 (0-4) % Baso % (Auto) 0.3 (0-2) % Lymph # (Auto) 1.4 (1.2-4.9) X10*3/uL [place] # (Auto) 0.7 (0.1-1.2) X10*3/uL Eos # (Auto) 0.1 (0.0-0.4) X10*3/uL Baso # (Auto) 0.0 (0.0-0.2) X10*3/uL Abs Immat Gran (auto) 0.05 H (0.00-0.03) X10*3/uL Absolute Neuts (auto) 7.6 (2.0-8.3) x10*3/uL Absolute Nucleated RBC 0.000 (0.0-0.012) X10*3/uL Nucleated RBC % (auto) 0.0 (0.0-0.2) /100WBC PT 40.3 H D (11.1-13.3) SEC INR 3.3 H (0.9-1.1) Sodium 136 (135-145) mmol/L Potassium 3.2 L (3.3-5.1) mmol/L Chloride 99 (96-108) mmol/L Carbon Dioxide 24 (22-29) mmol/L Anion Gap 16 (12-20) BUN 29 H (9-16) mg/dL Creatinine 1.06 (0.5-1.4) mg/dL Estim Creat Clear Calc 51.2 Estimated GFR > 60 Random Glucose 107 (60-115) mg/dL Calcium 9.1 D (8.4-10.2) mg/dL Total Bilirubin 2.0 H (0.0-1.0) mg/dL AST 36 (5-37) U/L ALT 24 (0-40) U/L Alkaline Phosphatase 144 H (39-117) U/L Total Protein 6.0 L (6.5-8.0) g/dL Albumin 3.6 (3.5-5.0) g/dL Independent Interpretation I performed an independent interpretation of an: CT Scan Radiology Impression Discussion of test interpretation with radiology: I have reviewed the radiologist's reading. Radiologist Impression: FINDINGS: A comminuted intertrochanteric fracture with varus angulation is present with displaced fracture fragments involving both the lesser and greater trochanteric regions. No femoral acetabular subluxation identified. No erosive osseous lesions. Diffuse osteopenia. The visualized sacrum appears intact. Partial visualization is made of a right femoral intramedullary justine and proximal interlocking screw. Extensive soft tissue inflammatory changes are present adjacent to the right hip. No soft tissue hematoma noted in association with right hip fracture. Marked diffuse vascular calcifications present. CT/CT hip RT wo IV con IMPRESSION: *Comminuted intertrochanteric fracture of the right femur with varus angulation. *Marked diffuse osteopenia. *Partial visualization of a right femoral intramedullary justine. *Marked diffuse calcific atherosclerosis. CT head: Moderate diffuse symmetric prominence of ventricles and sulci. No intracranial hemorrhage, tumors or acute infarcts identified. Mild subcortical and periventricular white matter patchy hypodensities. Normal appearance of the orbits and globes. No significant opacification of the visualized paranasal sinuses, mastoid air cells and middle ear cavities. CT cervical spine: No fractures or acute-appearing subluxations identified. Diffuse osteopenia. Moderate multilevel and show disc space narrowing, endplate osteophytosis and facet hypertrophic changes. Moderate posterior broad-based disc-osteophyte complex C5-C6. Visualized lung apices demonstrate scattered paraseptal emphysematous changes and mild biapical pleural parenchymal scarring which appears chronic. No prevertebral fluid collections or soft tissue inflammatory changes. Dense bilateral carotid bulb calcific atherosclerotic plaques. CT/CT head/brain wo IV con IMPRESSION: CT HEAD: 1. No acute abnormalities. 2. Moderate diffuse parenchymal volume loss the brain and mild white matter chronic small vessel ischemic changes. CT CERVICAL SPINE: 1. No acute abnormalities. 2. Moderate multilevel chronic spondylosis. 3. Dense bilateral carotid bulb calcific atherosclerotic plaques. Critical Care Time Critical Care Time Critical Care Time: Yes Total Critical Care Time: 35 Attestation: I have personally provided critical care time. Time includes review of lab data, radiology results, discussion with consultants, and monitoring for potential decompensation. Intervention performed as documented. Discharge Plan Discharge Clinical Impression: Closed hip fracture, Acute hypokalemia Patient Disposition: Admitted As Inpatient Prescriptions: No Action furosemide 40 mg Tablet 40 mg PO DAILY Qty: 180 0RF Protocol: Hold for SBP< HOLD for SBP < : 90 morphine concentrate 100 mg/5 mL (20 mg/mL) solution 5 mg PO Q3H PRN (Reason: pain/comfort) 15 Days Qty: 30 0RF Rx Instructions: Partial Fill upon patient request. lorazepam 0.5 mg tablet 0.5 mg PO Q6H PRN (Reason: anxiety/restlessness) 4 Days Qty: 16 0RF lorazepam 0.5 mg tablet 0.5 mg PO DAILY albuterol sulfate 90 mcg/actuation HFA aerosol inhaler 2 puff INHALATION QID PRN (Reason: wheezing) rosuvastatin 5 mg tablet 5 mg PO DAILY PreserVision AREDS-2 250-90-40-1 mg Capsule 1 tab PO BID Xarelto 20 mg tablet 20 mg PO DAILY Print Language: Zambian
[2024-03-12 04:30] LABS: INTERNATIONAL NORM RATIO 3.3 (0.9-1.1); Prothrombin Time 40.3 SEC (11.1-13.3)
[2024-03-12] MEDS: Morphine Sulfate Oral Sol 10 MG/5 ML SOLUTION 2.5 MG PO (04:39)
--- NOTE | 2024-03-12 04:52 | PC.NURSE ---
pt medicated per mar for pain, tolerated po intake. friend at bedside who is closely involved with care at home. pt reports comfort with position at this time. call angelo within reach.
--- NOTE | 2024-03-12 05:59 | PM.IMHP ---
History of Present Illness Date of Service: 03/12/24 Chief Complaint: fall right hip pain 79M PMH CAD s/p CABG, HFrEF with EF 20-25%, chronic afib, legally blind, on home hospice where he has been doing well, ambulating with walker, symptoms fairly well controlled, presented with mechanical fall. patient was changing his clothes and tripped and fell, landing on hip. denies LOC or head strike. called EMS. in ED CT hip showed right hip Comminuted intertrochanteric fracture. of note patient also had a fall in november 2023 with right femur fracture and had IMN. Review of Systems Review of Systems: Yes all other systems are reviewed and are negative [facility] Medical History Afib Chronic combined systolic and diastolic CHF (congestive heart failure) Ischemic cardiomyopathy Persistent atrial fibrillation Legally blind Macular degeneration Coronary artery disease Chronic anticoagulation HFrEF (heart failure with reduced ejection fraction) Surgical History Hx of CABG Social History Household Members: None Housing: House Do you presently have visiting nurse or other home services: Yes Unable to assess alcohol history related to: Unable to respond Alcohol intake: never Patient Tobacco Use Status: Former Tobacco user Tobacco use type: Cigarette Years Smoked: 20 Smoked in Last 30 Days: No Second Hand Smoke Exposure: No Use of substances other than those prescribed or required for medical reasons: No Advance Directives: No Advance Directives Information Provided: Yes service: Yes Meds Allergies Allergy/AdvReac Type Severity Reaction Status Date / Time Penicillins [PENICILLINS] Allergy Intermediate HIVES Verified 03/12/24 03:26 shellfish derived Allergy Intermediate HIVES Verified 03/12/24 03:26 [SHELLFISH DERIVED] Home Medications ?Medication ?Instructions ?Recorded ?Confirmed ?Last Taken ?Type albuterol sulfate 90 mcg/actuation 2 puff inhalation QID PRN wheezing 12/12/23 01/27/24 Unknown History aerosol inhaler lorazepam 0.5 mg tablet 0.5 mg PO DAILY 12/12/23 01/27/24 01/25/24 History rosuvastatin 5 mg tablet 5 mg PO DAILY 12/12/23 01/27/24 01/27/24 History vit C 250 mg-vit E 90 mg-zinc 40 1 tab PO BID 12/12/23 01/27/24 01/27/24 History mg-copper 1 ti-[id number]-oyhutz capsule (PreserVision AREDS-2) rivaroxaban 20 mg tablet (Xarelto) 20 mg PO DAILY 12/19/23 01/27/24 01/27/24 History Physical Exam Vital Signs and Narrative: Vital Signs: Last Vital Signs Temp 97.6 F 03/12/24 03:20 Pulse 98 03/12/24 03:20 Resp 16 03/12/24 03:20 BP 130/63 03/12/24 03:20 Pulse Ox 95 03/12/24 03:20 O2 Del Method Room Air 03/12/24 03:20 BMI result Body Mass Index 20.5 General: AO X 3, no acute distress, frail appearing Resp: CTA bilateral, no accessory muscles used CVS: S1,S2, irregular GI: soft, non tender, non distended Neuro: motor grossly intact, alert Psych: appropriate affect, appropriate insight deformity and swelling of right hip Results Labs 03/12/24 03:20 03/12/24 03:20 Labs: Laboratory Results - last 24 hr 03/12/24 03/12/24 03:20 04:12 MCV 87.8 MCH 29.2 MCHC 33.2 RDW 17.4 H Plt Count 142 L MPV 10.6 Immature Gran % (Auto) 0.5 H Neut % (Auto) 77.5 H Lymph % (Auto) 14.2 L [place] % (Auto) 7.0 Eos % (Auto) 0.5 Baso % (Auto) 0.3 Lymph # (Auto) 1.4 [place] # (Auto) 0.7 Eos # (Auto) 0.1 Baso # (Auto) 0.0 Abs Immat Gran (auto) 0.05 H Absolute Neuts (auto) 7.6 Absolute Nucleated RBC 0.000 Nucleated RBC % (auto) 0.0 PT 40.3 H D INR 3.3 H Anion Gap 16 Estim Creat Clear Calc 51.2 Estimated GFR > 60 Random Glucose 107 Calcium 9.1 D Total Bilirubin 2.0 H AST 36 ALT 24 Alkaline Phosphatase 144 H Total Protein 6.0 L Albumin 3.6 Imaging Radiologist's Impressions: Impressions Cervical Spine CT 03/12/24 03:50 IMPRESSION: CT HEAD: 1. No acute abnormalities. 2. Moderate diffuse parenchymal volume loss the brain and mild white matter chronic small vessel ischemic changes. CT CERVICAL SPINE: 1. No acute abnormalities. 2. Moderate multilevel chronic spondylosis. 3. Dense bilateral carotid bulb calcific atherosclerotic plaques. Electronically signed by: Gonzalo Lewis MD 03/12/2024 04:44 AM EDT RP Head CT 03/12/24 03:50 IMPRESSION: CT HEAD: 1. No acute abnormalities. 2. Moderate diffuse parenchymal volume loss the brain and mild white matter chronic small vessel ischemic changes. CT CERVICAL SPINE: 1. No acute abnormalities. 2. Moderate multilevel chronic spondylosis. 3. Dense bilateral carotid bulb calcific atherosclerotic plaques. Electronically signed by: Gonzalo Lewis MD 03/12/2024 04:44 AM EDT RP Hip CT 03/12/24 03:55 IMPRESSION: *Comminuted intertrochanteric fracture of the right femur with varus angulation. *Marked diffuse osteopenia. *Partial visualization of a right femoral intramedullary justine. *Marked diffuse calcific atherosclerosis. Electronically signed by: Gonzalo Lewis MD 03/12/2024 04:48 AM EDT RP Assessment and Plan (1) Closed hip fracture: Status: Acute Plan 79M PMH CAD s/p CABG, HFrEF with EF 20-25%, chronic afib, legally blind presented with mechanical fall, found to have right hip fracture mechanical fall complicated by right hip fracture patient inclined to pursue surgery to improve quality of life and regain ambulation cardio eval for risk assessment/optimization ortho eval pain control will hold xarelto CAD holding xarelto conitnue statin HFrEF appears euvolemic continue maintenance lasix not on neurohormonals due to previous hypotension chronic afib rate controlled, holding xarelto dvt prophylaxis - lovenox DNR/DNI patient with hip fracture requiring surgery, therefore expected to be atleast 2 midnights inpatient Quality Stroke Does the patient have a stroke diagnosis?: No VTE Prior VTE?: No VTE Risk Level:: Medical - moderate - high VTE Device Contraindication: Treatment Not Indicated VTE Drug Contraindication: N/A - Med Ordered
[2024-03-12] MEDS: Potassium Chloride Packet 20 MEQ PACKET 40 MEQ PO (06:31)
[2024-03-12] MEDS: Morphine Sulfate 2 MG/ML CARTRIDGE IVPUSH ×3 (07:59→20:49)
[2024-03-12] MEDS: Enoxaparin Sodium 40 MG/0.4 ML SYRINGE SUBCUT (07:59)
[2024-03-12] MEDS: Furosemide 40 MG TABLET PO (07:59)
--- NOTE | 2024-03-12 08:05 | PC.NURSE ---
Pt. medicated per MAR. Given PRN pain medication. Emptied urinal. Food tray provided. Call angelo within reach
--- NOTE | 2024-03-12 09:40 | PHA.MEDREC ---
Pharmacy Consult ? Medication Reconciliation Pharmacy has completed the medication reconciliation. Spoke to patient and his friend Merlyn [phone] (per patient's request) and confirmed medication list. Patient said he took his furosemide and xarelto early this morning when he first woke up (before his fall). Merlyn said patient is no longer taking rosuvastatin, he takes lorazepam 0.5 mg q4h for anxiety and he uses morphine for dyspnea as needed (usually 2 doses at night around 9pm and 2am and 1 dose in the morning).
--- NOTE | 2024-03-12 09:49 | P.CONOP_ITS ---
History of Present Illness HPI Consult date: 03/12/24 Chief complaint: Hip Fracture Narrative: Mr. Simental is a 79M PMH CAD s/p CABG, HFrEF with EF 20-25%, chronic afib, legally blind, on home hospice where he has been doing well, ambulating with walker, symptoms fairly well controlled, presented with mechanical fall. Patient reports that he was changing his clothes and fell, landing on the right hip. Denies LOC or head strike. HE was unable to bear any weight and called EMS. While in the ED a CT of the right hip showed a comminuted intertrochanteric fracture. The patient was seen this past November after a mechanical fall and underwent a right femure retrograde IM Nail. Review of Systems 2 Review of Systems: Yes all other systems are reviewed and are negative [facility] Past Medical History Medical History Afib Chronic combined systolic and diastolic CHF (congestive heart failure) Ischemic cardiomyopathy Persistent atrial fibrillation Legally blind Macular degeneration Coronary artery disease Chronic anticoagulation HFrEF (heart failure with reduced ejection fraction) Surgical History Surgical History Hx of CABG Social History Social History Household Members: None Housing: House Do you presently have visiting nurse or other home services: Yes Unable to assess alcohol history related to: Unable to respond Alcohol intake: never Patient Tobacco Use Status: Former Tobacco user Tobacco use type: Cigarette Years Smoked: 20 Smoked in Last 30 Days: No Second Hand Smoke Exposure: No Use of substances other than those prescribed or required for medical reasons: No Advance Directives: No Advance Directives Information Provided: Yes service: Yes Meds Allergies Allergy/AdvReac Type Severity Reaction Status Date / Time Penicillins [PENICILLINS] Allergy Intermediate HIVES Verified 03/12/24 03:26 shellfish derived Allergy Intermediate HIVES Verified 03/12/24 03:26 [SHELLFISH DERIVED] Active Medications: Current Medications Acetaminophen (Acetaminophen 325 Mg Tablet) 650 mg PO Q6H PRN PRN Reason: Pain, Mild (Pain Scale 1-3), fever or headache Atorvastatin Calcium (Atorvastatin Calcium 10 Mg Tablet) 10 mg PO BEDTIME MARIA EUGENIA Calcium Carbonate (Calcium Carbonate 750 Mg Tab.Chew) 750 mg PO Q4H PRN PRN Reason: Heartburn Enoxaparin Sodium (Enoxaparin Sodium 40 Mg/0.4 Ml Syringe) 40 mg SUBCUT Q24H COUNTS INCLUDE 234 BEDS AT THE [facility] Last Admin: 03/12/24 07:59 Dose: 40 mg Furosemide (Furosemide 40 Mg Tablet) 40 mg PO DAILY COUNTS INCLUDE 234 BEDS AT THE [facility]; Protocol Last Admin: 03/12/24 07:59 Dose: 40 mg Lorazepam (Lorazepam 0.5 Mg Tablet) 0.5 mg PO Q6H PRN PRN Reason: Anxiety Magnesium Hydroxide (Milk Of Magnesia 30 Ml Oral.Susp) 30 ml PO DAILY PRN PRN Reason: Constipation Melatonin (Melatonin 3 Mg Tablet) 6 mg PO BEDTIME PRN PRN Reason: Insomnia Morphine Sulfate (Morphine Sulfate 2 Mg/Ml Cartridge) 2 mg IVPUSH Q3H PRN; Protocol PRN Reason: Pain, Moderate(Pain Scale 4-6) Last Admin: 03/12/24 07:59 Dose: 2 mg Sodium Chloride (0.9 % Sodium Chloride Flush 3 Ml Syringe) 3 ml IVFLUSH QSHIFT COUNTS INCLUDE 234 BEDS AT THE [facility] Last Admin: 03/12/24 07:41 Dose: Not Given Home Medications ?Medication ?Instructions ?Recorded ?Confirmed ?Last Taken ?Type albuterol sulfate 90 mcg/actuation 2 puff inhalation QID PRN wheezing 12/12/23 03/12/24 Unknown History aerosol inhaler rivaroxaban 20 mg tablet (Xarelto) 20 mg PO DAILY 12/19/23 03/12/24 03/12/24 History lorazepam 0.5 mg tablet 0.5 mg PO Q4H PRN 03/12/24 03/12/24 Unknown History anxiety/restlessness morphine concentrate 100 mg/5 mL 5 mg PO TID@0200,0900,2100 PRN 03/12/24 03/12/24 Unknown History (20 mg/mL) oral solution Dyspnea Physical Exam 2 Vital Signs: Vital Signs: Last Vital Signs Temp 98.3 F 03/12/24 06:30 Pulse 104 H 03/12/24 08:28 Resp 20 03/12/24 08:28 BP 154/56 H 03/12/24 08:28 Pulse Ox 97 03/12/24 08:28 O2 Del Method Room Air 03/12/24 08:28 BMI result Body Mass Index 20.5 Const: General: cooperative, healthy appearing and no acute distress Resp: Effort & Inspection: normal respiratory effort and able to speak in complete sentences Cardio: Rate: regular rate Peripheral pulses: Peripheral pulses 2+ throughout GI: Palpation (GI): Soft to palpation Skin: Lesions: no lesions Rashes: no rashes Extrem: Other: right lower extremity is shortened and externally rotated. Pain with log roll. Able to dorsi/plantar flex. NVI. Results Labs 03/12/24 03:20 03/12/24 03:20 Labs: Abnormal lab results 03/12/24 03/12/24 Range/Units 03:20 04:12 RBC 3.12 L (4.60-5.80) X10*6/uL Hgb 9.1 L D (14.0-18.0) g/dl Hct 27.4 L D (42.0-52.0) % RDW 17.4 H (11.0-16.0) % Plt Count 142 L (160-400) X10*3/uL Immature Gran % (Auto) 0.5 H (0.0-0.4) % Neut % (Auto) 77.5 H (45-73) % Lymph % (Auto) 14.2 L (20-40) % Abs Immat Gran (auto) 0.05 H (0.00-0.03) X10*3/uL PT 40.3 H D (11.1-13.3) SEC INR 3.3 H (0.9-1.1) Potassium 3.2 L (3.3-5.1) mmol/L BUN 29 H (9-16) mg/dL Total Bilirubin 2.0 H (0.0-1.0) mg/dL Alkaline Phosphatase 144 H (39-117) U/L Total Protein 6.0 L (6.5-8.0) g/dL H & H 03/12/24 Range/Units 03:20 Hgb 9.1 L D (14.0-18.0) g/dl Hct 27.4 L D (42.0-52.0) % Coagulation 03/12/24 Range/Units 04:12 INR 3.3 H (0.9-1.1) All other labs normal. Assessment and Plan (1) Closed hip fracture: Status: Acute I discussed the case with Dr. Angeles and explained the extent of the injury to the patient and options available which include surgical intervention. I explained the procedure in detail along with the length of recovery and rehab course. I explained the risk, benefits and alternatives. Risk including, but not limited to infection, blood clots, bleeding, non union or malunion and nerve/tissue damage to surrounding areas. The patient would like to think about these options before deciding. Hold anticoagulant at this time. Will followup with the patient tomorrow to further discuss treatment plans. (2) HFrEF (heart failure with reduced ejection fraction): Status: Acute (3) Acute hypokalemia: Status: Acute (4) Current use of anticoagulant therapy: Status: Acute Procedures Date of Service Date of Service: 03/12/24
--- NOTE | 2024-03-12 09:55 | P.CONCA_ITS ---
History of Present Illness History of Present Illness Date of Service: 03/12/24 Requesting physician: Guero Arceo Consult reason: pre-op evaluation Chief complaint: Hip Fracture Narrative: I was consulted to see Angelito in cardiology consultation today for preoperative cardiovascular risk stratification. He is a 79-year-old male with advanced cardiovascular issues including heart failure with reduced ejection fraction with severe LV systolic dysfunction with LVEF of 20 25%, chronic atrial fibrillation, remote CAD with coronary artery bypass grafting with no recent evaluation for the same, currently on hospice care at home but functional was dressing himself yesterday and fell down with right hip pain noted to have right hip fracture. Question planned for right hip surgery under general anesthesia. Patient is currently not sure whether he wants to pursue this or not. Currently not having any active cardiac symptoms. Denies any palpitations, shortness of breath, orthopnea, PND, chest pain. He said he does get anxious and just got lorazepam and morphine which helped him currently in his shortness of breath is improved. Denies any leg edema. No lightheadedness, syncope. Takes all his medications regularly. Blood pressure is currently elevated. Heart rate is elevated probably related to pain. Review of Systems 2 Constitutional: Constitutional: Reports no additional constitutional complaints Eyes: Eyes: Reports no additional eye complaints Cardiovascular: Cardiovascular: Denies chest pain, Denies leg edema, Denies lightheadedness, Denies Loss of Consciousness, Denies palpitations and Denies dyspnea Respiratory: Respiratory: Denies dyspnea Gastrointestinal: Gastrointestinal: Denies no additional gastrointestinal complaints Genitourinary: Genitourinary: Denies no additional male genitourinary complaints Musculoskeletal: Musculoskeletal: Reports other (Right hip pain) Integumentary/Breasts: Skin/Breast: Denies system reviewed and no additional complaints, except as docu Psychiatric: Psychiatric: Denies no additional psychiatric complaints Endocrine: Endocrine: Denies palpitations PMFSH Past Medical History Medical History Afib Chronic combined systolic and diastolic CHF (congestive heart failure) Ischemic cardiomyopathy Persistent atrial fibrillation Legally blind Macular degeneration Coronary artery disease Chronic anticoagulation HFrEF (heart failure with reduced ejection fraction) Surgical History Surgical History Hx of CABG Social History Social History Household Members: None Housing: House Do you presently have visiting nurse or other home services: Yes Unable to assess alcohol history related to: Unable to respond Alcohol intake: never Patient Tobacco Use Status: Former Tobacco user Tobacco use type: Cigarette Years Smoked: 20 Smoked in Last 30 Days: No Second Hand Smoke Exposure: No Use of substances other than those prescribed or required for medical reasons: No Advance Directives: No Advance Directives Information Provided: Yes service: Yes Meds Allergies Allergy/AdvReac Type Severity Reaction Status Date / Time Penicillins [PENICILLINS] Allergy Intermediate HIVES Verified 03/12/24 03:26 shellfish derived Allergy Intermediate HIVES Verified 03/12/24 03:26 [SHELLFISH DERIVED] Active Medications: Current Medications Acetaminophen (Acetaminophen 325 Mg Tablet) 650 mg PO Q6H PRN PRN Reason: Pain, Mild (Pain Scale 1-3), fever or headache Atorvastatin Calcium (Atorvastatin Calcium 10 Mg Tablet) 10 mg PO BEDTIME MARIA EUGENIA Calcium Carbonate (Calcium Carbonate 750 Mg Tab.Chew) 750 mg PO Q4H PRN PRN Reason: Heartburn Enoxaparin Sodium (Enoxaparin Sodium 40 Mg/0.4 Ml Syringe) 40 mg SUBCUT Q24H MARIA EUGENIA Last Admin: 03/12/24 07:59 Dose: 40 mg Furosemide (Furosemide 40 Mg Tablet) 40 mg PO DAILY MARIA EUGENIA; Protocol Last Admin: 03/12/24 07:59 Dose: 40 mg Lorazepam (Lorazepam 0.5 Mg Tablet) 0.5 mg PO Q6H PRN PRN Reason: Anxiety Magnesium Hydroxide (Milk Of Magnesia 30 Ml Oral.Susp) 30 ml PO DAILY PRN PRN Reason: Constipation Melatonin (Melatonin 3 Mg Tablet) 6 mg PO BEDTIME PRN PRN Reason: Insomnia Morphine Sulfate (Morphine Sulfate 2 Mg/Ml Cartridge) 2 mg IVPUSH Q3H PRN; Protocol PRN Reason: Pain, Moderate(Pain Scale 4-6) Last Admin: 03/12/24 07:59 Dose: 2 mg Sodium Chloride (0.9 % Sodium Chloride Flush 3 Ml Syringe) 3 ml IVFLUSH QSHIFT MARIA EUGENIA Last Admin: 03/12/24 07:41 Dose: Not Given Home Medications ?Medication ?Instructions ?Recorded ?Confirmed ?Last Taken ?Type albuterol sulfate 90 mcg/actuation 2 puff inhalation QID PRN wheezing 12/12/23 03/12/24 Unknown History aerosol inhaler rivaroxaban 20 mg tablet (Xarelto) 20 mg PO DAILY 12/19/23 03/12/24 03/12/24 History lorazepam 0.5 mg tablet 0.5 mg PO Q4H PRN 03/12/24 03/12/24 Unknown History anxiety/restlessness morphine concentrate 100 mg/5 mL 5 mg PO TID@0200,0900,2100 PRN 03/12/24 03/12/24 Unknown History (20 mg/mL) oral solution Dyspnea Physical Exam 2 Vital Signs: Vital Signs: Last Vital Signs Temp 98.3 F 03/12/24 06:30 Pulse 104 H 03/12/24 08:28 Resp 20 03/12/24 08:28 BP 154/56 H 03/12/24 08:28 Pulse Ox 97 03/12/24 08:28 O2 Del Method Room Air 03/12/24 08:28 BMI result Body Mass Index 20.5 Const: General: cooperative, comfortable, alert, awake and in distress other (Because of pain) Nutritional Appearance: underweight O rientation/consciousness: patient oriented x3 HEENT: Head: Yes normocephalic and Yes atraumatic Neck: Neck: Yes trachea midline, Yes supple and Yes no JVD Resp: Effort & Inspection: normal respiratory effort Auscultation: clear to auscultation bilaterally Cardio: Jugular venous distension: no JVD Rate: regular rate Rhythm: a bnormal rhythm irregularly irregular Heart sounds: S1 normal heart sound present, S2 normal heart sound present, no click, no gallops and Murmur heart sound present systolic GI: Auscultation: normal bowel sounds Skin: General skin exam: no rashes or lesions noted and ecchymosis Neuro: General: patient oriented x3 and no focal motor deficits Extrem: General: Yes no clubbing, cyanosis or edema Objective Labs and Meds 03/12/24 03:20 03/12/24 03:20 Lab results: Laboratory Results - last 24 hr 03/12/24 03/12/24 03:20 04:12 WBC 9.9 RBC 3.12 L Hgb 9.1 L D Hct 27.4 L D MCV 87.8 MCH 29.2 MCHC 33.2 RDW 17.4 H Plt Count 142 L MPV 10.6 Immature Gran % (Auto) 0.5 H Neut % (Auto) 77.5 H Lymph % (Auto) 14.2 L [place] % (Auto) 7.0 Eos % (Auto) 0.5 Baso % (Auto) 0.3 Lymph # (Auto) 1.4 [place] # (Auto) 0.7 Eos # (Auto) 0.1 Baso # (Auto) 0.0 Abs Immat Gran (auto) 0.05 H Absolute Neuts (auto) 7.6 Absolute Nucleated RBC 0.000 Nucleated RBC % (auto) 0.0 PT 40.3 H D INR 3.3 H Sodium 136 Potassium 3.2 L Chloride 99 Carbon Dioxide 24 Anion Gap 16 BUN 29 H Creatinine 1.06 Estim Creat Clear Calc 51.2 Estimated GFR > 60 Random Glucose 107 Calcium 9.1 D Total Bilirubin 2.0 H AST 36 ALT 24 Alkaline Phosphatase 144 H Total Protein 6.0 L Albumin 3.6 Imaging Radiologist's impression: Impressions Cervical Spine CT 03/12/24 03:50 IMPRESSION: CT HEAD: 1. No acute abnormalities. 2. Moderate diffuse parenchymal volume loss the brain and mild white matter chronic small vessel ischemic changes. CT CERVICAL SPINE: 1. No acute abnormalities. 2. Moderate multilevel chronic spondylosis. 3. Dense bilateral carotid bulb calcific atherosclerotic plaques. Electronically signed by: Gonzalo Lewis MD 03/12/2024 04:[address] 03/12/24 03:50 IMPRESSION: CT HEAD: 1. No acute abnormalities. 2. Moderate diffuse parenchymal volume loss the brain and mild white matter chronic small vessel ischemic changes. CT CERVICAL SPINE: 1. No acute abnormalities. 2. Moderate multilevel chronic spondylosis. 3. Dense bilateral carotid bulb calcific atherosclerotic plaques. Electronically signed by: Gonzalo Lewis MD 03/12/2024 04:44 AM EDT RP Hip CT 03/12/24 03:55 IMPRESSION: *Comminuted intertrochanteric fracture of the right femur with varus angulation. *Marked diffuse osteopenia. *Partial visualization of a right femoral intramedullary justine. *Marked diffuse calcific atherosclerosis. Electronically signed by: Gonzalo Lewis MD 03/12/2024 04:48 AM EDT Assessment and Plan (1) Preoperative cardiovascular examination: Status: Resolved Preoperative cardiovascular risk stratification this elderly gentleman with multiple comorbidities both cardiac and noncardiac. He has advanced age with frailty and limited functionality as well as anemia along with advanced systolic dysfunction with LVEF of 20 25% with heart failure syndrome, chronic atrial fibrillation, CAD. However currently is not having any active cardiac symptoms of angina, heart failure or rapid atrial fibrillation. Hemodynamically stable. He presented with a mechanical fall with a right hip fracture and needs to undergo right hip surgery to improved functionality. Patient is debating about the same. Should discussed with orthopedic about options of not doing surgery and prognosis worsening during the surgery. He is definitely if planned to undergo surgery for intermediate to high risk for perioperative cardiovascular morbidity mortality given his significant underlying cardiovascular issues but is optimized with that risk. His Xarelto is currently being on hold for potential surgery which is appropriate. Clinically not heart failure. Continue current meds. Heart rate can be controlled with IV esmolol during surgery if need be. Replenish volume and blood loss quickly. Close hemodynamic monitoring during surgery including close monitoring of blood pressure and respiratory rate. Discussed with him potential complication of congestive heart failure in the perioperative time requiring mechanical ventilation and care. He understands. Will sign of the case. Please re-consult if need be. Thank you for allowing me to partake in his care Procedures Date of Service Date of Service: 03/12/24
--- NOTE | 2024-03-12 12:29 | PM.EVENT ---
Event Note Date of Service: 03/12/24 Event Note: pt seen/examined. Admitted this morning. 79M PMH CAD s/p CABG, HFrEF with EF 20-25%, chronic afib, legally blind, on home hospice where he has been doing well, ambulating with walker, symptoms fairly well controlled, presented with mechanical fall while changing his clothes. Orhto has options including surgery--Pt would like to think about for now. Hold Xarelto, morphine for pain, continue other home meds Time Spent With Patient Time: Total time managing care of this patient today ____ minutes.
[2024-03-12] MEDS: Atorvastatin Calcium 10 MG TABLET PO (20:48)
[2024-03-12] MEDS: 0.9 % Sodium Chloride Flush 3 ML SYRINGE IVFLUSH (20:54)
[2024-03-12] MEDS: LORazepam 0.5 MG TABLET PO (21:37)
[2024-03-13] MEDS: Morphine Sulfate 2 MG/ML CARTRIDGE IVPUSH ×4 (00:54→20:00)
[2024-03-13] MEDS: LORazepam 0.5 MG TABLET PO ×4 (02:51→21:53)
[2024-03-13 03:19] VITALS: BP 139/69; PULSE 100; RESP 20; TEMP 36.6; O2SAT 96
[2024-03-13 06:29] LABS: Hematocrit 27.2 % (42.0-52.0); Hemoglobin 9.3 g/dl (14.0-18.0); Mean Corpuscular HGB Conc 34.2 g/dl (31.0-36.0); Mean Corpuscular Hemoglobin 29.8 pg (27.0-33.0); Mean Corpuscular Volume 87.2 fL (80.0-98.0); Mean Platelet Volume 10.3 fL (9.4-12.4); Platelet Count 163 X10*3/uL (160-400); Red Blood Count 3.12 X10*6/uL (4.60-5.80); Red Cell Distribution Width 17.4 % (11.0-16.0); White Blood Count 11.3 X10*3/uL (4.8-10.8)
[2024-03-13 06:44] LABS: Anion Gap 16 (12-20); Blood Urea Nitrogen 25 mg/dL (9-16); Calcium 9.4 mg/dL (8.4-10.2); Carbon Dioxide 24 mmol/L (22-29); Chloride 97 mmol/L (96-108); Creatinine Clr Calc Pharmacy 58.1; Estimated Glomerular Filt Rate > 60; Glucose Fasting 111 mg/dL (60-99); Potassium 3.1 mmol/L (3.3-5.1); Sodium 134 mmol/L (135-145)
[2024-03-13] MEDS: Enoxaparin Sodium 40 MG/0.4 ML SYRINGE SUBCUT (07:56)
[2024-03-13] MEDS: Potassium Chloride Packet 20 MEQ PACKET 40 MEQ PO (07:57)
[2024-03-13] MEDS: 0.9 % Sodium Chloride Flush 3 ML SYRINGE IVFLUSH ×2 (07:57→20:03)
[2024-03-13 08:00] VITALS: BP 111/54; PULSE 109; RESP 18; TEMP 36.6; O2SAT 91
[2024-03-13] MEDS: Furosemide 40 MG TABLET PO (08:03)
--- NOTE | 2024-03-13 10:49 | P.PNIM_ITS ---
Subjective Subjective Date of Service: 03/13/24 Interval History: f/u fall, hip fracture pain is controlled Physical Exam 2 Vital Signs: Vital Signs: Last Vital Signs Temp 97.8 F 03/13/24 08:00 Pulse 109 H 03/13/24 08:00 Resp 18 03/13/24 08:00 BP 111/54 L 03/13/24 08:00 Pulse Ox 91 L 03/13/24 08:00 O2 Del Method Room Air 03/13/24 08:00 BMI result Body Mass Index 19.8 General: AO X 3, no acute distress Resp: CTA bilateral CVS: S1,S2,RRR GI: +BS, NT, no distention Skin: No rash Neuro: motor grossly intact Psych: appropriate affect Objective Data Active Medications Acetaminophen (Acetaminophen 325 Mg Tablet) 650 mg PO Q6H PRN PRN Reason: Pain, Mild (Pain Scale 1-3), fever or headache Albuterol Sulfate (Albuterol Sulfate 90 Mcg 8 Gm Inhaler) 2 puff INHALE RQID PRN PRN Reason: wheezing Atorvastatin Calcium (Atorvastatin Calcium 10 Mg Tablet) 10 mg PO BEDTIME [facility] Last Admin: 03/12/24 20:48 Dose: 10 mg Documented By: CHIDI Calcium Carbonate (Calcium Carbonate 750 Mg Tab.Chew) 750 mg PO Q4H PRN PRN Reason: Heartburn Enoxaparin Sodium (Enoxaparin Sodium 40 Mg/0.4 Ml Syringe) 40 mg SUBCUT Q24H [facility] Last Admin: 03/13/24 07:56 Dose: 40 mg Documented By: DESMOND Furosemide (Furosemide 40 Mg Tablet) 40 mg PO DAILY [facility]; Protocol Last Admin: 03/13/24 08:03 Dose: 40 mg Documented By: DESMOND Cefazolin Sodium/Dextrose (Ancef) 2 gm in 50 mls @ 100 mls/hr IV PREOP ONE Stop: 03/14/24 10:46 Lorazepam (Lorazepam 0.5 Mg Tablet) 0.5 mg PO Q6H PRN PRN Reason: Anxiety Last Admin: 03/13/24 07:56 Dose: 0.5 mg Documented By: DESMOND Lorazepam (Lorazepam 0.5 Mg Tablet) 0.5 mg PO Q4H PRN PRN Reason: anxiety/restlessness Last Admin: 03/13/24 02:51 Dose: 0.5 mg Documented By: CHIDI Magnesium Hydroxide (Milk Of Magnesia 30 Ml Oral.Susp) 30 ml PO DAILY PRN PRN Reason: Constipation Melatonin (Melatonin 3 Mg Tablet) 6 mg PO BEDTIME PRN PRN Reason: Insomnia Morphine Sulfate (Morphine Sulfate 2 Mg/Ml Cartridge) 2 mg IVPUSH Q3H PRN; Protocol PRN Reason: Pain, Moderate(Pain Scale 4-6) Last Admin: 03/13/24 07:56 Dose: 2 mg Documented By: DESMOND Sodium Chloride (0.9 % Sodium Chloride Flush 3 Ml Syringe) 3 ml IVFLUSH QSHIFT [facility] Last Admin: 03/13/24 07:57 Dose: 3 ml Documented By: JAYDENARTNenita Labs 03/14/24 05:45 03/14/24 05:44 Labs: Laboratory Results - last 24 hr 03/12/24 03/13/24 13:05 05:19 MCV 87.2 MCH 29.8 MCHC 34.2 RDW 17.4 H Plt Count 163 MPV 10.3 Absolute Nucleated RBC 0.000 Nucleated RBC % (auto) 0.0 Anion Gap 16 Estim Creat Clear Calc 58.1 Estimated GFR > 60 Fasting Glucose 111 H Calcium 9.4 Magnesium 2.0 Blood Type O Positive Antibody Screen NEGATIVE Crossmatch (AHG) See Detail Assessment and Plan (1) Current use of anticoagulant therapy: Status: Acute (2) Closed hip fracture: Status: Acute (3) HFrEF (heart failure with reduced ejection fraction): Status: Acute Plan 79M PMH CAD s/p CABG, HFrEF with EF 20-25%, chronic afib, legally blind presented with mechanical fall, found to have right hip fracture mechanical fall complicated by right hip fracture patient agreable to pursue surgery to improve quality of life and regain ambulation if possible surgical risk assessment by cardio see note ortho planning surgery tomorrow pain control hold xarelto CAD holding xarelto conitnue statin HFrEF appears euvolemic continue maintenance lasix not on neurohormonals due to previous hypotension chronic afib rate controlled, holding xarelto dvt prophylaxis - lovenox DNR/DNI need for inpt: needs hip fracture repair Quality Stroke Does the patient have a stroke diagnosis?: No VTE Prior VTE?: No VTE Risk Level:: Medical - moderate - high VTE Device Contraindication: Treatment Not Indicated VTE Drug Contraindication: N/A - Med Ordered
--- NOTE | 2024-03-13 10:52 | MHC.CM.PN ---
IMM 03/13/24 Male Lives at home with assist from [place]/HCP. He is active with Hospice, [facility] for end stage HF. Hospice services are held for surgical intervention, Hip FX. The plan is to return to home and resume hospice services. The patient also has 30 hrs of [facility] [employer] services[facility] is the agency in place.DP resume hospice at home. Transport via BLS for safety.
[2024-03-13 15:26] VITALS: BP 143/84; PULSE 102; RESP 18; TEMP 36.8; O2SAT 95
[2024-03-13 19:28] VITALS: BP 104/71; PULSE 99; RESP 18; TEMP 37; O2SAT 97
[2024-03-13 22:53] VITALS: RESP 18
[2024-03-14] VITALS (17 sets, daily range): BP systolic 103–139; BP diastolic 38–98; PULSE 95–126; RESP 16–20; TEMP 36.1–38.1; O2SAT 93–100
[2024-03-14] MEDS: Morphine Sulfate 2 MG/ML CARTRIDGE IVPUSH ×2 (03:11→08:49)
[2024-03-14] MEDS: LORazepam 0.5 MG TABLET PO ×2 (04:04→08:49)
[2024-03-14 06:24] LABS: Hematocrit 25.9 % (42.0-52.0); Hemoglobin 8.4 g/dl (14.0-18.0); Mean Corpuscular HGB Conc 32.4 g/dl (31.0-36.0); Mean Corpuscular Hemoglobin 28.5 pg (27.0-33.0); Mean Corpuscular Volume 87.8 fL (80.0-98.0); Mean Platelet Volume 10.3 fL (9.4-12.4); Platelet Count 146 X10*3/uL (160-400); Red Blood Count 2.95 X10*6/uL (4.60-5.80); Red Cell Distribution Width 17.1 % (11.0-16.0); White Blood Count 11.2 X10*3/uL (4.8-10.8)
[2024-03-14 06:37] LABS: Anion Gap 18 (12-20); Blood Urea Nitrogen 26 mg/dL (9-16); Calcium 9.3 mg/dL (8.4-10.2); Carbon Dioxide 21 mmol/L (22-29); Chloride 98 mmol/L (96-108); Creatinine Clr Calc Pharmacy 58.8; Estimated Glomerular Filt Rate > 60; Glucose Random 99 mg/dL (60-115); Potassium 3.5 mmol/L (3.3-5.1); Sodium 133 mmol/L (135-145)
[2024-03-14] MEDS: 0.9 % Sodium Chloride Flush 3 ML SYRINGE IVFLUSH (08:45)
--- NOTE | 2024-03-14 08:52 | HO.PM.IMPN ---
Subjective Subjective Date of Service: 03/14/24 Interval History: f/u fall, hip fracture has some hip pain surgery planned for today Physical Exam Vital Signs: Vital Signs: Last Vital Signs Temp 98.3 F 03/14/24 07:41 Pulse 104 H 03/14/24 07:41 Resp 18 03/14/24 03:41 BP 120/70 03/14/24 07:41 Pulse Ox 93 03/14/24 07:41 O2 Del Method Room Air 03/14/24 07:41 BMI result Body Mass Index 19.8 General: alert and oriented no distress Resp: CTA bilateral CVS: S1,S2,RRR GI: +BS, NT, no distention Skin: No rash Neuro: motor grossly intact Psych: appropriate affect Objective Data Active Medications Acetaminophen (Acetaminophen 325 Mg Tablet) 650 mg PO Q6H PRN PRN Reason: Pain, Mild (Pain Scale 1-3), fever or headache Albuterol Sulfate (Albuterol Sulfate 90 Mcg 8 Gm Inhaler) 2 puff INHALE RQID PRN PRN Reason: wheezing Atorvastatin Calcium (Atorvastatin Calcium 10 Mg Tablet) 10 mg PO BEDTIME COUNTS [facility]CLUDE 234 BEDS AT THE [facility] Last Admin: 03/13/24 20:05 Dose: Not Given Documented By: CHIDI Non-Admin Reason: HCP at bedside, pt not on statins for quite s Calcium Carbonate (Calcium Carbonate 750 Mg Tab.Chew) 750 mg PO Q4H PRN PRN Reason: Heartburn Enoxaparin Sodium (Enoxaparin Sodium 40 Mg/0.4 Ml Syringe) 40 mg SUBCUT Q24H COUNTS INCLUDE 234 BEDS AT THE [facility] Last Admin: 03/14/24 07:11 Dose: Not Given Documented By: DESMOND Non-Admin Reason: surgery today Furosemide (Furosemide 40 Mg Tablet) 40 mg PO DAILY COUNTS INCLUDE 234 BEDS AT THE [facility]; Protocol Last Admin: 03/14/24 07:11 Dose: Not Given Documented By: DESMOND Non-Admin Reason: NPO Cefazolin Sodium/Dextrose (Ancef) 2 gm in 50 mls @ 100 mls/hr IV PREOP ONE Stop: 03/14/24 10:46 Sodium Chloride (Ns) 100 mls @ 100 mls/hr IV ONCE ONE Stop: 03/14/24 09:48 Lorazepam (Lorazepam 0.5 Mg Tablet) 0.5 mg PO Q6H PRN PRN Reason: Anxiety Last Admin: 03/13/24 17:28 Dose: 0.5 mg Documented By: DESMOND Lorazepam (Lorazepam 0.5 Mg Tablet) 0.5 mg PO Q4H PRN PRN Reason: anxiety/restlessness Last Admin: 03/14/24 04:04 Dose: 0.5 mg Documented By: CHIDI Magnesium Hydroxide (Milk Of Magnesia 30 Ml Oral.Susp) 30 ml PO DAILY PRN PRN Reason: Constipation Melatonin (Melatonin 3 Mg Tablet) 6 mg PO BEDTIME PRN PRN Reason: Insomnia Morphine Sulfate (Morphine Sulfate 2 Mg/Ml Cartridge) 2 mg IVPUSH Q3H PRN; Protocol PRN Reason: Pain, Moderate(Pain Scale 4-6) Last Admin: 03/14/24 03:11 Dose: 2 mg Documented By: CHIDI Potassium Chloride (Potassium Chloride Packet 20 Meq Packet) 40 meq PO ONCE ONE Stop: 03/14/24 08:51 Sodium Chloride (0.9 % Sodium Chloride Flush 3 Ml Syringe) 3 ml IVFLUSH QSHIFT [facility] Last Admin: 03/13/24 20:03 Dose: 3 ml Documented By: CHIDI Labs 03/14/24 05:45 03/14/24 05:44 Labs: Laboratory Results - last 24 hr 03/14/24 03/14/24 05:44 05:45 MCV 87.8 MCH 28.5 MCHC 32.4 RDW 17.1 H Plt Count 146 L MPV 10.3 Absolute Nucleated RBC 0.000 Nucleated RBC % (auto) 0.0 Anion Gap 18 Estim Creat Clear Calc 58.8 Estimated GFR > 60 Random Glucose 99 Calcium 9.3 Assessment and Plan (1) Current use of anticoagulant therapy: Status: Acute (2) Closed hip fracture: Status: Acute (3) HFrEF (heart failure with reduced ejection fraction): Status: Acute Plan 79M PMH CAD s/p CABG, HFrEF with EF 20-25%, chronic afib, legally blind presented with mechanical fall, found to have right hip fracture mechanical fall complicated by right hip fracture -surgical repair today -surgical risk assessment by cardio-- see note -pain control -hold xarelto Anemia, aute on chronic d/t fx -transfuse 1 unit of rbcv before surgery CAD -holding xarelto -conitnue statin Hypokalemia--correct, 3.5, give 40 meq d/t diuretics HFrEF -appears euvolemic -continue maintenance lasix -not on neurohormonals due to previous hypotension chronic afib -rate controlled, holding xarelto dvt prophylaxis - lovenox, resume xarelto after surgery DNR/DNI need for inpt: needs hip fracture repair Quality Stroke Does the patient have a stroke diagnosis?: No VTE Prior VTE?: No VTE Risk Level:: Medical - moderate - high VTE Device Contraindication: Treatment Not Indicated VTE Drug Contraindication: N/A - Med Ordered
[2024-03-14 10:17] LABS: INTERNATIONAL NORM RATIO 1.4 (0.9-1.1); Prothrombin Time 17.5 SEC (11.1-13.3)
[2024-03-14] MEDS: Potassium Chloride Packet 20 MEQ PACKET 40 MEQ PO (10:40)
--- NOTE | 2024-03-14 10:56 | MHC.SHP ---
Pre-Procedural Eval Section A - 24 Hr Update-Section A only Date of Service: 03/14/24 The patient is an INPATIENT: Yes Changes since office visit: No Cold of Flu in the past 2 weeks, No New Medical Problems, No Changes in Medication and No Patient answered all questions The patient has been examined within 24 hours of the surgical procedure. The History & Physical has been completed within 30 days and I have reviewed it.: Yes Section B - Complete if H&P > 30 days Chief Complaint: Hip Fracture Allergies: Allergies Allergy/AdvReac Type Severity Reaction Status Date / Time Penicillins [PENICILLINS] Allergy Intermediate HIVES Verified 03/12/24 03:26 shellfish derived Allergy Intermediate HIVES Verified 03/12/24 03:26 [SHELLFISH DERIVED] Plan I have reviewed the history and physical and performed a pertinent physical examination on my patient. No changes have occurred unless specified. Time Spent With Patient Time: Total time managing care of this patient today ____ minutes.
--- NOTE | 2024-03-14 12:41 | P.CONAN_ITS ---
[facility] Active Problems Active Problems: All Active Problems Current use of anticoagulant therapy (Acute) Acute hypokalemia (Acute) Closed hip fracture (Acute) HFrEF (heart failure with reduced ejection fraction) (Acute) Past Medical History Medical History Afib Chronic combined systolic and diastolic CHF (congestive heart failure) Ischemic cardiomyopathy Persistent atrial fibrillation Legally blind Macular degeneration Coronary artery disease Chronic anticoagulation HFrEF (heart failure with reduced ejection fraction) Family History Family history of problems with anesthesia: No Surgical History Surgical History Hx of CABG History of Problems with Anesthesia: No Social History Social History Household Members: None Housing: House Do you presently have visiting nurse or other home services: No Unable to assess alcohol history related to: Unable to respond Alcohol intake: never Comment: non ambulatory at this time, pre-op for fx rt hip Patient Tobacco Use Status: Former Tobacco user Tobacco use type: Cigarette Years Smoked: 20 e-Cigarette/Vaping Use: Never Used Second Hand Smoke Exposure: No service: Yes Meds Allergies Allergy/AdvReac Type Severity Reaction Status Date / Time Penicillins [PENICILLINS] Allergy Intermediate HIVES Verified 03/12/24 03:26 shellfish derived Allergy Intermediate HIVES Verified 03/12/24 03:26 [SHELLFISH DERIVED] Active Medications: Current Medications Acetaminophen (Acetaminophen 325 Mg Tablet) 650 mg PO Q6H PRN PRN Reason: Pain, Mild (Pain Scale 1-3), fever or headache Albuterol Sulfate (Albuterol Sulfate 90 Mcg 8 Gm Inhaler) 2 puff INHALE RQID PRN PRN Reason: wheezing Atorvastatin Calcium (Atorvastatin Calcium 10 Mg Tablet) 10 mg PO BEDTIME [facility] Last Admin: 03/13/24 20:05 Dose: Not Given Calcium Carbonate (Calcium Carbonate 750 Mg Tab.Chew) 750 mg PO Q4H PRN PRN Reason: Heartburn Enoxaparin Sodium (Enoxaparin Sodium 40 Mg/0.4 Ml Syringe) 40 mg SUBCUT Q24H [facility] Last Admin: 03/14/24 07:11 Dose: Not Given Furosemide (Furosemide 40 Mg Tablet) 40 mg PO DAILY [facility]; Protocol Last Admin: 03/14/24 07:11 Dose: Not Given Lorazepam (Lorazepam 0.5 Mg Tablet) 0.5 mg PO Q6H PRN PRN Reason: Anxiety Last Admin: 03/13/24 17:28 Dose: 0.5 mg Lorazepam (Lorazepam 0.5 Mg Tablet) 0.5 mg PO Q4H PRN PRN Reason: anxiety/restlessness Last Admin: 03/14/24 08:49 Dose: 0.5 mg Magnesium Hydroxide (Milk Of Magnesia 30 Ml Oral.Susp) 30 ml PO DAILY PRN PRN Reason: Constipation Melatonin (Melatonin 3 Mg Tablet) 6 mg PO BEDTIME PRN PRN Reason: Insomnia Morphine Sulfate (Morphine Sulfate 2 Mg/Ml Cartridge) 2 mg IVPUSH Q3H PRN; Protocol PRN Reason: Pain, Moderate(Pain Scale 4-6) Last Admin: 03/14/24 08:49 Dose: 2 mg Sodium Chloride (0.9 % Sodium Chloride Flush 3 Ml Syringe) 3 ml IVFLUSH QSHIFT [facility] Last Admin: 03/14/24 08:45 Dose: 3 ml Home Medications ?Medication ?Instructions ?Recorded ?Confirmed ?Last Taken ?Type albuterol sulfate 90 mcg/actuation 2 puff inhalation QID PRN wheezing 12/12/23 03/12/24 Unknown History aerosol inhaler rivaroxaban 20 mg tablet (Xarelto) 20 mg PO DAILY 12/19/23 03/12/24 03/12/24 History lorazepam 0.5 mg tablet 0.5 mg PO Q4H PRN 03/12/24 03/12/24 Unknown History anxiety/restlessness morphine concentrate 100 mg/5 mL 5 mg PO TID@0200,0900,2100 PRN 03/12/24 03/12/24 Unknown History (20 mg/mL) oral solution Dyspnea Exam Height,Weight and Vital Signs: Height 5 ft 9 in Weight 60.8 kg Last Vital Signs Temp 99.9 F 03/14/24 11:37 Pulse 95 03/14/24 11:37 Resp 20 03/14/24 11:37 BP 103/53 L 03/14/24 11:37 Pulse Ox 93 03/14/24 07:41 O2 Del Method Room Air 03/14/24 07:41 Pertinent Lab Results Pertinent Lab Results: Laboratory Tests 03/12/24 03/12/24 03/12/24 03:20 04:12 13:05 WBC 9.9 RBC 3.12 L Hgb 9.1 L D Hct 27.4 L D MCV 87.8 MCH 29.2 MCHC 33.2 RDW 17.4 H Plt Count 142 L MPV 10.6 Immature Gran % (Auto) 0.5 H Neut % (Auto) 77.5 H Lymph % (Auto) 14.2 L [place] % (Auto) 7.0 Eos % (Auto) 0.5 Baso % (Auto) 0.3 Lymph # (Auto) 1.4 [place] # (Auto) 0.7 Eos # (Auto) 0.1 Baso # (Auto) 0.0 Abs Immat Gran (auto) 0.05 H Absolute Neuts (auto) 7.6 Absolute Nucleated RBC 0.000 Nucleated RBC % (auto) 0.0 PT 40.3 H D INR 3.3 H Sodium 136 Potassium 3.2 L Chloride 99 Carbon Dioxide 24 Anion Gap 16 BUN 29 H Creatinine 1.06 Estim Creat Clear Calc 51.2 Estimated GFR > 60 Random Glucose 107 Fasting Glucose Calcium 9.1 D Magnesium Total Bilirubin 2.0 H AST 36 ALT 24 Alkaline Phosphatase 144 H Total Protein 6.0 L Albumin 3.6 Blood Type O Positive Antibody Screen NEGATIVE Crossmatch (AHG) See Detail 03/13/24 03/14/24 03/14/24 05:19 05:44 05:45 WBC 11.3 H 11.2 H RBC 3.12 L 2.95 L Hgb 9.3 L 8.4 L Hct 27.2 L 25.9 L MCV 87.2 87.8 MCH 29.8 28.5 MCHC 34.2 32.4 RDW 17.4 H 17.1 H Plt Count 163 146 L MPV 10.3 10.3 Immature Gran % (Auto) Neut % (Auto) Lymph % (Auto) [place] % (Auto) Eos % (Auto) Baso % (Auto) Lymph # (Auto) [place] # (Auto) Eos # (Auto) Baso # (Auto) Abs Immat Gran (auto) Absolute Neuts (auto) Absolute Nucleated RBC 0.000 0.000 Nucleated RBC % (auto) 0.0 0.0 PT INR Sodium 134 L 133 L Potassium 3.1 L 3.5 Chloride 97 98 Carbon Dioxide 24 21 L Anion Gap 16 18 BUN 25 H 26 H Creatinine 0.90 0.89 Estim Creat Clear Calc 58.1 58.8 Estimated GFR > 60 > 60 Random Glucose 99 Fasting Glucose 111 H Calcium 9.4 9.3 Magnesium 2.0 Total Bilirubin AST ALT Alkaline Phosphatase Total Protein Albumin Blood Type Antibody Screen Crossmatch ([facility]) 03/14/24 09:33 WBC RBC Hgb Hct MCV MCH MCHC RDW Plt Count MPV Immature Gran % (Auto) Neut % (Auto) Lymph % (Auto) [place] % (Auto) Eos % (Auto) Baso % (Auto) Lymph # (Auto) [place] # (Auto) Eos # (Auto) Baso # (Auto) Abs Immat Gran (auto) Absolute Neuts (auto) Absolute Nucleated RBC Nucleated RBC % (auto) PT 17.5 H D INR 1.4 H Sodium Potassium Chloride Carbon Dioxide Anion Gap BUN Creatinine Estim Creat Clear Calc Estimated GFR Random Glucose Fasting Glucose Calcium Magnesium Total Bilirubin AST ALT Alkaline Phosphatase Total Protein Albumin Blood Type O Positive Antibody Screen NEGATIVE Crossmatch ([facility]) See Detail Airway Mallampati Class: II TM Dist: >3cm Neck ROM: Full Heart: rrr Lungs: cta, not taking deep breaths, small and shallow Assessment and Plan Assessment Anesthesia Assessment: Anesthesia Plan Discussed and Chart Reviewed Final Anesthetic Review Family History of Problems with Anesthesia: No History of Problems with Anesthesia: No NPO: Yes ASA Class: IV and Emergency Final Preanesthetic Review: No Changes in Pt Med Stat, Meds/Allgs Chart Reviewed and Consent Obtained/Reviewed Patient Risk: High Procedure Risk: Low Anesthetic Plan Anesthetic Plan: GA Disposition: Standard PACU
--- NOTE | 2024-03-14 12:42 | MHC.CM.PN ---
Patient sent to the OR for Surgical intervention Hip FX. The discharge plan is to resume [facility] at home. Patient will transport via BLS.
--- NOTE | 2024-03-14 14:26 | PC.NURSE ---
report received from overnight RN, digital media designer per SEP. Pt repositioned frequently to assist with comfort. Due for surgery. Blood transfusion started on floor, transferred to pre-op with neurology technologist and floor RN with blood transfusion running. Blood to be finished in OR. Blood bank called for protocol in charting/finishing blood transfusion in TAR. TW informed that OR will finish blood on paper chart and send back to floor with pt then TW will have to complete blood in TAR based on paper chart completed by OR staff.
--- NOTE | 2024-03-14 14:34 | P.BOP_ITS ---
Brief Operative Note Date of Service: 03/14/24 Pre-op diagnosis: Right hip IT fracture Post-op diagnosis: same Procedure: ORIF right intertrochanteric fracture Implants: [place] [employer] 130 deg 4 hole with a 90 mm 6.5 cannulated screw Surgeon: Rian Angeles MD Anesthesia: GLMA and local Was an Employment Evaluator/Case Manager used for this Procedure?: Yes Employment Evaluator/Case Manager: Tyra Medley Estimated blood loss (mL): 150 IV fluids (mL): 850 Pathology: none sent Condition: stable Disposition: PACU
--- NOTE | 2024-03-14 16:40 | PC.NURSE ---
spoke with Susanna in lab covering blood bank informing of the faxed transfusion slip-chart copy sent following completion
[2024-03-14] MEDS: ceFAZolin Sodium/Dextrose,Iso 2 GM/50 ML PIGGYBACK IV (18:34)
[2024-03-14] MEDS: Acetaminophen 325 MG TABLET 650 MG PO (21:08)
[2024-03-14] MEDS: Atorvastatin Calcium 10 MG TABLET PO (21:08)
[2024-03-15] VITALS (8 sets, daily range): BP systolic 107–130; BP diastolic 51–64; PULSE 87–100; RESP 16–18; TEMP 36.5–36.9; O2SAT 94–98
[2024-03-15] MEDS: Morphine Sulfate 2 MG/ML CARTRIDGE IVPUSH ×3 (00:08→20:02)
--- NOTE | 2024-03-15 07:43 | HO.POSTANES ---
Post Anesthesia Evaluation Post Anesthesia Evaluation Date of Service: 03/15/24 Vital Signs: Vital Signs Temp Pulse Resp BP Pulse Ox O2 Del Method 03/15/24 04:00 97.7 F 99 16 130/55 L 97 Room Air 03/15/24 00:38 16 03/15/24 00:08 18 03/14/24 23:38 98.9 F 98 18 132/68 96 Room Air 03/14/24 22:08 16 Anesthesia: General Endotracheal-GETA Mental Status: Awake Pain Control: Satisfactory Nausea/Vomiting: None Hydration: Adequate Anesthesia-Related Issues: No Anes. Related Issues
[2024-03-15] MEDS: Enoxaparin Sodium 40 MG/0.4 ML SYRINGE SUBCUT (07:51)
[2024-03-15] MEDS: Furosemide 40 MG TABLET PO (07:51)
[2024-03-15 08:01] LABS: Hematocrit 29.8 % (42.0-52.0); Hemoglobin 9.7 g/dl (14.0-18.0); Mean Corpuscular HGB Conc 32.6 g/dl (31.0-36.0); Mean Corpuscular Hemoglobin 29.1 pg (27.0-33.0); Mean Corpuscular Volume 89.5 fL (80.0-98.0); Mean Platelet Volume 10.3 fL (9.4-12.4); Platelet Count 161 X10*3/uL (160-400); Red Blood Count 3.33 X10*6/uL (4.60-5.80); Red Cell Distribution Width 16.7 % (11.0-16.0); White Blood Count 10.2 X10*3/uL (4.8-10.8)
[2024-03-15 08:09] LABS: Anion Gap 16 (12-20); Blood Urea Nitrogen 35 mg/dL (9-16); Calcium 9.2 mg/dL (8.4-10.2); Carbon Dioxide 24 mmol/L (22-29); Chloride 98 mmol/L (96-108); Creatinine Clr Calc Pharmacy 44.3; Estimated Glomerular Filt Rate 60; Glucose Random 106 mg/dL (60-115); Potassium 4.9 mmol/L (3.3-5.1); Sodium 133 mmol/L (135-145)
--- NOTE | 2024-03-15 09:27 | PM.PNORT ---
Subjective Subjective Date of Service: 03/15/24 Interval history: 84-year-old male Postop day 1 status post ORIF of right hip fracture with [facility] Patient reports that he is experiencing pain in his right hip, but it is significantly improved since prior to surgery No other acute complaints or concerns at this time. Physical Exam Vital Signs: Vital Signs: Last Vital Signs Temp 98.4 F 03/15/24 07:43 Pulse 87 03/15/24 07:43 Resp 18 03/15/24 07:43 BP 120/64 03/15/24 07:51 Pulse Ox 98 03/15/24 07:43 O2 Del Method Room Air 03/15/24 07:43 O2 Flow Rate 6 03/14/24 15:10 BMI result Body Mass Index 19.8 Extrem: Other: On inspection, Dressing clean, dry, intact No erythema, ecchymosis, evidence of infection noted Patient reports very mild tenderness to palpation about the right hip Compartments soft, nontender Distal sensation intact Capillary refill brisk Patient is able to plantar flex and dorsiflex the right foot without difficulty Procedures Date of Service Date of Service: 03/15/24 Progress Note: A&P Assessment and plan (1) Closed hip fracture: Status: Acute Plan 1 right intertrochanteric hip fracture status post ORIF with [facility] DOS 03/14/2024 Patient appears to be recovering well postoperatively Patient is educated about the typical recovery course Patient will be working with physical therapy either today or tomorrow for assessment of discharge disposition Patient should resume anticoagulation with Lovenox 24 hours after surgery Patient is amenable to this plan Time Spent With Patient Time: Total time managing care of this patient today ____ minutes. Quality Stroke Does the patient have a stroke diagnosis?: No VTE Prior VTE?: No VTE Risk Level:: Medical - moderate - high VTE Device Contraindication: Treatment Not Indicated VTE Drug Contraindication: N/A - Med Ordered
--- NOTE | 2024-03-15 10:17 | P.PNIM_ITS ---
Subjective Subjective Date of Service: 03/15/24 Interval History: f/u fall, hip fracture hip repaired yesterday pain is controlled Physical Exam 2 Vital Signs: Vital Signs: Last Vital Signs Temp 98.4 F 03/15/24 07:43 Pulse 87 03/15/24 07:43 Resp 18 03/15/24 07:43 BP 120/64 03/15/24 07:51 Pulse Ox 98 03/15/24 07:43 O2 Del Method Room Air 03/15/24 07:43 O2 Flow Rate 6 03/14/24 15:10 BMI result Body Mass Index 19.8 General: AO X 3, no acute distress Resp: CTA bilateral CVS: S1,S2,RRR GI: +BS, NT, no distention Skin: right hip area d/c/i Neuro: motor grossly intact Psych: appropriate affect Extrem: Other: y Objective Data Active Medications Acetaminophen (Acetaminophen 325 Mg Tablet) 650 mg PO Q6H PRN PRN Reason: Pain, Mild (Pain Scale 1-3), fever or headache Last Admin: 03/14/24 21:08 Dose: 650 mg Documented By: STALIN Albuterol Sulfate (Albuterol Sulfate 90 Mcg 8 Gm Inhaler) 2 puff INHALE RQID PRN PRN Reason: wheezing Atorvastatin Calcium (Atorvastatin Calcium 10 Mg Tablet) 10 mg PO BEDTIME [facility] Last Admin: 03/14/24 21:08 Dose: 10 mg Documented By: STALIN Calcium Carbonate (Calcium Carbonate 750 Mg Tab.Chew) 750 mg PO Q4H PRN PRN Reason: Heartburn Enoxaparin Sodium (Enoxaparin Sodium 40 Mg/0.4 Ml Syringe) 40 mg SUBCUT Q24H MARIA EUGENIA Last Admin: 03/15/24 07:51 Dose: 40 mg Documented By: ANGELITO Furosemide (Furosemide 40 Mg Tablet) 40 mg PO DAILY MARIA EUGENIA; Protocol Last Admin: 03/15/24 07:51 Dose: 40 mg Documented By: ANGELITO Lorazepam (Lorazepam 0.5 Mg Tablet) 0.5 mg PO Q6H PRN PRN Reason: Anxiety Last Admin: 03/13/24 17:28 Dose: 0.5 mg Documented By: DESMOND Lorazepam (Lorazepam 0.5 Mg Tablet) 0.5 mg PO Q4H PRN PRN Reason: anxiety/restlessness Last Admin: 03/14/24 08:49 Dose: 0.5 mg Documented By: DESMOND Magnesium Hydroxide (Milk Of Magnesia 30 Ml Oral.Susp) 30 ml PO DAILY PRN PRN Reason: Constipation Melatonin (Melatonin 3 Mg Tablet) 6 mg PO BEDTIME PRN PRN Reason: Insomnia Morphine Sulfate (Morphine Sulfate 2 Mg/Ml Cartridge) 2 mg IVPUSH Q3H PRN; Protocol PRN Reason: Pain, Moderate(Pain Scale 4-6) Last Admin: 03/15/24 07:52 Dose: 2 mg Documented By: ANGELITO Labs 03/15/24 07:14 03/15/24 07:14 Labs: Laboratory Results - last 24 hr 03/12/24 03/14/24 03/15/24 13:05 09:33 07:14 MCV 89.5 MCH 29.1 MCHC 32.6 RDW 16.7 H Plt Count 161 MPV 10.3 Absolute Nucleated RBC 0.000 Nucleated RBC % (auto) 0.0 PT 17.5 H D INR 1.4 H Anion Gap 16 Estim Creat Clear Calc 44.3 Estimated GFR 60 Random Glucose 106 Calcium 9.2 Blood Type O Positive Antibody Screen NEGATIVE Crossmatch (AHG) See Detail See Detail Assessment and Plan (1) Current use of anticoagulant therapy: Status: Acute (2) Closed hip fracture: Status: Acute (3) HFrEF (heart failure with reduced ejection fraction): Status: Acute Plan 79M PMH CAD s/p CABG, HFrEF with EF 20-25%, chronic afib, legally blind presented with mechanical fall, found to have right hip fracture mechanical fall complicated by right hip fracture -s/p ORIF 03/14 -PT eval -morphine and oxycodone for pain -lovenox for dvt prevention, xarelto 48 hrs post op Anemia, aute on chronic d/t fx -transfused 1 unit of rbc before surgery, h/h better CAD -holding xarelto -conitnue statin Hypokalemia--corrected HFrEF -appears euvolemic -continue maintenance lasix -not on neurohormonals due to previous hypotension chronic afib -rate controlled, holding xarelto as above dvt prophylaxis - lovenox, resume xarelto after surgery DNR/DNI need for inpt: needs hip fracture repair Quality Stroke Does the patient have a stroke diagnosis?: No VTE Prior VTE?: No VTE Risk Level:: Medical - moderate - high VTE Device Contraindication: Treatment Not Indicated VTE Drug Contraindication: N/A - Med Ordered
[2024-03-15] MEDS: Atorvastatin Calcium 10 MG TABLET PO (19:53)
[2024-03-15] MEDS: LORazepam 0.5 MG TABLET PO (20:24)
[2024-03-16] VITALS (7 sets, daily range): BP systolic 96–140; BP diastolic 44–97; PULSE 86–106; RESP 16–18; TEMP 36.4–36.9; O2SAT 95–98
[2024-03-16] MEDS: Morphine Sulfate 2 MG/ML CARTRIDGE IVPUSH ×2 (04:39→09:17)
[2024-03-16 06:22] LABS: Hemoglobin 8.8 g/dl (14.0-18.0); Mean Corpuscular HGB Conc 32.6 g/dl (31.0-36.0); Mean Corpuscular Hemoglobin 28.8 pg (27.0-33.0); Mean Corpuscular Volume 88.2 fL (80.0-98.0); Mean Platelet Volume 10.7 fL (9.4-12.4); Platelet Count 154 X10*3/uL (160-400); Red Blood Count 3.06 X10*6/uL (4.60-5.80); Red Cell Distribution Width 16.8 % (11.0-16.0); White Blood Count 10.5 X10*3/uL (4.8-10.8)
[2024-03-16 06:45] LABS: Anion Gap 14 (12-20); Blood Urea Nitrogen 33 mg/dL (9-16); Calcium 8.9 mg/dL (8.4-10.2); Carbon Dioxide 24 mmol/L (22-29); Chloride 96 mmol/L (96-108); Creatinine Clr Calc Pharmacy 57.5; Estimated Glomerular Filt Rate > 60; Glucose Random 93 mg/dL (60-115); Potassium 3.6 mmol/L (3.3-5.1); Sodium 130 mmol/L (135-145)
--- NOTE | 2024-03-16 07:07 | P.PNIM_ITS ---
Subjective Subjective Date of Service: 03/16/24 Interval History: f/u fall, hip fracture hip repaired yesterday pain is controlled Physical Exam 2 Vital Signs: Vital Signs: Last Vital Signs Temp 98.4 F 03/16/24 04:00 Pulse 106 H 03/16/24 04:00 Resp 16 03/16/24 04:39 BP 132/58 L 03/16/24 04:00 Pulse Ox 98 03/16/24 04:00 O2 Del Method Room Air 03/16/24 04:00 O2 Flow Rate 6 03/14/24 15:10 BMI result Body Mass Index 19.8 General: AO X 3, no acute distress Resp: CTA bilateral CVS: S1,S2,RRR GI: +BS, NT, no distention Skin: right hip area d/c/i Neuro: motor grossly intact Psych: appropriate affect Extrem: Other: y Objective Data Active Medications Acetaminophen (Acetaminophen 325 Mg Tablet) 650 mg PO Q6H PRN PRN Reason: Pain, Mild (Pain Scale 1-3), fever or headache Last Admin: 03/14/24 21:08 Dose: 650 mg Documented By: STALIN Albuterol Sulfate (Albuterol Sulfate 90 Mcg 8 Gm Inhaler) 2 puff INHALE RQID PRN PRN Reason: wheezing Atorvastatin Calcium (Atorvastatin Calcium 10 Mg Tablet) 10 mg PO BEDTIME [facility] Last Admin: 03/15/24 19:53 Dose: 10 mg Documented By: CARRILLO Calcium Carbonate (Calcium Carbonate 750 Mg Tab.Chew) 750 mg PO Q4H PRN PRN Reason: Heartburn Enoxaparin Sodium (Enoxaparin Sodium 40 Mg/0.4 Ml Syringe) 40 mg SUBCUT Q24H MARIA EUGENIA Last Admin: 03/15/24 07:51 Dose: 40 mg Documented By: ANGELITO Furosemide (Furosemide 40 Mg Tablet) 40 mg PO DAILY MARIA EUGENIA; Protocol Last Admin: 03/15/24 07:51 Dose: 40 mg Documented By: ANGELITO Lorazepam (Lorazepam 0.5 Mg Tablet) 0.5 mg PO Q6H PRN PRN Reason: Anxiety Last Admin: 03/13/24 17:28 Dose: 0.5 mg Documented By: FOGARTNenita Magnesium Hydroxide (Milk Of Magnesia 30 Ml Oral.Susp) 30 ml PO DAILY PRN PRN Reason: Constipation Melatonin (Melatonin 3 Mg Tablet) 6 mg PO BEDTIME PRN PRN Reason: Insomnia Morphine Sulfate (Morphine Sulfate 2 Mg/Ml Cartridge) 2 mg IVPUSH Q3H PRN; Protocol PRN Reason: Pain, Moderate(Pain Scale 4-6) Last Admin: 03/16/24 04:39 Dose: 2 mg Documented By: MARIA EUGENIA Labs 03/16/24 05:30 03/16/24 05:30 Labs: Laboratory Results - last 24 hr 03/15/24 03/16/24 07:14 05:30 MCV 89.5 88.2 MCH 29.1 28.8 MCHC 32.6 32.6 RDW 16.7 H 16.8 H Plt Count 161 154 L MPV 10.3 10.7 Absolute Nucleated RBC 0.000 0.000 Nucleated RBC % (auto) 0.0 0.0 Anion Gap 16 14 Estim Creat Clear Calc 44.3 57.5 Estimated GFR 60 > 60 Random Glucose 106 93 Calcium 9.2 8.9 Assessment and Plan (1) Current use of anticoagulant therapy: Status: Acute (2) Closed hip fracture: Status: Acute (3) HFrEF (heart failure with reduced ejection fraction): Status: Acute Plan 79M PMH CAD s/p CABG, HFrEF with EF 20-25%, chronic afib, legally blind presented with mechanical fall, found to have right hip fracture mechanical fall complicated by right hip fracture -s/p ORIF 03/14, doing -PT recommends STR -morphine and oxycodone for pain -resume xarelto today Anemia, aute on chronic d/t fx -transfused 1 unit of rbc before surgery, h/h better CAD -conitnue statin Hypokalemia--corrected HFrEF -appears euvolemic -continue maintenance lasix -not on neurohormonals due to previous hypotension chronic afib -rate controlled, resume xarelto as above dvt prophylaxis - lovenox, resume xarelto after surgery DNR/DNI need for inpt: needs hip fracture repair Dispo: PT rec STR, but he is refusing and wants to go home Quality Stroke Does the patient have a stroke diagnosis?: No VTE Prior VTE?: No VTE Risk Level:: Medical - moderate - high VTE Device Contraindication: Treatment Not Indicated VTE Drug Contraindication: N/A - Med Ordered
[2024-03-16] MEDS: Furosemide 40 MG TABLET PO (08:19)
--- NOTE | 2024-03-16 08:26 | PM.PNORT ---
Subjective Subjective Date of Service: 03/16/24 Interval history: 84-year-old male Postop day 2 status post ORIF of right hip fracture with [facility] Resting comfortably in bed No other acute complaints or concerns at this time. Physical Exam Vital Signs: Vital Signs: Last Vital Signs Temp 97.9 F 03/16/24 07:33 Pulse 97 03/16/24 07:33 Resp 16 03/16/24 07:33 BP 105/56 L 03/16/24 07:33 Pulse Ox 95 03/16/24 07:33 O2 Del Method Room Air 03/16/24 07:33 O2 Flow Rate 6 03/14/24 15:10 BMI result Body Mass Index 19.8 Extrem: Other: On inspection, Dressing clean, dry, intact No erythema, ecchymosis, evidence of infection noted Patient reports very mild tenderness to palpation about the right hip Compartments soft, nontender Distal sensation intact Capillary refill brisk Patient is able to plantar flex and dorsiflex the right foot without difficulty Procedures Date of Service Date of Service: 03/16/24 Progress Note: A&P Assessment and plan (1) Closed hip fracture: Status: Acute Plan 1 right intertrochanteric hip fracture status post ORIF with [facility] DOS 03/14/2024 Patient appears to be recovering well postoperatively Patient is educated about the typical recovery course Patient will be working with physical therapy -TTWB continue lovenox Patient is amenable to this plan Time Spent With Patient Time: Total time managing care of this patient today ____ minutes. Quality Stroke Does the patient have a stroke diagnosis?: No VTE Prior VTE?: No VTE Risk Level:: Medical - moderate - high VTE Device Contraindication: Treatment Not Indicated VTE Drug Contraindication: N/A - Med Ordered
--- NOTE | 2024-03-16 10:53 | P.DS_ITS ---
DS: Providers Provider Date of Service: 03/19/24 Date of admission: 03/12/24 05:59 Date of discharge: 03/19/24 Primary care physician: Mare Wells MD Consults: 03/12/24 05:56 Consult to Orthopedics Routine Consulting Provider: [facility] [place] [facility] Reason for consultation: Comminuted intertrochanteric fracture of the right femur 03/12/24 05:58 Consult to Cardiology Routine Consulting Provider: [facility] [place] [facility] Reason for consultation: risk assessment/optimization, hip fracture, hfref Has provider been notified: Yes DS: Diagnosis Discharge Diagnosis (1) Current use of anticoagulant therapy: Status: Acute (2) Closed hip fracture: Status: Acute (3) HFrEF (heart failure with reduced ejection fraction): Status: Acute DS: Summary Hospital Course Hospital Course: admission hpi Chief Complaint: fall right hip pain 79M PMH CAD s/p CABG, HFrEF with EF 20-25%, chronic afib, legally blind, on home hospice where he has been doing well, ambulating with walker, symptoms fairly well controlled, presented with mechanical fall. patient was changing his clothes and tripped and fell, landing on hip. denies LOC or head strike. called EMS. in ED CT hip showed right hip Comminuted intertrochanteric fracture. of note patient also had a fall in november 2023 with right femur fracture and had IMN. Hospital course: This patient has chronic heart failure and was at home on hospice and suffered an accidental fall that resulted in right hip fracture. She had surgical repair on 03/14 after xarelto was on hold for several days to mitigate bleeding complication. He is doing well post operatively and is back on Xarelto to prevent dvt. PT has seen him and recommended STR but he prefers going back home with home services and hospice. Anemia, aute on chronic d/t fx -transfused 1 unit of rbc before surgery, h/h better CAD -conitnue statin Hypokalemia--corrected HFrEF--to resume Lasix chronic afib -rate controlled, resume xarelto as above to return to hospice care Final diagnoses: hip fracture anemia chronic systolic heart failure Time Attestation Discharge Coordination Time (in mins): 40 Quality: Safe Use of Opioids Does Pt have an Active Cancer Diagnosis on the Problem List?: No Quality: Stroke Does the patient have a stroke diagnosis?: No Physical Exam Vital Signs: Vital Signs: Selected Entries 03/19/24 07:54 Temperature 97.6 F Pulse Rate 97 Respiratory Rate 18 Blood Pressure 112/59 L Pulse Oximetry 98 Oxygen Delivery Me thod Room Air Extrem: Other: On inspection, Dressing clean, dry, intact No erythema, ecchymosis, evidence of infection noted Patient reports very mild tenderness to palpation about the right hip Compartments soft, nontender Distal sensation intact Capillary refill brisk Patient is able to plantar flex and dorsiflex the right foot without difficulty DS: Data Data Completed and Pending Completed studies during hospitalization [Text1]: Procedures Introduction of Vasopressor into Peripheral Vein, Percutaneous Approach (12/11/23) Reposition Right Lower Femur with Intramedullary Internal Fixation Device, Percutaneous Approach (12/11/23) Labs on day of discharge: Laboratory Results - last 24 hr 03/16/24 05:30 WBC 10.5 RBC 3.06 L Hgb 8.8 L Hct 27.0 L MCV 88.2 MCH 28.8 MCHC 32.6 RDW 16.8 H Plt Count 154 L MPV 10.7 Absolute Nucleated RBC 0.000 Nucleated RBC % (auto) 0.0 Sodium 130 L Potassium 3.6 D Chloride 96 Carbon Dioxide 24 Anion Gap 14 BUN 33 H Creatinine 0.91 Estim Creat Clear Calc 57.5 Estimated GFR > 60 Random Glucose 93 Calcium 8.9 Discharge Plan Discharge Anticipated Discharge Date/Time: 03/16/24 10:53 Patient Disposition: Home, Self-Care Discharge Diagnosis: hip fracture Referrals: Mare Wells MD [Primary Care Provider] - 1 Week Discharge Medications: Continued furosemide 40 mg Tablet 40 mg PO DAILY Qty: 180 0RF Protocol: Hold for SBP< HOLD for SBP < : 90 morphine concentrate 100 mg/5 mL (20 mg/mL) solution 5 mg PO TID@0200,0900,2100 PRN (Reason: Dyspnea) Rx Instructions: Partial Fill upon patient request. lorazepam 0.5 mg tablet 0.5 mg PO Q4H PRN (Reason: anxiety/restlessness) albuterol sulfate 90 mcg/actuation HFA aerosol inhaler 2 puff INHALATION QID PRN (Reason: wheezing) Xarelto 20 mg tablet 20 mg PO DAILY Discharge Orders: Discharge Order (Routine); Ordered 03/19/24 Ordered [facility]: [facility] Diet: Advance to usual diet Activity on Discharge: As tolerated Stand Alone Forms: Patient Portal Discharge page Print Language: Czech Care Plan Goals: recovery from hip fracture Health Concerns: hip fracture Plan of Treatment: PT/OT---TTWB Continue anticoag Keep dressing clean,dry and intact-no showering or tub baths Follow up with Orthopedics in 2 weeks Assessment: see above
[2024-03-16] MEDS: Docusate Sodium 100 MG CAPSULE PO ×2 (13:14→22:10)
[2024-03-16] MEDS: oxyCODONE HCl Immed Release 5 MG TABLET PO (13:18)
--- NOTE | 2024-03-16 16:02 | MHC.CM.PN ---
CM MET WITH PT AND HCP ANN, AT BEDSIDE TO DISCUSS DC PLANS THEY ARE AWARE PT IS RECOMMENDING STR, HOWEVER Pt IS NOT WILLING TO CONSIDER IT HE HAS BEEN TO STR IN THE PAST AND SAYS IT WAS AWFUL ANN REPORTS SHE HAS ALREADY BEEN IN CONTACT WITH HOME CARE AGENCIES AND HAS CARE LINED UP TO START TUESDAY AFTERNOON SHE SAYS PT DOES NOT HAVE ANYONE TO ASSIST 07/02 BEFORE THAT PT WILL REMAIN THROUGH THE WEEKEND AND DC TUESDAY WITH HOSPICE AND 24/ CARE HOSPITALIST UPDATED
[2024-03-16] MEDS: Rivaroxaban 20 MG TABLET PO (17:07)
[2024-03-16] MEDS: LORazepam 0.5 MG TABLET PO (18:49)
[2024-03-16] MEDS: Atorvastatin Calcium 10 MG TABLET PO (22:10)
[2024-03-16] MEDS: Melatonin 3 MG TABLET 6 MG PO (22:10)
[2024-03-17] MEDS: oxyCODONE HCl Immed Release 5 MG TABLET PO ×4 (00:36→20:10)
[2024-03-17 03:38] VITALS: BP 107/54; PULSE 90; RESP 17; TEMP 36.8; O2SAT 96
[2024-03-17 06:34] LABS: Hematocrit 25.8 % (42.0-52.0); Hemoglobin 8.6 g/dl (14.0-18.0); Mean Corpuscular HGB Conc 33.3 g/dl (31.0-36.0); Mean Corpuscular Hemoglobin 29.5 pg (27.0-33.0); Mean Corpuscular Volume 88.4 fL (80.0-98.0); Mean Platelet Volume 9.9 fL (9.4-12.4); Platelet Count 163 X10*3/uL (160-400); Red Blood Count 2.92 X10*6/uL (4.60-5.80); Red Cell Distribution Width 16.7 % (11.0-16.0); White Blood Count 8.9 X10*3/uL (4.8-10.8)
[2024-03-17 08:00] VITALS: BP 109/57; PULSE 100; RESP 14; TEMP 36.6; O2SAT 97
[2024-03-17] MEDS: Docusate Sodium 100 MG CAPSULE PO ×2 (08:18→20:10)
[2024-03-17] MEDS: Furosemide 40 MG TABLET PO (08:18)
--- NOTE | 2024-03-17 09:39 | PM.PNORT ---
Subjective Subjective Date of Service: 03/17/24 Interval history: 84-year-old male Postop day 3 status post ORIF of right hip fracture with [facility] Resting comfortably in bed No other acute complaints or concerns at this time. Physical Exam Vital Signs: Vital Signs: Last Vital Signs Temp 98 F 03/17/24 08:00 Pulse 100 03/17/24 08:00 Resp 14 03/17/24 08:00 BP 109/57 L 03/17/24 08:00 Pulse Ox 97 03/17/24 08:00 O2 Del Method Room Air 03/17/24 08:00 O2 Flow Rate 6 03/14/24 15:10 BMI result Body Mass Index 19.8 Extrem: Other: On inspection, Dressing clean, dry, intact No erythema, ecchymosis, evidence of infection noted Patient reports very mild tenderness to palpation about the right hip Compartments soft, nontender Distal sensation intact Capillary refill brisk Patient is able to plantar flex and dorsiflex the right foot without difficulty Procedures Date of Service Date of Service: 03/17/24 Progress Note: A&P Assessment and plan (1) Closed hip fracture: Status: Acute Plan 1 right intertrochanteric hip fracture status post ORIF with [facility] DOS 03/14/2024 Patient appears to be recovering well postoperatively Patient is educated about the typical recovery course Patient will be working with physical therapy -TTWB continue anticoag Patient is amenable to this plan Time Spent With Patient Time: Total time managing care of this patient today ____ minutes. Quality Stroke Does the patient have a stroke diagnosis?: No VTE Prior VTE?: No VTE Risk Level:: Medical - moderate - high VTE Device Contraindication: Treatment Not Indicated VTE Drug Contraindication: N/A - Med Ordered
--- NOTE | 2024-03-17 10:14 | P.PNIM_ITS ---
Subjective Subjective Date of Service: 03/17/24 Interval History: f/u fall, hip fracture hip repaired yesterday pain is controlled h/h ok Physical Exam 2 Vital Signs: Vital Signs: Last Vital Signs Temp 98 F 03/17/24 08:00 Pulse 100 03/17/24 08:00 Resp 14 03/17/24 08:00 BP 109/57 L 03/17/24 08:00 Pulse Ox 97 03/17/24 08:00 O2 Del Method Room Air 03/17/24 08:00 O2 Flow Rate 6 03/14/24 15:10 BMI result Body Mass Index 19.8 Const: Other: General: AO X 3, no acute distress Resp: CTA bilateral CVS: S1,S2,RRR GI: +BS, NT, no distention Skin: No rash, left hip area, d/c/i Neuro: motor grossly intact Psych: appropriate affect Objective Data Active Medications Acetaminophen (Acetaminophen 325 Mg Tablet) 650 mg PO Q6H PRN PRN Reason: Pain, Mild (Pain Scale 1-3), fever or headache Last Admin: 03/14/24 21:08 Dose: 650 mg Documented By: STALIN Albuterol Sulfate (Albuterol Sulfate 90 Mcg 8 Gm Inhaler) 2 puff INHALE RQID PRN PRN Reason: wheezing Atorvastatin Calcium (Atorvastatin Calcium 10 Mg Tablet) 10 mg PO BEDTIME [facility] Last Admin: 03/16/24 22:10 Dose: 10 mg Documented By: FEROZ Calcium Carbonate (Calcium Carbonate 750 Mg Tab.Chew) 750 mg PO Q4H PRN PRN Reason: Heartburn Docusate Sodium (Docusate Sodium 100 Mg Capsule) 100 mg PO BID [facility] Last Admin: 03/17/24 08:18 Dose: 100 mg Documented By: KASH Furosemide (Furosemide 40 Mg Tablet) 40 mg PO DAILY MARIA EUGENIA; Protocol Last Admin: 03/17/24 08:18 Dose: 40 mg Documented By: KASH Lorazepam (Lorazepam 0.5 Mg Tablet) 0.5 mg PO Q6H PRN PRN Reason: Anxiety Last Admin: 03/16/24 18:49 Dose: 0.5 mg Documented By: IBAN Magnesium Hydroxide (Milk Of Magnesia 30 Ml Oral.Susp) 30 ml PO DAILY PRN PRN Reason: Constipation Melatonin (Melatonin 3 Mg Tablet) 6 mg PO BEDTIME PRN PRN Reason: Insomnia Last Admin: 03/16/24 22:10 Dose: 6 mg Documented By: FEROZ Oxycodone HCl (Oxycodone Hcl Immed Release 5 Mg Tablet) 5 mg PO Q6H PRN PRN Reason: Pain, Moderate(Pain Scale 4-6) Last Admin: 03/17/24 08:18 Dose: 5 mg Documented By: KASH Polyethylene Glycol (Polyethylene Glycol 3350 17 Gm Powd.Pack) 17 gm PO DAILY PRN PRN Reason: Constipation Rivaroxaban (Rivaroxaban 20 Mg Tablet) 20 mg PO DAILY@1700 [facility] EUGENIA Last Admin: 03/16/24 17:07 Dose: 20 mg Documented By: IBAN Labs 03/17/24 05:30 03/16/24 05:30 Labs: Laboratory Results - last 24 hr 03/17/24 05:30 MCV 88.4 MCH 29.5 MCHC 33.3 RDW 16.7 H Plt Count 163 MPV 9.9 Absolute Nucleated RBC 0.000 Nucleated RBC % (auto) 0.0 Assessment and Plan (1) Current use of anticoagulant therapy: Status: Acute (2) Closed hip fracture: Status: Acute (3) HFrEF (heart failure with reduced ejection fraction): Status: Acute Plan 79M PMH CAD s/p CABG, HFrEF with EF 20-25%, chronic afib, legally blind presented with mechanical fall, found to have right hip fracture mechanical fall complicated by right hip fracture -s/p ORIF 03/14, doing -PT recommends STR, he prefers going home with services -morphine and oxycodone for pain -continue Xarelto for dvt prophylaxis Anemia, aute on chronic d/t fx -transfused 1 unit of rbc before surgery, h/h better CAD -conitnue statin Hypokalemia--corrected HFrEF -appears euvolemic -continue maintenance lasix -not on neurohormonals due to previous hypotension chronic afib -rate controlled, resume xarelto as above dvt prophylaxis - lovenox, resume xarelto after surgery DNR/DNI need for inpt: needs hip fracture repair Dispo: PT rec STR, he prefers home w/ services, not available until after the weekend Quality Stroke Does the patient have a stroke diagnosis?: No VTE Prior VTE?: No VTE Risk Level:: Medical - moderate - high VTE Device Contraindication: Treatment Not Indicated VTE Drug Contraindication: N/A - Med Ordered
[2024-03-17 15:57] VITALS: BP 115/51; PULSE 92; RESP 14; TEMP 37.1; O2SAT 98
[2024-03-17] MEDS: Rivaroxaban 20 MG TABLET PO (16:41)
[2024-03-17 19:24] VITALS: BP 129/79; PULSE 94; RESP 17; TEMP 36.8; O2SAT 96
[2024-03-17] MEDS: Atorvastatin Calcium 10 MG TABLET PO (20:10)
[2024-03-18] MEDS: LORazepam 0.5 MG TABLET PO (01:08)
[2024-03-18 03:56] VITALS: BP 134/58; PULSE 96; RESP 18; TEMP 36.1; O2SAT 95
[2024-03-18 07:12] LABS: Hematocrit 27.6 % (42.0-52.0); Hemoglobin 9.1 g/dl (14.0-18.0); Mean Corpuscular Volume 87.9 fL (80.0-98.0); Platelet Count 193 X10*3/uL (160-400); Red Blood Count 3.14 X10*6/uL (4.60-5.80); Red Cell Distribution Width 16.9 % (11.0-16.0); White Blood Count 8.2 X10*3/uL (4.8-10.8)
[2024-03-18 08:00] VITALS: BP 121/54; PULSE 97; RESP 14; TEMP 36.6; O2SAT 97
[2024-03-18] MEDS: Docusate Sodium 100 MG CAPSULE PO ×2 (09:06→20:14)
[2024-03-18] MEDS: Furosemide 40 MG TABLET PO (09:07)
[2024-03-18] MEDS: oxyCODONE HCl Immed Release 5 MG TABLET PO ×3 (09:07→23:28)
--- NOTE | 2024-03-18 09:50 | P.PNIM_ITS ---
Subjective Subjective Date of Service: 03/18/24 Interval History: f/u fall, hip fracture hip repaired 03/16 pain is controlled h/h ok Physical Exam 2 Vital Signs: Vital Signs: Last Vital Signs Temp 98 F 03/18/24 08:00 Pulse 97 03/18/24 08:00 Resp 14 03/18/24 08:00 BP 121/54 L 03/18/24 08:00 Pulse Ox 97 03/18/24 08:00 O2 Del Method Room Air 03/18/24 08:00 O2 Flow Rate 6 03/14/24 15:10 BMI result Body Mass Index 19.8 Const: Other: General: AO X 3, no acute distress Resp: CTA bilateral CVS: S1,S2,RRR GI: +BS, NT, no distention Skin: No rash, left hip area, d/c/i Neuro: motor grossly intact Psych: appropriate affect Objective Data Active Medications Acetaminophen (Acetaminophen 325 Mg Tablet) 650 mg PO Q6H PRN PRN Reason: Pain, Mild (Pain Scale 1-3), fever or headache Last Admin: 03/14/24 21:08 Dose: 650 mg Documented By: STALIN Albuterol Sulfate (Albuterol Sulfate 90 Mcg 8 Gm Inhaler) 2 puff INHALE RQID PRN PRN Reason: wheezing Atorvastatin Calcium (Atorvastatin Calcium 10 Mg Tablet) 10 mg PO BEDTIME [facility] Last Admin: 03/17/24 20:10 Dose: 10 mg Documented By: FEROZ Calcium Carbonate (Calcium Carbonate 750 Mg Tab.Chew) 750 mg PO Q4H PRN PRN Reason: Heartburn Docusate Sodium (Docusate Sodium 100 Mg Capsule) 100 mg PO BID [facility] Last Admin: 03/18/24 09:06 Dose: 100 mg Documented By: KASH Furosemide (Furosemide 40 Mg Tablet) 40 mg PO DAILY MARIA EUGENIA; Protocol Last Admin: 03/18/24 09:07 Dose: 40 mg Documented By: KASH Lorazepam (Lorazepam 0.5 Mg Tablet) 0.5 mg PO Q6H PRN PRN Reason: Anxiety Last Admin: 03/18/24 01:08 Dose: 0.5 mg Documented By: FEROZ Magnesium Hydroxide (Milk Of Magnesia 30 Ml Oral.Susp) 30 ml PO DAILY PRN PRN Reason: Constipation Melatonin (Melatonin 3 Mg Tablet) 6 mg PO BEDTIME PRN PRN Reason: Insomnia Last Admin: 03/16/24 22:10 Dose: 6 mg Documented By: FEROZ Oxycodone HCl (Oxycodone Hcl Immed Release 5 Mg Tablet) 5 mg PO Q6H PRN PRN Reason: Pain, Moderate(Pain Scale 4-6) Last Admin: 03/18/24 09:07 Dose: 5 mg Documented By: KASH Polyethylene Glycol (Polyethylene Glycol 3350 17 Gm Powd.Pack) 17 gm PO DAILY PRN PRN Reason: Constipation Rivaroxaban (Rivaroxaban 20 Mg Tablet) 20 mg PO DAILY@1700 MARIA EUGENIA Last Admin: 03/17/24 16:41 Dose: 20 mg Documented By: KASH Labs 03/18/24 05:35 03/16/24 05:30 Labs: Laboratory Results - last 24 hr 03/18/24 05:35 MCV 87.9 MCH 29.0 MCHC 33.0 RDW 16.9 H Plt Count 193 MPV 10.0 Absolute Nucleated RBC 0.000 Nucleated RBC % (auto) 0.0 Assessment and Plan (1) Current use of anticoagulant therapy: Status: Acute (2) Closed hip fracture: Status: Acute (3) HFrEF (heart failure with reduced ejection fraction): Status: Acute Plan 79M PMH CAD s/p CABG, HFrEF with EF 20-25%, chronic afib, legally blind presented with mechanical fall, found to have right hip fracture mechanical fall complicated by right hip fracture -s/p ORIF 03/14, doing -PT recommends STR, he prefers going home with services -morphine and oxycodone for pain -continue Xarelto for dvt prophylaxis Anemia, aute on chronic d/t fx -transfused 1 unit of rbc before surgery, h/h better CAD -conitnue statin Hypokalemia--corrected HFrEF -appears euvolemic -continue maintenance lasix -not on neurohormonals due to previous hypotension chronic afib -rate controlled, resume xarelto as above dvt prophylaxis - lovenox, resume xarelto after surgery DNR/DNI need for inpt: needs hip fracture repair Dispo: PT rec STR, he prefers home w/ services, not available until after the weekend Quality Stroke Does the patient have a stroke diagnosis?: No VTE Prior VTE?: No VTE Risk Level:: Medical - moderate - high VTE Device Contraindication: Treatment Not Indicated VTE Drug Contraindication: N/A - Med Ordered
[2024-03-18 16:00] VITALS: BP 91/45; PULSE 98; RESP 12; TEMP 36.6; O2SAT 96
[2024-03-18 16:11] VITALS: BP 98/72
[2024-03-18] MEDS: Rivaroxaban 20 MG TABLET PO (16:16)
[2024-03-18 18:54] LABS: Hematocrit 26.8 % (42.0-52.0); Hemoglobin 8.8 g/dl (14.0-18.0); Mean Corpuscular HGB Conc 32.8 g/dl (31.0-36.0); Mean Corpuscular Volume 88.4 fL (80.0-98.0); Mean Platelet Volume 9.8 fL (9.4-12.4); Platelet Count 189 X10*3/uL (160-400); Red Blood Count 3.03 X10*6/uL (4.60-5.80); Red Cell Distribution Width 16.7 % (11.0-16.0); White Blood Count 9.1 X10*3/uL (4.8-10.8)
[2024-03-18 19:26] VITALS: BP 107/49; PULSE 100; RESP 17; TEMP 36.7; O2SAT 96
[2024-03-18] MEDS: Atorvastatin Calcium 10 MG TABLET PO (20:14)
[2024-03-19] MEDS: LORazepam 0.5 MG TABLET PO (00:38)
[2024-03-19 03:25] VITALS: BP 103/51; PULSE 98; RESP 18; TEMP 36.3; O2SAT 95
[2024-03-19] MEDS: oxyCODONE HCl Immed Release 5 MG TABLET PO ×2 (06:33→12:22)
[2024-03-19] MEDS: Docusate Sodium 100 MG CAPSULE PO (07:22)
[2024-03-19] MEDS: Furosemide 40 MG TABLET PO (07:22)
[2024-03-19] MEDS: polyethylene glycoL 3350 17 GM POWD.PACK PO (07:24)
[2024-03-19 07:54] VITALS: BP 112/59; PULSE 97; RESP 18; TEMP 36.4; O2SAT 98
--- NOTE | 2024-03-19 08:43 | P.PNOP_ITS ---
Subjective Subjective Date of Service: 03/19/24 Principal diagnosis: right hip pain Interval history: Mr. Simental is seen resting comfortably in bed this morning with complaints of mild discomfort along the lateral aspect of his right hip after undergoing open reduction and internal fixation of his right hip fracture on 03/14/[address] Angeles. The patient has been toe-touch weight-bearing on his right lower extremity. Physical Exam Vital Signs: Vital Signs: Last Vital Signs Temp 97.6 F 03/19/24 07:54 Pulse 97 03/19/24 07:54 Resp 18 03/19/24 07:54 BP 112/59 L 03/19/24 07:54 Pulse Ox 98 03/19/24 07:54 O2 Del Method Room Air 03/19/24 07:54 O2 Flow Rate 6 03/14/24 15:10 BMI result Body Mass Index 19.8 Extrem: Other: Right lower extremity examination shows that the surgical dressing is clean, dry and intact, normal sensation to light touch, good capillary refill Procedures Date of Service Date of Service: 03/19/24 Progress Note: A&P Assessment and plan (1) Closed hip fracture: Status: Acute Assessment and Plan: Mr. Simental is doing well after undergoing open reduction and internal fixation of his right hip fracture on 03/14/2024. Continue toe-touch weight-bearing for now. medical staff services coordinator for inpatient rehabilitation. The patient is stable at present. Time Spent With Patient Time: Total time managing care of this patient today 10 minutes. Quality Stroke Does the patient have a stroke diagnosis?: No VTE Prior VTE?: No VTE Risk Level:: Medical - moderate - high VTE Device Contraindication: Treatment Not Indicated VTE Drug Contraindication: N/A - Med Ordered
[2024-03-19 10:30] LABS: Hematocrit 29.7 % (42.0-52.0); Hemoglobin 9.7 g/dl (14.0-18.0)
--- NOTE | 2024-03-19 11:12 | MHC.CM.PN ---
CM MET WITH PT AND FRIEND AT BEDSIDE THEY CONFIRM PTS 07/02 CARE, FROM [facility], WILL START TODAY AT 1500 HOURS THEY ALSO CONFIRM PT HAS AN UPDATED MOLST AT HOME ON THE [place]ID[place] THAT STATES DNR/DNI, THE ONE ON FILE IS INVALID CM CONTACTED [facility], WHO WILL REACH OUT TO PTS RN CM WILL BOOK BLS TRANSPORT WITH [facility]
--- NOTE | 2024-04-10 07:44 | W.PM.OPN ---
Operative Note Operative Note Date of Service: 03/14/24 Narrative: Date of Service: 03/14/24 Pre-op diagnosis: Right hip IT fracture Post-op diagnosis: same Procedure: ORIF right intertrochanteric fracture Implants: Esteban DHS 130 deg 4 hole with a 90 mm 6.5 cannulated screw Surgeon: Rian Angeles MD Anesthesia: GLMA and local Was an Brake Operator Sheet Metal used for this Procedure?: Yes Brake Operator Sheet Metal: Tyra Medley Estimated blood loss (mL): 150 IV fluids (mL): 850 Pathology: none sent Condition: stable Disposition: PACU Procedure in detail: Patient was brought to the operating room and prepped and draped in standard sterile fashion. Time-out was called to identify proper site procedure proper surgeon and IV antibiotics per weight were administered. He was positioned on the fracture table and a traction and slight internal rotation were performed and biplanar fluoroscopy confirmed initial fracture reduction. I then made a direct lateral incision over the distal aspect of the greater trochater. Dissection was taken down to bone and a guidwire was placed into the center of the femoral head on both the AP and lateral projection. A 130 deg DHS was selected and the guide was inserted over the wire. I measured a 90mm hip screw and the I over-reamed the guidewire and then inserted the 6.5 mm hip screw. I was satisfied iwth the tip-apex distance and the fracture reduction. Distally I was able to insert 4 bicortical scrs eith proximal of adjacent to the retrograde femoral nail. Given the nature of the fracture and the limitations of fixation given the recent distal fracture I placed one additional 6.5 mm cannulated screw across the femoral neck fracture. Final biplanar radiographs were taken. I was satisfied with the position of the hardware and the fracture reduction. I copiously irrigated closed with absorbable sutures gino and injected 30 mL of into the area of the incisions. Traction was let down patient was placed in sterile dressing awakened from anesthesia brought to recovery room stable condition there were no known complications.
== END 2024-03-19 14:12 | disposition home or self-care (01) | DRG 481 ==
LOC: HO.ED 05:30 → HO.EDOVER 06:01 → HO.S3 18:11
PROVIDERS: Orthopaedic Surgery; Admitting Provider Internal Medicine; Emergency Provider Emergency Medicine; PCP Internal Medicine; Visit Provider Internal Medicine
PROC: 0QS604Z Reposition Right Upper Femur with Internal Fixation Device, Open Approach (ICD-10-PCS; principal; 2024-03-14 13:40)
DX: S72.141A Displaced intertrochanteric fracture of right femur, initial encounter for closed fracture (principal); I48.20 Chronic atrial fibrillation, unspecified; I50.22 Chronic systolic (congestive) heart failure; D64.9 Anemia, unspecified; Z66 Do not resuscitate; W19.XXXA Unspecified fall, initial encounter; I25.10 Atherosclerotic heart disease of native coronary artery without angina pectoris; H54.8 Legal blindness, as defined in USA; E87.6 Hypokalemia; Z95.1 Presence of aortocoronary bypass graft; Z87.891 Personal history of nicotine dependence; Z79.01 Long term (current) use of anticoagulants; Z79.899 Other long term (current) drug therapy
CPT/HCPCS: 36415; 70450; 72125; 73502; 73700; 80048; 80053; 83735; 85014; 85018; 85025; 85027; 85610; 86850; 86900; 86901; 86920; 86922; 97163; 97167; 97530; 99285; C1713; J0131; J0690; J1650; J1805; J2250; J2270; J2371; J2405; J2598; J2704; J2795; J3010; P9016

== ENCOUNTER → 2024-03-12 05:59 | Outpatient (BNV) | payer MEDICARE, SELFPAY | PROVIDERS: Admitting Provider Internal Medicine; Emergency Provider Emergency Medicine; PCP Internal Medicine; Visit Provider Internal Medicine Cardiovascular Disease | DX: Z01.810 Encounter for preprocedural cardiovascular examination (principal) | CPT/HCPCS: 99222 ==

== ENCOUNTER → 2024-03-12 05:59 | Outpatient (BNV) | payer MEDICARE, SELFPAY | PROVIDERS: Admitting Provider Internal Medicine; Emergency Provider Emergency Medicine; PCP Internal Medicine; Visit Provider Physician Assistant | DX: S72.001A Fracture of unspecified part of neck of right femur, initial encounter for closed fracture (principal) | CPT/HCPCS: 27245; 99024 ==

== ENCOUNTER → 2024-03-12 05:59 | Outpatient (BNV) | payer MEDICARE, SELFPAY | PROVIDERS: Admitting Provider Internal Medicine; Emergency Provider Emergency Medicine; PCP Internal Medicine; Visit Provider Internal Medicine | DX: Z79.01 Long term (current) use of anticoagulants (principal); S72.009A Fracture of unspecified part of neck of unspecified femur, initial encounter for closed fracture; I50.20 Unspecified systolic (congestive) heart failure | CPT/HCPCS: 99223; 99232; 99239; 99499 ==